=== PATIENT | male | born 1965 | race Caucasian/White ===

== ENCOUNTER 2017-02-04 19:06 | Emergency (ER) | payer SELFPAY ==
[2017-02-04 19:08] VITALS: BP 166/104; PULSE 126; RESP 20; TEMP 98.6; O2SAT 98
[2017-02-04] MEDS ORDERED: SODIUM CHLORIDE 0.9% FLUSH 10 ML FLUSH IVF PRN (19:45)
[2017-02-04] MEDS ORDERED: ACETAMINOPHEN/HYDROcodone 325 MG/5 MG TAB PO ONE (19:45)
[2017-02-04 19:51] VITALS: BP 182/104; PULSE 125; RESP 16; TEMP 98.7; O2SAT 97
--- NOTE | 2017-02-04 20:21 | RADRPT ---
EXAM DATE/TIME: 02/04/2017 19:58 [facility] COMPARISON: No previous studies available for comparison. INDICATIONS : Chest pain. MEDICAL HISTORY : Smoker. SURGICAL HISTORY : None. ENCOUNTER: Initial ACUITY: 1 day PAIN SCORE: 10/10 LOCATION: Bilateral chest FINDINGS: A single view of the chest demonstrates minimal basilar atelectasis. No focal consolidation. Heart si ze within normal limits. No effusion. No pneumothorax. CONCLUSION: 1. Minimal basilar atelectasis. No effusion or pneumothorax. Venkat Canas MD on February 04, 2017 at 20:18 Board Certified Radiologist. This report was verified electronically.
[2017-02-04] MEDS ORDERED: METH10TA PO (20:25)
[2017-02-04] MEDS ORDERED: SODIUM CHLOR 0.9% 1000 ML INJ 1,000 ML IV ONE (20:45)
[2017-02-04 20:46] LABS: AUTOMATED NEUTROPHIL # 8.9 TH/MM3 (1.8-7.7); BASOPHIL % 0.4 % (0.0-2.0); EOSINOPHIL % 0.2 % (0.0-4.0); HEMATOCRIT 51.6 % (39.0-51.0); HEMO FLAGS DIFF FINAL; LYMPHOCYTE # 1.1 TH/MM3 (1.0-4.8); MEAN CELL VOLUME 99.5 FL (80.0-100.0); MEAN CORPUSCULAR HEMOGLOBIN 34.4 PG (27.0-34.0); MEAN CORPUSCULAR HGB CONC 34.6 % (32.0-36.0); MONO % 8.1 % (0.0-8.0); NEUT % 81.3 % (16.0-70.0); PLATELET COUNT 148 TH/MM3 (150-450); RED BLOOD COUNT 5.19 MIL/MM3 (4.50-5.90); RED CELL DISTRIBUTION WIDTH 13.2 % (11.6-17.2)
[2017-02-04 20:48] LABS: APTT (PATIENT) 31.7 SEC (24.3-30.1); INTERNATIONAL NORMALIZED RATIO 1.5 RATIO; PROTHROMBIN TIME - PATIENT 16.4 SEC (9.8-11.6)
[2017-02-04] MEDS ORDERED: MORPHINE SULFATE 4 MG/ML INJ IV PUSH ONE (21:00)
[2017-02-04 21:17] VITALS: BP 165/90; PULSE 100; RESP 16; O2SAT 98
[2017-02-04 21:57] LABS: ANION GAP 10 MEQ/L (5-15); BICARBONATE 22.4 MEQ/L (21.0-32.0); BLOOD UREA NITROGEN 10 MG/DL (7-18); CHLORIDE 101 MEQ/L (98-107); GLOMERULAR FILTRATION RATE 129 ML/MIN (>89); POTASSIUM 4.5 MEQ/L (3.5-5.1); SODIUM (NA) 133 MEQ/L (136-145)
[2017-02-04] MEDS ORDERED: IOHEXOL 350 MG/ML 10 ML VIAL (for RAD DIAG) IV ONE (22:30)
--- NOTE | 2017-02-04 22:38 | RADRPT ---
EXAM DATE/TIME: 02/04/2017 22:18 [facility] COMPARISON: No previous studies available for comparison. INDICATIONS : Left sided chest wall pain. IV CONTRAST: 75 cc Omnipaque 350 (iohexol) IV RADIATION DOSE: 5.94 CTDIvol (mGy) MEDICAL HISTORY : Hepatitis C. Substance abuse. SURGICAL HISTORY : Tonsillectomy. ENCOUNTER: Initial ACUITY: 1 day PAIN SCALE: 10/10 LOCATION: Left chest TECHNIQUE: Volumetric scanning of the chest was performed. Using automated exposure control and adjustment of t he mA and/or kV according to patient size, radiation dose was kept as low as reasonably achievable to obtain optimal diagnostic quality images. FINDINGS: There is no focal lung consolidation. Minimal dependent atelectasis and scarring at the lung bases. N o pleural pericardial effusion. Mild coronary calcifications. No acute bony abnormalities. No pneumot horax. There is a 2.1 cm left adrenal nodule is characteristic of an adenoma. Mild fatty liver. CONCLUSION: 1. No acute findings within the thorax. Basal atelectasis and scarring in the lungs. No acute bony ab normalities. No chest wall mass identified. No pneumothorax. Venkat Canas MD on February 04, 2017 at 22:33 Board Certified Radiologist. This report was verified electronically.
[2017-02-04] MEDS ORDERED: CYCL1TAB29 PO (23:06)
--- NOTE | 2017-02-04 23:07 | PD ---
HPI Chief Complaint: Musculoskeletal Complaint Time Seen by Provider: 19:37 Travel History International Travel<30 days: No Contact w/Intl Traveler<30days: No Traveled to known affect area: No History of Present Illness HPI Patient is a 51-year-old male who comes in complaining of pain to his chest wall that started after he was lifting a large TV a few days ago. He says he felt a pop at the time and immediately felt pain. He says his been taking ibuprofen at home without any relief of his pain. He denies any direct trauma to the area. He says taking deep breaths and movement make the pain worse. He denies any fever or chills. He denies nausea or vomiting. He says "I can't take anymore ibuprofen." PFSH Past Medical History Autoimmune Disease: No Blood Disorders: No Anxiety: No Depression: No Cancer: No Cardiovascular Problems: No Cerebrovascular Accident: No Diabetes: No Diminished Hearing: No Endocrine: No Genitourinary: No Hepatitis: Yes (C) Immune Disorder: No Musculoskeletal: Yes Neurologic: No Psychiatric: No Reproductive: No Respiratory: No Immunizations Current: No Migraines: No Seizures: No Thyroid Disease: No Tetanus Vaccination: < 5 Years Past Surgical History Tonsillectomy: Yes Other Surgery: No Social History Alcohol Use: Yes (1-2 beers a day) Tobacco Use: Yes (3 PPD) Substance Use: Yes (IV diladid last used yesterday. [facility]. ) Allergies-Medications (Allergen,Severity, Reaction): Coded Allergies: Tylenol (Verified Allergy, Unknown, 02/04/17) *MDRO Multi-Drug Resistant Organism (Unverified Adverse Reaction, Unknown , 02/04/17) MRSA arm wound, 2004. MRSA PCR screen #1 negative 11/17/14. Reported Meds & Prescriptions Reported Meds & Active Scripts Active Reported Methadone (Methadone HCl) 10 Mg Tab 35 Mg PO DAILY Review of Systems Except as stated in HPI: all other systems reviewed are Neg General / Constitutional: No: Fever, Chills HENT: No: Headaches, Lightheadedness Respiratory: Positive: Cough, No: Shortness of Breath Gastrointestinal: No: Nausea, Vomiting Musculoskeletal: Positive: Pain Skin: No Rash, No Change in Pigmentation Neurologic: No: Weakness, Dizziness Physical Exam Narrative GENERAL: Awake and alert, no acute distress. SKIN: Focused skin assessment warm/dry. No rashes or signs of infection. He does have track chávez. HEAD: Atraumatic. Normocephalic. EYES: Pupils equal and round. No scleral icterus. No injection or drainage. ENT: Mucous membranes pink and moist. NECK: Trachea midline. No JVD. CARDIOVASCULAR: Tachycardia. No murmur appreciated. Tender to palpation of the chest wall, just below the left clavicle. Since the area he says is hurting him. RESPIRATORY: No accessory muscle use. Clear to auscultation. Breath sounds equal bilaterally. GASTROINTESTINAL: Abdomen soft, non-tender, nondistended. MUSCULOSKELETAL: No obvious deformities. No clubbing. No cyanosis. No edema. NEUROLOGICAL: Awake and alert. No obvious cranial nerve deficits. Motor grossly within normal limits. Normal speech. PSYCHIATRIC: Appropriate mood and affect; insight and judgment normal. Data Data Last Documented VS Vital Signs Date Time Temp Pulse Resp B/P Pulse Ox O2 Delivery O2 Flow Rate FiO2 02/04/17 21:17 100 16 165/90 98 Room Air 02/04/17 19:51 98.7 Orders Electrocardiogram (02/04/17 19:43) Basic Metabolic Panel (Bmp) (02/04/17 19:43) Complete Blood Count With Diff (02/04/17 19:43) Prothrombin Time / Inr (Pt) (02/04/17 19:43) Act Partial Throm Time (Ptt) (02/04/17 19:43) Troponin I (02/04/17 19:43) Lipase (02/04/17 19:43) Chest, Single Ap (02/04/17 19:43) Ecg Monitoring (02/04/17 19:43) Bilateral Bp Monitoring (02/04/17 19:43) Iv Access Insert/Monitor (02/04/17 19:43) Oximetry (02/04/17 19:43) Oxygen Administration (02/04/17 19:43) Sodium Chloride 0.9% Flush (Ns Flush) (02/04/17 19:45) Ct Thorax/ Chest W Iv Contrast (02/04/17 ) Acetamin-Hydrocod 325-5 Mg ([place] 5-325 (02/04/17 19:45) Sodium Chlor 0.9% 1000 Ml Inj (Ns 1000 M (02/04/17 20:45) Morphine Inj (Morphine Inj) (02/04/17 21:00) Iohexol 350 Inj (Omnipaque 350 Inj) (02/04/17 22:30) Labs Laboratory Tests Test 02/04/17 02/04/17 20:20 21:15 White Blood Count 11.0 TH/MM3 Red Blood Count 5.19 MIL/MM3 Hemoglobin 17.9 GM/DL Hematocrit 51.6 % Mean Corpuscular Volume 99.5 FL Mean Corpuscular Hemoglobin 34.4 PG Mean Corpuscular Hemoglobin 34.6 % Concent Red Cell Distribution Width 13.2 % Platelet Count 148 TH/MM3 Mean Platelet Volume 9.9 FL Neutrophils (%) (Auto) 81.3 % Lymphocytes (%) (Auto) 10.0 % Monocytes (%) (Auto) 8.1 % Eosinophils (%) (Auto) 0.2 % Basophils (%) (Auto) 0.4 % Neutrophils # (Auto) 8.9 TH/MM3 Lymphocytes # (Auto) 1.1 TH/MM3 Monocytes # (Auto) 0.9 TH/MM3 Eosinophils # (Auto) 0.0 TH/MM3 Basophils # (Auto) 0.0 TH/MM3 CBC Comment DIFF FINAL Differential Comment Prothrombin Time 16.4 SEC Prothromb Time International 1.5 RATIO Ratio Activated Partial 31.7 SEC Thromboplast Time Sodium Level 133 MEQ/L Potassium Level 4.5 MEQ/L Chloride Level 101 MEQ/L Carbon Dioxide Level 22.4 MEQ/L Anion Gap 10 MEQ/L Blood Urea Nitrogen 10 MG/DL Creatinine 0.65 MG/DL Estimat Glomerular Filtration 129 ML/MIN Rate Random Glucose 110 MG/DL Calcium Level 8.6 MG/DL Troponin I LESS THAN 0.02 NG/ML Lipase 87 U/L [facility] Medical Decision Making Medical Screen Exam Complete: Yes Emergency Medical Condition: Yes Interpretation(s) ECG shows sinus tachycardia 120, no ST elevation or depression. Differential Diagnosis Chest wall pain versus rib fracture versus pneumothorax versus muscle strain Narrative Course Patient is a 51-year-old male comes in complaining of chest wall pain after lifting and large television. Exam shows tenderness to palpation just below the left clavicle. IV established, labs sent. Patient given [place] for pain. Given IV fluids. Patient told the nurse that he takes methadone and has not had the methadone in the past 2 days. He does admit to buying Dilaudid on the street yesterday. He told the nurse that this is how he feels when he misses his methadone. Labs show hemoconcentration, likely dehydration. He continued to complain of pain. Given a dose of morphine. Patient's tachycardia improved after pain medicine and IV fluids. Chest x-ray and CT of the chest show no acute abnormalities. Patient advised he likely strained muscle. Advised he should report to his methadone clinic tomorrow. Given a prescription for muscle relaxers. Advised follow-up with a primary care doctor. Advised to return to the ED as needed for any worsening symptoms. Last 24 hours Impressions Chest X-Ray 02/04/17 1943 Signed Impressions: Service Date/Time: Saturday, February 04, 2017 19:58 - CONCLUSION: 1. Minimal basilar atelectasis. No effusion or pneumothorax. Venkat Canas MD Chest CT 02/04/17 0000 Signed Impressions: Service Date/Time: Saturday, February 04, 2017 22:18 - CONCLUSION: 1. No acute findings within the thorax. Basal atelectasis and scarring in the lungs. No acute bony abnormalities. No chest wall mass identified. No pneumothorax. Venkat Canas MD Diagnosis Primary Impression: Chest wall pain Patient Instructions: Chest Wall Pain (ED), General Instructions, Muscle Strain (ED) Additional Instructions: Take ibuprofen and muscle relaxers as needed for pain. Follow-up with her primary care doctor. Return to the ED as needed for any worsening symptoms. Scripts Cyclobenzaprine (Flexeril)10 Mg Tab10 Mg PO TID #15 TAB Ref 0 Prov:Chery Hernández MD 02/04/17 Disposition: 01 DISCHARGE HOME Condition: Stable Chery Hernández MD Feb 04, 2017 23:07
--- NOTE | 2017-02-05 09:36 | EKG ---
Date Performed: 02/04/2017 Time Performed: 20:40:24 PTAGE: 51 years EKG: SINUS TACHYCARDIA POSSIBLE RIGHT VENTRICULAR CONDUCTION DELAY ABNORMAL RHYTHM ECG PREVIOUS TRACING : 06/16/2015 10.50 DOCTOR: Simone Kwok Interpretating Date/Time 02/05/2017 09:31:59
== END 2017-02-04 23:34 | disposition home or self-care (01) ==
LOC: NEPC 19:06
DX: R07.89 Other chest pain (principal); F17.210 Nicotine dependence, cigarettes, uncomplicated; B19.20 Unspecified viral hepatitis C without hepatic coma; R05 Cough; R00.0 Tachycardia, unspecified
CPT/HCPCS: 71010; 71260; 80048; 83690; 84484; 85025; 85610; 85730; 93005; 96374; 99285; J2270; J7030; Q9967

== ENCOUNTER 2017-02-07 21:33 | Inpatient (IN) | payer SELFPAY ==
[~2017-02-07] VITALS: Ht 185.4 cm; Wt 102.8 kg
[~2017-02-07 21:33] MED LIST: CYCL1TAB29 PO; METH10TA PO
[2017-02-07 21:36] VITALS: BP 182/90; PULSE 146; RESP 22; TEMP 99.1; O2SAT 98
--- NOTE | 2017-02-07 22:13 | PD ---
HPI Chief Complaint: Injury Time Seen by Provider: 22:13 Travel History International Travel<30 days: No Contact w/Intl Traveler<30days: No Traveled to known affect area: No History of Present Illness HPI 51-year-old male with a history of chronic pain and IV drug use presents to the emergency department for evaluation of left chest wall pain. The patient states that 5 days ago he was moving a large television when he felt a pop in his left chest wall. States that he had immediate pain in this location and has had worsening pain since then. States it is also noticed swelling of his left pectoralis muscle and the pain is aggravated with movement of his arms, specifically the left arm. He denies any shortness of breath, difficulty breathing, lightheadedness, dizziness, nausea, vomiting, diarrhea. States that he was seen here 3 days ago and had labs and imaging that were unremarkable and was discharged on Flexeril. States that this has not been controlling his pain. The patient does admit to using IV Dilaudid occasionally, states he has used in the last month. No other complaints. PFSH Past Medical History Autoimmune Disease: No Blood Disorders: No Anxiety: No Depression: No Cancer: No Cardiovascular Problems: No Cerebrovascular Accident: No Diabetes: No Diminished Hearing: No Endocrine: No Genitourinary: No Hepatitis: Yes (C) Immune Disorder: No Musculoskeletal: Yes Neurologic: No Psychiatric: No Reproductive: No Respiratory: No Immunizations Current: No Migraines: No Seizures: No Thyroid Disease: No Past Surgical History Tonsillectomy: Yes Other Surgery: No Social History Alcohol Use: Yes (1-2 beers a day) Tobacco Use: Yes (3 PPD) Substance Use: Yes (IV diladid last used yesterday. [facility]. ) Allergies-Medications (Allergen,Severity, Reaction): Coded Allergies: Tylenol (Verified Allergy, Unknown, 02/04/17) *MDRO Multi-Drug Resistant Organism (Unverified Adverse Reaction, Unknown , 02/04/17) MRSA arm wound, 2004. MRSA PCR screen #1 negative 11/17/14. Reported Meds & Prescriptions Reported Meds & Active Scripts Active Flexeril (Cyclobenzaprine HCl) 10 Mg Tab 10 Mg PO TID Reported Methadone (Methadone HCl) 10 Mg Tab 35 Mg PO DAILY Review of Systems Except as stated in HPI: all other systems reviewed are Neg Physical Exam Narrative GENERAL: Well-nourished and well-developed male patient in moderate amount of pain but no acute distress. SKIN: Warm and dry. HEAD: Normocephalic and atraumatic. EYES: No injection, drainage, or hyphema noted. PERRLA. EOMI. ENT: No nasal drainage noted. Oropharynx is clear. NECK: Supple and the trachea is midline. CARDIOVASCULAR: Regular rate and rhythm. RESPIRATORY: Breath sounds are equal bilaterally with no accessory muscle use, wheezing, rhonchi, or crackles. CHEST: Left pectoris muscle is swollen, firm and tender to palpation from just left of the sternum to the left axilla. No erythema or warmth. GASTROINTESTINAL: Abdomen is soft, non-tender, and nondistended. MUSCULOSKELETAL: No obvious deformities, swelling, cyanosis, or ecchymosis is present throughout the upper and lower extremities. Patient has full range of motion without any signs of neurovascular compromise. . NEUROLOGICAL: Awake, alert, and oriented. Normal speech and gait. Cranial nerves are grossly intact. Data Data Last Documented VS Vital Signs Date Time Temp Pulse Resp B/P Pulse Ox O2 Delivery O2 Flow Rate FiO2 02/07/17 21:36 99.1 146 22 182/90 98 Room Air Orders Us Soft Tissue (02/07/17 ) Iv Access Insert/Monitor (02/07/17 22:11) Ecg Monitoring (02/07/17 22:11) Oximetry (02/07/17 22:11) Morphine Inj (Morphine Inj) (02/07/17 22:15) Ondansetron Inj (Zofran Inj) (02/07/17 22:15) Sodium Chloride 0.9% Flush (Ns Flush) (02/07/17 22:15) Ice/Cold Pack (02/07/17 22:13) Electrocardiogram (02/07/17 22:20) MDM Medical Decision Making Medical Screen Exam Complete: Yes Emergency Medical Condition: Yes Differential Diagnosis Muscle strain versus muscle tear versus hematoma Narrative Course 51-year-old male presents to the emergency department for evaluation of left chest wall pain after lifting something heavy 5 days ago and feeling a pop in his left chest wall. Patient is afebrile, vital signs reveal tachycardia initially with a heart rate of 146 bpm. Otherwise vital signs within normal limits. He does have swelling of the left pectoris muscle tenderness to palpation. He was seen 3 days ago in our emergency department and had lab work and a chest CT that were unremarkable. His pain is persisted. We'll do an ultrasound to rule out any hematoma formation. Patient is administered pain medication. Patient signed out to Dr. Miller who will assume care of the patient and disposition pending results of imaging. Sarai Hernandez Feb 07, 2017 22:13
[2017-02-07] MEDS ORDERED: ONDANSETRON HCL 4 MG/2 ML VIAL IVP ONE (22:15)
[2017-02-07] MEDS ORDERED: SODIUM CHLORIDE 0.9% FLUSH 10 ML FLUSH IV FLUSH PRN (22:15)
[2017-02-07] MEDS ORDERED: MORPHINE SULFATE 4 MG/ML INJ IV PUSH ONE (22:15)
--- NOTE | 2017-02-07 22:33 | PD ---
Physical Exam Narrative General: The patient is a well-developed well-nourished male, uncomfortable appearing on arrival reporting left chest wall pain. Head and Neck exam: Head is normocephalic atraumatic. Eyes: EOMI, pupils are equal round and reactive to light. Nose: Midline septum with pink mucous membranes Mouth: Dentition unremarkable. Moist mucus membranes. Posterior oropharynx is not erythematous. No tonsillar hypertrophy. Uvula midline. Airway patent. Neck: No palpable lymphadenopathy. No nuchal rigidity. No thyromegaly. Cardiovascular: Sinus tachycardia in the 140s without murmurs, gallops, or rubs. No pulse deficit to the extremities and simultaneous auscultation and palpation of his radial artery. Chest Wall: Left chest is bigger compared to the right with pectoral muscle TTP medially and edema palpated in the soft tissues overlying the left chest. No crepitus. No flail segment. No pointing. No vesicle formation. Lungs: Clear to auscultation bilaterally. No wheezes, rhonchi, or rales. Abdomen: Soft, without tenderness to palpation in all 4 quadrants of the abdomen. No guarding, rebound, or rigidity. Normal bowel sounds are audible. No TTP over McBurney's point. Extremities: No clubbing, cyanosis, or edema. 2+ pulses in all 4 extremities. Back: No spinous process tenderness to palpation. No costovertebral angle tenderness to palpation. Neurologic Exam: Cranial nerves 2-12 were intact on exam. Strength is 5/5 in all 4 extremities. No sensory deficits noted. Skin Exam: No rash noted. Intact skin that is warm and dry. Data Data Last Documented VS Vital Signs Date Time Temp Pulse Resp B/P Pulse Ox O2 Delivery O2 Flow Rate FiO2 02/08/17 00:28 137 22 134/82 98 Room Air 02/07/17 21:36 99.1 Orders Us Soft Tissue (02/07/17 ) Iv Access Insert/Monitor (02/07/17 22:11) Ecg Monitoring (02/07/17 22:11) Oximetry (02/07/17 22:11) Morphine Inj (Morphine Inj) (02/07/17 22:15) Ondansetron Inj (Zofran Inj) (02/07/17 22:15) Sodium Chloride 0.9% Flush (Ns Flush) (02/07/17 22:15) Ice/Cold Pack (02/07/17 22:13) Electrocardiogram (02/07/17 22:20) Ribs, Uni (W/Exp Cxr-Min 3vw) (02/07/17 ) Complete Blood Count With Diff (02/07/17 23:35) Basic Metabolic Panel (Bmp) (02/07/17 23:35) Urinalysis - C+S If Indicated (02/07/17 23:35) Thyroid Stimulating Hormone (02/07/17 23:35) Troponin I (02/07/17 23:35) Sodium Chlor 0.9% 1000 Ml Inj (Ns 1000 M (02/07/17 23:45) Ondansetron Inj (Zofran Inj) (02/07/17 23:45) Hydromorphone Pf Inj (Dilaudid Pf Inj) (02/07/17 23:45) Blood Culture (02/08/17 02:00) Lactic Acid Sepsis Protocol (02/08/17 02:00) Sodium Chlor 0.9% 1000 Ml Inj (Ns 1000 M (02/08/17 02:01) Sodium Chlor 0.9% 1000 Ml Inj (Ns 1000 M (02/08/17 02:01) Sodium Chlor 0.9% 1000 Ml Inj (Ns 1000 M (02/08/17 02:01) Piperacil-Tazo 3.375 Gm Premix (Zosyn 3. (02/08/17 02:15) Admit Order (Ed Use Only) (02/08/17 02:09) Labs Laboratory Tests Test 02/07/17 23:42 White Blood Count 22.0 TH/MM3 Red Blood Count 4.94 MIL/MM3 Hemoglobin 17.1 GM/DL Hematocrit 49.3 % Mean Corpuscular Volume 99.8 FL Mean Corpuscular Hemoglobin 34.7 PG Mean Corpuscular Hemoglobin 34.8 % Concent Red Cell Distribution Width 13.4 % Platelet Count 214 TH/MM3 Mean Platelet Volume 10.5 FL Neutrophils (%) (Auto) 79.8 % Lymphocytes (%) (Auto) 4.7 % Monocytes (%) (Auto) 14.7 % Eosinophils (%) (Auto) 0.1 % Basophils (%) (Auto) 0.7 % Neutrophils # (Auto) 17.6 TH/MM3 Lymphocytes # (Auto) 1.0 TH/MM3 Monocytes # (Auto) 3.2 TH/MM3 Eosinophils # (Auto) 0.0 TH/MM3 Basophils # (Auto) 0.2 TH/MM3 CBC Comment AUTO DIFF Differential Total Cells 100 Counted Neutrophils % (Manual) 68 % Band Neutrophils % 13 % Lymphocytes % 7 % Monocytes % 10 % Neutrophils # (Manual) 18.3 TH/MM3 Metamyelocytes 2 % Differential Comment FINAL DIFF MANUAL Platelet Estimate NORMAL Platelet Morphology Comment NORMAL Prothrombin Time 12.7 SEC Prothromb Time International 1.1 RATIO Ratio Activated Partial 32.5 SEC Thromboplast Time Sodium Level 132 MEQ/L Potassium Level 3.8 MEQ/L Chloride Level 96 MEQ/L Carbon Dioxide Level 24.5 MEQ/L Anion Gap 12 MEQ/L Blood Urea Nitrogen 22 MG/DL Creatinine 1.16 MG/DL Estimat Glomerular Filtration 66 ML/MIN Rate Random Glucose 76 MG/DL Calcium Level 8.9 MG/DL Total Bilirubin 2.5 MG/DL Direct Bilirubin 1.4 MG/DL Indirect Bilirubin 1.1 MG/DL Aspartate Amino Transf 38 U/L (AST/SGOT) Alanine Aminotransferase 66 U/L (ALT/SGPT) Alkaline Phosphatase 107 U/L Troponin I LESS THAN 0.02 NG/ML Total Protein 8.7 GM/DL Albumin 2.9 GM/DL Thyroid Stimulating Hormone 3.710 uIU/ML 3rd Gen Acetaminophen Level LESS THAN 2.0 MCG/ML [facility] Medical Record Reviewed: Yes Supervised Visit with LAVERN: Yes Interpretation(s) Last Impressions Chest CT 02/08/17 0000 Signed Impressions: Service Date/Time: Wednesday, February 08, 2017 09:15 - CONCLUSION: 1. Diffuse enlargement of the left pectoralis muscle with infiltration of the soft tissues surrounding the left pectoralis muscle suggestive of injury/tear of this muscle. Clinical correlation is recommended. 2. Tiny bilateral pleural effusions with bibasilar atelectasis. 3. Cardiomegaly and coronary artery calcifications. 4. Mild splenomegaly. 5. Left adrenal nodule measuring 2.4 x 2.2 cm. 5. Mild degenerative changes and scoliosis of the thoracolumbar spine. Jose Reddy MD Soft Tissue Ultrasound 02/07/17 0000 Signed Impressions: Service Date/Time: Tuesday, February 07, 2017 23:16 - CONCLUSION: There is subcutaneous edema. Amber Sandoval MD Ribs X-Ray 02/07/17 0000 Signed Impressions: Service Date/Time: Tuesday, February 07, 2017 23:39 - CONCLUSION: No definite displaced rib fractures. Amber Sandoval MD Differential Diagnosis Left chest hematoma, versus pectoral muscle tear, versus abscess, versus acute coronary syndrome Narrative Course During the course of the patients emergency department visit, the patients history, examination, and differential diagnosis were reviewed with the patient. The patient had IV access obtained and blood work sent for analysis. The patient was placed on a air sampling and monitoring with oximetry and blood pressure monitoring. An EKG was done on arrival. The patient's EKG showed sinus tachycardia. The patient was also noted to be hypertensive, initially it was suspected that the patient's pain was the cause. The patient's case was checked out to me by Sarai, please see her complete history and physical. The patient is a 51-year-old male who presents to [facility] emergency Department with a history of doing some heavy lifting 3 days ago when he bent down and picked up a large television. He reports that he felt a pop in the left side of his chest and immediate pain. He reports that he came to the emergency department for evaluation and treatment and from reviewing the record the patient had a full workup done including a CT scan of the chest. The patient was diagnosed with musculoskeletal strain and was discharged home with a muscle relaxer. The patient reports to me that he does have a history of IV drug use and has been self-medicating with hydromorphone and fentanyl. The patient reports that he has basically been laying down related to the pain. He reports having poor by mouth intake related to the pain. He also reports having a productive cough, however whenever he coughs he is lightheaded and near syncopal. The patient was initially provided morphine for pain, Zofran for nausea. After my evaluation, the patient was also given a liter of normal saline IV fluids for tachycardia. The patient continued to have pain and was given hydromorphone 1 mg IV. Laboratory studies were ordered. An ultrasound of the left pectoral muscle was ordered to evaluate for possible underlying hematoma versus abscess. A rib series was ordered. The patients laboratory studies were reviewed and remarkable for a white count of 22, hemoglobin 17.1, platelets 214, neutrophils 79.8, monocytes 14.7, basic metabolic profile is remarkable for a sodium of 132, chloride 96, BUN 22, GFR 66 , troponin I less than 0.02, TSH 3.71 Radiology studies were reviewed and remarkable for an ultrasound that shows subcutaneous edema, no fluid collections. Rib series reveals no definite displaced rib fractures, basilar atelectasis on the left is noted. Given the patient's elevated white count and cough with tachycardia, I am concerned about a pneumonia developing in the left lung field at the patient is splinting his breathing. Lactic acid was sent, blood cultures 2 were sent. The patient is also at risk for sepsis related to his IV drug use. The patient was started on vancomycin 1 g IV, Zosyn 3.375 g IV. The patient will be admitted to the hospital for pain control and continued evaluation and treatment. The patient' s heart rate did began to improve and was down to the 120s after the initial liter of normal saline and hydromorphone for pain. An ABG revealed no acidosis. Tylenol and Aspirin level were unremarkable. LFTs were improved compared to prior levels at this facility. The patients results were discussed with the patient, including the plan of care. I explained that further testing and/ or monitoring is indicated based on the patients history, examination, and/ or laboratory findings. Therefore, I recommended admission for additional evaluation. The patient expressed understanding and was agreeable with this plan. The patient was admitted to the hospital in stable condition and sent to a bed under the care of the [facility] service. Sepsis Criteria SIRS Criteria (2 or more): Heart rate over 90, WBC > 54956, < 4000 or > 10% bands Severe Sepsis (+one): Lactate >2 Physician Communication Physician Communication The patient's case was d/w Dr. Porter who agreed with the plan to proceed with admission. Diagnosis Primary Impression: Chest wall pain Additional Impressions: Leukocytosis Qualified Code: D72.829 - Leukocytosis, unspecified type Lung infiltrate Admitting Information Admitting Physician Requests: Admit Enedelia Miller MD Feb 07, 2017 22:33
[2017-02-07 22:50] VITALS: BP 124/94; PULSE 146; RESP 22; O2SAT 98
[2017-02-07] MEDS ORDERED: HYDROmorphone HCL PF 1 MG/ML VIAL IV PUSH ONE (23:45)
[2017-02-07] MEDS ORDERED: SODIUM CHLOR 0.9% 1000 ML INJ 1,000 ML IV ONE (23:45)
[2017-02-07] MEDS ORDERED: ONDANSETRON HCL 4 MG/2 ML VIAL IV ONE (23:45)
[2017-02-08] VITALS (12 sets, daily range): BP systolic 120–149; BP diastolic 77–97; PULSE 97–139; RESP 20–22; TEMP 96.4–99.9; O2SAT 93–99
--- NOTE | 2017-02-08 00:01 | RADRPT ---
EXAM DATE/TIME: 02/07/2017 23:39 [facility] COMPARISON: No previous studies available for comparison. INDICATIONS : Rib pain. MEDICAL HISTORY : None. SURGICAL HISTORY : None. ENCOUNTER: Initial ACUITY: 1 day PAIN SCORE: 0/10 LOCATION: Left ribs FINDINGS: No definite displaced rib fractures or pneumothorax is identified. There is slight atelectasis in the left lung base. CONCLUSION: No definite displaced rib fractures. Amber Sandoval MD on February 07, 2017 at 23:58 Board Certified Radiologist. This report was verified electronically.
--- NOTE | 2017-02-08 00:04 | RADRPT ---
EXAM DATE/TIME: 02/07/2017 23:16 [facility] COMPARISON: CT THORAX W CONTRAST, February 04, 2017, 22:18. INDICATIONS : Left chest swelling, redness and pain. MEDICAL HISTORY : Hepatitis C. Head trauma. Liver disease. Substance abuse. IV drug user. MRSA. SURGICAL HISTORY : Tonsillectomy. ENCOUNTER: Initial ACUITY: 1 day PAIN SCORE: 8/10 LOCATION: Left chest AREA EVALUATED: Left anterior chest/breast. FINDINGS: Examination of the left chest with dedicated and focused attention to the area of the clinical concer n demonstrates edema without focal pockets of fluid collections or mass. CONCLUSION: There is subcutaneous edema. Amber Sandoval MD on February 08, 2017 at 0:01 Board Certified Radiologist. This report was verified electronically.
[2017-02-08 01:06] LABS: AUTOMATED NEUTROPHIL # 17.6 TH/MM3 (1.8-7.7); BASOPHIL # 0.2 TH/MM3 (0-0.2); BASOPHIL % 0.7 % (0.0-2.0); EOSINOPHIL % 0.1 % (0.0-4.0); HEMATOCRIT 49.3 % (39.0-51.0); LYMPH % 4.7 % (9.0-44.0); MEAN CELL VOLUME 99.8 FL (80.0-100.0); MEAN CORPUSCULAR HEMOGLOBIN 34.7 PG (27.0-34.0); MEAN CORPUSCULAR HGB CONC 34.8 % (32.0-36.0); MONO % 14.7 % (0.0-8.0); NEUT % 79.8 % (16.0-70.0); PLATELET COUNT 214 TH/MM3 (150-450); RED BLOOD COUNT 4.94 MIL/MM3 (4.50-5.90); RED CELL DISTRIBUTION WIDTH 13.4 % (11.6-17.2)
[2017-02-08 01:09] LABS: HEMO FLAGS AUTO DIFF
[2017-02-08 01:43] LABS: ANION GAP 12 MEQ/L (5-15); BICARBONATE 24.5 MEQ/L (21.0-32.0); BLOOD UREA NITROGEN 22 MG/DL (7-18); CHLORIDE 96 MEQ/L (98-107); GLOMERULAR FILTRATION RATE 66 ML/MIN (>89); POTASSIUM 3.8 MEQ/L (3.5-5.1); SODIUM (NA) 132 MEQ/L (136-145)
[2017-02-08] MEDS ORDERED: SODIUM CHLOR 0.9% 1000 ML INJ 700 ML IV ONE (02:01)
[2017-02-08] MEDS ORDERED: SODIUM CHLOR 0.9% 1000 ML INJ 1,000 ML IV ONE ×2 (02:01)
[2017-02-08 02:05] LABS: BANDS 13 % (0-6); METAMYELOCYTES 2 % (0-1); NEUTROPHIL # MANUAL DIFF 18.3 TH/MM3 (1.8-7.7); POLYS (SEG NEUTROPHILS) 68 % (16-70); WBC DIFF SAMPLE 100
[2017-02-08 02:06] LABS: PLATELET ESTIMATE SMEAR NORMAL (NORMAL); PLATELET MORPHOLOGY NORMAL (NORMAL); SCAN/DIFF FINAL DIFF MANUAL
[2017-02-08] MEDS ORDERED: PIPERACIL-TAZO 3.375 GM PREMIX 50 ML IV ONE (02:15)
[2017-02-08] MEDS ORDERED: VANCOMYCIN INJ 1,000 MG in SODIUM CHLOR 0.9% 250 ML INJ 250 ML IV ONE (02:15)
[2017-02-08] MEDS ORDERED: SODIUM CHLORIDE 0.9% FLUSH 10 ML FLUSH IV FLUSH PRN (02:45)
[2017-02-08] MEDS ORDERED: NALOXONE HCL 0.4 MG/ML AMP IV PRN (02:45)
[2017-02-08] MEDS ORDERED: ONDANSETRON HCL 4 MG/2 ML VIAL IVP PRN (02:45)
[2017-02-08] MEDS ORDERED: Vancomycin Consult Pharmacy 1 EA OTHER SCH (02:45)
[2017-02-08 02:49] LABS: BLOOD GAS BASE EXCESS -3.9 mmol/L (-2-2); BLOOD GAS CARBOXYHEMOGLOBIN 4.2 % (0-4); BLOOD GAS HCO3 20 mmol/L (22-26); BLOOD GAS METHEMOGLOBIN 0.6 % (0-2); BLOOD GAS O2 HGB SATURATION 87 % (90-100); BLOOD GAS OXYGEN CONTENT 20.2 Vol % (12.0-20.0); BLOOD GAS PCO2 29 mmHg (38-42); BLOOD GAS PO2 52 mmHG (61-120); BLOOD GAS TOTAL HGB 16.6 G/DL (12.0-16.0); DRAW SITE RT RADIAL; FIO2 21 %; OXYGEN DEVICE ROOM AIR; TEMP CORR TO 98.6
[2017-02-08 02:50] LABS: NUMBER OF ARTERIAL PUNCTURES 1; STAT YES; ULNAR PULSE PRESENT
[2017-02-08 03:01] LABS: APTT (PATIENT) 32.5 SEC (24.3-30.1); INTERNATIONAL NORMALIZED RATIO 1.1 RATIO; PROTHROMBIN TIME - PATIENT 12.7 SEC (9.8-11.6)
[2017-02-08 03:09] LABS: ALT (GPT) 66 U/L (12-78); AST (GOT) 38 U/L (15-37)
[2017-02-08 03:10] LABS: ACETAMINOPHEN LESS THAN 2.0 MCG/ML (10.0-30.0); ALKALINE PHOSPHATASE 107 U/L (45-117); INDIRECT BILIRUBIN 1.1 MG/DL (0.0-0.8); TOTAL BILIRUBIN ADULT 2.5 MG/DL (0.2-1.0)
[2017-02-08] MEDS ORDERED: HYDROmorphone HCL PF 1 MG/ML VIAL IV PUSH ONE (03:15)
[2017-02-08] MEDS ORDERED: PANTOPRAZOLE SODIUM 40 MG VIAL IV PUSH ONE (03:15)
[2017-02-08 03:29] LABS: BLOOD, URINE NEG (NEG); COMMENT (UR) CULT NOT INDICATED; CULTURE IF INDICATED CULT NOT INDICATED; GLUCOSE,URINE NEG (NEG); KETONE, URINE NEG (NEG); MUCUS URINE FEW /lpf (OCC); NITRITE,URINE NEG (NEG); SQUAMOUS EPITHELIAL CELL URINE <1 /hpf (0-5); URINE COLOR DARK-YELLOW (YELLW/STRAW)
[2017-02-08 04:33] LABS: LACTIC ACID GHOST NOT REPORTABLE
[2017-02-08] MEDS ORDERED: VANCOMYCIN 1,500 MG/NS 500 ML IV ONE ×2 (05:00)
[2017-02-08] MEDS ORDERED: KETOROLAC TROMETHAMINE 30 MG/ML (IVP) VIAL IV PUSH PRN (05:15)
[2017-02-08] MEDS ORDERED: ALPRAZolam 0.25 MG TAB PO ONE (05:30)
[2017-02-08] MEDS ORDERED: HYDROmorphone HCL PF 1 MG/ML VIAL IV PUSH PRN (06:00)
--- NOTE | 2017-02-08 06:06 | HHI.HP ---
HPI Service [facility] Primary Care Physician No Primary Care Physician Admission Diagnosis Left chest wall injury, Left lung infiltrate, tachycardia Diagnoses: Travel History International Travel<30 Days: No Contact w/Intl Traveler <30 Da: No Traveled to Known Affected Are: No Sepsis Criteria SIRS Criteria (2 or more): Heart rate over 90, WBC > 57031, < 4000 or > 10% bands Sepsis Criteria (SIRS+source): Infect source susp/known Severe Sepsis (+one): Lactate >2 Criteria Outcome: Meets severe sepsis criteria History of Present Illness history from patient, at the bedside, and review of medical records. Patient reported that on February 02, 2017, he was trying to lift a 50 inch TV as they were moving into a new home. In so doing, he felt he pulled a muscle on his left pectoralis and felt a pop. He presented to our emergency room on February 04, 2017 and has had a chest x-ray and CT chest done which was essentially negative. He was discharged home on Flexeril. He reports that for the past 4 days, he has been in severe pain, and was not able to move much at all. He was not able to sleep or lie down flat at all. He reports it hurts even when he takes a deep breath. His muscle on the left pectoralis also had gotten bigger and bigger and swollen. He reports he took multiple doses of aspirin and multiple doses of Tylenol to numb the pain. He then started having bloody urination which was why he also came to hospital. He denies any fever though. Denies any cough. Denies any urinary burning or pain on urination. Denies diarrhea. He states that the left pectoralis muscle area though is quite warm and he and are worried about infection. Patient has had prior history of IV drug abuse with IV heroin, Dilaudid, fentanyl. He stated he quit all that about 2 years ago and was on methadone clinic. He then weaned himself off methadone and has been off it for past 2 years now. In the emergency room, patient was found to have leukocytosis with left shift and bandemia, lactic acid acidosis. He was also in quite significant pain and quite uncomfortable at the time of my exam. Review of Systems Except as stated in HPI: all other systems reviewed are Neg Past Family Social History Past Medical History hepatitis C Reported Medications None at home by prescription or [id number] Allergies: Coded Allergies: Tylenol (Verified Allergy, Unknown, 02/07/17) *MDRO Multi-Drug Resistant Organism (Unverified Adverse Reaction, Unknown , 02/07/17) MRSA arm wound, 2004. MRSA PCR screen #1 negative 11/17/14. Family History Denies any family history of any medical issues that he knows of. He stated he was adopted. Social History a pack a day - not for last 6 days for 6 days, no drinks, usually one or two beers a day used to use iv dialuid, fentanyl, then was on methadone program - but quit all that 2 yrs ago Of note: Per nursing chart, patient smokes 3 packs a day. And that he used to use IV Dilaudid the latest use being yesterday. Physical Exam Vital Signs Vital Signs Date Time Temp Pulse Resp B/P Pulse Ox O2 Delivery O2 Flow Rate FiO2 02/08/17 04:43 96.4 110 20 149/97 97 02/08/17 03:45 115 22 133/88 94 Room Air 02/08/17 02:54 93 Nasal Cannula 3.00 02/08/17 02:36 125 22 128/84 99 Room Air 02/08/17 00:28 137 22 134/82 98 Room Air 02/07/17 22:50 146 22 124/94 98 Room Air 02/07/17 21:36 99.1 146 22 182/90 98 Room Air Physical Exam GENERAL: This is a well-nourished, well-developed patient, in severe distress from pain SKIN: No rashes, ecchymoses or lesions. Cool and dry. Mild redness and warmth on the left pectoralis HEAD: Atraumatic. Normocephalic. No temporal or scalp tenderness. EYES:No scleral icterus. No injection or drainage. ENT: Nose without bleeding, purulent drainage or septal hematoma. Airway patent. NECK: Trachea midline. No JVD CARDIOVASCULAR: Regular rate and rhythm without murmurs, gallops, or rubs. RESPIRATORY: Clear to auscultation. Breath sounds equal bilaterally. No wheezes , rales, or rhonchi. GASTROINTESTINAL: Abdomen soft, non-tender, nondistended.No guarding. MUSCULOSKELETAL: Extremities without clubbing, cyanosis, or edema. No calf tenderness. NEUROLOGICAL: Awake and alert. Motor and sensory grossly within normal limits by history though difficult to perform exam today severe pain Normal speech. Laboratory Laboratory Tests Test 02/07/17 02/08/17 02/08/17 02/08/17 23:42 02:22 02:37 03:02 White Blood Count 22.0 Red Blood Count 4.94 Hemoglobin 17.1 Hematocrit 49.3 Mean Corpuscular Volume 99.8 Mean Corpuscular Hemoglobin 34.7 Mean Corpuscular Hemoglobin 34.8 Concent Red Cell Distribution Width 13.4 Platelet Count 214 Mean Platelet Volume 10.5 Neutrophils (%) (Auto) 79.8 Lymphocytes (%) (Auto) 4.7 Monocytes (%) (Auto) 14.7 Eosinophils (%) (Auto) 0.1 Basophils (%) (Auto) 0.7 Neutrophils # (Auto) 17.6 Lymphocytes # (Auto) 1.0 Monocytes # (Auto) 3.2 Eosinophils # (Auto) 0.0 Basophils # (Auto) 0.2 CBC Comment AUTO DIFF Differential Total Cells 100 Counted Neutrophils % (Manual) 68 Band Neutrophils % 13 Lymphocytes % 7 Monocytes % 10 Neutrophils # (Manual) 18.3 Metamyelocytes 2 Differential Comment FINAL DIFF MANUAL Platelet Estimate NORMAL Platelet Morphology Comment NORMAL Prothrombin Time 12.7 Prothromb Time International 1.1 Ratio Activated Partial 32.5 Thromboplast Time Sodium Level 132 Potassium Level 3.8 Chloride Level 96 Carbon Dioxide Level 24.5 Anion Gap 12 Blood Urea Nitrogen 22 Creatinine 1.16 Estimat Glomerular Filtration 66 Rate Random Glucose 76 Calcium Level 8.9 Total Bilirubin 2.5 Direct Bilirubin 1.4 Indirect Bilirubin 1.1 Aspartate Amino Transf 38 (AST/SGOT) Alanine Aminotransferase 66 (ALT/SGPT) Alkaline Phosphatase 107 Troponin I LESS THAN 0.02 Total Protein 8.7 Albumin 2.9 Thyroid Stimulating Hormone 3.710 3rd Gen Acetaminophen Level LESS THAN 2.0 Lactic Acid Level 2.5 Blood Gas Puncture Site RT RADIAL Blood Gas Patient Temperature 98.6 Blood Gas HCO3 20 Blood Gas Base Excess -3.9 Blood Gas Oxygen Saturation 87 Arterial Blood pH 7.44 Arterial Blood Partial 29 Pressure CO2 Arterial Blood Partial 52 Pressure O2 Arterial Blood Oxygen Content 20.2 Arterial Blood 4.2 Carboxyhemoglobin Arterial Blood Methemoglobin 0.6 Blood Gas Hemoglobin 16.6 Oxygen Delivery Device ROOM AIR Blood Gas Inspired Oxygen 21 Salicylates Level LESS THAN 1.7 Urine Color DARK-YELLOW Urine Turbidity CLEAR Urine pH 6.0 Urine Specific [place] 1.020 Urine Protein 30 Urine Glucose (UA) NEG Urine Ketones NEG Urine Occult Blood NEG Urine Nitrite NEG Urine Bilirubin SMALL Urine Urobilinogen 4.0 Urine Leukocyte Esterase NEG Urine RBC LESS THAN 1 Urine WBC 5 Urine Squamous Epithelial <1 Cells Urine Mucus FEW Microscopic Urinalysis Comment CULT NOT INDICATED Date/Time Procedure Status Source Growth 02/08/17 02:22 Aerobic Blood Culture Received Blood Peripheral Pending 02/08/17 02:22 Anaerobic Blood Culture Received Blood Peripheral Pending Result Diagram: 02/07/17 2342 02/07/17 2342 Imaging Last 48 hours Impressions Soft Tissue Ultrasound 02/07/17 0000 Signed Impressions: Service Date/Time: Tuesday, February 07, 2017 23:16 - CONCLUSION: There is subcutaneous edema. Amber Sandoval MD Ribs X-Ray 02/07/17 0000 Signed Impressions: Service Date/Time: Tuesday, February 07, 2017 23:39 - CONCLUSION: No definite displaced rib fractures. Amber Sandoval MD Assessment and Plan Assessment and Plan Impression: Left pectoralis muscle subcutaneous edema and severe pain after lifting 50 inch TV Hematuriasecondary to aspirin useper patient's report Uncontrolled painpatient definitely has high tolerance for pain meds as he used to be IV drug abuser. He denies current use. Possible sepsiswith leukocytosis with left shift, bandemia, tachycardia, lactic acid acidosis. History of hepatitis C Plan: Patient's imaging studies done on February 04, 2017, and yesterday February 07, 2017 this hospitalization reviewed. There is no evidence of hematoma on the soft tissue ultrasound. No evidence of abscess. Rib series studies were done which did not reveal any rib fractures or pneumothorax. We will need to monitor hemoglobin hematocrit closely. We'll monitor for evidence of hematuria or any GI bleed. Patient also seems to be quite anxious. Therefore gave Xanax 0.125 mg one dose. Methadone 20 mg by mouth one dose now, and 20 mg by mouth daily. We'll use Dilaudid 1 mg IV every 4 hours when necessary for pain at present. IV hydration. We'll check CPK. rule out rhabdo. We'll monitor electrolytes and repeat CBC. Possible that part of his lab abnormalities are also secondary to dehydration/acute stress/severe pain rather than true sepsis. At present though, we'll continue antibiotics broad-spectrum. Repeat CT thorax/chest with IV contrast today. DVT prophylaxison SCD. GI prophylaxison pantoprazole. Discussed Condition With Patient, ER physician, patient's , nursing staff Physician Certification 2 Midnight Certification Type: Admission for Inpatient Services Order for Inpatient Services The services are ordered in accordance with Medicare regulations or non- Medicare payer requirements, as applicable. In the case of services not specified as inpatient-only, they are appropriately provided as inpatient services in accordance with the 2-midnight benchmark. Estimated LOS (days): 2 days is the estimated time the patient will need to remain in the hospital, assuming treatment plan goals are met and no additional complications. Post-Hospital Plan: Home Duy Porter MD Feb 08, 2017 06:06
[2017-02-08] MEDS: CIPROFLOXACIN 400 MG PREMIX 200 ML IV SCH ×3 (06:13→17:39)
[2017-02-08] MEDS ORDERED: METHADONE HCL 10 MG TAB PO ONE (06:15)
[2017-02-08] MEDS: SODIUM CHLOR 0.9% 1000 ML INJ 1,000 ML IV SCH ×2 (07:45→18:33)
[2017-02-08] MEDS ORDERED: CALCIUM CARBONATE 500 MG CHEWABLE TAB CHEW ONE (08:00)
--- NOTE | 2017-02-08 08:01 | EKG ---
Date Performed: 02/07/2017 Time Performed: 22:29:20 PTAGE: 51 years EKG: SINUS TACHYCARDIA ABNORMAL RHYTHM ECG NO PREVIOUS TRACING DOCTOR: Laterll Emery Interpretating Date/Time 02/08/2017 07:59:59
[2017-02-08] MEDS: LACTOBACILLUS ACIDOPHILUS TAB PO SCH ×2 (08:33→13:18)
[2017-02-08] MEDS: METHADONE HCL 10 MG TAB PO SCH (08:33)
[2017-02-08] MEDS: SODIUM CHLORIDE 0.9% FLUSH 10 ML FLUSH IV FLUSH SCH ×2 (08:34→20:50)
--- NOTE | 2017-02-08 10:02 | RADRPT ---
EXAM DATE/TIME: 02/08/2017 09:15 [facility] COMPARISON: CT THORAX W CONTRAST, February 04, 2017, 22:18. INDICATIONS : Left chest wall injury post heavy lifting. IV CONTRAST: 64 cc Omnipaque 350 (iohexol) IV RADIATION DOSE: 8.84 CTDIvol (mGy) MEDICAL HISTORY : Hepatitis C. SURGICAL HISTORY : None. ENCOUNTER: Initial ACUITY: 1 week PAIN SCALE: 10/10 LOCATION: Left upper chest Pectoral area TECHNIQUE: Volumetric scanning of the chest was performed. Using automated exposure control and adjustment of t he mA and/or kV according to patient size, radiation dose was kept as low as reasonably achievable to obtain optimal diagnostic quality images. FINDINGS: There is diffuse enlargement of the left pectoralis muscle compared to the right as well as diffuse e carlos involving the left chest wall surrounding the left pectoralis muscle suggesting injury/tear of t his muscle. Clinical correlation is recommended. Bibasilar atelectasis is noted. Tiny bilateral pl eural effusions are noted. Coronary artery calcifications are noted. No mediastinal, hilar or axill meaghan lymphadenopathy is noted. No pulmonary nodule or mass is noted. Fatty infiltration of the liver is noted. The spleen is mildly enlarged. There is a left adrenal nodule measuring 2.2 x 2.4 cm con sistent with probable adrenal adenoma. No fracture or dislocation of the bony thorax is noted. Dege nerative changes and scoliosis of the thoracolumbar spine are noted. CONCLUSION: 1. Diffuse enlargement of the left pectoralis muscle with infiltration of the soft tissues surroundi ng the left pectoralis muscle suggestive of injury/tear of this muscle. Clinical correlation is mariaa mmended. 2. Tiny bilateral pleural effusions with bibasilar atelectasis. 3. Cardiomegaly and coronary artery calcifications. 4. Mild splenomegaly. 5. Left adrenal nodule measuring 2.4 x 2.2 cm. 5. Mild degenerative changes and scoliosis of the thoracolumbar spine. Jose Reddy MD on February 08, 2017 at 9:48 Board Certified Radiologist. This report was verified electronically.
[2017-02-08] MEDS ORDERED: IOHEXOL 350 MG/ML 10 ML VIAL (for RAD DIAG) IV ONE (10:03)
--- NOTE | 2017-02-08 10:06 | HHI.PR ---
Subjective Remarks f/u for left chest/shoulder pain and leukocytosis Patient continues to have uncontrolled pain. He stated that the a lot it works for him the best. He stated that methadone as oral medication last longer for him and wants to continue with that medication. Patient stated at the moment pain is not controlled was asking for more pain medication. Patient has no other complaints. He remains afebrile. Pending results from the CT scan. Objective Vitals Vital Signs Date Time Temp Pulse Resp B/P Pulse Ox O2 Delivery O2 Flow Rate FiO2 02/08/17 09:33 22 02/08/17 08:00 99.6 139 20 135/89 95 02/08/17 06:55 24 02/08/17 04:43 96.4 110 20 149/97 97 02/08/17 04:30 115 02/08/17 03:45 115 22 133/88 94 Room Air 02/08/17 02:54 93 Nasal Cannula 3.00 02/08/17 02:36 125 22 128/84 99 Room Air 02/08/17 00:28 137 22 134/82 98 Room Air 02/07/17 22:50 146 22 124/94 98 Room Air 02/07/17 21:36 99.1 146 22 182/90 98 Room Air I/O 02/07/17 02/07/17 02/07/17 02/08/17 02/08/17 02/08/17 07:00 15:00 23:00 07:00 15:00 23:00 Output Total 425 ml Balance -425 ml Output Urine Total 425 ml Result Diagram: 02/07/17 2342 02/07/17 2342 Imaging Last Impressions Soft Tissue Ultrasound 02/07/17 0000 Signed Impressions: Service Date/Time: Tuesday, February 07, 2017 23:16 - CONCLUSION: There is subcutaneous edema. Amber Sandoval MD Ribs X-Ray 02/07/17 0000 Signed Impressions: Service Date/Time: Tuesday, February 07, 2017 23:39 - CONCLUSION: No definite displaced rib fractures. Amber Sandoval MD Objective Remarks GENERAL: In notable pain CARDIOVASCULAR: Regular rate and rhythm without murmurs, gallops, or rubs. Left upper chest with swallowing and tenderness palpation most likely a fluid collection. Unable to move shoulder due to pain. RESPIRATORY: Breath sounds equal bilaterally. No accessory muscle use. GASTROINTESTINAL: Abdomen soft, non-tender, nondistended. MUSCULOSKELETAL: No cyanosis, or edema. BACK: Nontender without obvious deformity. No CVA tenderness. Medications and IVs Current Medications Morphine Sulfate (Morphine Inj) 4 mg ONCE ONCE IV PUSH Last administered on 22:55; Start 02/07/17 at 22:15; Stop 02/07/17 at 22:16; Status DC Ondansetron HCl (Zofran Inj) 4 mg ONCE ONCE IVP Last administered on 22:55; Start 02/07/17 at 22:15; Stop 02/07/17 at 22:16; Status DC Sodium Chloride 2 ml 2 ml UNSCH PRN IV FLUSH FLUSH AFTER USING IV ACCESS; Start 02/07/17 at 22:15; Stop 02/08/17 at 05:22; Status DC Sodium Chloride (NS 1000 ml Inj) 1,000 ml @ 1,000 mls/hr Q1H ONCE IV Last administered on 02/08/17 00:27; Start 02/07/17 at 23:45; Stop 02/08/17 at 00:44 ; Status DC Ondansetron HCl (Zofran Inj) 4 mg ONCE ONCE IV ; Start 02/07/17 at 23:45; Stop 02/07/17 at 23:46; Status DC Hydromorphone HCl 1 mg 1 mg ONCE ONCE IV PUSH Last administered on 02/08/17 00:27; Start 02/07/17 at 23:45; Stop 02/07/17 at 23:46; Status DC Sodium Chloride 1,000 ml @ 1,000 mls/hr Q1H ONCE IV ; Start 02/08/17 at 02:01; Stop 02/08/17 at 03:00; Status DC Sodium Chloride 1,000 ml @ 1,000 mls/hr Q1H ONCE IV Last administered on 02:22; Start 02/08/17 at 02:01; Stop 02/08/17 at 03:00; Status DC Sodium Chloride 700 ml @ 1,000 mls/hr Q42M ONCE IV Last administered on 02:22; Start 02/08/17 at 02:01; Stop 02/08/17 at 02:42; Status DC Vancomycin HCl 1000 mg/Sodium Chloride 250 ml @ 250 mls/hr ONCE ONCE IV ; Start 02/08/17 at 02:15; Stop 02/08/17 at 03:14; Status Cancel Piperacillin Sod/ Tazobactam Sod (Zosyn 3.375 Gm Premix) 50 ml @ 100 mls/hr ONCE ONCE IV Last administered on 02/08/17 02:33; Start 02/08/17 at 02:15; Stop 02/08/17 at 02:44; Status DC Sodium Chloride (NS Flush) 2 ml UNSCH PRN IV FLUSH FLUSH AFTER USING IV ACCESS ; Start 02/08/17 at 02:45 Sodium Chloride (NS Flush) 2 ml BID IV FLUSH Last administered on 02/08/17 08: 34; Start 02/08/17 at 09:00 Ondansetron HCl (Zofran Inj) 4 mg Q6H PRN IVP NAUSEA OR VOMITING; Start at 02:45 Naloxone HCl 0.4 mg 0.4 mg UNSCH PRN IV SEE LABEL COMMENTS; Start 02/08/17 at 02:45 Pharmacy Profile Note 0 ml @ 0 mls/hr UNSCH OTHER ; Start 02/08/17 at 02:45 Piperacillin Sod/ Tazobactam Sod 100 ml @ 200 mls/hr Q6H IV ; Start 02/08/17 at 08:00 Ciprofloxacin/ Dextrose (Cipro 400 Mg Premix) 200 ml @ 200 mls/hr Q12H IV Last administered on 02/08/17 06:13; Start 02/08/17 at 04:00 Lactobacillus Acidophilus (Lactinex) 1 tab TID PO Last administered on 08:33; Start 02/08/17 at 09:00 Hydromorphone HCl (Dilaudid Pf Inj) 1 mg ONCE ONCE IV PUSH Last administered on 02/08/17 03:43; Start 02/08/17 at 03:15; Stop 02/08/17 at 03:16; Status DC Pantoprazole Sodium 40 mg 40 mg ONCE ONCE IV PUSH Last administered on 03:43; Start 02/08/17 at 03:15; Stop 02/08/17 at 03:16; Status DC Vancomycin HCl/ Sodium Chloride (Vancomycin Inj/ NS 500 ml Inj) 515 ml @ 257.5 mls/ hr ONCE ONCE IV Last administered on 02/08/17 07:39; Start 02/08/17 at 05:00; Stop 02/08/17 at 06:59; Status DC Ketorolac Tromethamine (Toradol Inj) 15 mg Q6H PRN IV PUSH pain >5; Start 02/08 at 05:15; Stop 02/08/17 at 05:51; Status DC Alprazolam (Xanax) 0.125 mg NOW ONCE PO Last administered on 02/08/17 06:14; Start 02/08/17 at 05:30; Stop 02/08/17 at 05:31; Status DC Hydromorphone HCl (Dilaudid Pf Inj) 1 mg Q4H PRN IV PUSH pain >5 Last administered on 02/08/17 06:24; Start 02/08/17 at 06:00; Stop 02/08/17 at 10:03 ; Status DC Methadone HCl (Dolophine) 20 mg ONCE ONCE PO Last administered on 02/08/17 06 :23; Start 02/08/17 at 06:15; Stop 02/08/17 at 06:18; Status DC Methadone HCl (Dolophine) 20 mg DAILY PO Last administered on 02/08/17 08:33; Start 02/08/17 at 09:00 Pantoprazole Sodium (Protonix) 40 mg DAILY PO ; Start 02/09/17 at 09:00 Calcium Carbonate 500 mg 500 mg ONCE ONCE CHEW Last administered on 02/08/17 07:38; Start 02/08/17 at 08:00; Stop 02/08/17 at 08:01; Status DC Sodium Chloride 1,000 ml @ 100 mls/hr Q10H IV ; Start 02/08/17 at 07:45 Vancomycin HCl/ Sodium Chloride (Vancomycin Inj/ NS 500 ml Inj) 515 ml @ 250 mls/hr Q12H IV ; Start 02/08/17 at 20:00 Miscellaneous Information SPECIFIC LAB TO BE DRAWN:VANCOMYCIN TROUGH DATE TO... ONCE ONCE .XX ; Start 02/09/17 at 19:45; Stop 02/09/17 at 19:46 Iohexol (Omnipaque 350 Inj) 63 ml STK-MED ONCE IV ; Start 02/08/17 at 10:03; Stop 02/08/17 at 10:04; Status DC Hydromorphone HCl (Dilaudid Pf Inj) 2 mg Q3HR PRN IV PUSH pain >5; Start at 11:00; Status UNV A/P Assessment and Plan Left pectoralis muscle subcutaneous edema and severe pain after lifting 50 inch TV -Pending CT scan results. Chest x-ray negative for any fracture. Ultrasound was done which showed edema. -Patient was treated empirically with Cipro, Zosyn and vancomycin due to possible sepsis with leukocytosis with left shift/bandemia. -Continue her current regimen pending results. Will consider de-escalation of antibiotics based on results. Uncontrolled pain patient definitely has high tolerance for pain meds as he used to be IV drug abuser. He denies current use. -He continues to be symptomatic. Will increase Dilaudid. Patient told that once pain is better controlled will need to discontinue use of IV Dilaudid quickly so that he does not develop an addiction to it. Patient stated that he understood. SIRS -with leukocytosis with left shift, bandemia, tachycardia, lactic acid acidosis. -No infectious source at the moment. Patient being treated empirically with antibiotics. -See treatment as above. History of hepatitis C -Asymptomatic treatment as outpatient. DVT prophylaxison SCD. GI prophylaxison pantoprazole. Discharge Planning Pending workup to determine treatment plan. Patient continued to have intractable pain and requires IV Dilaudid. Anna Israel MD Feb 08, 2017 10:06
[2017-02-08] MEDS: PIPERACIL-TAZO 4.5 GM PREMIX 100 ML IV SCH ×3 (10:37→20:49)
[2017-02-08] MEDS: HYDROmorphone HCL PF 1 MG/ML VIAL IV PUSH PRN ×4 (10:39→20:50)
[2017-02-08 12:53] LABS: AUTOMATED NEUTROPHIL # 12.6 TH/MM3 (1.8-7.7); BASOPHIL % 0.2 % (0.0-2.0); EOSINOPHIL % 0.1 % (0.0-4.0); HEMATOCRIT 44.5 % (39.0-51.0); LYMPH % 5.2 % (9.0-44.0); LYMPHOCYTE # 0.8 TH/MM3 (1.0-4.8); MEAN CELL VOLUME 100.3 FL (80.0-100.0); MEAN CORPUSCULAR HEMOGLOBIN 34.2 PG (27.0-34.0); MEAN CORPUSCULAR HGB CONC 34.1 % (32.0-36.0); MONO % 11.4 % (0.0-8.0); NEUT % 83.1 % (16.0-70.0); PLATELET COUNT 163 TH/MM3 (150-450); RED BLOOD COUNT 4.44 MIL/MM3 (4.50-5.90); RED CELL DISTRIBUTION WIDTH 13.2 % (11.6-17.2); WHITE BLOOD COUNT 15.1 TH/MM3 (4.0-11.0)
[2017-02-08 12:55] LABS: HEMO FLAGS AUTO DIFF
[2017-02-08 13:30] LABS: AMPHETAMINE, URINE NEG (NEG); BARBITURATES, URINE NEG (NEG); COCAINE, URINE NEG (NEG)
[2017-02-08 13:43] LABS: BANDS 21 % (0-6); METAMYELOCYTES 7 % (0-1); NEUTROPHIL # MANUAL DIFF 13.9 TH/MM3 (1.8-7.7); POLYS (SEG NEUTROPHILS) 64 % (16-70); WBC DIFF SAMPLE 100
[2017-02-08 13:44] LABS: PLATELET ESTIMATE SMEAR NORMAL (NORMAL); PLATELET MORPHOLOGY NORMAL (NORMAL); SCAN/DIFF FINAL DIFF MANUAL
[2017-02-08] MEDS ORDERED: LORazepam 2 MG/ML VIAL IV PUSH PRN ×2 (14:45)
[2017-02-08] MEDS ORDERED: FLUMAZENIL 0.5 MG/5 ML VIAL IV PUSH PRN (14:45)
[2017-02-08] MEDS ORDERED: LORazepam 2 MG TAB PO PRN (14:45)
[2017-02-08] MEDS: VANCOMYCIN INJ 1,500 MG in SODIUM CHLORID 0.9% 500 ML INJ 500 ML IV SCH (20:49)
[2017-02-08] MEDS: LORazepam 1 MG TAB PO PRN (23:08)
[2017-02-09] VITALS (7 sets, daily range): BP systolic 112–143; BP diastolic 73–84; PULSE 118–128; RESP 20–22; TEMP 97.9–98.5; O2SAT 91–97
[2017-02-09] MEDS: HYDROmorphone HCL PF 1 MG/ML VIAL IV PUSH PRN ×6 (00:15→22:22)
[2017-02-09] MEDS: SODIUM CHLOR 0.9% 1000 ML INJ 1,000 ML IV SCH ×2 (03:45→22:38)
[2017-02-09] MEDS: PIPERACIL-TAZO 4.5 GM PREMIX 100 ML IV SCH ×3 (04:00→14:40)
[2017-02-09 07:17] LABS: AUTOMATED NEUTROPHIL # 9.4 TH/MM3 (1.8-7.7); BASOPHIL % 0.2 % (0.0-2.0); EOSINOPHIL # 0.1 TH/MM3 (0-0.4); EOSINOPHIL % 0.5 % (0.0-4.0); HEMATOCRIT 42.5 % (39.0-51.0); HEMO FLAGS AUTO DIFF; MEAN CELL VOLUME 99.7 FL (80.0-100.0); MEAN CORPUSCULAR HEMOGLOBIN 34.4 PG (27.0-34.0); MEAN CORPUSCULAR HGB CONC 34.5 % (32.0-36.0); MONO % 8.3 % (0.0-8.0); PLATELET COUNT 173 TH/MM3 (150-450); RED BLOOD COUNT 4.26 MIL/MM3 (4.50-5.90); RED CELL DISTRIBUTION WIDTH 13.3 % (11.6-17.2); WHITE BLOOD COUNT 11.5 TH/MM3 (4.0-11.0)
[2017-02-09] MEDS: PANTOPRAZOLE SOD 40 MG DELAYED RELEASE TAB PO SCH (07:42)
[2017-02-09] MEDS: METHADONE HCL 10 MG TAB PO SCH (07:43)
[2017-02-09] MEDS: LORazepam 1 MG TAB PO PRN (07:43)
[2017-02-09 07:44] LABS: BICARBONATE 22.7 MEQ/L (21.0-32.0); INDIRECT BILIRUBIN 0.8 MG/DL (0.0-0.8); POTASSIUM 3.9 MEQ/L (3.5-5.1); TOTAL BILIRUBIN ADULT 2.1 MG/DL (0.2-1.0)
[2017-02-09] MEDS: SODIUM CHLORIDE 0.9% FLUSH 10 ML FLUSH IV FLUSH SCH ×2 (07:48→22:38)
[2017-02-09 08:28] LABS: BANDS 13 % (0-6); METAMYELOCYTES 2 % (0-1); NEUTROPHIL # MANUAL DIFF 8.6 TH/MM3 (1.8-7.7); PLATELET ESTIMATE SMEAR NORMAL (NORMAL); PLATELET MORPHOLOGY NORMAL (NORMAL); POLYS (SEG NEUTROPHILS) 60 % (16-70); SCAN/DIFF FINAL DIFF MANUAL; WBC DIFF SAMPLE 100
[2017-02-09] MEDS: LACTOBACILLUS ACIDOPHILUS TAB PO SCH ×3 (08:47→18:00)
[2017-02-09] MEDS: VANCOMYCIN INJ 1,500 MG in SODIUM CHLORID 0.9% 500 ML INJ 500 ML IV SCH ×3 (08:48→22:38)
--- NOTE | 2017-02-09 09:54 | HHI.PR ---
Subjective Remarks Follow-up for left chest pain and injury to the pectoralis muscle Patient stating that swelling has worsened and feels like the redness has worsened. Patient remains afebrile. He stated the pain is better controlled. He has no other complaints. Objective Vitals Vital Signs Date Time Temp Pulse Resp B/P Pulse Ox O2 Delivery O2 Flow Rate FiO2 02/09/17 08:00 97.9 120 20 136/78 92 02/09/17 06:27 128 02/09/17 04:00 98.5 121 21 112/73 97 02/09/17 00:00 98.3 118 22 137/84 92 02/08/17 22:30 97 02/08/17 20:45 Room Air 02/08/17 20:00 97.6 116 20 132/80 94 02/08/17 17:46 97.8 129 22 125/82 93 02/08/17 15:01 98.3 127 20 120/77 93 02/08/17 13:48 22 02/08/17 12:00 99.9 128 20 125/77 95 I/O 02/08/17 02/08/17 02/08/17 02/09/17 02/09/17 02/09/17 07:00 15:00 23:00 07:00 15:00 23:00 Intake Total 1080 ml 0 ml Output Total 425 ml 1400 ml Balance -425 ml -320 ml 0 ml Intake Oral 1080 ml 0 ml Output Urine Total 425 ml 1400 ml # Voids 0 2 # Bowel Movements 0 0 Result Diagram: 02/09/17 0645 02/09/17 0645 Imaging Last Impressions Chest CT 02/08/17 0000 Signed Impressions: Service Date/Time: Wednesday, February 08, 2017 09:15 - CONCLUSION: 1. Diffuse enlargement of the left pectoralis muscle with infiltration of the soft tissues surrounding the left pectoralis muscle suggestive of injury/tear of this muscle. Clinical correlation is recommended. 2. Tiny bilateral pleural effusions with bibasilar atelectasis. 3. Cardiomegaly and coronary artery calcifications. 4. Mild splenomegaly. 5. Left adrenal nodule measuring 2.4 x 2.2 cm. 5. Mild degenerative changes and scoliosis of the thoracolumbar spine. Jose Reddy MD Soft Tissue Ultrasound 02/07/17 0000 Signed Impressions: Service Date/Time: Tuesday, February 07, 2017 23:16 - CONCLUSION: There is subcutaneous edema. Amber Sandoval MD Ribs X-Ray 02/07/17 0000 Signed Impressions: Service Date/Time: Tuesday, February 07, 2017 23:39 - CONCLUSION: No definite displaced rib fractures. Ambre Sandoval MD Objective Remarks GENERAL: In notable pain CARDIOVASCULAR: Regular rate and rhythm without murmurs, gallops, or rubs. Left upper chest with swelling and erythema along the left upper chest and left abdominal area. Positive tenderness to palpation. RESPIRATORY: Breath sounds equal bilaterally. No accessory muscle use. GASTROINTESTINAL: Abdomen soft, non-tender, nondistended. MUSCULOSKELETAL: No cyanosis, or edema. BACK: Nontender without obvious deformity. No CVA tenderness. Medications and IVs Current Medications Morphine Sulfate (Morphine Inj) 4 mg ONCE ONCE IV PUSH Last administered on 22:55; Start 02/07/17 at 22:15; Stop 02/07/17 at 22:16; Status DC Ondansetron HCl (Zofran Inj) 4 mg ONCE ONCE IVP Last administered on 22:55; Start 02/07/17 at 22:15; Stop 02/07/17 at 22:16; Status DC Sodium Chloride 2 ml 2 ml UNSCH PRN IV FLUSH FLUSH AFTER USING IV ACCESS; Start 02/07/17 at 22:15; Stop 02/08/17 at 05:22; Status DC Sodium Chloride (NS 1000 ml Inj) 1,000 ml @ 1,000 mls/hr Q1H ONCE IV Last administered on 02/08/17 00:27; Start 02/07/17 at 23:45; Stop 02/08/17 at 00:44 ; Status DC Ondansetron HCl (Zofran Inj) 4 mg ONCE ONCE IV ; Start 02/07/17 at 23:45; Stop 02/07/17 at 23:46; Status DC Hydromorphone HCl 1 mg 1 mg ONCE ONCE IV PUSH Last administered on 02/08/17 00:27; Start 02/07/17 at 23:45; Stop 02/07/17 at 23:46; Status DC Sodium Chloride 1,000 ml @ 1,000 mls/hr Q1H ONCE IV ; Start 02/08/17 at 02:01; Stop 02/08/17 at 03:00; Status DC Sodium Chloride 1,000 ml @ 1,000 mls/hr Q1H ONCE IV Last administered on 02:22; Start 02/08/17 at 02:01; Stop 02/08/17 at 03:00; Status DC Sodium Chloride 700 ml @ 1,000 mls/hr Q42M ONCE IV Last administered on 02:22; Start 02/08/17 at 02:01; Stop 02/08/17 at 02:42; Status DC Vancomycin HCl 1000 mg/Sodium Chloride 250 ml @ 250 mls/hr ONCE ONCE IV ; Start 02/08/17 at 02:15; Stop 02/08/17 at 03:14; Status Cancel Piperacillin Sod/ Tazobactam Sod (Zosyn 3.375 Gm Premix) 50 ml @ 100 mls/hr ONCE ONCE IV Last administered on 02/08/17 02:33; Start 02/08/17 at 02:15; Stop 02/08/17 at 02:44; Status DC Sodium Chloride (NS Flush) 2 ml UNSCH PRN IV FLUSH FLUSH AFTER USING IV ACCESS ; Start 02/08/17 at 02:45 Sodium Chloride (NS Flush) 2 ml BID IV FLUSH Last administered on 02/09/17 07: 48; Start 02/08/17 at 09:00 Ondansetron HCl (Zofran Inj) 4 mg Q6H PRN IVP NAUSEA OR VOMITING; Start at 02:45 Naloxone HCl 0.4 mg 0.4 mg UNSCH PRN IV SEE LABEL COMMENTS; Start 02/08/17 at 02:45 Pharmacy Profile Note 0 ml @ 0 mls/hr UNSCH OTHER ; Start 02/08/17 at 02:45 Piperacillin Sod/ Tazobactam Sod 100 ml @ 200 mls/hr Q6H IV Last administered on 02/09/17 07:42; Start 02/08/17 at 08:00 Ciprofloxacin/ Dextrose (Cipro 400 Mg Premix) 200 ml @ 200 mls/hr Q12H IV Last administered on 02/08/17 16:36; Start 02/08/17 at 04:00 Lactobacillus Acidophilus (Lactinex) 1 tab TID PO Last administered on 13:18; Start 02/08/17 at 09:00 Hydromorphone HCl (Dilaudid Pf Inj) 1 mg ONCE ONCE IV PUSH Last administered on 02/08/17 03:43; Start 02/08/17 at 03:15; Stop 02/08/17 at 03:16; Status DC Pantoprazole Sodium 40 mg 40 mg ONCE ONCE IV PUSH Last administered on 03:43; Start 02/08/17 at 03:15; Stop 02/08/17 at 03:16; Status DC Vancomycin HCl/ Sodium Chloride (Vancomycin Inj/ NS 500 ml Inj) 515 ml @ 257.5 mls/ hr ONCE ONCE IV Last administered on 02/08/17 07:39; Start 02/08/17 at 05:00; Stop 02/08/17 at 06:59; Status DC Ketorolac Tromethamine (Toradol Inj) 15 mg Q6H PRN IV PUSH pain >5; Start 02/08 at 05:15; Stop 02/08/17 at 05:51; Status DC Alprazolam (Xanax) 0.125 mg NOW ONCE PO Last administered on 02/08/17 06:14; Start 02/08/17 at 05:30; Stop 02/08/17 at 05:31; Status DC Hydromorphone HCl (Dilaudid Pf Inj) 1 mg Q4H PRN IV PUSH pain >5 Last administered on 02/08/17 06:24; Start 02/08/17 at 06:00; Stop 02/08/17 at 10:03 ; Status DC Methadone HCl (Dolophine) 20 mg ONCE ONCE PO Last administered on 02/08/17 06 :23; Start 02/08/17 at 06:15; Stop 02/08/17 at 06:18; Status DC Methadone HCl (Dolophine) 20 mg DAILY PO Last administered on 02/09/17 07:43; Start 02/08/17 at 09:00 Pantoprazole Sodium (Protonix) 40 mg DAILY PO Last administered on 02/09/17 07 :42; Start 02/09/17 at 09:00 Calcium Carbonate 500 mg 500 mg ONCE ONCE CHEW Last administered on 02/08/17 07:38; Start 02/08/17 at 08:00; Stop 02/08/17 at 08:01; Status DC Sodium Chloride 1,000 ml @ 100 mls/hr Q10H IV Last administered on 02/08/17 18:33; Start 02/08/17 at 07:45 Vancomycin HCl/ Sodium Chloride (Vancomycin Inj/ NS 500 ml Inj) 515 ml @ 250 mls/hr Q12H IV Last administered on 02/09/17 08:48; Start 02/08/17 at 20:00 Miscellaneous Information SPECIFIC LAB TO BE DRAWN:VANCOMYCIN TROUGH DATE TO... ONCE ONCE .XX ; Start 02/09/17 at 19:45; Stop 02/09/17 at 19:46 Iohexol (Omnipaque 350 Inj) 63 ml STK-MED ONCE IV Last administered on 10:03; Start 02/08/17 at 10:03; Stop 02/08/17 at 10:04; Status DC Hydromorphone HCl (Dilaudid Pf Inj) 2 mg Q3HR PRN IV PUSH pain >5 Last administered on 02/09/17 05:47; Start 02/08/17 at 11:00 Flumazenil (Romazicon Inj) 0.2 mg Q1M PRN IV PUSH SEE LABEL COMMENTS; Start at 14:45 Lorazepam (Ativan) 1 mg Q4H PRN PO CIWA 8 - 10 Last administered on 02/09/17 07:43; Start 02/08/17 at 14:45 Lorazepam (Ativan Inj) 1 mg Q4H PRN IV PUSH CIWA 8 - 10; Start 02/08/17 at 14: 45 Lorazepam (Ativan) 2 mg Q2H PRN PO CIWA 11-14; Start 02/08/17 at 14:45 Lorazepam (Ativan Inj) 2 mg Q2H PRN IV PUSH CIWA 11-14; Start 02/08/17 at 14:45 Lorazepam (Ativan Inj) 2 mg Q1H PRN IV PUSH CIWA 15-20; Start 02/08/17 at 14:45 Lorazepam (Ativan Inj) 2 mg Q15M PRN IV PUSH CIWA > 20; Start 02/08/17 at 14:45 A/P Assessment and Plan Left sided cellulitis of the chest/abdomen -Leukocytosis improving with empiric treatment with Cipro, Zosyn, and vancomycin but clinically erythema has worsened. This may be due to post inflammatory changes will consult infectious disease persistent. Left pectoralis muscle with infiltrate of the soft tissue suggesting injury/ tear of the muscle -Dealt with Mima Philippe over the phone and he stated no surgical indication. He stated that pain should not be this severe from that diagnosis. Recommend sling, icing, and follow-up as outpatient. Left adrenal nodule measuring 2.4 x 2.2 cm. -Asymptomatic. Patient to follow-up as outpatient with his PCP. Patient understood. Uncontrolled pain patient definitely has high tolerance for pain meds as he used to be IV drug abuser. He denies current use. -Improved with current regimen SEPSIS -with leukocytosis with left shift, bandemia, tachycardia, lactic acid acidosis source most likely cellulitis. -See treatment as above. History of hepatitis C -Asymptomatic treatment as outpatient. DVT prophylaxison SCD. GI prophylaxison pantoprazole. Discharge Planning Patient continues to require IV antibiotics so will need continual hospitalization. Anna Israel MD Feb 09, 2017 09:54
--- NOTE | 2017-02-09 17:39 | PD.CONS ---
cc: Agustín Burk MD HPI Service General Surgery Consult Requested By Dr. Thorpe Reason for Consult Chest wall abscess Primary Care Physician No Primary Care Physician History of Present Illness This is a 57 year old male with a past medical history of hepatitis C who was picking up a heavy TV on February 02 and heard a lot pop sound. Since then he has had intense pain in his chest with increased swelling. He has come to the ED for evaluation. On admission he had an increased WBC, which has trended down after starting antibiotics. There has been an increase in the amount of pain and redness and a General Surgery consultation has been requested. Review of Systems Constitutional: DENIES: Fever, Chills Endocrine: DENIES: Polydipsia, Polyuria, Polyphagia Eyes: DENIES: Diplopia Ears, nose, mouth, throat: DENIES: Hearing loss Respiratory: DENIES: Apneas, Cough Cardiovascular: COMPLAINS OF: Chest pain (LEFT sided ) Gastrointestinal: DENIES: Abdominal pain, Nausea, Vomiting Genitourinary: DENIES: Hematuria, Dysuria Musculoskeletal: DENIES: Joint pain Integumentary: COMPLAINS OF: Abnormal pigmentation (chest redness ) Hematologic/lymphatic: DENIES: Bruising Immunologic/allergic: DENIES: Eczema Neurologic: DENIES: Abnormal gait, Headache Psychiatric: DENIES: Confusion, Mood changes Past Family Social History Past Medical History Hepatitis C Past Surgical History multiple orthopedic repairs Reported Medications None Allergies: Coded Allergies: Tylenol (Verified Allergy, Unknown, 02/07/17) *MDRO Multi-Drug Resistant Organism (Unverified Adverse Reaction, Unknown , 02/15/17) MRSA arm wound, 2004. MRSA (blood)-02/08/17 MRSA (chest)-02/12/17 Active Ordered Medications Current Medications Medications (Trade) Dose Ordered Sig/Trudy Route Start Time Stop Time Status Last Admin (NS Flush) 2 ml UNSCH PRN IV FLUSH 02/08/17 02:45 (NS Flush) 2 ml BID IV FLUSH 02/08/17 09:00 02/09/17 07:48 (Zofran Inj) 4 mg Q6H PRN IVP 02/08/17 02:45 Naloxone HCl 0.4 mg 0.4 mg UNSCH PRN IV 02/08/17 02:45 (Vancomycin Consult Pharmacy) 0 ml @ 0 mls/hr UNSCH OTHER 02/08/17 02:45 (Lactinex) 1 tab TID PO 02/08/17 09:00 02/08/17 13:18 (Dolophine) 20 mg DAILY PO 02/08/17 09:00 02/09/17 07:43 Pantoprazole Sodium 40 mg 40 mg DAILY PO 02/09/17 09:00 02/09/17 07:42 Sodium Chloride 1,000 ml @ 100 mls/hr Q10H IV 02/08/17 07:45 02/08/17 18:33 (Vancomycin Inj/ NS 500 ml Inj) 515 ml @ 250 mls/hr Q12H IV 02/08/17 20:00 02/09/17 08:48 Miscellaneous Information SPECIFIC LAB TO BE DRAWN:VANCOMYCIN TROUGH DATE TO... ONCE ONCE .XX 02/09/17 19:45 02/09/17 19:46 (Dilaudid Pf Inj) 2 mg Q3HR PRN IV PUSH 02/08/17 11:00 02/09/17 14:55 (Romazicon Inj) 0.2 mg Q1M PRN IV PUSH 02/08/17 14:45 (Ativan) 1 mg Q4H PRN PO 02/08/17 14:45 02/09/17 07:43 (Ativan Inj) 1 mg Q4H PRN IV PUSH 02/08/17 14:45 (Ativan) 2 mg Q2H PRN PO 02/08/17 14:45 (Ativan Inj) 2 mg Q2H PRN IV PUSH 02/08/17 14:45 (Ativan Inj) 2 mg Q1H PRN IV PUSH 02/08/17 14:45 (Ativan Inj) 2 mg Q15M PRN IV PUSH 02/08/17 14:45 Family History Noncontributory Social History + Tobacco use--- about 1 ppd + ETOH---occasional socially Illicit drug use---denies but does admit that he goes to methadone clinic Physical Exam Vital Signs Vital Signs Date Time Temp Pulse Resp B/P Pulse Ox O2 Delivery O2 Flow Rate FiO2 02/09/17 12:00 98.4 120 20 133/82 92 02/09/17 08:00 96 Room Air 02/09/17 08:00 97.9 120 20 136/78 92 02/09/17 06:27 128 02/09/17 04:00 98.5 121 21 112/73 97 02/09/17 00:00 98.3 118 22 137/84 92 02/08/17 22:30 97 02/08/17 20:45 Room Air 02/08/17 20:00 97.6 116 20 132/80 94 02/08/17 17:46 97.8 129 22 125/82 93 Physical Exam GENERAL: 51 year old male ambulating in room SKIN: CHEST: LEFT sided chest tightness with no palpable fluid collection; redness that travels down LEFT chest wall to abdomen. Otherwise no other skin findings. HEAD: Atraumatic. Normocephalic. EYES: Pupils equal and round. No scleral icterus. No injection or drainage. ENT: No nasal bleeding or discharge. Mucous membranes pink and moist. NECK: Trachea midline. CARDIOVASCULAR: Regular rate and rhythm. RESPIRATORY: No accessory muscle use. Clear to auscultation. Breath sounds equal bilaterally. GASTROINTESTINAL: Abdomen soft, non-tender, nondistended. MUSCULOSKELETAL: Extremities without clubbing, cyanosis, or edema. No obvious deformities. NEUROLOGICAL: Awake and alert. No obvious cranial nerve deficits. Motor grossly within normal limits. Five out of 5 muscle strength in the arms and legs. Normal speech. PSYCHIATRIC: Appropriate mood and affect; insight and judgment normal. Laboratory Laboratory Tests Test 02/09/17 06:45 White Blood Count 11.5 Red Blood Count 4.26 Hemoglobin 14.6 Hematocrit 42.5 Mean Corpuscular Volume 99.7 Mean Corpuscular Hemoglobin 34.4 Mean Corpuscular Hemoglobin 34.5 Concent Red Cell Distribution Width 13.3 Platelet Count 173 Mean Platelet Volume 9.6 Neutrophils (%) (Auto) 82.0 Lymphocytes (%) (Auto) 9.0 Monocytes (%) (Auto) 8.3 Eosinophils (%) (Auto) 0.5 Basophils (%) (Auto) 0.2 Neutrophils # (Auto) 9.4 Lymphocytes # (Auto) 1.0 Monocytes # (Auto) 1.0 Eosinophils # (Auto) 0.1 Basophils # (Auto) 0.0 CBC Comment AUTO DIFF Differential Total Cells 100 Counted Neutrophils % (Manual) 60 Band Neutrophils % 13 Lymphocytes % 12 Monocytes % 13 Neutrophils # (Manual) 8.6 Metamyelocytes 2 Differential Comment FINAL DIFF MANUAL Platelet Estimate NORMAL Platelet Morphology Comment NORMAL Red Cell Morphology Comment NORMAL Sodium Level 128 Potassium Level 3.9 Chloride Level 97 Carbon Dioxide Level 22.7 Anion Gap 8 Blood Urea Nitrogen 15 Creatinine 0.73 Estimat Glomerular Filtration 112 Rate Random Glucose 93 Calcium Level 8.2 Total Bilirubin 2.1 Direct Bilirubin 1.3 Indirect Bilirubin 0.8 Aspartate Amino Transf 57 (AST/SGOT) Alanine Aminotransferase 57 (ALT/SGPT) Alkaline Phosphatase 150 Total Protein 7.3 Albumin 2.2 Date/Time Procedure Status Source Growth 02/08/17 02:22 Aerobic Blood Culture - Preliminary Resulted Blood Peripheral NO GROWTH IN 1 DAY 02/08/17 02:22 Anaerobic Blood Culture - Preliminary Resulted S. Aureus Mrsa Result Diagram: 02/09/17 0645 02/09/17 0645 Imaging Last [address] 02/08/17 0000 Signed Impressions: Service Date/Time: Wednesday, February 08, 2017 09:15 - CONCLUSION: 1. Diffuse enlargement of the left pectoralis muscle with infiltration of the soft tissues surrounding the left pectoralis muscle suggestive of injury/tear of this muscle. Clinical correlation is recommended. 2. Tiny bilateral pleural effusions with bibasilar atelectasis. 3. Cardiomegaly and coronary artery calcifications. 4. Mild splenomegaly. 5. Left adrenal nodule measuring 2.4 x 2.2 cm. 5. Mild degenerative changes and scoliosis of the thoracolumbar spine. Jose Reddy MD Assessment and Plan Assessment and Plan 51 year old male s/p LEFT chest injury after picking up TV; CT chest shows a pectoralis muscle injury/team; concern for secondary infection -Plan to repeat US in the morning to evaluate for fluid collection -Regular diet tonight; NPO after midnight -Continue antibiotics -Pain control -Ice to affected area -Thank you for this consult; we will continue to follow Discussed Condition With Dr. Bhargavi Loredo Attending Statement The exam, history, and the medical decision-making described in the above note were completed with the assistance of the mid-level provider. I reviewed and agree with the findings presented. I attest that I had a [id number] encounter with the patient on the same day, and personally performed and documented my assessment and findings in the medical record. hematoma, swelling 2/2 infection vs angiedema imaging and physical exam do not reveal any pus or fluctuance at this time, recommend following closely and repeating imaging will take to the OR if continues to worsen and/or he forms a drainable abscess Wilma Ochoa Feb 09, 2017 17:39 Agustín Burk MD Feb 17, 2017 10:16
--- NOTE | 2017-02-09 18:59 | MB ---
cc: BRENDAN BELLO MD DATE OF CONSULTATION 02/09/[address] Israel REASON FOR CONSULTATION A 51-year-old with left-sided chest pain and elevated white blood cell count. Treating for cellulitis. Improved with WBC but erythema continues to worsen. HISTORY OF PRESENT ILLNESS This is a 51-year-old white male who presented to the emergency department on 02/07 for evaluation of left chest wall pain. The patient states that he lifted a heavy flat screen television five days prior on 02/02/2017 and he felt a pop in his left chest. He developed swelling of the area subsequently. He was seen in the emergency department on February 04 with chest wall pain. He had been taking ibuprofen at home without relief. He was also having pain whenever he took a deep breath. The patient was discharged from the hospital after a CT scan of the chest showed no acute findings of the thorax. He was given Flexeril and discharged. The patient states that the pain was very intense and, therefore. he took it upon himself to take pain medications including aspirin, Ibuprofen and Aleve. He tells me that he took approximately 100 aspirin pills along with 50 ibuprofen pills and 10 Aleve over the four days before he came back to the emergency department for evaluation. He states that at one point he had blood in the urine. The swelling of the chest worsened and he came back to the emergency department for evaluation in the evening of February 07. He states that he was having difficulty laying flat as well and that the pain was worse whenever he took a deep breath. He was admitted to the hospital after he had evaluation in the emergency department at which time his heart rate was 146 and temperature was 99.1 and the white blood cell count was elevated at 22.0. Repeated x-rays were done including x-ray of the rib cage which showed no rib fractures. CT scan of the chest showed diffuse enlargement of the left pectoralis muscle with infiltration of the soft tissues of the surrounding left pectoralis suggestive of injury/tear of muscle. Tiny bilateral pleural effusions with bilateral atelectasis was noted as well. Blood cultures were taken and came back with MRSA today. The patient was started on IV antibiotics. He now has severe pain and the right chest is extremely large and tense and painful and he has diffuse erythema over the chest, particularly the left side, and also erythema at the abdomen. There is also edema of the abdomen as well. The erythema and swelling of the chest extend laterally to the area underneath the left axilla. The patient also has obvious shortness of breath. He appears irritable and he thinks it is because of the pain. He is now afebrile. Last maximum temperature was 99.9 degrees yesterday afternoon. The patient denies hemoptysis. He states that the mid portion of the chest feels numb. He does have sensation over the left breast and left lateral chest wall and left abdomen. PAST MEDICAL HISTORY 1. Hepatitis C 2. History of MRSA arm wound in 2004. 3. History of IV drug use in the past. Denies current IV drug use. ALLERGIES TYLENOL MEDICATIONS 1. Vancomycin. 2. Piperacillin/tazobactam. 3. Ciprofloxacin 4. Ativan 5. Dilaudid 6. Lactinex. 7. Methadone. SOCIAL HISTORY Positive tobacco use. The patient reportedly smokes three packs of cigarettes a day. The patient drinks beer daily. Denies illicit drugs currently. FAMILY HISTORY Noncontributory. REVIEW OF SYSTEMS GENERAL: No fever, no chills. HEENT: No visual blurring or diplopia. No difficulty swallowing. No soreness of the throat. NECK: No neck pain or swelling. CARDIOVASCULAR: No palpitation or chest pain. RESPIRATORY: No cough. Positive shortness of breath. GASTROINTESTINAL: No nausea, vomiting, abdominal pain or diarrhea. GENITOURINARY: No urgency, frequency or dysuria. HEMATOPOIETIC: No easy bruising or bleeding. MUSCULOSKELETAL: Significant for pain in the chest. INTEGUMENTARY: Significant for burning pain at the skin of the left foot. NEUROLOGIC: No problems with coordination or dizziness. PSYCHIATRIC: No problems with mood changes or depression. PHYSICAL EXAMINATION GENERAL: This is a well-developed male who is awake, alert and in moderate distress because of shortness of breath. VITAL SIGNS: Temperature 98.4, BP 133/82, respirations 20, heart rate 120. HEENT: The head is atraumatic. Extraocular movements grossly intact, pupils reactive to light. No icterus. Oropharynx moist mucosa without lesions. NECK: Supple. No adenopathy. LUNGS: Clear breath sounds which are diminished. HEART: Regular rate and rhythm without murmurs, rubs or gallops. CHEST: Marked swelling of the left chest which appears approximately twice the size of the right breast. The area is very tender and very tense on palpation and has significant erythema which blanches on palpation and is extremely warm. ABDOMEN: Diffuse edema AND erythema with confluent redness the same as on the left breast. Diminished bowel sounds. RECTAL: Not performed. EXTREMITIES: No clubbing or cyanosis or edema. SKIN: No rash. NEUROLOGIC: No gross focal findings. PSYCHIATRIC: The patient appears irritable but otherwise calm and cooperative. LABORATORY DATA WBC 11.5, platelet count 173, hemoglobin 14.6, differential includes 13% bands, AST 67, ALT 57, total bilirubin 2.1, sodium 128, BUN 15, creatinine 0.73. IMPRESSION 1. Cellulitis of the left chest wall and now spread to the abdomen. 2. Bacteremia due to MRSA. 3. Rule out abscess of the left chest wall. 4. Possible compartment syndrome involving the left chest wall. 5. Hyponatremia. RECOMMENDATIONS 1. Obtain CT surgical evaluation for the chest wall. 2. Continue vancomycin 3. Discontinue piperacillin/Tazobactam 4. Discontinue ciprofloxacin 5. Continue to monitor the blood cultures 6. Monitor clinical response. Thank you for this consultation. The patient's progress will be monitored and further recommendations will be given on followup. Brendan Bello MD FD/ /3:42 PM /6:38 PM IVON
[2017-02-09] MEDS ORDERED: PHARMACY ORDERED LAB ONE (19:45)
[2017-02-10] VITALS (7 sets, daily range): BP systolic 131–152; BP diastolic 79–90; PULSE 109–127; RESP 18–24; TEMP 97.8–100.7; O2SAT 92–96
[2017-02-10] MEDS: HYDROmorphone HCL PF 1 MG/ML VIAL IV PUSH PRN ×4 (01:22→17:38)
[2017-02-10] MEDS: METHADONE HCL 10 MG TAB PO SCH (08:05)
[2017-02-10] MEDS: PANTOPRAZOLE SOD 40 MG DELAYED RELEASE TAB PO SCH (08:06)
[2017-02-10] MEDS: LACTOBACILLUS ACIDOPHILUS TAB PO SCH ×3 (08:06→17:38)
[2017-02-10] MEDS: SODIUM CHLORIDE 0.9% FLUSH 10 ML FLUSH IV FLUSH SCH ×2 (08:06→22:05)
[2017-02-10 08:36] LABS: HEMATOCRIT 40.4 % (39.0-51.0); MEAN CORPUSCULAR HEMOGLOBIN 34.2 PG (27.0-34.0); MEAN CORPUSCULAR HGB CONC 34.6 % (32.0-36.0); PLATELET COUNT 191 TH/MM3 (150-450); RED BLOOD COUNT 4.08 MIL/MM3 (4.50-5.90); REVIEW FLAG FINAL; WHITE BLOOD COUNT 13.7 TH/MM3 (4.0-11.0)
[2017-02-10 09:08] LABS: BICARBONATE 23.6 MEQ/L (21.0-32.0); POTASSIUM 3.9 MEQ/L (3.5-5.1)
[2017-02-10] MEDS: SODIUM CHLOR 0.9% 1000 ML INJ 1,000 ML IV SCH ×2 (09:28→17:38)
[2017-02-10] MEDS: VANCOMYCIN INJ 1,500 MG in SODIUM CHLORID 0.9% 500 ML INJ 500 ML IV SCH ×2 (09:29→22:59)
--- NOTE | 2017-02-10 10:23 | RADRPT ---
EXAM DATE/TIME: 02/10/2017 08:38 [facility] COMPARISON: CT THORAX W CONTRAST, February 08, 2017, 9:15. ULTRASOUND SOFT TISSUE, February 07, 2017, 23:16. INDICATIONS : Diffuse swelling in left chest. MEDICAL HISTORY : Methicillin-resistant Staphylococcus aureus. Hepatitis C. Liver disease. Substance use. SURGICAL HISTORY : Tonsillectomy. ENCOUNTER: Initial ACUITY: 1 day PAIN SCORE: 8/10 LOCATION: Left anterior chest. AREA EVALUATED: Left anterior chest. FINDINGS / CONCLUSION: Edematous tissues are present over the left chest without defined abscess. There is no fluid for asp iration or drainage. This can be easily followed by ultrasound.. Miguel Angel Goode MD FACR on February 10, 2017 at 10:09 Board Certified Radiologist. This report was verified electronically.
--- NOTE | 2017-02-10 10:37 | HHI.PR ---
Subjective Remarks Follow-up for cellulitis Patient stated that he feels better but he seems to be "loopy" from the medication. He said that the medication we are giving him is causing that. When I told him it was most likely due to Dilaudid he stated he thinks its due to antibiotics. His nurse is at the bedside. Patient remains afebrile. He stated the pain is controlled. Objective Vitals Vital Signs Date Time Temp Pulse Resp B/P Pulse Ox O2 Delivery O2 Flow Rate FiO2 02/10/17 04:00 Nasal Cannula 3.00 02/10/17 04:00 98.9 109 24 131/88 94 02/10/17 00:00 Nasal Cannula 3.00 02/10/17 00:00 98.5 115 24 145/90 92 02/09/17 20:00 118 02/09/17 20:00 98.1 124 20 143/80 92 02/09/17 20:00 93 Nasal Cannula 3.00 02/09/17 16:00 98.3 120 22 120/79 91 02/09/17 12:00 98.4 120 20 133/82 92 I/O 02/09/17 02/09/17 02/09/17 02/10/17 02/10/17 02/10/17 07:00 15:00 23:00 07:00 15:00 23:00 Intake Total 0 ml 960 ml 360 ml 1445 ml Balance 0 ml 960 ml 360 ml 1445 ml Intake Oral 0 ml 960 ml 360 ml 360 ml IV Total 1085 ml # Voids 2 4 3 3 # Bowel Movements 0 1 0 0 Result Diagram: 02/10/17 0740 02/10/17 0740 Objective Remarks GENERAL: In notable pain CARDIOVASCULAR: Regular rate and rhythm without murmurs, gallops, or rubs. Left upper chest with swelling and erythema along the left upper chest and left abdominal area. Positive tenderness to palpation. RESPIRATORY: Breath sounds equal bilaterally. No accessory muscle use. GASTROINTESTINAL: Abdomen soft, non-tender, nondistended. MUSCULOSKELETAL: No cyanosis, or edema. BACK: Nontender without obvious deformity. No CVA tenderness. Medications and IVs Current Medications Morphine Sulfate (Morphine Inj) 4 mg ONCE ONCE IV PUSH Last administered on t 22:55; Start 02/07/17 at 22:15; Stop 02/07/17 at 22:16; Status DC Ondansetron HCl (Zofran Inj) 4 mg ONCE ONCE IVP Last administered on 22:55; Start 02/07/17 at 22:15; Stop 02/07/17 at 22:16; Status DC Sodium Chloride 2 ml 2 ml UNSCH PRN IV FLUSH FLUSH AFTER USING IV ACCESS; Start 02/07/17 at 22:15; Stop 02/08/17 at 05:22; Status DC Sodium Chloride (NS 1000 ml Inj) 1,000 ml @ 1,000 mls/hr Q1H ONCE IV Last administered on 02/08/17 00:27; Start 02/07/17 at 23:45; Stop 02/08/17 at 00:44 ; Status DC Ondansetron HCl (Zofran Inj) 4 mg ONCE ONCE IV ; Start 02/07/17 at 23:45; Stop 02/07/17 at 23:46; Status DC Hydromorphone HCl 1 mg 1 mg ONCE ONCE IV PUSH Last administered on 02/08/17 00:27; Start 02/07/17 at 23:45; Stop 02/07/17 at 23:46; Status DC Sodium Chloride 1,000 ml @ 1,000 mls/hr Q1H ONCE IV ; Start 02/08/17 at 02:01; Stop 02/08/17 at 03:00; Status DC Sodium Chloride 1,000 ml @ 1,000 mls/hr Q1H ONCE IV Last administered on 02:22; Start 02/08/17 at 02:01; Stop 02/08/17 at 03:00; Status DC Sodium Chloride 700 ml @ 1,000 mls/hr Q42M ONCE IV Last administered on 02:22; Start 02/08/17 at 02:01; Stop 02/08/17 at 02:42; Status DC Vancomycin HCl 1000 mg/Sodium Chloride 250 ml @ 250 mls/hr ONCE ONCE IV ; Start 02/08/17 at 02:15; Stop 02/08/17 at 03:14; Status Cancel Piperacillin Sod/ Tazobactam Sod (Zosyn 3.375 Gm Premix) 50 ml @ 100 mls/hr ONCE ONCE IV Last administered on 02/08/17 02:33; Start 02/08/17 at 02:15; Stop 02/08/17 at 02:44; Status DC Sodium Chloride (NS Flush) 2 ml UNSCH PRN IV FLUSH FLUSH AFTER USING IV ACCESS ; Start 02/08/17 at 02:45 Sodium Chloride (NS Flush) 2 ml BID IV FLUSH Last administered on 02/10/17 08: 06; Start 02/08/17 at 09:00 Ondansetron HCl (Zofran Inj) 4 mg Q6H PRN IVP NAUSEA OR VOMITING; Start at 02:45 Naloxone HCl 0.4 mg 0.4 mg UNSCH PRN IV SEE LABEL COMMENTS; Start 02/08/17 at 02:45 Pharmacy Profile Note 0 ml @ 0 mls/hr UNSCH OTHER ; Start 02/08/17 at 02:45 Piperacillin Sod/ Tazobactam Sod 100 ml @ 200 mls/hr Q6H IV Last administered on 02/09/17 14:40; Start 02/08/17 at 08:00; Stop 02/09/17 at 15:53; Status DC Ciprofloxacin/ Dextrose (Cipro 400 Mg Premix) 200 ml @ 200 mls/hr Q12H IV Last administered on 02/08/17 16:36; Start 02/08/17 at 04:00; Stop 02/09/17 at 15:54; Status DC Lactobacillus Acidophilus (Lactinex) 1 tab TID PO Last administered on 08:06; Start 02/08/17 at 09:00 Hydromorphone HCl (Dilaudid Pf Inj) 1 mg ONCE ONCE IV PUSH Last administered on 02/08/17 03:43; Start 02/08/17 at 03:15; Stop 02/08/17 at 03:16; Status DC Pantoprazole Sodium 40 mg 40 mg ONCE ONCE IV PUSH Last administered on 03:43; Start 02/08/17 at 03:15; Stop 02/08/17 at 03:16; Status DC Vancomycin HCl/ Sodium Chloride (Vancomycin Inj/ NS 500 ml Inj) 515 ml @ 257.5 mls/ hr ONCE ONCE IV Last administered on 02/08/17 07:39; Start 02/08/17 at 05:00; Stop 02/08/17 at 06:59; Status DC Ketorolac Tromethamine (Toradol Inj) 15 mg Q6H PRN IV PUSH pain >5; Start 02/08 at 05:15; Stop 02/08/17 at 05:51; Status DC Alprazolam (Xanax) 0.125 mg NOW ONCE PO Last administered on 02/08/17 06:14; Start 02/08/17 at 05:30; Stop 02/08/17 at 05:31; Status DC Hydromorphone HCl (Dilaudid Pf Inj) 1 mg Q4H PRN IV PUSH pain >5 Last administered on 02/08/17 06:24; Start 02/08/17 at 06:00; Stop 02/08/17 at 10:03 ; Status DC Methadone HCl (Dolophine) 20 mg ONCE ONCE PO Last administered on 02/08/17 06 :23; Start 02/08/17 at 06:15; Stop 02/08/17 at 06:18; Status DC Methadone HCl (Dolophine) 20 mg DAILY PO Last administered on 02/10/17 08:05; Start 02/08/17 at 09:00 Pantoprazole Sodium (Protonix) 40 mg DAILY PO Last administered on 02/10/17 08 :06; Start 02/09/17 at 09:00 Calcium Carbonate 500 mg 500 mg ONCE ONCE CHEW Last administered on 02/08/17 07:38; Start 02/08/17 at 08:00; Stop 02/08/17 at 08:01; Status DC Sodium Chloride 1,000 ml @ 100 mls/hr Q10H IV Last administered on 02/10/17 09:28; Start 02/08/17 at 07:45 Vancomycin HCl/ Sodium Chloride (Vancomycin Inj/ NS 500 ml Inj) 515 ml @ 250 mls/hr Q12H IV Last administered on 02/09/17 08:48; Start 02/08/17 at 20:00; Stop 02/09/17 at 22:40; Status DC Miscellaneous Information SPECIFIC LAB TO BE DRAWN:VANCOMYCIN TROUGH DATE TO... ONCE ONCE .XX ; Start 02/09/17 at 19:45; Stop 02/09/17 at 19:46; Status DC Iohexol (Omnipaque 350 Inj) 63 ml STK-MED ONCE IV Last administered on 10:03; Start 02/08/17 at 10:03; Stop 02/08/17 at 10:04; Status DC Hydromorphone HCl (Dilaudid Pf Inj) 2 mg Q3HR PRN IV PUSH pain >5 Last administered on 02/10/17 09:30; Start 02/08/17 at 11:00; Stop 02/10/17 at 10:30 ; Status DC Flumazenil (Romazicon Inj) 0.2 mg Q1M PRN IV PUSH SEE LABEL COMMENTS; Start at 14:45 Lorazepam (Ativan) 1 mg Q4H PRN PO CIWA 8 - 10 Last administered on 02/09/17 07:43; Start 02/08/17 at 14:45 Lorazepam (Ativan Inj) 1 mg Q4H PRN IV PUSH CIWA 8 - 10; Start 02/08/17 at 14: 45 Lorazepam (Ativan) 2 mg Q2H PRN PO CIWA 11-14; Start 02/08/17 at 14:45 Lorazepam (Ativan Inj) 2 mg Q2H PRN IV PUSH CIWA 11-14; Start 02/08/17 at 14:45 Lorazepam (Ativan Inj) 2 mg Q1H PRN IV PUSH CIWA 15-20; Start 02/08/17 at 14:45 Lorazepam (Ativan Inj) 2 mg Q15M PRN IV PUSH CIWA > 20; Start 02/08/17 at 14:45 Miscellaneous Information SPECIFIC LAB TO BE DRAWN:VANCO TROUGH DATE TO BE DR... ONCE ONCE .XX ; Start 02/10/17 at 21:45; Stop 02/10/17 at 21:46 Vancomycin HCl/ Sodium Chloride (Vancomycin Inj/ NS 500 ml Inj) 515 ml @ 250 mls/hr Q12H IV Last administered on 02/10/17 09:29; Start 02/09/17 at 22:00 Hydromorphone HCl (Dilaudid Pf Inj) 0.5 mg Q8HR PRN IV PUSH PAIN 8-10; Start at 14:00; Status UNV A/P Assessment and Plan Left sided cellulitis of the chest/abdomen -Leukocytosis improving with empiric treatment with Cipro, Zosyn, and vancomycin but clinically erythema has worsened. Infectious disease consulted and impression recommendations. Blood cultures positive for gram-positive cocci. Cipro and Zosyn discontinued yesterday. Patient currently on vancomycin. Mild elevation of WBC today. -General surgeon also consulted due to concerns for possible compartment syndrome. Ultrasound was done this morning which showed no fluid collection to be aspirated. -Will continue current regimen pending further recommendation from general surgery and infectious disease from today. We will also repeat blood cultures 2. Bacteremia gram-positive cocci -Patient on vancomycin. Repeat blood cultures 2. -See treatment as above. Left pectoralis muscle with infiltrate of the soft tissue suggesting injury/ tear of the muscle -Dealt with Mima Philippe over the phone and he stated no surgical indication. He stated that pain should not be this severe from that diagnosis. Recommend sling, icing, and follow-up as outpatient. Left adrenal nodule measuring 2.4 x 2.2 cm. -Asymptomatic. Patient to follow-up as outpatient with his PCP. Patient understood. Uncontrolled pain Better control. Patient seems to be loopy because the medication. Will need to decrease Dilaudid. Patient was told this and he stated that he understood. Can continue his methadone. SEPSIS -with leukocytosis with left shift, bandemia, tachycardia, lactic acid acidosis source most likely cellulitis. -See treatment as above. History of hepatitis C -Asymptomatic treatment as outpatient. DVT prophylaxison SCD. GI prophylaxison pantoprazole. Discharge Planning Patient continues to require IV antibiotics so will need continual hospitalization. Anna Israel MD Feb 10, 2017 10:36
--- NOTE | 2017-02-10 11:14 | HHI.IDPN ---
Note Infectious Disease Note Patient complains of pain in the left chest. Notes burning pain. Sitting upright on side of bed leaning forward on the bedside table. Afebrile. Denies chills. Presented to the emergency department on 02/07 for evaluation of left chest wall pain and swelling. PAST MEDICAL HISTORY 1. Hepatitis C 2. History of MRSA arm wound in 2004. 3. History of IV drug use in the past. Denies current IV drug use. ALLERGIES TYLENOL ANTIBIOTICS: Vancomycin. SOCIAL HISTORY Positive tobacco use. The patient reportedly smokes three packs of cigarettes a day. The patient drinks beer daily. Denies illicit drugs currently. OBJECTIVE: Vital Signs Date Time Temp Pulse Resp B/P Pulse Ox O2 Delivery O2 Flow Rate FiO2 02/10/17 04:00 Nasal Cannula 3.00 02/10/17 04:00 98.9 109 24 131/88 94 02/10/17 00:00 Nasal Cannula 3.00 02/10/17 00:00 98.5 115 24 145/90 92 02/09/17 20:00 118 02/09/17 20:00 98.1 124 20 143/80 92 02/09/17 20:00 93 Nasal Cannula 3.00 02/09/17 16:00 98.3 120 22 120/79 91 02/09/17 12:00 98.4 120 20 133/82 92 02/09/17 02/09/17 02/10/17 15:00 23:00 07:00 Intake Total 960 ml 360 ml 1445 ml Balance 960 ml 360 ml 1445 ml Intake Oral 960 ml 360 ml 360 ml IV Total 1085 ml # Voids 4 3 3 # Bowel Movements 1 0 0 Laboratory Tests Test 02/08/17 02/09/17 02/10/17 12:23 06:45 07:40 White Blood Count 15.1 TH/MM3 11.5 TH/MM3 13.7 TH/MM3 Red Blood Count 4.44 MIL/MM3 4.26 MIL/MM3 4.08 MIL/MM3 Hemoglobin 15.2 GM/DL 14.6 GM/DL 14.0 GM/DL Hematocrit 44.5 % 42.5 % 40.4 % Mean Corpuscular Volume 100.3 FL 99.7 FL 99.0 FL Mean Corpuscular Hemoglobin 34.2 PG 34.4 PG 34.2 PG Mean Corpuscular Hemoglobin 34.1 % 34.5 % 34.6 % Concent Red Cell Distribution Width 13.2 % 13.3 % 13.0 % Platelet Count 163 TH/MM3 173 TH/MM3 191 TH/MM3 Mean Platelet Volume 9.8 FL 9.6 FL 9.4 FL Neutrophils (%) (Auto) 83.1 % 82.0 % Lymphocytes (%) (Auto) 5.2 % 9.0 % Monocytes (%) (Auto) 11.4 % 8.3 % Eosinophils (%) (Auto) 0.1 % 0.5 % Basophils (%) (Auto) 0.2 % 0.2 % Neutrophils # (Auto) 12.6 TH/MM3 9.4 TH/MM3 Lymphocytes # (Auto) 0.8 TH/MM3 1.0 TH/MM3 Monocytes # (Auto) 1.7 TH/MM3 1.0 TH/MM3 Eosinophils # (Auto) 0.0 TH/MM3 0.1 TH/MM3 Basophils # (Auto) 0.0 TH/MM3 0.0 TH/MM3 CBC Comment AUTO DIFF AUTO DIFF Differential Total Cells 100 100 Counted Neutrophils % (Manual) 64 % 60 % Band Neutrophils % 21 % 13 % Lymphocytes % 5 % 12 % Monocytes % 3 % 13 % Neutrophils # (Manual) 13.9 TH/MM3 8.6 TH/MM3 Metamyelocytes 7 % 2 % Differential Comment FINAL DIFF FINAL DIFF MANUAL MANUAL Atypical Lymphocytes % Platelet Estimate NORMAL NORMAL Platelet Morphology Comment NORMAL NORMAL Red Cell Morphology Comment NORMAL NORMAL Laboratory Tests Test 02/08/17 02/09/17 02/10/17 12:23 06:45 07:40 Lactic Acid Level 2.5 mmol/L Sodium Level 128 MEQ/L 130 MEQ/L Potassium Level 3.9 MEQ/L 3.9 MEQ/L Chloride Level 97 MEQ/L 97 MEQ/L Carbon Dioxide Level 22.7 MEQ/L 23.6 MEQ/L Anion Gap 8 MEQ/L 9 MEQ/L Blood Urea Nitrogen 15 MG/DL 14 MG/DL Creatinine 0.73 MG/DL 0.56 MG/DL Estimat Glomerular Filtration 112 ML/MIN 153 ML/MIN Rate Random Glucose 93 MG/DL 73 MG/DL Calcium Level 8.2 MG/DL 8.2 MG/DL Total Bilirubin 2.1 MG/DL Direct Bilirubin 1.3 MG/DL Indirect Bilirubin 0.8 MG/DL Aspartate Amino Transf 57 U/L (AST/SGOT) Alanine Aminotransferase 57 U/L (ALT/SGPT) Alkaline Phosphatase 150 U/L Total Protein 7.3 GM/DL Albumin 2.2 GM/DL Microbiology Date/Time Procedure Status Source Growth 02/08/17 02:22 Aerobic Blood Culture - Preliminary Resulted Blood Peripheral NO GROWTH IN 1 DAY 02/08/17 02:22 Anaerobic Blood Culture - Final Resulted S. Aureus Mrsa 02/08/17 02:22 Aerobic Blood Culture - Preliminary Resulted Blood Peripheral NO GROWTH IN 1 DAY 02/08/17 02:22 Anaerobic Blood Culture - Preliminary Resulted S. Aureus Mrsa IMAGING: Soft Tissue Ultrasound 02/10/17 0747 Signed Impressions: Service Date/Time: Friday, February 10, 2017 08:38 - CONCLUSION: Edematous tissues are present over the left chest without defined abscess. There is no fluid for aspiration or drainage. This can be easily followed by ultrasound.. Miguel Angel Goode MD FACR Chest CT 02/08/17 0000 Signed Impressions: Service Date/Time: Wednesday, February 08, 2017 09:15 - CONCLUSION: 1. Diffuse enlargement of the left pectoralis muscle with infiltration of the soft tissues surrounding the left pectoralis muscle suggestive of injury/tear of this muscle. Clinical correlation is recommended. 2. Tiny bilateral pleural effusions with bibasilar atelectasis. 3. Cardiomegaly and coronary artery calcifications. 4. Mild splenomegaly. 5. Left adrenal nodule measuring 2.4 x 2.2 cm. 5. Mild degenerative changes and scoliosis of the thoracolumbar spine. Jose Reddy MD Ribs X-Ray 02/07/17 0000 Signed Impressions: Service Date/Time: Tuesday, February 07, 2017 23:39 - CONCLUSION: No definite displaced rib fractures. Amber Sandoval MD PHYSICAL EXAMINATION GENERAL: Awake, alert. Breathing better. HEENT: The head is atraumatic. Extraocular movements grossly intact, pupils reactive to light. No icterus. Oropharynx moist mucosa without lesions. NECK: Supple. No adenopathy. LUNGS: Clear breath sounds which are diminished. HEART: Regular rate and rhythm without murmurs, rubs or gallops. CHEST: Marked swelling of the left chest which appears approximately twice the size of the right breast. Now more swollen at the lateral aspect. The area is very tender and very tense on palpation and has significant erythema which blanches on palpation and is extremely warm. ABDOMEN: Diffuse edema and erythema with confluent redness the same as on the left breast. Diminished bowel sounds. Weeping of the skin at the left lateral abdomen. EXTREMITIES: No clubbing or cyanosis or edema. SKIN: No rash. NEUROLOGIC: No gross focal findings. PSYCHIATRIC: Calm and cooperative. IMPRESSION 1. Severe Cellulitis of the left chest wall and abdomen. 2. Bacteremia due to MRSA. 3. Rule out abscess of the left chest wall. 4. Hyponatremia. Patient drinking lots of water. RECOMMENDATIONS 1. Continue vancomycin 2. Add Clindamycin. 3. Repeat blood culture. 4. Monitor clinical response. David Thorpe MD Feb 10, 2017 11:14
[2017-02-10] MEDS: CLINDAMYCIN INJ 900 MG in SODIUM CHLORIDE 0.9% INJ 100 ML IV SCH ×2 (15:18→22:05)
[2017-02-10] MEDS: LORazepam 2 MG/ML VIAL IV PUSH PRN (15:18)
--- NOTE | 2017-02-10 16:32 | HHI.PR ---
Subjective Subjective Notes Resting in bed sleeping at bedside Objective Vitals/I&O Vital Signs Date Time Temp Pulse Resp B/P Pulse Ox O2 Delivery O2 Flow Rate FiO2 02/10/17 08:00 98.3 112 18 147/79 96 02/10/17 04:00 Nasal Cannula 3.00 Labs Laboratory Tests Test 02/10/17 07:40 White Blood Count 13.7 Red Blood Count 4.08 Hemoglobin 14.0 Hematocrit 40.4 Mean Corpuscular Volume 99.0 Mean Corpuscular Hemoglobin 34.2 Mean Corpuscular Hemoglobin 34.6 Concent Red Cell Distribution Width 13.0 Platelet Count 191 Mean Platelet Volume 9.4 Sodium Level 130 Potassium Level 3.9 Chloride Level 97 Carbon Dioxide Level 23.6 Anion Gap 9 Blood Urea Nitrogen 14 Creatinine 0.56 Estimat Glomerular Filtration 153 Rate Random Glucose 73 Calcium Level 8.2 Date/Time Procedure Status Source Growth 02/10/17 12:17 Aerobic Blood Culture Received Blood Peripheral Pending 02/10/17 12:17 Anaerobic Blood Culture Received Blood Peripheral Pending 02/08/17 02:22 Aerobic Blood Culture - Preliminary Resulted Blood Peripheral NO GROWTH IN 2 DAYS 02/08/17 02:22 Anaerobic Blood Culture - Final Resulted S. Aureus Mrsa Radiology Last [address] 02/08/17 0000 Signed Impressions: Service Date/Time: Wednesday, February 08, 2017 09:15 - CONCLUSION: 1. Diffuse enlargement of the left pectoralis muscle with infiltration of the soft tissues surrounding the left pectoralis muscle suggestive of injury/tear of this muscle. Clinical correlation is recommended. 2. Tiny bilateral pleural effusions with bibasilar atelectasis. 3. Cardiomegaly and coronary artery calcifications. 4. Mild splenomegaly. 5. Left adrenal nodule measuring 2.4 x 2.2 cm. 5. Mild degenerative changes and scoliosis of the thoracolumbar spine. Jose Reddy MD Cardiovascular: Regular Lungs: Clear Abdomen: Other (see below ) Extremities: Other (bilateral edema) Narrative Exam LEFT chest ---skin with erythremia travels down to LLQ; abdomen skin tight; no palpable fluid collection; blisters noted on LLW A/P Assessment and Plan 51 year old male with pectoralis muscle tear; LEFT chest wall cellulitis -Repeat US this morning--- no fluid collection drain -Continue to monitor WBC -ID following; continue antibiotics -Diet as tolerated -Pain control -Ice to LEFT chest wall Attending Note - Dr. Ballesteros Some swelling Left chest wall Continue to monitor The exam, history, and the medical decision-making described in the above note were completed with the assistance of the mid-level provider. I reviewed and agree with the findings presented. I attest that I had a [id number] encounter with the patient on the same day, and personally performed and documented my assessment and findings in the medical record. Wilma Ochoa Feb 10, 2017 16:32 Pramod Ballesteros MD Feb 16, 2017 19:23
[2017-02-10] MEDS ORDERED: PHARMACY ORDERED LAB ONE (21:45)
[2017-02-11] VITALS (7 sets, daily range): BP systolic 131–170; BP diastolic 73–89; PULSE 98–115; RESP 18–24; TEMP 97.8–100.5; O2SAT 90–94
[2017-02-11] MEDS: CLINDAMYCIN INJ 900 MG in SODIUM CHLORIDE 0.9% INJ 100 ML IV SCH ×3 (05:44→20:42)
[2017-02-11] MEDS: HYDROmorphone HCL PF 1 MG/ML VIAL IV PUSH PRN ×3 (05:45→23:46)
[2017-02-11] MEDS: SODIUM CHLOR 0.9% 1000 ML INJ 1,000 ML IV SCH ×3 (05:45→20:41)
[2017-02-11] MEDS: SODIUM CHLORIDE 0.9% FLUSH 10 ML FLUSH IV FLUSH SCH ×2 (09:00→20:41)
[2017-02-11] MEDS: VANCOMYCIN INJ 1,500 MG in SODIUM CHLORID 0.9% 500 ML INJ 500 ML IV SCH ×3 (09:00→23:46)
[2017-02-11] MEDS: PANTOPRAZOLE SOD 40 MG DELAYED RELEASE TAB PO SCH (09:23)
[2017-02-11] MEDS: LACTOBACILLUS ACIDOPHILUS TAB PO SCH ×3 (09:23→16:19)
[2017-02-11] MEDS: METHADONE HCL 10 MG TAB PO SCH (09:23)
--- NOTE | 2017-02-11 10:54 | HHI.PR ---
Subjective Remarks Follow-up for chest wall and abdominal cellulitis Patient stated that he feels better today. He feels like the new medication is working. Patient admits to me today that he does do IV drug use. He stated that he doesn 't once a day. He stated that he used to do about 10 times a day. Patient had a low-grade fever 100.7. He has no other complaints. Deny any nausea or vomiting. Objective Vitals Vital Signs Date Time Temp Pulse Resp B/P Pulse Ox O2 Delivery O2 Flow Rate FiO2 02/11/17 08:00 99.0 98 18 142/81 94 02/11/17 04:00 99.1 106 24 131/74 91 02/11/17 00:00 93 Nasal Cannula 3.00 02/11/17 00:00 97.8 115 20 136/81 92 02/10/17 20:00 100.7 115 24 146/84 92 02/10/17 19:45 116 02/10/17 19:45 93 Nasal Cannula 3.00 02/10/17 16:00 98.3 127 22 152/85 92 02/10/17 12:00 97.8 116 18 151/87 93 I/O 02/10/17 02/10/17 02/10/17 02/11/17 02/11/17 02/11/17 07:00 15:00 23:00 07:00 15:00 23:00 Intake Total 1445 ml 1528 ml 1332 ml Output Total 500 ml Balance 1445 ml 1028 ml 1332 ml Intake Oral 360 ml 360 ml 360 ml IV Total 1085 ml 1168 ml 972 ml Output Urine Total 500 ml # Voids 3 2 # Bowel Movements 0 Result Diagram: 02/10/17 0740 02/10/17 0740 Objective Remarks GENERAL: In notable pain CARDIOVASCULAR: Regular rate and rhythm without murmurs, gallops, or rubs. Left upper chest with swelling and erythema along the left upper chest and left abdominal area. Positive tenderness to palpation. RESPIRATORY: Breath sounds equal bilaterally. No accessory muscle use. GASTROINTESTINAL: Abdomen is distended but softer than yesterday. No peritoneal signs. Mild tenderness to palpation. MUSCULOSKELETAL: No cyanosis, or edema. BACK: Nontender without obvious deformity. No CVA tenderness. Medications and IVs Current Medications Morphine Sulfate (Morphine Inj) 4 mg ONCE ONCE IV PUSH Last administered on 22:55; Start 02/07/17 at 22:15; Stop 02/07/17 at 22:16; Status DC Ondansetron HCl (Zofran Inj) 4 mg ONCE ONCE IVP Last administered on 22:55; Start 02/07/17 at 22:15; Stop 02/07/17 at 22:16; Status DC Sodium Chloride 2 ml 2 ml UNSCH PRN IV FLUSH FLUSH AFTER USING IV ACCESS; Start 02/07/17 at 22:15; Stop 02/08/17 at 05:22; Status DC Sodium Chloride (NS 1000 ml Inj) 1,000 ml @ 1,000 mls/hr Q1H ONCE IV Last administered on 02/08/17 00:27; Start 02/07/17 at 23:45; Stop 02/08/17 at 00:44 ; Status DC Ondansetron HCl (Zofran Inj) 4 mg ONCE ONCE IV ; Start 02/07/17 at 23:45; Stop 02/07/17 at 23:46; Status DC Hydromorphone HCl 1 mg 1 mg ONCE ONCE IV PUSH Last administered on 02/08/17 00:27; Start 02/07/17 at 23:45; Stop 02/07/17 at 23:46; Status DC Sodium Chloride 1,000 ml @ 1,000 mls/hr Q1H ONCE IV ; Start 02/08/17 at 02:01; Stop 02/08/17 at 03:00; Status DC Sodium Chloride 1,000 ml @ 1,000 mls/hr Q1H ONCE IV Last administered on 02:22; Start 02/08/17 at 02:01; Stop 02/08/17 at 03:00; Status DC Sodium Chloride 700 ml @ 1,000 mls/hr Q42M ONCE IV Last administered on 02:22; Start 02/08/17 at 02:01; Stop 02/08/17 at 02:42; Status DC Vancomycin HCl 1000 mg/Sodium Chloride 250 ml @ 250 mls/hr ONCE ONCE IV ; Start 02/08/17 at 02:15; Stop 02/08/17 at 03:14; Status Cancel Piperacillin Sod/ Tazobactam Sod (Zosyn 3.375 Gm Premix) 50 ml @ 100 mls/hr ONCE ONCE IV Last administered on 02/08/17 02:33; Start 02/08/17 at 02:15; Stop 02/08/17 at 02:44; Status DC Sodium Chloride (NS Flush) 2 ml UNSCH PRN IV FLUSH FLUSH AFTER USING IV ACCESS ; Start 02/08/17 at 02:45 Sodium Chloride (NS Flush) 2 ml BID IV FLUSH Last administered on 02/11/17 09: 00; Start 02/08/17 at 09:00 Ondansetron HCl (Zofran Inj) 4 mg Q6H PRN IVP NAUSEA OR VOMITING; Start at 02:45 Naloxone HCl 0.4 mg 0.4 mg UNSCH PRN IV SEE LABEL COMMENTS; Start 02/08/17 at 02:45 Pharmacy Profile Note 0 ml @ 0 mls/hr UNSCH OTHER ; Start 02/08/17 at 02:45 Piperacillin Sod/ Tazobactam Sod 100 ml @ 200 mls/hr Q6H IV Last administered on 02/09/17 14:40; Start 02/08/17 at 08:00; Stop 02/09/17 at 15:53; Status DC Ciprofloxacin/ Dextrose (Cipro 400 Mg Premix) 200 ml @ 200 mls/hr Q12H IV Last administered on 02/08/17 16:36; Start 02/08/17 at 04:00; Stop 02/09/17 at 15:54; Status DC Lactobacillus Acidophilus (Lactinex) 1 tab TID PO Last administered on 09:23; Start 02/08/17 at 09:00 Hydromorphone HCl (Dilaudid Pf Inj) 1 mg ONCE ONCE IV PUSH Last administered on 02/08/17 03:43; Start 02/08/17 at 03:15; Stop 02/08/17 at 03:16; Status DC Pantoprazole Sodium 40 mg 40 mg ONCE ONCE IV PUSH Last administered on 03:43; Start 02/08/17 at 03:15; Stop 02/08/17 at 03:16; Status DC Vancomycin HCl/ Sodium Chloride (Vancomycin Inj/ NS 500 ml Inj) 515 ml @ 257.5 mls/ hr ONCE ONCE IV Last administered on 02/08/17 07:39; Start 02/08/17 at 05:00; Stop 02/08/17 at 06:59; Status DC Ketorolac Tromethamine (Toradol Inj) 15 mg Q6H PRN IV PUSH pain >5; Start 02/08 at 05:15; Stop 02/08/17 at 05:51; Status DC Alprazolam (Xanax) 0.125 mg NOW ONCE PO Last administered on 02/08/17 06:14; Start 02/08/17 at 05:30; Stop 02/08/17 at 05:31; Status DC Hydromorphone HCl (Dilaudid Pf Inj) 1 mg Q4H PRN IV PUSH pain >5 Last administered on 02/08/17 06:24; Start 02/08/17 at 06:00; Stop 02/08/17 at 10:03 ; Status DC Methadone HCl (Dolophine) 20 mg ONCE ONCE PO Last administered on 02/08/17 06 :23; Start 02/08/17 at 06:15; Stop 02/08/17 at 06:18; Status DC Methadone HCl (Dolophine) 20 mg DAILY PO Last administered on 02/11/17 09:23; Start 02/08/17 at 09:00 Pantoprazole Sodium (Protonix) 40 mg DAILY PO Last administered on 02/11/17 09 :23; Start 02/09/17 at 09:00 Calcium Carbonate 500 mg 500 mg ONCE ONCE CHEW Last administered on 02/08/17 07:38; Start 02/08/17 at 08:00; Stop 02/08/17 at 08:01; Status DC Sodium Chloride 1,000 ml @ 100 mls/hr Q10H IV Last administered on 02/11/17 05:45; Start 02/08/17 at 07:45 Vancomycin HCl/ Sodium Chloride (Vancomycin Inj/ NS 500 ml Inj) 515 ml @ 250 mls/hr Q12H IV Last administered on 02/09/17 08:48; Start 02/08/17 at 20:00; Stop 02/09/17 at 22:40; Status DC Miscellaneous Information SPECIFIC LAB TO BE DRAWN:VANCOMYCIN TROUGH DATE TO... ONCE ONCE .XX ; Start 02/09/17 at 19:45; Stop 02/09/17 at 19:46; Status DC Iohexol (Omnipaque 350 Inj) 63 ml STK-MED ONCE IV Last administered on 10:03; Start 02/08/17 at 10:03; Stop 02/08/17 at 10:04; Status DC Hydromorphone HCl (Dilaudid Pf Inj) 2 mg Q3HR PRN IV PUSH pain >5 Last administered on 02/10/17 09:30; Start 02/08/17 at 11:00; Stop 02/10/17 at 10:30 ; Status DC Flumazenil (Romazicon Inj) 0.2 mg Q1M PRN IV PUSH SEE LABEL COMMENTS; Start at 14:45 Lorazepam (Ativan) 1 mg Q4H PRN PO CIWA 8 - 10 Last administered on 02/09/17 07:43; Start 02/08/17 at 14:45 Lorazepam (Ativan Inj) 1 mg Q4H PRN IV PUSH CIWA 8 - 10 Last administered on 15:18; Start 02/08/17 at 14:45 Lorazepam (Ativan) 2 mg Q2H PRN PO CIWA 11-14; Start 02/08/17 at 14:45 Lorazepam (Ativan Inj) 2 mg Q2H PRN IV PUSH CIWA 11-14; Start 02/08/17 at 14:45 Lorazepam (Ativan Inj) 2 mg Q1H PRN IV PUSH CIWA 15-20; Start 02/08/17 at 14:45 Lorazepam (Ativan Inj) 2 mg Q15M PRN IV PUSH CIWA > 20; Start 02/08/17 at 14:45 Miscellaneous Information SPECIFIC LAB TO BE DRAWN:VANCO TROUGH DATE TO BE DR... ONCE ONCE .XX Last administered on 02/10/17 21:45; Start 02/10/17 at 21 :45; Stop 02/10/17 at 21:46; Status DC Vancomycin HCl/ Sodium Chloride (Vancomycin Inj/ NS 500 ml Inj) 515 ml @ 250 mls/hr Q12H IV Last administered on 02/10/17 22:59; Start 02/09/17 at 22:00; Stop 02/10/17 at 23:47; Status DC Hydromorphone HCl 0.5 mg 0.5 mg Q8HR PRN IV PUSH PAIN 8-10 Last administered on 02/11/17 05:45; Start 02/10/17 at 14:00 Clindamycin Phosphate 900 mg/ Sodium Chloride 106 ml @ 212 mls/hr Q8H IV Last administered on 02/11/17 05:44; Start 02/10/17 at 13:00 Vancomycin HCl/ Sodium Chloride (Vancomycin Inj/ NS 500 ml Inj) 515 ml @ 250 mls/hr Q8H IV Last administered on 02/11/17 09:00; Start 02/11/17 at 09:00 Miscellaneous Information SPECIFIC LAB TO BE ... ONCE ONCE .XX ; Start 02/12 at 08:45; Stop 02/12/17 at 08:46 A/P Assessment and Plan Left sided cellulitis of the chest/abdomen -Patient initially treated with with Cipro, Zosyn, and vancomycin but clinically erythema has worsened. Infectious disease consulted and impression recommendations. d/c Cipro and Zosyn on 02/10/17. Patient on vancomycin and clindamycin today. -There is mild improvement regimen today. -General surgeon also consulted. Ultrasound was done on 02/10/2017 which was negative for any fluid collection. -At the moment per general surgery no indication for any surgery. MRSA bacteremia -Patient on vancomycin. Repeat blood cultures pending. -See treatment as above. Left pectoralis muscle with infiltrate of the soft tissue suggesting injury/ tear of the muscle -Dealt with Mima Philippe over the phone and he stated no surgical indication. He stated that pain should not be this severe from that diagnosis. Recommend sling, icing, and follow-up as outpatient. Left adrenal nodule measuring 2.4 x 2.2 cm. -Asymptomatic. Patient to follow-up as outpatient with his PCP. Patient understood. Uncontrolled pain Controlled. Current IV drug use -Patient now admits of IV drug use. Education given. SEPSIS -with leukocytosis with left shift, bandemia, tachycardia, lactic acid acidosis source most likely cellulitis. -See treatment as above. History of hepatitis C -Asymptomatic treatment as outpatient. DVT prophylaxison SCD. GI prophylaxison pantoprazole. Discharge Planning Patient continues to require IV antibiotics so will need continual hospitalization. Anna Israel MD Feb 11, 2017 10:53
--- NOTE | 2017-02-11 11:51 | HHI.IDPN ---
Subjective Subjective Remarks ID Xcover for Dr Strauss Pt chart was reviewed 51 yo male with active IVDU presented with rapidly spreading swelling, redness and pain of L pectoralis area He is growing MRSA in the blood He states his swelling, pain and redness improved since abx were started Antibiotics vanco clinda Past Medical History IVDA Allergies: Coded Allergies: Tylenol (Verified Allergy, Unknown, 02/07/17) *MDRO Multi-Drug Resistant Organism (Unverified Adverse Reaction, Unknown , Cleared - 02/08/17, 02/10/17) MRSA arm wound, 2004. MRSA (blood)-02/08/17 Objective . Vital Signs Date Time Temp Pulse Resp B/P Pulse Ox O2 Delivery O2 Flow Rate FiO2 02/11/17 09:00 102 02/11/17 08:00 99.0 98 18 142/81 94 02/11/17 04:00 99.1 106 24 131/74 91 02/11/17 00:00 93 Nasal Cannula 3.00 02/11/17 00:00 97.8 115 20 136/81 92 02/10/17 20:00 100.7 115 24 146/84 92 02/10/17 19:45 116 02/10/17 19:45 93 Nasal Cannula 3.00 02/10/17 16:00 98.3 127 22 152/85 92 02/10/17 12:00 97.8 116 18 151/87 93 02/10/17 02/10/17 02/11/17 15:00 23:00 07:00 Intake Total 1528 ml 1332 ml Output Total 500 ml Balance 1028 ml 1332 ml Intake Oral 360 ml 360 ml IV Total 1168 ml 972 ml Output Urine Total 500 ml # Voids 2 . Laboratory Tests Test 02/10/17 07:40 White Blood Count 13.7 TH/MM3 Red Blood Count 4.08 MIL/MM3 Hemoglobin 14.0 GM/DL Hematocrit 40.4 % Mean Corpuscular Volume 99.0 FL Mean Corpuscular Hemoglobin 34.2 PG Mean Corpuscular Hemoglobin 34.6 % Concent Red Cell Distribution Width 13.0 % Platelet Count 191 TH/MM3 Mean Platelet Volume 9.4 FL Laboratory Tests Test 02/10/17 07:40 Sodium Level 130 MEQ/L Potassium Level 3.9 MEQ/L Chloride Level 97 MEQ/L Carbon Dioxide Level 23.6 MEQ/L Anion Gap 9 MEQ/L Blood Urea Nitrogen 14 MG/DL Creatinine 0.56 MG/DL Estimat Glomerular Filtration 153 ML/MIN Rate Random Glucose 73 MG/DL Calcium Level 8.2 MG/DL Microbiology Date/Time Procedure Status Source Growth 02/10/17 12:07 Aerobic Blood Culture - Preliminary Resulted Blood Peripheral NO GROWTH IN 1 DAY 02/10/17 12:07 Anaerobic Blood Culture - Preliminary Resulted Blood Peripheral NO GROWTH IN 1 DAY 02/10/17 12:17 Aerobic Blood Culture - Preliminary Resulted Blood Peripheral NO GROWTH IN 1 DAY 02/10/17 12:17 Anaerobic Blood Culture - Preliminary Resulted Blood Peripheral NO GROWTH IN 1 DAY Imaging Last Impressions Soft Tissue Ultrasound 02/10/17 0747 Signed Impressions: Service Date/Time: Friday, February 10, 2017 08:38 - CONCLUSION: Edematous tissues are present over the left chest without defined abscess. There is no fluid for aspiration or drainage. This can be easily followed by ultrasound.. Miguel Angel Goode MD FACR Chest CT 02/08/17 0000 Signed Impressions: Service Date/Time: Wednesday, February 08, 2017 09:15 - CONCLUSION: 1. Diffuse enlargement of the left pectoralis muscle with infiltration of the soft tissues surrounding the left pectoralis muscle suggestive of injury/tear of this muscle. Clinical correlation is recommended. 2. Tiny bilateral pleural effusions with bibasilar atelectasis. 3. Cardiomegaly and coronary artery calcifications. 4. Mild splenomegaly. 5. Left adrenal nodule measuring 2.4 x 2.2 cm. 5. Mild degenerative changes and scoliosis of the thoracolumbar spine. Jose Reddy MD Ribs X-Ray 02/07/17 0000 Signed Impressions: Service Date/Time: Tuesday, February 07, 2017 23:39 - CONCLUSION: No definite displaced rib fractures. K. Aries Sandoval MD Physical Exam PHYSICAL EXAMINATION GENERAL: Awake, alert. Breathing OK HEENT: The head is atraumatic. Extraocular movements grossly intact, pupils reactive to light. No icterus. Oropharynx moist mucosa without lesions. NECK: Supple. No adenopathy. LUNGS: Clear breath sounds which are diminished. HEART: Regular rate and rhythm without murmurs, rubs or gallops. CHEST: Marked indiurated swelling of the left chest which appears approximately twice the size of the right breast. Erythema spreading to lateral chest and abdomen Very indurated and tender to palpation ? small area of fluctuance on the L lat pec aspect ABDOMEN: Diffuse edema and erythema with confluent redness the same as on the left breast. Diminished bowel sounds. Weeping of the skin at the left lateral quadrant of abdomen. EXTREMITIES: No clubbing or cyanosis Massive 3+ soft pitting edema. SKIN: No rash. NEUROLOGIC: awake alert Non focal PSYCHIATRIC: Calm and cooperative. Assessment & Plan Remarks IMPRESSION 1. Severe Cellulitis, phlegmone and evolving abscess of the left chest wall and abdomen - MRSA 2. Bacteremia due to MRSA. - IVDU RECOMMENDATIONS 1. Continue vancomycin 2. cont Clindamycin. 3. dw Dr Murcia regarding I+D 4. 2 D echo 5. repeat blood clx Dominique Domignuez MD Feb 11, 2017 11:51
--- NOTE | 2017-02-11 12:32 | HHI.PR ---
Subjective Subjective Notes feels like his lower extremity edema is improved. He ate today. He wants to try to see if abx for another day resolve some of the chest swelling. He declines the opportunity for I and D today. Objective Vitals/I&O Vital Signs Date Time Temp Pulse Resp B/P Pulse Ox O2 Delivery O2 Flow Rate FiO2 02/11/17 09:00 102 02/11/17 08:00 99.0 18 142/81 94 02/11/17 00:00 Nasal Cannula 3.00 Labs Laboratory Tests Test 02/10/17 22:27 Vancomycin Level Trough 5.6 Date/Time Procedure Status Source Growth 02/10/17 12:17 Aerobic Blood Culture - Preliminary Resulted Blood Peripheral NO GROWTH IN 1 DAY 02/10/17 12:17 Anaerobic Blood Culture - Preliminary Resulted Blood Peripheral NO GROWTH IN 1 DAY Radiology Last [address] 02/08/17 0000 Signed Impressions: Service Date/Time: Wednesday, February 08, 2017 09:15 - CONCLUSION: 1. Diffuse enlargement of the left pectoralis muscle with infiltration of the soft tissues surrounding the left pectoralis muscle suggestive of injury/tear of this muscle. Clinical correlation is recommended. 2. Tiny bilateral pleural effusions with bibasilar atelectasis. 3. Cardiomegaly and coronary artery calcifications. 4. Mild splenomegaly. 5. Left adrenal nodule measuring 2.4 x 2.2 cm. 5. Mild degenerative changes and scoliosis of the thoracolumbar spine. Jose Reddy MD Narrative Exam significant edema and erythema and tenderness L chest, less erythema and edema L abdominal wall and posterior chest. No obvious fluctuant area, just indurated significantly. A/P Assessment and Plan s/p likely tear of L pectoralis muscle with lifting of TV. Cellulitis and likely underlying infection of hematoma. Plan continue abx. Re evaluate for I and D tomorrow. D/W pt and sig other at bedside. Brayan Murcia MD Feb 11, 2017 12:32
[2017-02-11 14:04] LABS: BICARBONATE 20.4 MEQ/L (21.0-32.0); POTASSIUM 3.5 MEQ/L (3.5-5.1)
[2017-02-11 14:24] LABS: CALCIUM-PROTEIN CORRECTED 7.7 MG/DL (8.5-10.1)
--- NOTE | 2017-02-11 16:21 | ECHRPT ---
Indication: VEGETATIONS CONCLUSIONS UNABLE TO EVALUTE FOR VEGETATION DUE TO LIMITED WINDOWS. VERY TECHNICALLY DIFFICULT STUDY DUE TO SWEELING IN THE CHEST. BP: 142 / 81 HR: 102 Rhythm: Other MEASUREMENTS (Male / Female) Normal Values Technical Quality:Very technically difficult study DOPPLER TR Peak Velocity 160.0 cm/s TR Peak Gradient 10.2 mmHg FINDINGS LEFT VENTRICLE The left ventricular systolic function is grossly normal on limited imaging. There was limited left ventricular wall motion assessment due to poor endocardial visualization. Funmi Denney MD, FACC (Electronically Signed) Final Date:11 February 2017 16:21
[2017-02-11 18:59] LABS: HEMATOCRIT 45.2 % (39.0-51.0); MEAN CELL VOLUME 98.8 FL (80.0-100.0); MEAN CORPUSCULAR HEMOGLOBIN 33.9 PG (27.0-34.0); MEAN CORPUSCULAR HGB CONC 34.4 % (32.0-36.0); PLATELET COUNT 142 TH/MM3 (150-450); RED BLOOD COUNT 4.58 MIL/MM3 (4.50-5.90); RED CELL DISTRIBUTION WIDTH 13.5 % (11.6-17.2); WHITE BLOOD COUNT 16.1 TH/MM3 (4.0-11.0)
[2017-02-11 19:00] LABS: REVIEW FLAG FINAL
[2017-02-11] MEDS: LORazepam 2 MG/ML VIAL IV PUSH PRN (22:07)
[2017-02-11 23:24] LABS: CRITICAL VALUE YES
[2017-02-12] VITALS (9 sets, daily range): BP systolic 103–149; BP diastolic 56–88; PULSE 78–123; RESP 17–20; TEMP 98–99.1; O2SAT 90–100
[2017-02-12] MEDS: CLINDAMYCIN INJ 900 MG in SODIUM CHLORIDE 0.9% INJ 100 ML IV SCH ×3 (06:15→22:19)
[2017-02-12] MEDS: LACTOBACILLUS ACIDOPHILUS TAB PO SCH ×3 (08:37→18:00)
[2017-02-12] MEDS: METHADONE HCL 10 MG TAB PO SCH (08:37)
[2017-02-12] MEDS: PANTOPRAZOLE SOD 40 MG DELAYED RELEASE TAB PO SCH (08:37)
[2017-02-12] MEDS: SODIUM CHLORIDE 0.9% FLUSH 10 ML FLUSH IV FLUSH SCH ×2 (08:37→21:00)
[2017-02-12] MEDS: HYDROmorphone HCL PF 1 MG/ML VIAL IV PUSH PRN (08:37)
[2017-02-12] MEDS ORDERED: PHARMACY ORDERED LAB ONE ×2 (08:45→16:45)
[2017-02-12] MEDS: VANCOMYCIN INJ 1,500 MG in SODIUM CHLORID 0.9% 500 ML INJ 500 ML IV SCH ×2 (08:52→17:00)
[2017-02-12] MEDS: SODIUM CHLOR 0.9% 1000 ML INJ 1,000 ML IV SCH ×2 (09:10→19:38)
[2017-02-12 09:50] LABS: HEMATOCRIT 40.4 % (39.0-51.0); MEAN CELL VOLUME 97.6 FL (80.0-100.0); MEAN CORPUSCULAR HEMOGLOBIN 34.9 PG (27.0-34.0); MEAN CORPUSCULAR HGB CONC 35.8 % (32.0-36.0); PLATELET COUNT 215 TH/MM3 (150-450); RED BLOOD COUNT 4.14 MIL/MM3 (4.50-5.90); RED CELL DISTRIBUTION WIDTH 13.6 % (11.6-17.2); REVIEW FLAG FINAL; WHITE BLOOD COUNT 16.6 TH/MM3 (4.0-11.0)
--- NOTE | 2017-02-12 10:12 | HHI.PR ---
Subjective Remarks Follow-up for chest wall and abdominal cellulitis. Patient found sitting in a chair by his window. He had no complaints. He stated that he could not talk much because when he talks it worsens his pain. He denied any shortness of breathing, or nausea or vomiting. Patient continues have low-grade fever. No other events. Patient scheduled for surgery at 2 PM. Objective Vitals Vital Signs Date Time Temp Pulse Resp B/P Pulse Ox O2 Delivery O2 Flow Rate FiO2 02/12/17 04:00 98.4 109 20 146/81 93 02/12/17 00:00 98.0 123 20 149/88 90 02/11/17 21:08 Nasal Cannula 3.00 02/11/17 20:00 115 02/11/17 20:00 100.5 115 22 170/89 92 02/11/17 16:00 98.0 100 18 153/86 92 02/11/17 12:00 99.0 106 18 143/73 90 02/11/17 12:00 Room Air I/O 02/11/17 02/11/17 02/11/17 02/12/17 02/12/17 02/12/17 07:00 15:00 23:00 07:00 15:00 23:00 Intake Total 1332 ml 240 ml 1040 ml 698 ml Balance 1332 ml 240 ml 1040 ml 698 ml Intake Oral 360 ml 240 ml 240 ml 0 ml IV Total 972 ml 800 ml 698 ml # Voids 2 1 4 3 # Bowel Movements 0 1 0 Result Diagram: 02/12/17 0934 02/11/17 1313 Objective Remarks GENERAL:In NAD sitting in chair by window CARDIOVASCULAR: Regular rate and rhythm without murmurs, gallops, or rubs. Left upper chest with swelling and erythema along the left upper chest with some induration and left abdominal area. Positive tenderness to palpation. RESPIRATORY: Breath sounds equal bilaterally. No accessory muscle use. GASTROINTESTINAL: Abdomen is distended but softer than yesterday. No peritoneal signs. Mild tenderness to palpation. MUSCULOSKELETAL: No cyanosis, or edema. BACK: Nontender without obvious deformity. No CVA tenderness. Medications and IVs Current Medications Morphine Sulfate (Morphine Inj) 4 mg ONCE ONCE IV PUSH Last administered on t 22:55; Start 02/07/17 at 22:15; Stop 02/07/17 at 22:16; Status DC Ondansetron HCl (Zofran Inj) 4 mg ONCE ONCE IVP Last administered on 22:55; Start 02/07/17 at 22:15; Stop 02/07/17 at 22:16; Status DC Sodium Chloride 2 ml 2 ml UNSCH PRN IV FLUSH FLUSH AFTER USING IV ACCESS; Start 02/07/17 at 22:15; Stop 02/08/17 at 05:22; Status DC Sodium Chloride (NS 1000 ml Inj) 1,000 ml @ 1,000 mls/hr Q1H ONCE IV Last administered on 02/08/17 00:27; Start 02/07/17 at 23:45; Stop 02/08/17 at 00:44 ; Status DC Ondansetron HCl (Zofran Inj) 4 mg ONCE ONCE IV ; Start 02/07/17 at 23:45; Stop 02/07/17 at 23:46; Status DC Hydromorphone HCl 1 mg 1 mg ONCE ONCE IV PUSH Last administered on 02/08/17 00:27; Start 02/07/17 at 23:45; Stop 02/07/17 at 23:46; Status DC Sodium Chloride 1,000 ml @ 1,000 mls/hr Q1H ONCE IV ; Start 02/08/17 at 02:01; Stop 02/08/17 at 03:00; Status DC Sodium Chloride 1,000 ml @ 1,000 mls/hr Q1H ONCE IV Last administered on 02:22; Start 02/08/17 at 02:01; Stop 02/08/17 at 03:00; Status DC Sodium Chloride 700 ml @ 1,000 mls/hr Q42M ONCE IV Last administered on 02:22; Start 02/08/17 at 02:01; Stop 02/08/17 at 02:42; Status DC Vancomycin HCl 1000 mg/Sodium Chloride 250 ml @ 250 mls/hr ONCE ONCE IV ; Start 02/08/17 at 02:15; Stop 02/08/17 at 03:14; Status Cancel Piperacillin Sod/ Tazobactam Sod (Zosyn 3.375 Gm Premix) 50 ml @ 100 mls/hr ONCE ONCE IV Last administered on 6/14/17at 02:33; Start 02/08/17 at 02:15; Stop 02/08/17 at 02:44; Status DC Sodium Chloride (NS Flush) 2 ml UNSCH PRN IV FLUSH FLUSH AFTER USING IV ACCESS ; Start 02/08/17 at 02:45 Sodium Chloride (NS Flush) 2 ml BID IV FLUSH Last administered on 02/12/17 08: 37; Start 02/08/17 at 09:00 Ondansetron HCl (Zofran Inj) 4 mg Q6H PRN IVP NAUSEA OR VOMITING; Start at 02:45 Naloxone HCl 0.4 mg 0.4 mg UNSCH PRN IV SEE LABEL COMMENTS; Start 02/08/17 at 02:45 Pharmacy Profile Note 0 ml @ 0 mls/hr UNSCH OTHER ; Start 02/08/17 at 02:45 Piperacillin Sod/ Tazobactam Sod 100 ml @ 200 mls/hr Q6H IV Last administered on 02/09/17 14:40; Start 02/08/17 at 08:00; Stop 02/09/17 at 15:53; Status DC Ciprofloxacin/ Dextrose (Cipro 400 Mg Premix) 200 ml @ 200 mls/hr Q12H IV Last administered on 02/08/17 16:36; Start 02/08/17 at 04:00; Stop 02/09/17 at 15:54; Status DC Lactobacillus Acidophilus (Lactinex) 1 tab TID PO Last administered on 08:37; Start 02/08/17 at 09:00 Hydromorphone HCl (Dilaudid Pf Inj) 1 mg ONCE ONCE IV PUSH Last administered on 02/08/17 03:43; Start 02/08/17 at 03:15; Stop 02/08/17 at 03:16; Status DC Pantoprazole Sodium 40 mg 40 mg ONCE ONCE IV PUSH Last administered on 03:43; Start 02/08/17 at 03:15; Stop 02/08/17 at 03:16; Status DC Vancomycin HCl/ Sodium Chloride (Vancomycin Inj/ NS 500 ml Inj) 515 ml @ 257.5 mls/ hr ONCE ONCE IV Last administered on 02/08/17 07:39; Start 02/08/17 at 05:00; Stop 02/08/17 at 06:59; Status DC Ketorolac Tromethamine (Toradol Inj) 15 mg Q6H PRN IV PUSH pain >5; Start 02/08 at 05:15; Stop 02/08/17 at 05:51; Status DC Alprazolam (Xanax) 0.125 mg NOW ONCE PO Last administered on 02/08/17 06:14; Start 02/08/17 at 05:30; Stop 02/08/17 at 05:31; Status DC Hydromorphone HCl (Dilaudid Pf Inj) 1 mg Q4H PRN IV PUSH pain >5 Last administered on 02/08/17 06:24; Start 02/08/17 at 06:00; Stop 02/08/17 at 10:03 ; Status DC Methadone HCl (Dolophine) 20 mg ONCE ONCE PO Last administered on 02/08/17 06 :23; Start 02/08/17 at 06:15; Stop 02/08/17 at 06:18; Status DC Methadone HCl (Dolophine) 20 mg DAILY PO Last administered on 02/12/17 08:37; Start 02/08/17 at 09:00 Pantoprazole Sodium (Protonix) 40 mg DAILY PO Last administered on 02/12/17 08 :37; Start 02/09/17 at 09:00 Calcium Carbonate 500 mg 500 mg ONCE ONCE CHEW Last administered on 02/08/17 07:38; Start 02/08/17 at 08:00; Stop 02/08/17 at 08:01; Status DC Sodium Chloride 1,000 ml @ 100 mls/hr Q10H IV Last administered on 02/11/17 20:41; Start 02/08/17 at 07:45 Vancomycin HCl/ Sodium Chloride (Vancomycin Inj/ NS 500 ml Inj) 515 ml @ 250 mls/hr Q12H IV Last administered on 02/09/17 08:48; Start 02/08/17 at 20:00; Stop 02/09/17 at 22:40; Status DC Miscellaneous Information SPECIFIC LAB TO BE DRAWN:VANCOMYCIN TROUGH DATE TO... ONCE ONCE .XX ; Start 02/09/17 at 19:45; Stop 02/09/17 at 19:46; Status DC Iohexol (Omnipaque 350 Inj) 63 ml STK-MED ONCE IV Last administered on 10:03; Start 02/08/17 at 10:03; Stop 02/08/17 at 10:04; Status DC Hydromorphone HCl (Dilaudid Pf Inj) 2 mg Q3HR PRN IV PUSH pain >5 Last administered on 02/10/17 09:30; Start 02/08/17 at 11:00; Stop 02/10/17 at 10:30 ; Status DC Flumazenil (Romazicon Inj) 0.2 mg Q1M PRN IV PUSH SEE LABEL COMMENTS; Start at 14:45 Lorazepam (Ativan) 1 mg Q4H PRN PO CIWA 8 - 10 Last administered on 02/09/17 07:43; Start 02/08/17 at 14:45 Lorazepam (Ativan Inj) 1 mg Q4H PRN IV PUSH CIWA 8 - 10 Last administered on 15:18; Start 02/08/17 at 14:45 Lorazepam (Ativan) 2 mg Q2H PRN PO CIWA 11-14; Start 02/08/17 at 14:45 Lorazepam (Ativan Inj) 2 mg Q2H PRN IV PUSH CIWA 11-14 Last administered on 22:07; Start 02/08/17 at 14:45 Lorazepam (Ativan Inj) 2 mg Q1H PRN IV PUSH CIWA 15-20; Start 02/08/17 at 14:45 Lorazepam (Ativan Inj) 2 mg Q15M PRN IV PUSH CIWA > 20; Start 02/08/17 at 14:45 Miscellaneous Information SPECIFIC LAB TO BE DRAWN:VANCO TROUGH DATE TO BE DR... ONCE ONCE .XX Last administered on 02/10/17 21:45; Start 02/10/17 at 21 :45; Stop 02/10/17 at 21:46; Status DC Vancomycin HCl/ Sodium Chloride (Vancomycin Inj/ NS 500 ml Inj) 515 ml @ 250 mls/hr Q12H IV Last administered on 02/10/17 22:59; Start 02/09/17 at 22:00; Stop 02/10/17 at 23:47; Status DC Hydromorphone HCl 0.5 mg 0.5 mg Q8HR PRN IV PUSH PAIN 8-10 Last administered on 02/12/17 08:37; Start 02/10/17 at 14:00 Clindamycin Phosphate 900 mg/ Sodium Chloride 106 ml @ 212 mls/hr Q8H IV Last administered on 02/12/17 06:15; Start 02/10/17 at 13:00 Vancomycin HCl/ Sodium Chloride (Vancomycin Inj/ NS 500 ml Inj) 515 ml @ 250 mls/hr Q8H IV Last administered on 02/12/17 08:52; Start 02/11/17 at 09:00 Miscellaneous Information SPECIFIC LAB TO BE SARAH... ONCE ONCE .XX ; Start 02/12 at 08:45; Stop 02/12/17 at 08:46; Status DC Nicotine (Habitrol 21 Mg Patch.24 Hr) 1 patch DAILY T-DERMAL ; Start 02/12/17 at 10:00 Miscellaneous Information 1 1 HS T-DERMAL ; Start 02/12/17 at 21:00 Calcium Gluconate/ Sodium Chloride (Calcium Gluconate Inj/NS Inj) 110 ml @ 110 mls/hr ONCE ONCE IV ; Start 02/12/17 at 11:00; Stop 02/12/17 at 11:59 A/P Assessment and Plan Left sided cellulitis of the chest/abdomen -Patient initially treated with with Cipro, Zosyn, and vancomycin but clinically erythema has worsened. Infectious disease consulted and impression recommendations. d/c Cipro and Zosyn on 02/10/17. Patient on vancomycin and clindamycin with minimal improvement and increase in leukocytosis. -General surgeon also consulted. Ultrasound was done on 02/10/2017 which was negative for any fluid collection. -Patient is scheduled for an I&D this afternoon by general surgeon. MRSA bacteremia -Patient on vancomycin and clindamycin. Repeat blood cultures negative so far. -See treatment as above. Left pectoralis muscle with infiltrate of the soft tissue suggesting injury/ tear of the muscle -Dealt with Mima Philippe over the phone and he stated no surgical indication. He stated that pain should not be this severe from that diagnosis. Recommend sling, icing, and follow-up as outpatient. Left adrenal nodule measuring 2.4 x 2.2 cm. -Asymptomatic. Patient to follow-up as outpatient with his PCP. Patient understood. Uncontrolled pain Controlled. Current IV drug use -Patient now admits of IV drug use. Education given. SEPSIS -with leukocytosis with left shift, bandemia, tachycardia, lactic acid acidosis source most likely cellulitis. -See treatment as above. History of hepatitis C -Asymptomatic treatment as outpatient. Tobacco dependence -Nicotine patch ordered. DVT prophylaxison SCD. GI prophylaxison pantoprazole. Discharge Planning Patient continues to require IV antibiotics so will need continual hospitalization. He is also scheduled for surgery today. Anna Israel MD Feb 12, 2017 10:12
[2017-02-12 10:21] LABS: BICARBONATE 25.5 MEQ/L (21.0-32.0)
[2017-02-12 10:23] LABS: POTASSIUM 3.7 MEQ/L (3.5-5.1)
[2017-02-12] MEDS: NICOTINE 21 MG/24 HR PATCH T-DERMAL SCH (10:31)
[2017-02-12] MEDS: LORazepam 1 MG TAB PO PRN (10:31)
[2017-02-12 10:41] LABS: CALCIUM-PROTEIN CORRECTED 7.8 MG/DL (8.5-10.1)
[2017-02-12] MEDS ORDERED: CALCIUM GLUCONATE INJ 1 GM in SODIUM CHLORIDE 0.9% INJ 100 ML IV ONE (11:00)
--- NOTE | 2017-02-12 11:24 | HHI.PR ---
Subjective Subjective Notes More painful today; wants to go ahead with surgery. Objective Vitals/I&O Vital Signs Date Time Temp Pulse Resp B/P Pulse Ox O2 Delivery O2 Flow Rate FiO2 02/12/17 08:00 99.1 116 18 139/84 93 02/11/17 21:08 Nasal Cannula 3.00 Labs Laboratory Tests Test 02/11/17 02/11/17 02/12/17 13:13 17:14 09:34 Sodium Level 132 132 Potassium Level 3.5 3.7 Chloride Level 103 97 Carbon Dioxide Level 20.4 25.5 Anion Gap 9 10 Blood Urea Nitrogen 10 8 Creatinine 0.50 0.42 Estimat Glomerular Filtration 174 213 Rate Random Glucose 110 101 Calcium Level 7.1 7.4 Protein Corrected Calcium 7.7 7.8 Total Protein 5.9 6.4 White Blood Count 16.1 16.6 Red Blood Count 4.58 4.14 Hemoglobin 15.5 14.4 Hematocrit 45.2 40.4 Mean Corpuscular Volume 98.8 97.6 Mean Corpuscular Hemoglobin 33.9 34.9 Mean Corpuscular Hemoglobin 34.4 35.8 Concent Red Cell Distribution Width 13.5 13.6 Platelet Count 142 215 Mean Platelet Volume 11.2 9.3 Date/Time Procedure Status Source Growth 02/10/17 12:17 Aerobic Blood Culture - Preliminary Resulted Blood Peripheral NO GROWTH IN 2 DAYS 02/10/17 12:17 Anaerobic Blood Culture - Preliminary Resulted Blood Peripheral NO GROWTH IN 2 DAYS Radiology Last [address] 02/08/17 0000 Signed Impressions: Service Date/Time: Wednesday, February 08, 2017 09:15 - CONCLUSION: 1. Diffuse enlargement of the left pectoralis muscle with infiltration of the soft tissues surrounding the left pectoralis muscle suggestive of injury/tear of this muscle. Clinical correlation is recommended. 2. Tiny bilateral pleural effusions with bibasilar atelectasis. 3. Cardiomegaly and coronary artery calcifications. 4. Mild splenomegaly. 5. Left adrenal nodule measuring 2.4 x 2.2 cm. 5. Mild degenerative changes and scoliosis of the thoracolumbar spine. Jose Reddy MD Lungs: Clear Narrative Exam Left chest wall indurated with erythema overlying inferior aspect of breast Bullae near belt line with further erythema on Left flank lower abdomen laterally A/P Assessment and Plan Hematoma/infected with cellulitis Patient willing to go forward with surgery at this time Risks, benefits, alternatives and convalescence discussed with patient; he vocalizes understanding and agrees to proceed. Pramod Ballesteros MD Feb 12, 2017 11:24
[2017-02-12] MEDS ORDERED: LACTATED RINGER'S 1000 ML INJ 1,000 ML IV ONE (12:00)
[2017-02-12] MEDS ORDERED: PHENYLEPH/NS 1000 MCG/10 ML SYR IV ONE (12:00)
[2017-02-12] MEDS ORDERED: PROPOFOL 200 MG/20 ML AMP IV ONE (12:00)
[2017-02-12] MEDS ORDERED: KETAMINE HCL 500 MG/5 ML VIAL ONE (15:34)
[2017-02-12] MEDS ORDERED: VANCOMYCIN HCL 1000 MG VIAL ONE (15:51)
[2017-02-12] MEDS ORDERED: VANCOMYCIN 500 MG VIAL ONE (15:51)
[2017-02-12 17:07] LABS: BLOOD GAS CARBOXYHEMOGLOBIN 2.2 % (0-4); BLOOD GAS HCO3 23 mmol/L (22-26); BLOOD GAS O2 HGB SATURATION 94 % (90-100); BLOOD GAS OXYGEN CONTENT 19.7 Vol % (12.0-20.0); BLOOD GAS PCO2 40 mmHg (38-42); BLOOD GAS PO2 88 mmHg (61-120); BLOOD GAS TOTAL HGB 14.9 G/DL (12.0-16.0); CRITICAL VALUE NO; TEMP CORR TO 98.6
[2017-02-12 17:08] LABS: OXYGEN DEVICE O.R. ABG; STAT YES
[2017-02-12] MEDS ORDERED: PROPOFOL 1000 MG/100 ML INJ 100 ML ONE (17:33)
--- NOTE | 2017-02-12 17:38 | HHI.PR ---
cc: Pramod Ballesteros MD Immediate Post Op Note Procedure Date: Feb 12, 2017 Pre Op Diagnosis: LEFT chest wall abscess Post Op Diagnosis: Same Surgeon: Pramod Ballesteros [employer] Construction Specialist(s): Leydi Calle, MS3 Procedure: Incision and Drainage; LEFT chest wall abscess with vac dressing Incision and Drainage LEFT lower abdomen, Findings: Abscess extending up to the base of neck No purulence noted in the abdominal incision Complications: None Specimen(s) removed: C&S X 2 Left chest and Left lower abdomen Estimated blood loss: 500 ml Anesthesia: General Drains: ELYSE IVF (600 ml) Patient to: PACU Patient Condition: Good Date/Time of Procedure: SEE SURGICAL CARE RECORD Pramod Ballesteors MD Feb 12, 2017 17:38
[2017-02-12] MEDS ORDERED: MIDAZOLAM HCL 2 MG/2 ML VIAL ONE (18:09)
[2017-02-12] MEDS ORDERED: fentaNYL CITRATE 250 MCG/5 ML AMP ONE (18:09)
[2017-02-12] MEDS ORDERED: ceFAZolin INJ 1,000 MG VIAL ONE (18:36)
[2017-02-12 18:39] LABS: BLOOD GAS BASE EXCESS 1.1 mmol/L (-2-2); BLOOD GAS CARBOXYHEMOGLOBIN 1.9 % (0-4); BLOOD GAS HCO3 26 mmol/L (22-26); BLOOD GAS METHEMOGLOBIN 1.1 % (0-2); BLOOD GAS O2 HGB SATURATION 94 % (90-100); BLOOD GAS OXYGEN CONTENT 16.3 Vol % (12.0-20.0); BLOOD GAS PCO2 48 mmHg (38-42); BLOOD GAS PO2 90 mmHg (61-120); BLOOD GAS TOTAL HGB 12.3 G/DL (12.0-16.0); CRITICAL VALUE NO; TEMP CORR TO 98.6
[2017-02-12 18:40] LABS: OXYGEN DEVICE VENT
[2017-02-12 18:41] LABS: DRAW SITE ALINE; FIO2 70 %
[2017-02-12 18:43] LABS: AUTOMATED NEUTROPHIL # 15.6 TH/MM3 (1.8-7.7); BASOPHIL % 0.1 % (0.0-2.0); EOSINOPHIL # 0.1 TH/MM3 (0-0.4); EOSINOPHIL % 0.3 % (0.0-4.0); HEMATOCRIT 36.4 % (39.0-51.0); LYMPH % 3.7 % (9.0-44.0); LYMPHOCYTE # 0.6 TH/MM3 (1.0-4.8); MEAN CELL VOLUME 100.1 FL (80.0-100.0); MEAN CORPUSCULAR HEMOGLOBIN 33.1 PG (27.0-34.0); MEAN CORPUSCULAR HGB CONC 33.1 % (32.0-36.0); NEUT % 91.9 % (16.0-70.0); PLATELET COUNT 197 TH/MM3 (150-450); RED BLOOD COUNT 3.64 MIL/MM3 (4.50-5.90); RED CELL DISTRIBUTION WIDTH 13.5 % (11.6-17.2)
--- NOTE | 2017-02-12 18:44 | RADRPT ---
EXAM DATE/TIME: 02/12/2017 18:16 [facility] COMPARISON: CT THORAX W CONTRAST, February 08, 2017, 9:15. CHEST SINGLE AP, February 04, 2017, 19:58. INDICATIONS : ET tube placement. MEDICAL HISTORY : None. SURGICAL HISTORY : None. ENCOUNTER: Subsequent ACUITY: 1 week PAIN SCORE: Non-responsive. LOCATION: Bilateral chest FINDINGS: Normal AP view of the chest demonstrates a normal-sized cardiac silhouette. Endotracheal tube tip is near the clavicular head level measuring approximately 7.1 cm from the beatriz. There are airspace opa cities in the lower lung zones bilaterally. No pneumothorax or pleural effusion is identified. CONCLUSION: 1. Endotracheal tube tip measures approximately 7.1 cm from the beatriz. 2. Bibasilar airspace opacity most likely representing atelectasis. Dalton Bonilla MD on February 12, 2017 at 18:40 Board Certified Radiologist. This report was verified electronically.
[2017-02-12] MEDS ORDERED: DO NOT ADM ANY ANTICOAGULANT DRUGS PRN (18:45)
[2017-02-12 18:47] LABS: HEMO FLAGS AUTO DIFF
[2017-02-12 18:56] LABS: POTASSIUM 3.7 MEQ/L (3.5-5.1)
[2017-02-12 18:58] LABS: VANCOMYCIN TROUGH 17.8 MCG/ML (5.0-10.0)
[2017-02-12 19:12] LABS: BANDS 12 % (0-6); METAMYELOCYTES 1 % (0-1); NEUTROPHIL # MANUAL DIFF 15.6 TH/MM3 (1.8-7.7); POLYS (SEG NEUTROPHILS) 79 % (16-70); WBC DIFF SAMPLE 100
[2017-02-12 19:13] LABS: PLATELET ESTIMATE SMEAR NORMAL (NORMAL); PLATELET MORPHOLOGY NORMAL (NORMAL); SCAN/DIFF FINAL DIFF MANUAL; TOXIC GRANULATION 2+ (NORMAL); TOXIC VACUOLATION PRESENT (NONE SEEN)
[2017-02-12] MEDS: PROPOFOL 1000 MG/100 ML IV SCH (20:11)
[2017-02-12] MEDS: fentaNYL DRIP 250 ML IV SCH (20:12)
[2017-02-12] MEDS: MIDAZOLAM 100 MG/ML INJ 100 ML IV SCH (20:12)
[2017-02-12] MEDS: REMOVE OLD PATCH T-DERMAL SCH (21:00)
--- NOTE | 2017-02-12 22:03 | PD.CONS ---
HPI Service Critical Care Medicine Consult Requested By Primary Care Physician No Primary Care Physician History of Present Illness 51-year-old white male presented to the emergency department on 02/07 for evaluation of left chest wall pain. Per chart documentation the patient lifted a heavy flat screen television five days prior on 02/02/2017 and he felt a pop in his left chest. He developed swelling of the area subsequently. He was seen in the emergency department on February 04 with chest wall pain. He had been taking ibuprofen at home without relief. His chest wall edema and pain became worse and he was diagnosed with chest wall abscess and underwent emergent incision and drainage of the LEFT chest wall abscess with vac dressing as well as incision and Drainage LEFT lower abdomen. Review of Systems ROS Unable to obtain patient is sedated and intubated Past Family Social History Allergies: Coded Allergies: Tylenol (Verified Allergy, Unknown, 02/07/17) *MDRO Multi-Drug Resistant Organism (Unverified Adverse Reaction, Unknown , Cleared - 02/08/17, 02/10/17) MRSA arm wound, 2004. MRSA (blood)-02/08/17 Past Medical History Hepatitis C Past Surgical History None Reported Medications Reported Meds & Active Scripts Active Active Ordered Medications Current Medications Medications (Trade) Dose Ordered Sig/Trudy Route PRN Reason Start Time Stop Time Status Last Admin Dose Admin Sodium Chloride (NS Flush) 2 ml UNSCH PRN IV FLUSH FLUSH AFTER USING IV ACCESS 02/08/17 02:45 Sodium Chloride (NS Flush) 2 ml BID IV FLUSH 02/08/17 09:00 02/12/17 21:00 Ondansetron HCl (Zofran Inj) 4 mg Q6H PRN IVP NAUSEA OR VOMITING 02/08/17 02:45 Naloxone HCl 0.4 mg 0.4 mg UNSCH PRN IV SEE LABEL COMMENTS 02/08/17 02:45 Pharmacy Profile Note (Vancomycin Consult Pharmacy) 0 ml @ 0 mls/hr UNSCH OTHER 02/08/17 02:45 Lactobacillus Acidophilus (Lactinex) 1 tab TID PO 02/08/17 09:00 02/12/17 13:37 Methadone HCl (Dolophine) 20 mg DAILY PO 02/08/17 09:00 02/12/17 08:37 Pantoprazole Sodium 40 mg 40 mg DAILY PO 02/09/17 09:00 02/12/17 08:37 Sodium Chloride (NS 1000 ml Inj) 1,000 ml @ 125 mls/hr Q8H IV 02/08/17 07:45 02/12/17 19:38 Flumazenil (Romazicon Inj) 0.2 mg Q1M PRN IV PUSH SEE LABEL COMMENTS 02/08/17 14:45 Lorazepam (Ativan) 1 mg Q4H PRN PO CIWA 8 - 10 02/08/17 14:45 02/12/17 10:31 Lorazepam (Ativan Inj) 1 mg Q4H PRN IV PUSH CIWA 8 - 10 02/08/17 14:45 02/10/17 15:18 Lorazepam (Ativan) 2 mg Q2H PRN PO CIWA 11-14 02/08/17 14:45 Lorazepam (Ativan Inj) 2 mg Q2H PRN IV PUSH CIWA 11-14 02/08/17 14:45 02/11/17 22:07 Lorazepam (Ativan Inj) 2 mg Q1H PRN IV PUSH CIWA 15-20 02/08/17 14:45 Lorazepam (Ativan Inj) 2 mg Q15M PRN IV PUSH CIWA > 20 02/08/17 14:45 Hydromorphone HCl 0.5 mg 0.5 mg Q8HR PRN IV PUSH PAIN 8-10 02/10/17 14:00 02/12/17 08:37 Clindamycin Phosphate 900 mg/ Sodium Chloride 106 ml @ 212 mls/hr Q8H IV 02/10/17 13:00 02/12/17 22:19 Vancomycin HCl/ Sodium Chloride (Vancomycin Inj/ NS 500 ml Inj) 515 ml @ 250 mls/hr Q8H IV 02/11/17 09:00 02/12/17 08:52 Nicotine (Habitrol 21 Mg Patch.24 Hr) 1 patch DAILY T-DERMAL 02/12/17 10:00 02/12/17 10:31 Miscellaneous Information 1 HS T-DERMAL 02/12/17 21:00 02/12/17 21:00 Miscellaneous Information ALL NURSING DEPARTME... UNSCH PRN .XX SEE LABEL COMMENTS 02/12/17 18:45 02/13/17 18:44 Propofol 100 ml @ 0 mls/hr TITRATE IV 02/12/17 19:15 02/12/17 20:11 Midazolam HCl 100 ml @ 0 mls/hr TITRATE IV 02/12/17 20:00 02/12/17 20:12 Fentanyl Citrate (fentaNYL DRIP) 250 ml @ 0 mls/hr TITRATE IV 02/12/17 20:00 02/12/17 20:12 Family History Noncontributory Social History Smokes 3 packs per day Drinks beer daily Has a remote history of illicit drug abuse however denies any recent use Physical Exam Vital Signs Vital Signs Date Time Temp Pulse Resp B/P Pulse Ox O2 Delivery O2 Flow Rate FiO2 02/12/17 20:59 97 60 02/12/17 19:07 100 100 02/12/17 19:00 98 Mechanical Ventilator 70 02/12/17 18:40 99.3 109 15 113/55 97 Mechanical Ventilator 70 02/12/17 18:30 111 116/56 97 Mechanical Ventilator 70 02/12/17 18:15 112 128/56 97 Mechanical Ventilator 70 02/12/17 18:07 98 70 02/12/17 18:00 110 120/52 97 Mechanical Ventilator 70 02/12/17 17:45 108 131/55 97 Mechanical Ventilator 70 02/12/17 17:40 02/12/17 17:40 100.3 112 134/58 99 Ambu Bag 02/12/17 12:00 98.2 112 18 144/85 92 02/12/17 12:00 Nasal Cannula 3.00 02/12/17 08:00 Nasal Cannula 3.00 02/12/17 08:00 99.1 116 18 139/84 93 02/12/17 04:00 98.4 109 20 146/81 93 02/12/17 00:00 98.0 123 20 149/88 90 Physical Exam GENERAL: Well-nourished, well-developed patient. Sedated and intubated in no acute distress SKIN: Warm and dry. HEAD: Normocephalic. EYES: No scleral icterus. No injection or drainage. NECK: Supple, trachea midline. No JVD or lymphadenopathy. CARDIOVASCULAR: Regular rate and rhythm without murmurs, gallops, or rubs. RESPIRATORY: Breath sounds equal bilaterally. No accessory muscle use. GASTROINTESTINAL: Abdomen soft, non-tender, nondistended. MUSCULOSKELETAL: No cyanosis, or edema. BACK: Nontender without obvious deformity. No CVA tenderness. EXTREMITIES: No clubbing cyanosis or edema Laboratory Laboratory Tests Test 02/12/17 02/12/17 02/12/17 02/12/17 09:34 16:55 18:20 18:25 White Blood Count 16.6 17.0 Red Blood Count 4.14 3.64 Hemoglobin 14.4 12.0 Hematocrit 40.4 36.4 Mean Corpuscular Volume 97.6 100.1 Mean Corpuscular Hemoglobin 34.9 33.1 Mean Corpuscular Hemoglobin 35.8 33.1 Concent Red Cell Distribution Width 13.6 13.5 Platelet Count 215 197 Mean Platelet Volume 9.3 8.9 Sodium Level 132 136 Potassium Level 3.7 3.7 Chloride Level 97 100 Carbon Dioxide Level 25.5 30.0 Anion Gap 10 6 Blood Urea Nitrogen 8 9 Creatinine 0.42 0.38 Estimat Glomerular Filtration 213 239 Rate Random Glucose 101 98 Calcium Level 7.4 7.5 Protein Corrected Calcium 7.8 Total Protein 6.4 Blood Gas Puncture Site JER Blood Gas Patient Temperature 98.6 98.6 Blood Gas HCO3 23 26 Blood Gas Base Excess -1.0 1.1 Blood Gas Oxygen Saturation 94 94 Arterial Blood pH 7.39 7.36 Arterial Blood Partial 40 48 Pressure CO2 Arterial Blood Partial 88 90 Pressure O2 Arterial Blood Oxygen Content 19.7 16.3 Arterial Blood 2.2 1.9 Carboxyhemoglobin Arterial Blood Methemoglobin 1.0 1.1 Blood Gas Hemoglobin 14.9 12.3 Oxygen Delivery Device O.R. ABG VENT Neutrophils (%) (Auto) 91.9 Lymphocytes (%) (Auto) 3.7 Monocytes (%) (Auto) 4.0 Eosinophils (%) (Auto) 0.3 Basophils (%) (Auto) 0.1 Neutrophils # (Auto) 15.6 Lymphocytes # (Auto) 0.6 Monocytes # (Auto) 0.7 Eosinophils # (Auto) 0.1 Basophils # (Auto) 0.0 CBC Comment AUTO DIFF Differential Total Cells 100 Counted Neutrophils % (Manual) 79 Band Neutrophils % 12 Lymphocytes % 6 Monocytes % 2 Neutrophils # (Manual) 15.6 Metamyelocytes 1 Differential Comment FINAL DIFF MANUAL Toxic Granulation 2+ Toxic Vacuolation PRESENT Platelet Estimate NORMAL Platelet Morphology Comment NORMAL Red Cell Morphology Comment NORMAL Vancomycin Level Trough 17.8 Blood Gas Ventilator Setting AC/15/550/10/70 Blood Gas Inspired Oxygen 70 Date/Time Procedure Status Source Growth 02/12/17 17:04 Gram Stain Received Abscess Other Pending 02/12/17 17:04 Wound Culture Received Abscess Other Pending 02/10/17 12:17 Aerobic Blood Culture - Preliminary Resulted Blood Peripheral NO GROWTH IN 2 DAYS 02/10/17 12:17 Anaerobic Blood Culture - Preliminary Resulted Blood Peripheral NO GROWTH IN 2 DAYS Result Diagram: 02/12/17 1820 02/12/17 1820 Assessment and Plan Assessment and Plan Acute respiratory failure - Intubated for airway protection - Mechanical ventilation - Plan back to OR on Monday - Difficult airway due to soft tissue edema - Keep intubated - No weaning until okay with surgeon Cellulitis of the left chest wall - now spread to the abdomen - Bacteremia due to MRSA - Status post incision and drainage of chest wall and abdomen per Dr. Ballesteros - Continue vancomycin - Clindamycin - Antibiotic management per infectious disease Tobacco use disorder - Monitor for withdrawal - Nicotine patch when necessary Alcohol use - Thiamine folate multivitamins - CIWA protocol DVT GI prophylaxis - Teds SCDs - Subcutaneous heparin - Omeprazole Critical Care: The total critical care time was 35 minutes. Time to perform other separately billable procedures was not included in the critical care time. Jose Lopez MD Feb 12, 2017 22:03
[2017-02-13] VITALS (19 sets, daily range): BP systolic 94–166; BP diastolic 49–98; PULSE 54–96; RESP 15–25; TEMP 97.6–97.8; O2SAT 93–99
[2017-02-13] MEDS ORDERED: SODIUM CHLOR 0.9% 1000 ML INJ 2,000 ML IV ONE (01:15)
[2017-02-13] MEDS: PROPOFOL 1000 MG/100 ML IV SCH ×2 (01:37→05:14)
[2017-02-13] MEDS: VANCOMYCIN INJ 1,500 MG in SODIUM CHLORID 0.9% 500 ML INJ 500 ML IV SCH ×3 (01:42→16:16)
[2017-02-13] MEDS: SODIUM CHLOR 0.9% 1000 ML INJ 1,000 ML IV SCH ×3 (03:15→20:36)
[2017-02-13] MEDS ORDERED: MULTIVITAMIN INJ 10 ML, THIAMINE INJ 100 MG, FOLIC ACID INJ 1 MG in DEXT 5%-NACL 0.9% 5... IV ONE (03:30)
[2017-02-13 04:40] LABS: HEMATOCRIT 33.1 % (39.0-51.0); MEAN CELL VOLUME 98.9 FL (80.0-100.0); MEAN CORPUSCULAR HEMOGLOBIN 34.5 PG (27.0-34.0); MEAN CORPUSCULAR HGB CONC 34.9 % (32.0-36.0); PLATELET COUNT 175 TH/MM3 (150-450); RED BLOOD COUNT 3.35 MIL/MM3 (4.50-5.90); RED CELL DISTRIBUTION WIDTH 13.4 % (11.6-17.2); REVIEW FLAG FINAL; WHITE BLOOD COUNT 12.8 TH/MM3 (4.0-11.0)
[2017-02-13 05:13] LABS: BICARBONATE 28.6 MEQ/L (21.0-32.0); POTASSIUM 3.8 MEQ/L (3.5-5.1)
[2017-02-13] MEDS: CLINDAMYCIN INJ 900 MG in SODIUM CHLORIDE 0.9% INJ 100 ML IV SCH ×3 (05:15→20:35)
[2017-02-13 05:28] LABS: CALCIUM-PROTEIN CORRECTED 7.8 MG/DL (8.5-10.1)
[2017-02-13] MEDS: HEPARIN SODIUM - SQ 10,000 UNITS/ML VIAL SQ SCH ×2 (05:49→14:00)
--- NOTE | 2017-02-13 07:49 | HHI.CCPN ---
Subjective Remarks/Hospital Course 51-year-old white male presented to the emergency department on 02/07 for evaluation of left chest wall pain. Per chart documentation the patient lifted a heavy flat screen television five days prior on 02/02/2017 and he felt a pop in his left chest. He developed swelling of the area subsequently. He was seen in the emergency department on February 04 with chest wall pain. He had been taking ibuprofen at home without relief. His chest wall edema and pain became worse and he was diagnosed with chest wall abscess and underwent emergent incision and drainage of the LEFT chest wall abscess with vac dressing as well as incision and Drainage LEFT lower abdomen. SUBJ 02/13 s/p Incision and Drainage; L chest wall abscess with vac dressing and Incision and Drainage LEFT lower abdomen by Dr. Ballesteros. Chest wall abscess extending up to the base of neck, however no purulence noted in the abdominal incision. Remains intubated heavily sedated. Plan for repeat OR in a.m 02/13. keep intubated due to difficult airway Objective Vital Signs Date Time Temp Pulse Resp B/P Pulse Ox O2 Delivery O2 Flow Rate FiO2 02/13/17 06:00 69 02/13/17 04:15 15 96/49 98 02/13/17 04:06 55 02/13/17 04:00 97.7 02/12/17 19:00 Mechanical Ventilator 02/12/17 12:00 3.00 Intake and Output 02/12/17 02/12/17 02/13/17 08:00 16:00 00:00 Intake Total 698 ml 764 ml 1638 ml Output Total 1500 ml Balance 698 ml 764 ml 138 ml Result Diagram: 02/13/17 0415 02/13/17 0415 Other Results Laboratory Tests Test 02/12/17 02/12/17 16:55 18:25 Blood Gas Puncture Site JER Blood Gas Patient Temperature 98.6 98.6 Blood Gas HCO3 23 mmol/L 26 mmol/L (22-26) (22-26) Blood Gas Base Excess -1.0 mmol/L 1.1 mmol/L (-2-2) (-2-2) Blood Gas Oxygen Saturation 94 % (90-100) 94 % (90-100) Arterial Blood pH 7.39 7.36 (7.380-7.420) (7.380-7.420) Arterial Blood Partial 40 mmHg (38-42) 48 mmHg (38-42) Pressure CO2 Arterial Blood Partial 88 mmHg 90 mmHg Pressure O2 (61-120) (61-120) Arterial Blood Oxygen Content 19.7 Vol % 16.3 Vol % (12.0-20.0) (12.0-20.0) Arterial Blood 2.2 % (0-4) 1.9 % (0-4) Carboxyhemoglobin Arterial Blood Methemoglobin 1.0 % (0-2) 1.1 % (0-2) Blood Gas Hemoglobin 14.9 G/DL 12.3 G/DL (12.0-16.0) (12.0-16.0) Oxygen Delivery Device O.R. ABG VENT Blood Gas Ventilator Setting AC/15/550/10/70 Blood Gas Inspired Oxygen 70 % Objective Remarks GENERAL: Well-nourished, well-developed patient. Sedated and intubated in no acute distress SKIN: Warm and dry. (see chest wall exam) HEAD: Normocephalic. EYES: No scleral icterus. No injection or drainage. NECK: Supple, trachea midline. No JVD or lymphadenopathy. CARDIOVASCULAR: Regular rate and rhythm without murmurs, gallops, or rubs. CHEST WALL: Approximately 10 cm horizontal incision below left nipple with wound VAC in place. Cellulitis extending over most of left chest wall and left upper abdomen RESPIRATORY: Breath sounds equal bilaterally. Few coarse rhonchi GASTROINTESTINAL: Abdomen soft, nondistended. LLQ incision dressing intact MUSCULOSKELETAL: No cyanosis, or edema. BACK: Nontender without obvious deformity. No CVA tenderness. EXTREMITIES: No clubbing cyanosis or edema NEURO: On lightening sedation patient wakes up easily follows commands Urinary Catheter: Yes Assessment to: Continue A/P Assessment and Plan NEURO: IVDU Alcohol abuse - Propofol and fentanyl for sedation and ventilator synchrony - Add Versed if needed - History of IV drug use with Dilaudid - Thiamine folate multivitamins - CIWA protocol as needed RESP: Acute respiratory failure - Intubated for airway protection - Mechanical ventilation - Plan back to OR on Monday - Difficult airway due to soft tissue edema - Keep intubated, No weaning until all surgical procedures are completed and positive air leak - Decadron x 4 doses CVS: Hypotension - Received 2 L IV fluids boluses and continue maintenance that 100 ML per hour - Levophed to keep map above 65 if needed : - Monitor urine output closely - Electrolyte replacement per protocol GI: Elevated bilirubin, liver enzymes - Check liver ultrasound - Keep nothing by mouth, PPI ID/HEME: Abscess and Cellulitis of the left chest wall -- Bacteremia due to MRSA - Status post incision and drainage of chest wall and abdomen per Dr. Ballesteros - Continue vancomycin, Clindamycin - Antibiotic management per infectious disease DVT GI prophylaxis - Teds SCDs - Subcutaneous heparin - Omeprazole Critical Care: The total critical care time was 35 minutes. Time to perform other separately billable procedures was not included in the critical care time. Yolis Hoffman MD Feb 13, 2017 07:49
[2017-02-13] MEDS: INSULIN ASPART SUPPLEMENTAL SCALE SQ SCH ×5 (08:00→23:43)
[2017-02-13] MEDS ORDERED: GLUCAGON 1 MG/ML VIAL OTHER PRN (08:15)
[2017-02-13] MEDS ORDERED: DEXTROSE 50% IN WATER 50 ML VIAL(D50) IV PRN (08:15)
--- NOTE | 2017-02-13 08:35 | RADRPT ---
EXAM DATE/TIME: 02/13/2017 07:54 [facility] COMPARISON: CT THORAX W CONTRAST, February 08, 2017, 9:15. CHEST SINGLE AP, February 12, 2017, 18:16. INDICATIONS : Respiratory disease. MEDICAL HISTORY : Methicillin-resistant Staphylococcus aureus. Hepatitis C. Liver disease. SURGICAL HISTORY : Tonsillectomy. ENCOUNTER: Subsequent ACUITY: 1 week PAIN SCORE: Non-responsive. LOCATION: Bilateral chest FINDINGS: There is an ETT in stable position. There is a midline terminating in the right axilla. There is a dr ain likely in the left chest wall. Redemonstration of linear parenchymal opacities in the right lower lung zone consistent with atelectasis. Interval development of probable small left pleural effusion with persistent airspace disease in the left lower lung zone. Cardiomediastinal contours are stable. Remainder of the exam is unchanged. CONCLUSION: 1. Stable ETT, right midline, and probable left chest wall drainage catheter. 2. Interval development of small left pleural effusion. 3. Persistent bilateral lower lobe linear airspace disease, likely atelectasis. Fran Londono MD on February 13, 2017 at 8:28 Board Certified Radiologist. This report was verified electronically.
[2017-02-13] MEDS: PANTOPRAZOLE SOD 40 MG DELAYED RELEASE TAB PO SCH (09:05)
[2017-02-13] MEDS: NICOTINE 21 MG/24 HR PATCH T-DERMAL SCH (09:05)
[2017-02-13] MEDS: LACTOBACILLUS ACIDOPHILUS TAB PO SCH ×3 (09:05→16:45)
[2017-02-13] MEDS: SODIUM CHLORIDE 0.9% FLUSH 10 ML FLUSH IV FLUSH SCH ×2 (09:05→20:36)
[2017-02-13] MEDS: METHADONE HCL 10 MG TAB PO SCH (09:06)
[2017-02-13] MEDS ORDERED: ROCURONIUM INJ 50 MG/5 ML VIAL IV ONE (10:00)
[2017-02-13] MEDS ORDERED: TERBUTALINE INJ 1 MG/ML AMP SQ PRN (10:00)
[2017-02-13] MEDS ORDERED: SODIUM CHLOR 0.9% 1000 ML INJ 1,000 ML IV ONE (10:00)
[2017-02-13] MEDS ORDERED: RESP: ALBUTEROL 2.5 MG/IPRATROPIUM 0.5 MG NEB (PRN) NEB (10:00)
[2017-02-13] MEDS ORDERED: NOREPINEPHRINE-DEXTROSE DRIP 250 ML IV SCH (10:00)
[2017-02-13] MEDS: RESP: ALBUTEROL 2.5 MG/IPRATROPIUM 0.5 MG NEB (SCH) NEB ×3 (10:00→20:47)
[2017-02-13] MEDS ORDERED: SODIUM CHLOR 0.9% 1000 ML INJ 1,000 ML IV SCH (10:00)
--- NOTE | 2017-02-13 11:10 | RADRPT ---
EXAM DATE/TIME: 02/13/2017 09:53 [facility] COMPARISON: US ABDOMEN - LIVER, November 14, 2014, 14:13. INDICATIONS : Increased lab values. MEDICAL HISTORY : Hepatitis C. Neck pain. Head trauma. Heartburn. Back problems. Liver disease. MRSA. Substance abu se. Alcohol use. SURGICAL HISTORY : Tonsillectomy. ENCOUNTER: Subsequent ACUITY: 1 day PAIN SCORE: Nonresponsive. LOCATION: Right upper quadrant MEASUREMENTS: LIVER: 23.0 cm length COMMON DUCT: 3 mm RIGHT KIDNEY: 14.6 x 5.8 x 7.3 cm SPLEEN: 16.4 cm length FINDINGS: LIVER: The liver is enlarged measuring 23 cm in length. It demonstrates normal echotexture without focal les ion or ductal dilatation. COMMON DUCT: No intraluminal mass or stone visualized. GALLBLADDER: Contains no stones, demonstrates no wall thickening or pericholecystic fluid. PANCREAS: The pancreas is obscured by overlying bowel gas. RIGHT KIDNEY: No hydronephrosis, stone or mass. SPLEEN: The spleen is enlarged measuring 16 cm in length. CONCLUSION: Hepatosplenomegaly. Dalton Russell MD on February 13, 2017 at 11:00 Board Certified Radiologist. This report was verified electronically.
[2017-02-13] MEDS: DEXAMETHASONE SOD PHOS 4 MG/ML VIAL IV PUSH SCH ×3 (11:55→22:49)
--- NOTE | 2017-02-13 11:56 | RADRPT ---
EXAM DATE/TIME: 02/13/2017 11:17 [facility] COMPARISON: CHEST SINGLE AP, February 13, 2017, 7:54. INDICATIONS : Confirm nasogastric tube placement. MEDICAL HISTORY : Hepatitis C. SURGICAL HISTORY : None. ENCOUNTER: Initial ACUITY: 1 week PAIN SCORE: Non-responsive. LOCATION: Bilateral abdomen FINDINGS: There is a nasogastric tube present. The tip of the tube is at the junction of the antrum/pylorus. The bowel gas pattern is within normal limits. The visualized bony structures are intact. CONCLUSION: 1. Nasogastric tube placement as above. Michael Goode MD on February 13, 2017 at 11:53 Board Certified Radiologist. This report was verified electronically.
--- NOTE | 2017-02-13 12:13 | HHI.IDPN ---
Note Infectious Disease Note Events noted. Patient is post incision and drainage of left chest wall and flank hematoma. Intubated and on the vent. SPB 81. Received 2 boluses and now on Levophed 4 mcg. WBC lower Afebrile. Presented to the emergency department on 02/07 for evaluation of left chest wall pain and swelling. PAST MEDICAL HISTORY 1. Hepatitis C 2. History of MRSA arm wound in 2004. 3. History of IV drug use in the past. Denies current IV drug use. ALLERGIES TYLENOL ANTIBIOTICS: Vancomycin. Clindamycin. SOCIAL HISTORY Positive tobacco use. The patient reportedly smokes three packs of cigarettes a day. The patient drinks beer daily. Denies illicit drugs currently. OBJECTIVE: Vital Signs Date Time Temp Pulse Resp B/P Pulse Ox O2 Delivery O2 Flow Rate FiO2 02/13/17 10:00 66 02/13/17 09:33 93 55 02/13/17 09:33 93 Ventilator 55 02/13/17 08:00 55 02/13/17 08:00 68 02/13/17 08:00 97.8 69 20 94/50 95 02/13/17 07:00 94 Mechanical Ventilator 55 02/13/17 06:00 69 02/13/17 04:15 71 15 96/49 98 02/13/17 04:06 97 55 02/13/17 04:00 97.7 96 25 166/98 96 02/13/17 04:00 72 02/13/17 04:00 55 02/13/17 02:00 74 02/13/17 00:05 99 55 02/13/17 00:00 55 02/13/17 00:00 97.8 78 18 96/49 98 02/13/17 00:00 73 02/12/17 22:00 78 02/12/17 20:59 97 60 02/12/17 20:00 98.8 91 17 103/56 96 02/12/17 20:00 93 02/12/17 20:00 70 02/12/17 19:07 100 100 02/12/17 19:00 98 Mechanical Ventilator 70 02/12/17 18:40 99.3 109 15 113/55 97 Mechanical Ventilator 70 02/12/17 18:30 111 116/56 97 Mechanical Ventilator 70 02/12/17 18:15 112 128/56 97 Mechanical Ventilator 70 02/12/17 18:07 98 70 02/12/17 18:00 110 120/52 97 Mechanical Ventilator 70 02/12/17 17:45 108 131/55 97 Mechanical Ventilator 70 02/12/17 17:40 02/12/17 17:40 100.3 112 134/58 99 Ambu Bag 02/12/17 02/12/17 02/13/17 15:00 23:00 07:00 Intake Total 764 ml 1638 ml 3489 ml Output Total 1500 ml 1480 ml Balance 764 ml 138 ml 2009 ml IV Total 764 ml 738 ml 3489 ml Other 900 ml Output Urine Total 900 ml 1400 ml Drainage Total 100 ml 80 ml Estimated Blood Loss 500 ml Laboratory Tests Test 02/11/17 02/12/17 02/12/17 02/13/17 17:14 09:34 18:20 04:15 White Blood Count 16.1 TH/MM3 16.6 TH/MM3 17.0 TH/MM3 12.8 TH/MM3 Red Blood Count 4.58 MIL/MM3 4.14 MIL/MM3 3.64 MIL/MM3 3.35 MIL/MM3 Hemoglobin 15.5 GM/DL 14.4 GM/DL 12.0 GM/DL 11.5 GM/DL Hematocrit 45.2 % 40.4 % 36.4 % 33.1 % Mean Corpuscular Volume 98.8 FL 97.6 FL 100.1 FL 98.9 FL Mean Corpuscular Hemoglobin 33.9 PG 34.9 PG 33.1 PG 34.5 PG Mean Corpuscular Hemoglobin 34.4 % 35.8 % 33.1 % 34.9 % Concent Red Cell Distribution Width 13.5 % 13.6 % 13.5 % 13.4 % Platelet Count 142 TH/MM3 215 TH/MM3 197 TH/MM3 175 TH/MM3 Mean Platelet Volume 11.2 FL 9.3 FL 8.9 FL 9.2 FL Neutrophils (%) (Auto) 91.9 % Lymphocytes (%) (Auto) 3.7 % Monocytes (%) (Auto) 4.0 % Eosinophils (%) (Auto) 0.3 % Basophils (%) (Auto) 0.1 % Neutrophils # (Auto) 15.6 TH/MM3 Lymphocytes # (Auto) 0.6 TH/MM3 Monocytes # (Auto) 0.7 TH/MM3 Eosinophils # (Auto) 0.1 TH/MM3 Basophils # (Auto) 0.0 TH/MM3 CBC Comment AUTO DIFF Differential Total Cells 100 Counted Neutrophils % (Manual) 79 % Band Neutrophils % 12 % Lymphocytes % 6 % Monocytes % 2 % Neutrophils # (Manual) 15.6 TH/MM3 Metamyelocytes 1 % Differential Comment FINAL DIFF MANUAL Toxic Granulation 2+ Toxic Vacuolation PRESENT Platelet Estimate NORMAL Platelet Morphology Comment NORMAL Red Cell Morphology Comment NORMAL Laboratory Tests Test 02/11/17 02/12/17 02/12/17 02/13/17 13:13 09:34 18:20 04:15 Sodium Level 132 MEQ/L 132 MEQ/L 136 MEQ/L 141 MEQ/L Potassium Level 3.5 MEQ/L 3.7 MEQ/L 3.7 MEQ/L 3.8 MEQ/L Chloride Level 103 MEQ/L 97 MEQ/L 100 MEQ/L 107 MEQ/L Carbon Dioxide Level 20.4 MEQ/L 25.5 MEQ/L 30.0 MEQ/L 28.6 MEQ/L Anion Gap 9 MEQ/L 10 MEQ/L 6 MEQ/L 5 MEQ/L Blood Urea Nitrogen 10 MG/DL 8 MG/DL 9 MG/DL 10 MG/DL Creatinine 0.50 MG/DL 0.42 MG/DL 0.38 MG/DL 0.43 MG/DL Estimat Glomerular Filtration 174 ML/MIN 213 ML/MIN 239 ML/MIN 207 ML/MIN Rate Random Glucose 110 MG/DL 101 MG/DL 98 MG/DL 167 MG/DL Calcium Level 7.1 MG/DL 7.4 MG/DL 7.5 MG/DL 6.9 MG/DL Protein Corrected Calcium 7.7 MG/DL 7.8 MG/DL 7.8 MG/DL Total Protein 5.9 GM/DL 6.4 GM/DL 5.3 GM/DL Microbiology Date/Time Procedure Status Source Growth 02/10/17 12:17 Aerobic Blood Culture - Preliminary Resulted Blood Peripheral NO GROWTH IN 3 DAYS 02/10/17 12:17 Anaerobic Blood Culture - Preliminary Resulted Blood Peripheral NO GROWTH IN 3 DAYS 02/12/17 16:40 Gram Stain - Final Resulted Abscess Chest 02/12/17 16:40 Wound Culture Resulted Abscess Chest Pending 02/12/17 17:04 Gram Stain - Final Resulted Abscess Other 02/12/17 17:04 Wound Culture Resulted Abscess Other Pending Microbiology Date/Time Procedure Status Source Growth 02/08/17 02:22 Aerobic Blood Culture - Preliminary Resulted Blood Peripheral NO GROWTH IN 1 DAY 02/08/17 02:22 Anaerobic Blood Culture - Final Resulted S. Aureus Mrsa 02/08/17 02:22 Aerobic Blood Culture - Preliminary Resulted Blood Peripheral NO GROWTH IN 1 DAY 02/08/17 02:22 Anaerobic Blood Culture - Preliminary Resulted S. Aureus Mrsa IMAGING: Liver Ultrasound 02/13/17 0000 Signed Impressions: Service Date/Time: Monday, February 13, 2017 09:53 - CONCLUSION: Hepatosplenomegaly. Dalton Russell MD Chest X-Ray 02/13/17 0000 Signed Impressions: Service Date/Time: Monday, February 13, 2017 07:54 - CONCLUSION: 1. Stable ETT, right midline, and probable left chest wall drainage catheter. 2. Interval development of small left pleural effusion. 3. Persistent bilateral lower lobe linear airspace disease, likely atelectasis. Fran Londono MD Chest X-Ray 02/12/17 0000 Signed Impressions: Service Date/Time: Sunday, February 12, 2017 18:16 - CONCLUSION: 1. Endotracheal tube tip measures approximately 7.1 cm from the beatriz. 2. Bibasilar airspace opacity most likely representing atelectasis. Dalton Bonilla MD Soft Tissue Ultrasound 02/10/17 0747 Signed Impressions: Service Date/Time: Friday, February 10, 2017 08:38 - CONCLUSION: Edematous tissues are present over the left chest without defined abscess. There is no fluid for aspiration or drainage. This can be easily followed by ultrasound.. Miguel Angel Goode MD FACR Chest CT 02/08/17 0000 Signed Impressions: Service Date/Time: Wednesday, February 08, 2017 09:15 - CONCLUSION: 1. Diffuse enlargement of the left pectoralis muscle with infiltration of the soft tissues surrounding the left pectoralis muscle suggestive of injury/tear of this muscle. Clinical correlation is recommended. 2. Tiny bilateral pleural effusions with bibasilar atelectasis. 3. Cardiomegaly and coronary artery calcifications. 4. Mild splenomegaly. 5. Left adrenal nodule measuring 2.4 x 2.2 cm. 5. Mild degenerative changes and scoliosis of the thoracolumbar spine. Jose Reddy MD Ribs X-Ray 02/07/17 0000 Signed Impressions: Service Date/Time: Tuesday, February 07, 2017 23:39 - CONCLUSION: No definite displaced rib fractures. Amber Sandoval MD PHYSICAL EXAMINATION GENERAL: Awake, alert. Breathing better. HEENT: The head is atraumatic. Extraocular movements grossly intact, pupils reactive to light. No icterus. Oropharynx moist mucosa without lesions. NECK: Supple. No adenopathy. LUNGS: Clear breath sounds which are diminished. HEART: Regular rate and rhythm without murmurs, rubs or gallops. CHEST: Left chest catheter has serous drainage. Left flank Vac in place. Still has swelling of the left chest, less erythema. ABDOMEN: Diffuse edema and less erythema Diminished bowel sounds. EXTREMITIES: No clubbing or cyanosis, 2+ edema. SKIN: No rash. NEUROLOGIC: Unable to assess on the vent. PSYCHIATRIC: Unable to assess, on the vent. IMPRESSION 1. Severe Cellulitis of the left chest wall and abdomen along with hematoma and abscess. 2. Bacteremia due to MRSA. Repeat blood culture has no growth. RECOMMENDATIONS 1. Continue vancomycin 2. Continue Clindamycin. 3. Monitor clinical response. 4. Monitor wound culture from chest wall and abdomen. David Thorpe MD Feb 13, 2017 12:13
--- NOTE | 2017-02-13 13:37 | MP ---
cc: NOEMI CORTEZ M.D. DATE OF SURGERY 02/12/2017 PROCEDURES 1. Stage I of a multistage procedure, incision and drainage left chest wall abscess and an incision and drainage left abdominal wall cellulitis with bullae. 2. VAC placement over left chest wall after drainage. PREOPERATIVE DIAGNOSIS Abscess left chest wall. POSTOPERATIVE DIAGNOSIS Abscess left chest wall with extension up to the neck. ANESTHESIA General endotracheal. SURGEON MD Favian ESTIMATED BLOOD LOSS 500 mL. FLUIDS 600 mL crystalloid. COMPLICATIONS None. DRAINS Channel drain x 1. SPECIMEN Gram's stain, C&S of both chest wall and abdominal wall wounds to microbiology. PROCEDURE IN DETAIL The patient is seen and the left chest and abdomen marked by the undersigned. The patient was placed on the operating table in the supine position and underwent general endotracheal anesthesia. There was significant neck swelling and the anesthesiologist needed to place a #6 endotracheal tube in order to be able to get an airway. This was felt to be due to infection up into the neck. The neck was also somewhat tight as well. At this point the left chest and abdomen were placed on a bump tilting the patient approximately 25-30 degrees to elevate his left chest. The arm was placed on a Baer stand that was padded and at this point the chest and abdomen were prepped and draped. Time-out was taken confirming the correct patient site and procedures to be performed. The skin was incised in the inframammary fold in the breast and a purulent pocket was noted when the pectoralis muscle was reached. This was broken up with loculations broken up with a hemostat. After culturing, suction was utilized to remove most of the purulent material. Pulse lavage irrigation containing Ancef was then used. The infection tracked up to above the first rib and clavicle, up to the base of the neck. When this had been broken loose, pulse lavage was used up in this area as well. This was all suctioned clean and the neck was noted to be much softer after this. A large channel drain was placed at approximately the second interspace through the skin and placed up toward the neck to drain this more effectively. A VAC sponge drain was then cut with a piece tracking superiorly and a second piece over the incision. This was suctioned down easily. Following this, a counter-incision was made in the left abdomen. This was done directly over the bullae and where the most erythematous portion of the abdomen was located. Simple edematous fluid came out but no purulence was noted all the way down to the fascia. This was cultured and this wound was then made hemostatic and then packed with Betadine-soaked gauze and dressed with ABD pads. The patient remained intubated and sedated and was taken back to the recovery room in stable condition. He remained hemodynamically stable throughout the procedure and required no pressors. Sponge, needle and instrument counts were reported be correct. The patient tolerated the procedure well. The patient is planned to be taken back in about approximately 48 hours for a VAC change and wound re-exploration. MD RAJI Hess/STEPHANIE /6:05 PM /1:31 PM
--- NOTE | 2017-02-13 14:41 | HHI.PR ---
Subjective Subjective Notes Intubated/Sedated RINKU Bowen at bedside Objective Vitals/I&O Vital Signs Date Time Temp Pulse Resp B/P Pulse Ox O2 Delivery O2 Flow Rate FiO2 02/13/17 12:54 98 70 02/13/17 12:00 97.7 55 16 106/56 02/13/17 09:33 Ventilator 02/12/17 12:00 3.00 Labs Laboratory Tests Test 02/12/17 02/12/17 02/12/17 02/13/17 16:55 18:20 18:25 04:15 Blood Gas Puncture Site JER Blood Gas Patient Temperature 98.6 98.6 Blood Gas HCO3 23 26 Blood Gas Base Excess -1.0 1.1 Blood Gas Oxygen Saturation 94 94 Arterial Blood pH 7.39 7.36 Arterial Blood Partial 40 48 Pressure CO2 Arterial Blood Partial 88 90 Pressure O2 Arterial Blood Oxygen Content 19.7 16.3 Arterial Blood 2.2 1.9 Carboxyhemoglobin Arterial Blood Methemoglobin 1.0 1.1 Blood Gas Hemoglobin 14.9 12.3 Oxygen Delivery Device O.R. ABG VENT White Blood Count 17.0 12.8 Red Blood Count 3.64 3.35 Hemoglobin 12.0 11.5 Hematocrit 36.4 33.1 Mean Corpuscular Volume 100.1 98.9 Mean Corpuscular Hemoglobin 33.1 34.5 Mean Corpuscular Hemoglobin 33.1 34.9 Concent Red Cell Distribution Width 13.5 13.4 Platelet Count 197 175 Mean Platelet Volume 8.9 9.2 Neutrophils (%) (Auto) 91.9 Lymphocytes (%) (Auto) 3.7 Monocytes (%) (Auto) 4.0 Eosinophils (%) (Auto) 0.3 Basophils (%) (Auto) 0.1 Neutrophils # (Auto) 15.6 Lymphocytes # (Auto) 0.6 Monocytes # (Auto) 0.7 Eosinophils # (Auto) 0.1 Basophils # (Auto) 0.0 CBC Comment AUTO DIFF Differential Total Cells 100 Counted Neutrophils % (Manual) 79 Band Neutrophils % 12 Lymphocytes % 6 Monocytes % 2 Neutrophils # (Manual) 15.6 Metamyelocytes 1 Differential Comment FINAL DIFF MANUAL Toxic Granulation 2+ Toxic Vacuolation PRESENT Platelet Estimate NORMAL Platelet Morphology Comment NORMAL Red Cell Morphology Comment NORMAL Sodium Level 136 141 Potassium Level 3.7 3.8 Chloride Level 100 107 Carbon Dioxide Level 30.0 28.6 Anion Gap 6 5 Blood Urea Nitrogen 9 10 Creatinine 0.38 0.43 Estimat Glomerular Filtration 239 207 Rate Random Glucose 98 167 Calcium Level 7.5 6.9 Vancomycin Level Trough 17.8 Blood Gas Ventilator Setting AC/15/550/10/70 Blood Gas Inspired Oxygen 70 Protein Corrected Calcium 7.8 Total Protein 5.3 Date/Time Procedure Status Source Growth 02/12/17 17:04 Gram Stain - Final Resulted Abscess Other 02/12/17 17:04 Wound Culture Resulted Abscess Other Pending 02/10/17 12:17 Aerobic Blood Culture - Preliminary Resulted Blood Peripheral NO GROWTH IN 3 DAYS 02/10/17 12:17 Anaerobic Blood Culture - Preliminary Resulted Blood Peripheral NO GROWTH IN 3 DAYS Radiology Last [address] 02/08/17 0000 Signed Impressions: Service Date/Time: Monday, February 08, 2017 09:15 - CONCLUSION: 1. Diffuse enlargement of the left pectoralis muscle with infiltration of the soft tissues surrounding the left pectoralis muscle suggestive of injury/tear of this muscle. Clinical correlation is recommended. 2. Tiny bilateral pleural effusions with bibasilar atelectasis. 3. Cardiomegaly and coronary artery calcifications. 4. Mild splenomegaly. 5. Left adrenal nodule measuring 2.4 x 2.2 cm. 5. Mild degenerative changes and scoliosis of the thoracolumbar spine. Jose Reddy MD Cardiovascular: Regular Lungs: Clear Abdomen: Non-distended, Other (see below ) Extremities: No edema Narrative Exam LEFT chest ---Wound Vac in place with good seal; skin is erythremic around Wound Vac sponge; ELYSE in place with bloody purulent drainage LLQ---open incision ---packing removed---- wound bed is clear and dry; packing replaced A/P Assessment and Plan 51 year old male with pectoralis muscle tear; LEFT chest wall cellulitis -s/p I&D LEFT chest with Wound Vac placement and ELYSE drain placement; opening of LLQ -Plan for OR tomorrow for I&D and Wound Vac change -Dressing change ordered for LLQ wound -Continue to monitor WBC -ID following; continue antibiotics -NPO -Started on Versed/Fentanyl -Obtain consents Attending Note - Dr. Ballesteros For OR tomorrow; cellulitis nearly resolved The exam, history, and the medical decision-making described in the above note were completed with the assistance of the mid-level provider. I reviewed and agree with the findings presented. I attest that I had a [id number] encounter with the patient on the same day, and personally performed and documented my assessment and findings in the medical record. Wilma Ochoa Feb 13, 2017 14:41 Pramod Ballesteros MD Feb 16, 2017 19:22
[2017-02-13] MEDS: fentaNYL DRIP 250 ML IV SCH ×2 (15:59→20:35)
[2017-02-13] MEDS: MIDAZOLAM 100 MG/ML INJ 100 ML IV SCH ×2 (16:16→20:35)
[2017-02-13 16:23] LABS: HEMOGLOBIN A1b 0.7 %; HEMOGLOBIN Ao 86.4 %; HEMOGLOBIN F 1.1 %; HEMOGLOBIN LA1C 2.3 %; HEMOGLOBIN P3 3.4 %
[2017-02-13] MEDS: REMOVE OLD PATCH T-DERMAL SCH (22:39)
[2017-02-14] VITALS (16 sets, daily range): BP systolic 112–117; BP diastolic 56–76; PULSE 54–86; RESP 16–18; TEMP 97.6–98.1; O2SAT 91–100
[2017-02-14] MEDS: VANCOMYCIN INJ 1,500 MG in SODIUM CHLORID 0.9% 500 ML INJ 500 ML IV SCH ×3 (00:41→16:42)
[2017-02-14] MEDS ORDERED: PHARMACY ORDERED LAB ONE (00:45)
[2017-02-14] MEDS: RESP: ALBUTEROL 2.5 MG/IPRATROPIUM 0.5 MG NEB (SCH) NEB ×4 (03:37→22:03)
[2017-02-14] MEDS: INSULIN ASPART SUPPLEMENTAL SCALE SQ SCH ×5 (04:00→20:00)
[2017-02-14 04:41] LABS: AUTOMATED NEUTROPHIL # 7.6 TH/MM3 (1.8-7.7); BASOPHIL % 0.2 % (0.0-2.0); HEMATOCRIT 30.8 % (39.0-51.0); HEMO FLAGS DIFF FINAL; LYMPH % 9.2 % (9.0-44.0); LYMPHOCYTE # 0.8 TH/MM3 (1.0-4.8); MEAN CORPUSCULAR HEMOGLOBIN 34.4 PG (27.0-34.0); MEAN CORPUSCULAR HGB CONC 34.4 % (32.0-36.0); MONO % 3.6 % (0.0-8.0); PLATELET COUNT 169 TH/MM3 (150-450); RED BLOOD COUNT 3.08 MIL/MM3 (4.50-5.90); RED CELL DISTRIBUTION WIDTH 13.9 % (11.6-17.2); WHITE BLOOD COUNT 8.8 TH/MM3 (4.0-11.0)
[2017-02-14] MEDS: DEXAMETHASONE SOD PHOS 4 MG/ML VIAL IV PUSH SCH (04:56)
[2017-02-14] MEDS: CLINDAMYCIN INJ 900 MG in SODIUM CHLORIDE 0.9% INJ 100 ML IV SCH ×3 (04:56→21:57)
[2017-02-14] MEDS: SODIUM CHLOR 0.9% 1000 ML INJ 1,000 ML IV SCH ×3 (04:57→21:57)
[2017-02-14 05:16] LABS: BICARBONATE 26.7 MEQ/L (21.0-32.0); CALCIUM-PROTEIN CORRECTED 8.2 MG/DL (8.5-10.1); POTASSIUM 3.9 MEQ/L (3.5-5.1); TOTAL BILIRUBIN ADULT 0.9 MG/DL (0.2-1.0)
--- NOTE | 2017-02-14 06:49 | RADRPT ---
EXAM DATE/TIME: 02/14/2017 05:08 [place] COMPARISON: CHEST SINGLE AP, February 13, 2017, 7:54. INDICATIONS : Respiratory disease. MEDICAL HISTORY : None. SURGICAL HISTORY : None. ENCOUNTER: Subsequent ACUITY: 1 week PAIN SCORE: Non-responsive. LOCATION: Bilateral chest FINDINGS: Mild bibasilar consolidation again noted not significantly changed. No large effusion seen. No pneumo thorax. Cold catheter again projects over the left mid hemithorax, exact location uncertain. Endotracheal tube tip is at the level of the thoracic inlet. There is a nasogastric tube coursing int o the stomach. CONCLUSION: No significant change. Dalton Mancilla MD on February 14, 2017 at 6:46 Board Certified Radiologist. This report was verified electronically.
[2017-02-14] MEDS: PANTOPRAZOLE SOD 40 MG DELAYED RELEASE TAB PO SCH (08:15)
[2017-02-14] MEDS: METHADONE HCL 10 MG TAB PO SCH (08:16)
[2017-02-14] MEDS: LACTOBACILLUS ACIDOPHILUS TAB PO SCH ×3 (08:16→17:03)
[2017-02-14] MEDS: SODIUM CHLORIDE 0.9% FLUSH 10 ML FLUSH IV FLUSH SCH ×2 (08:16→20:15)
[2017-02-14] MEDS: NICOTINE 21 MG/24 HR PATCH T-DERMAL SCH (08:16)
[2017-02-14] MEDS: MIDAZOLAM 100 MG/ML INJ 100 ML IV SCH ×2 (11:19→20:15)
[2017-02-14] MEDS: fentaNYL DRIP 250 ML IV SCH ×2 (11:20→20:15)
--- NOTE | 2017-02-14 11:46 | HHI.IDPN ---
Note Infectious Disease Note Patient is sedated and intubated on the vent. Off Levophed. WBC lower. Afebrile. Post incision and drainage of left chest wall and flank hematoma 02/12. Presented to the emergency department on 02/07 for evaluation of left chest wall pain and swelling. PAST MEDICAL HISTORY 1. Hepatitis C 2. History of MRSA arm wound in 2004. 3. History of IV drug use in the past. Denies current IV drug use. ALLERGIES TYLENOL ANTIBIOTICS: Vancomycin. Clindamycin. SOCIAL HISTORY Positive tobacco use. The patient reportedly smokes three packs of cigarettes a day. The patient drinks beer daily. Denies illicit drugs currently. OBJECTIVE: Vital Signs Date Time Temp Pulse Resp B/P Pulse Ox O2 Delivery O2 Flow Rate FiO2 02/14/17 10:00 58 02/14/17 08:52 96 60 02/14/17 08:52 96 Ventilator 60 02/14/17 08:00 63 02/14/17 08:00 60 02/14/17 08:00 97.6 62 16 113/59 96 02/14/17 06:00 55 02/14/17 04:00 97.6 54 16 116/58 96 02/14/17 04:00 60 02/14/17 04:00 54 02/14/17 03:37 97 60 02/14/17 02:00 54 02/14/17 01:05 96 60 02/14/17 00:00 97.6 56 16 114/56 96 02/14/17 00:00 60 02/14/17 00:00 56 02/13/17 22:00 56 02/13/17 20:47 95 60 02/13/17 20:00 97.6 54 16 109/68 96 02/13/17 20:00 60 02/13/17 20:00 54 02/13/17 18:00 56 02/13/17 16:57 98 60 02/13/17 16:00 70 02/13/17 16:00 97.6 58 16 115/65 95 02/13/17 16:00 58 02/13/17 14:00 57 02/13/17 12:54 98 70 02/13/17 12:00 70 02/13/17 12:00 97.7 55 16 106/56 99 02/13/17 12:00 56 02/13/17 02/13/1717 15:00 23:00 07:00 Intake Total 3525 ml 1460 ml 1505 ml Output Total 515 ml 360 ml 430 ml Balance 3010 ml 1100 ml 1075 ml IV Total 3525 ml 1460 ml 1505 ml Output Urine Total 450 ml 300 ml 400 ml Drainage Total 65 ml 60 ml 30 ml # Bowel Movements 0 0 0 Laboratory Tests Test 02/12/17 02/13/17 02/14/17 18:20 04:15 04:10 White Blood Count 17.0 TH/MM3 12.8 TH/MM3 8.8 TH/MM3 Red Blood Count 3.64 MIL/MM3 3.35 MIL/MM3 3.08 MIL/MM3 Hemoglobin 12.0 GM/DL 11.5 GM/DL 10.6 GM/DL Hematocrit 36.4 % 33.1 % 30.8 % Mean Corpuscular Volume 100.1 FL 98.9 FL 100.0 FL Mean Corpuscular Hemoglobin 33.1 PG 34.5 PG 34.4 PG Mean Corpuscular Hemoglobin 33.1 % 34.9 % 34.4 % Concent Red Cell Distribution Width 13.5 % 13.4 % 13.9 % Platelet Count 197 TH/MM3 175 TH/MM3 169 TH/MM3 Mean Platelet Volume 8.9 FL 9.2 FL 9.4 FL Neutrophils (%) (Auto) 91.9 % 87.0 % Lymphocytes (%) (Auto) 3.7 % 9.2 % Monocytes (%) (Auto) 4.0 % 3.6 % Eosinophils (%) (Auto) 0.3 % 0.0 % Basophils (%) (Auto) 0.1 % 0.2 % Neutrophils # (Auto) 15.6 TH/MM3 7.6 TH/MM3 Lymphocytes # (Auto) 0.6 TH/MM3 0.8 TH/MM3 Monocytes # (Auto) 0.7 TH/MM3 0.3 TH/MM3 Eosinophils # (Auto) 0.1 TH/MM3 0.0 TH/MM3 Basophils # (Auto) 0.0 TH/MM3 0.0 TH/MM3 CBC Comment AUTO DIFF DIFF FINAL Differential Total Cells 100 Counted Neutrophils % (Manual) 79 % Band Neutrophils % 12 % Lymphocytes % 6 % Monocytes % 2 % Neutrophils # (Manual) 15.6 TH/MM3 Metamyelocytes 1 % Differential Comment FINAL DIFF MANUAL Toxic Granulation 2+ Toxic Vacuolation PRESENT Platelet Estimate NORMAL Platelet Morphology Comment NORMAL Red Cell Morphology Comment NORMAL Laboratory Tests Test 02/12/17 02/13/17 02/14/17 18:20 04:15 04:10 Sodium Level 136 MEQ/L 141 MEQ/L 145 MEQ/L Potassium Level 3.7 MEQ/L 3.8 MEQ/L 3.9 MEQ/L Chloride Level 100 MEQ/L 107 MEQ/L 111 MEQ/L Carbon Dioxide Level 30.0 MEQ/L 28.6 MEQ/L 26.7 MEQ/L Anion Gap 6 MEQ/L 5 MEQ/L 7 MEQ/L Blood Urea Nitrogen 9 MG/DL 10 MG/DL 17 MG/DL Creatinine 0.38 MG/DL 0.43 MG/DL 0.34 MG/DL Estimat Glomerular Filtration 239 ML/MIN 207 ML/MIN 271 ML/MIN Rate Random Glucose 98 MG/DL 167 MG/DL 133 MG/DL Calcium Level 7.5 MG/DL 6.9 MG/DL 7.2 MG/DL Hemoglobin A1c 5.0 % Protein Corrected Calcium 7.8 MG/DL 8.2 MG/DL Total Protein 5.3 GM/DL 5.3 GM/DL Total Bilirubin 0.9 MG/DL Aspartate Amino Transf 43 U/L (AST/SGOT) Alanine Aminotransferase 45 U/L (ALT/SGPT) Alkaline Phosphatase 70 U/L Albumin 1.2 GM/DL Microbiology Date/Time Procedure Status Source Growth 02/12/17 16:40 Gram Stain - Final Complete Abscess Chest 02/12/17 16:40 Wound Culture - Final Complete S. Aureus Mrsa 02/12/17 17:04 Gram Stain - Final Complete Abscess Other 02/12/17 17:04 Wound Culture - Final Complete S. Aureus Mrsa Microbiology Date/Time Procedure Status Source Growth 02/10/17 12:17 Aerobic Blood Culture - Preliminary Resulted Blood Peripheral NO GROWTH IN 3 DAYS 02/10/17 12:17 Anaerobic Blood Culture - Preliminary Resulted Blood Peripheral NO GROWTH IN 3 DAYS 02/12/17 16:40 Gram Stain - Final Resulted Abscess Chest 02/12/17 16:40 Wound Culture Resulted Abscess Chest Pending 02/12/17 17:04 Gram Stain - Final Resulted Abscess Other 02/12/17 17:04 Wound Culture Resulted Abscess Other Pending Microbiology Date/Time Procedure Status Source Growth 02/08/17 02:22 Aerobic Blood Culture - Preliminary Resulted Blood Peripheral NO GROWTH IN 1 DAY 02/08/17 02:22 Anaerobic Blood Culture - Final Resulted S. Aureus Mrsa 02/08/17 02:22 Aerobic Blood Culture - Preliminary Resulted Blood Peripheral NO GROWTH IN 1 DAY 02/08/17 02:22 Anaerobic Blood Culture - Preliminary Resulted S. Aureus Mrsa IMAGING: Liver Ultrasound 02/13/17 0000 Signed Impressions: Service Date/Time: Monday, February 13, 2017 09:53 - CONCLUSION: Hepatosplenomegaly. Dalton Russell MD Chest X-Ray 02/13/17 0000 Signed Impressions: Service Date/Time: Monday, February 13, 2017 07:54 - CONCLUSION: 1. Stable ETT, right midline, and probable left chest wall drainage catheter. 2. Interval development of small left pleural effusion. 3. Persistent bilateral lower lobe linear airspace disease, likely atelectasis. Fran Londono MD Chest X-Ray 02/12/17 0000 Signed Impressions: Service Date/Time: Sunday, February 12, 2017 18:16 - CONCLUSION: 1. Endotracheal tube tip measures approximately 7.1 cm from the beatriz. 2. Bibasilar airspace opacity most likely representing atelectasis. Dalton Bonilla MD Soft Tissue Ultrasound 02/10/17 0747 Signed Impressions: Service Date/Time: Friday, February 10, 2017 08:38 - CONCLUSION: Edematous tissues are present over the left chest without defined abscess. There is no fluid for aspiration or drainage. This can be easily followed by ultrasound.. Miguel Angel Goode MD FACR Chest CT 02/08/17 0000 Signed Impressions: Service Date/Time: Wednesday, February 08, 2017 09:15 - CONCLUSION: 1. Diffuse enlargement of the left pectoralis muscle with infiltration of the soft tissues surrounding the left pectoralis muscle suggestive of injury/tear of this muscle. Clinical correlation is recommended. 2. Tiny bilateral pleural effusions with bibasilar atelectasis. 3. Cardiomegaly and coronary artery calcifications. 4. Mild splenomegaly. 5. Left adrenal nodule measuring 2.4 x 2.2 cm. 5. Mild degenerative changes and scoliosis of the thoracolumbar spine. Jose Reddy MD Ribs X-Ray 02/07/17 0000 Signed Impressions: Service Date/Time: Tuesday, February 07, 2017 23:39 - CONCLUSION: No definite displaced rib fractures. Amber Sandoval MD PHYSICAL EXAMINATION GENERAL: On the vent. HEENT: The head is atraumatic. Extraocular movements grossly intact, pupils reactive to light. No icterus. Oropharynx moist mucosa without lesions. NECK: Supple. No adenopathy. LUNGS: Clear breath sounds which are diminished. HEART: Regular rate and rhythm without murmurs, rubs or gallops. CHEST: Left chest catheter has serous drainage. Left flank Vac in place. Still has swelling of the left chest, less erythema. ABDOMEN: Diffuse edema and mild erythema Diminished bowel sounds. EXTREMITIES: No clubbing or cyanosis, 3+ edema symmetric. SKIN: No rash. NEUROLOGIC: Unable to assess on the vent. PSYCHIATRIC: Unable to assess, on the vent. IMPRESSION 1. Severe Cellulitis of the left chest wall and abdomen along with hematoma and abscess. Post I&D. 2. Bacteremia due to MRSA. RECOMMENDATIONS 1. Continue vancomycin 2. Continue Clindamycin. 3. Monitor clinical response. Discussed with RN. David Thorpe MD Feb 14, 2017 11:45
--- NOTE | 2017-02-14 11:54 | HHI.CCPN ---
Subjective Remarks/Hospital Course 51-year-old white male presented to the emergency department on 02/07 for evaluation of left chest wall pain. Per chart documentation the patient lifted a heavy flat screen television five days prior on 02/02/2017 and he felt a pop in his left chest. He developed swelling of the area subsequently. He was seen in the emergency department on February 04 with chest wall pain. He had been taking ibuprofen at home without relief. His chest wall edema and pain became worse and he was diagnosed with chest wall abscess and underwent emergent incision and drainage of the LEFT chest wall abscess with vac dressing as well as incision and Drainage LEFT lower abdomen. SUBJ 02/13 s/p Incision and Drainage; L chest wall abscess with vac dressing and Incision and Drainage LEFT lower abdomen by Dr. Ballesteros. Chest wall abscess extending up to the base of neck, however no purulence noted in the abdominal incision. Remains intubated heavily sedated. Plan for repeat OR in a.m 02/13. keep intubated due to difficult airway 02/14: Remains intubated sedated, FiO2 at 60%. Plan for today afternoon. Spontaneously moving all extremities. WBC normalized. Abscess culture growing MRSA Objective Vital Signs Date Time Temp Pulse Resp B/P Pulse Ox O2 Delivery O2 Flow Rate FiO2 02/14/17 10:00 58 02/14/17 08:52 96 60 02/14/17 08:52 Ventilator 02/14/17 08:00 97.6 16 113/59 02/12/17 12:00 3.00 Intake and Output 02/13/17 02/13/17 02/14/17 08:00 16:00 00:00 Intake Total 3489 ml 3525 ml 1460 ml Output Total 1480 ml 515 ml 360 ml Balance 2009 ml 3010 ml 1100 ml Result Diagram: 02/14/17 0410 02/14/17 0410 Other Results Microbiology Date/Time Procedure Status Source Growth 02/12/17 16:40 Gram Stain - Final Complete Abscess Chest 02/12/17 16:40 Wound Culture - Final Complete S. Aureus Mrsa 02/12/17 17:04 Gram Stain - Final Complete Abscess Other 02/12/17 17:04 Wound Culture - Final Complete S. Aureus Mrsa Objective Remarks GENERAL: Well-nourished, well-developed patient. Sedated and intubated in no acute distress SKIN: Warm and dry. (see chest wall exam) HEAD: Normocephalic. EYES: No scleral icterus. No injection or drainage. NECK: Supple, trachea midline. No JVD or lymphadenopathy. CARDIOVASCULAR: Regular rate and rhythm without murmurs, gallops, or rubs. CHEST WALL: Approximately 10 cm horizontal incision below left nipple with wound VAC in place. Cellulitis extending over most of left chest wall and left upper abdomen now improved RESPIRATORY: Breath sounds equal bilaterally. Few coarse rhonchi GASTROINTESTINAL: Abdomen soft, nondistended. LLQ incision dressing intact MUSCULOSKELETAL: No cyanosis, or edema. BACK: Nontender without obvious deformity. No CVA tenderness. EXTREMITIES: No clubbing cyanosis or edema NEURO: On lightening sedation patient wakes up easily follows commands Urinary Catheter: Yes Assessment to: Continue Vascular Central Line Catheter: Yes Assessment to: Continue A/P Assessment and Plan NEURO: IVDU Alcohol abuse - Propofol and fentanyl for sedation and ventilator synchrony - Versed if needed - History of IV drug use with Dilaudid - Thiamine folate multivitamins - CIWA protocol as needed RESP: Acute hypoxemic respiratory failure - Intubated for airway protection, ACV - Plan back to OR today - Difficult airway due to soft tissue edema - Keep intubated, No weaning until all surgical procedures are completed and positive air leak - Decadron x 4 doses CVS: Hypotension - Received 2 L IV fluids boluses and continue maintenance that 100 ML per hour - Levophed to keep map above 65 if needed : - Monitor urine output closely - Electrolyte replacement per protocol GI: Elevated bilirubin, liver enzymes - Hepatosplenomegaly on liver ultrasound - Keep nothing by mouth, PPI ID/HEME: Abscess and Cellulitis of the left chest wall MRSA bacteremia Severe sepsis - Bacteremia due to MRSA, abscess cx MRSA - Status post incision and drainage of chest wall and abdomen per Dr. Ballesteros - Continue vancomycin, Clindamycin - Antibiotic management per infectious disease DVT GI prophylaxis - Teds SCDs - Subcutaneous heparin - Omeprazole Critical Care: The total critical care time was 35 minutes. Time to perform other separately billable procedures was not included in the critical care time. Yolis Hoffman MD Feb 14, 2017 11:54
[2017-02-14] MEDS ORDERED: PROPOFOL 200 MG/20 ML AMP IV ONE (12:00)
[2017-02-14 14:02] LABS: STAT NO
[2017-02-14] MEDS ORDERED: ROCURONIUM INJ 50 MG/5 ML VIAL IV ONE (14:45)
[2017-02-14] MEDS ORDERED: ROCURONIUM INJ 50 MG/5 ML VIAL ONE (16:13)
[2017-02-14] MEDS ORDERED: ceFAZolin INJ 1,000 MG VIAL ONE (17:36)
[2017-02-14] MEDS ORDERED: LIDOCAINE HCL 1% 50 ML VIAL ONE (18:03)
[2017-02-14] MEDS ORDERED: GENTAMICIN SULFATE 80 MG/2 ML VIAL IRRIGATION ONE (19:51)
[2017-02-14] MEDS: REMOVE OLD PATCH T-DERMAL SCH (20:16)
[2017-02-14] MEDS ORDERED: fentaNYL CITRATE 250 MCG/5 ML AMP ONE (21:22)
[2017-02-14] MEDS ORDERED: MIDAZOLAM HCL 2 MG/2 ML VIAL ONE (21:22)
[2017-02-15] VITALS (18 sets, daily range): BP systolic 118–139; BP diastolic 63–76; PULSE 65–77; RESP 16–17; TEMP 97.9–98.7; O2SAT 94–98
[2017-02-15] MEDS: VANCOMYCIN INJ 1,500 MG in SODIUM CHLORID 0.9% 500 ML INJ 500 ML IV SCH ×3 (00:04→16:29)
[2017-02-15] MEDS: RESP: ALBUTEROL 2.5 MG/IPRATROPIUM 0.5 MG NEB (SCH) NEB ×4 (03:50→20:20)
[2017-02-15] MEDS: INSULIN ASPART SUPPLEMENTAL SCALE SQ SCH ×6 (04:00→20:00)
[2017-02-15] MEDS: SODIUM CHLOR 0.9% 1000 ML INJ 1,000 ML IV SCH ×3 (04:18→20:15)
[2017-02-15] MEDS: CLINDAMYCIN INJ 900 MG in SODIUM CHLORIDE 0.9% INJ 100 ML IV SCH ×3 (04:18→20:13)
[2017-02-15] MEDS: MIDAZOLAM 100 MG/ML INJ 100 ML IV SCH ×3 (06:04→20:13)
[2017-02-15] MEDS: fentaNYL DRIP 250 ML IV SCH ×3 (06:04→20:13)
[2017-02-15] MEDS: PANTOPRAZOLE SOD 40 MG DELAYED RELEASE TAB PO SCH (09:00)
[2017-02-15] MEDS: SODIUM CHLORIDE 0.9% FLUSH 10 ML FLUSH IV FLUSH SCH ×2 (09:17→20:13)
[2017-02-15] MEDS: LACTOBACILLUS ACIDOPHILUS TAB PO SCH ×3 (09:17→17:09)
[2017-02-15] MEDS: METHADONE HCL 10 MG TAB PO SCH (09:17)
[2017-02-15] MEDS: NICOTINE 21 MG/24 HR PATCH T-DERMAL SCH (09:18)
--- NOTE | 2017-02-15 09:40 | HHI.CCPN ---
Subjective Remarks/Hospital Course 51-year-old white male presented to the emergency department on 02/07 for evaluation of left chest wall pain. Per chart documentation the patient lifted a heavy flat screen television five days prior on 02/02/2017 and he felt a pop in his left chest. He developed swelling of the area subsequently. He was seen in the emergency department on February 04 with chest wall pain. He had been taking ibuprofen at home without relief. His chest wall edema and pain became worse and he was diagnosed with chest wall abscess and underwent emergent incision and drainage of the LEFT chest wall abscess with vac dressing as well as incision and Drainage LEFT lower abdomen. SUBJ 02/13 s/p Incision and Drainage; L chest wall abscess with vac dressing and Incision and Drainage LEFT lower abdomen by Dr. Ballesteros. Chest wall abscess extending up to the base of neck, however no purulence noted in the abdominal incision. Remains intubated heavily sedated. Plan for repeat OR in a.m 02/13. keep intubated due to difficult airway 02/14: Remains intubated sedated, FiO2 at 60%. Plan for today afternoon. Spontaneously moving all extremities. WBC normalized. Abscess culture growing MRSA 02/15: Status post or yesterday with Dr. Ballesteros, had repeat I&D and wound VAC change. Plan for or again tomorrow 02/16/17. Apparently anesthesia exchanged the ET tube removed 6.0 tube and placed 7.0 due to apparent difficulty in ventilation. Bedside RN tells me that anesthesiologist reported continued swelling edema of the glottic opening. I will place him on Decadron for additional 48 hours Objective Vital Signs Date Time Temp Pulse Resp B/P Pulse Ox O2 Delivery O2 Flow Rate FiO2 02/15/17 08:55 95 50 02/15/17 08:00 98.7 74 16 126/66 02/14/17 08:52 Ventilator 02/12/17 12:00 3.00 Intake and Output 02/14/17 02/14/17 02/15/17 08:00 16:00 00:00 Intake Total 1505 ml 1575 ml 401 ml Output Total 430 ml 505 ml 325 ml Balance 1075 ml 1070 ml 76 ml Result Diagram: 02/14/17 0410 02/14/17 0410 Other Results Microbiology Date/Time Procedure Status Source Growth 02/12/17 16:40 Gram Stain - Final Complete Abscess Chest 02/12/17 16:40 Wound Culture - Final Complete S. Aureus Mrsa 02/12/17 17:04 Gram Stain - Final Complete Abscess Other 02/12/17 17:04 Wound Culture - Final Complete S. Aureus Mrsa Objective Remarks GENERAL: Well-nourished, well-developed patient. Sedated and intubated in no acute distress SKIN: Warm and dry. (see chest wall exam) HEAD: Normocephalic. EYES: No scleral icterus. No injection or drainage. NECK: Supple, trachea midline. No JVD or lymphadenopathy. CARDIOVASCULAR: Regular rate and rhythm without murmurs, gallops, or rubs. CHEST WALL: Approximately 10 cm horizontal incision below left nipple with wound VAC in place. Cellulitis extending over most of left chest wall now improved RESPIRATORY: Breath sounds equal bilaterally. Few coarse rhonchi GASTROINTESTINAL: Abdomen soft, nondistended. LLQ incision dressing intact MUSCULOSKELETAL: No cyanosis, or edema. BACK: Nontender without obvious deformity. No CVA tenderness. EXTREMITIES: No clubbing cyanosis or edema NEURO: On lightening sedation patient wakes up follows commands. No focal neurological deficits Urinary Catheter: Yes Assessment to: Continue A/P Assessment and Plan NEURO: IVDU Alcohol abuse - Propofol and fentanyl for sedation and ventilator synchrony - Versed if needed - History of IV drug use with Dilaudid - Thiamine folate multivitamins - CIWA protocol post extubation RESP: Acute hypoxemic respiratory failure Difficult airway per anesthesia - Intubated for airway protection, ACV - ETT upgraded to 7.5 from 6 in the OR 02/14/17 - Per anesthesiologist patient still has edema the glottic opening - Keep intubated, No extubation until all surgical procedures are completed and positive air leak - Decadron additional x 8 doses - DuoNeb every 6 hours and when necessary, ventilator bundle CVS: Hypotension-resolved - Received 2 L IV fluids boluses on admission and continue maintenance that 125 ML per hour - Levophed to keep map above 65 if needed : - Monitor urine output closely - Electrolyte replacement per protocol GI: Elevated bilirubin, liver enzymes - Hepatosplenomegaly on liver ultrasound - Start tube feeds with Jevity, nothing by mouth after midnight for, PPI ID/HEME: Abscess and Cellulitis of the left chest wall MRSA bacteremia Severe sepsis - Bacteremia due to MRSA, abscess cx MRSA - Status post incision and drainage of chest wall and abdomen per Dr. Ballesteros , 02/14 - Continue vancomycin, Clindamycin - Antibiotic management per infectious disease DVT GI prophylaxis - Teds SCDs - Subcutaneous heparin - Omeprazole The total critical care time was 35 minutes. Time to perform other separately billable procedures was not included in the critical care time. Yolis Hoffman MD Feb 15, 2017 09:40
--- NOTE | 2017-02-15 11:15 | HHI.IDPN ---
Note Infectious Disease Note Patient is sedated. On the vent. Afebrile. Post incision and drainage of left chest wall and flank hematoma 02/12. Post I&D 02/14. Presented to the emergency department on 02/07 for evaluation of left chest wall pain and swelling. PAST MEDICAL HISTORY 1. Hepatitis C 2. History of MRSA arm wound in 2004. 3. History of IV drug use in the past. Denies current IV drug use. ALLERGIES TYLENOL ANTIBIOTICS: Vancomycin. Clindamycin. SOCIAL HISTORY Positive tobacco use. The patient reportedly smokes three packs of cigarettes a day. The patient drinks beer daily. Denies illicit drugs currently. OBJECTIVE: Vital Signs Date Time Temp Pulse Resp B/P Pulse Ox O2 Delivery O2 Flow Rate FiO2 02/15/17 10:00 71 02/15/17 08:55 95 50 02/15/17 08:00 98.7 74 16 126/66 97 02/15/17 08:00 74 02/15/17 08:00 60 02/15/17 06:00 66 02/15/17 04:00 98.0 65 16 118/63 95 02/15/17 04:00 60 02/15/17 04:00 65 02/15/17 03:50 95 60 02/15/17 02:00 68 02/15/17 00:57 96 60 02/15/17 00:00 60 02/15/17 00:00 68 02/15/17 00:00 97.9 68 16 139/71 94 02/14/17 22:15 60 02/14/17 22:00 98 60 02/14/17 22:00 68 02/14/17 20:00 98.1 79 18 117/76 100 02/14/17 20:00 100 100 02/14/17 20:00 79 02/14/17 20:00 100 02/14/17 18:00 77 02/14/17 16:00 97.9 86 16 112/56 91 02/14/17 16:00 85 02/14/17 16:00 60 02/14/17 14:00 64 02/14/17 12:00 62 02/14/17 12:00 60 02/14/17 12:00 97.7 63 16 116/59 95 02/14/17 11:50 95 50 02/14/17 02/14/17 02/15/17 15:00 23:00 07:00 Intake Total 1575 ml 401 ml 1529 ml Output Total 505 ml 325 ml 650 ml Balance 1070 ml 76 ml 879 ml IV Total 1575 ml 401 ml 1529 ml Output Urine Total 450 ml 300 ml 600 ml Drainage Total 55 ml 25 ml 50 ml # Bowel Movements 0 0 0 Laboratory Tests Test 02/14/17 04:10 White Blood Count 8.8 TH/MM3 Red Blood Count 3.08 MIL/MM3 Hemoglobin 10.6 GM/DL Hematocrit 30.8 % Mean Corpuscular Volume 100.0 FL Mean Corpuscular Hemoglobin 34.4 PG Mean Corpuscular Hemoglobin 34.4 % Concent Red Cell Distribution Width 13.9 % Platelet Count 169 TH/MM3 Mean Platelet Volume 9.4 FL Neutrophils (%) (Auto) 87.0 % Lymphocytes (%) (Auto) 9.2 % Monocytes (%) (Auto) 3.6 % Eosinophils (%) (Auto) 0.0 % Basophils (%) (Auto) 0.2 % Neutrophils # (Auto) 7.6 TH/MM3 Lymphocytes # (Auto) 0.8 TH/MM3 Monocytes # (Auto) 0.3 TH/MM3 Eosinophils # (Auto) 0.0 TH/MM3 Basophils # (Auto) 0.0 TH/MM3 CBC Comment DIFF FINAL Differential Comment Laboratory Tests Test 02/14/17 04:10 Sodium Level 145 MEQ/L Potassium Level 3.9 MEQ/L Chloride Level 111 MEQ/L Carbon Dioxide Level 26.7 MEQ/L Anion Gap 7 MEQ/L Blood Urea Nitrogen 17 MG/DL Creatinine 0.34 MG/DL Estimat Glomerular Filtration 271 ML/MIN Rate Random Glucose 133 MG/DL Calcium Level 7.2 MG/DL Protein Corrected Calcium 8.2 MG/DL Total Bilirubin 0.9 MG/DL Aspartate Amino Transf 43 U/L (AST/SGOT) Alanine Aminotransferase 45 U/L (ALT/SGPT) Alkaline Phosphatase 70 U/L Total Protein 5.3 GM/DL Albumin 1.2 GM/DL Microbiology Date/Time Procedure Status Source Growth 02/12/17 16:40 Gram Stain - Final Complete Abscess Chest 02/12/17 16:40 Wound Culture - Final Complete S. Aureus Mrsa 02/12/17 17:04 Gram Stain - Final Complete Abscess Other 02/12/17 17:04 Wound Culture - Final Complete S. Aureus Mrsa IMAGING: Liver Ultrasound 02/13/17 0000 Signed Impressions: Service Date/Time: Monday, February 13, 2017 09:53 - CONCLUSION: Hepatosplenomegaly. Dalton Russell MD Chest X-Ray 02/13/17 0000 Signed Impressions: Service Date/Time: Monday, February 13, 2017 07:54 - CONCLUSION: 1. Stable ETT, right midline, and probable left chest wall drainage catheter. 2. Interval development of small left pleural effusion. 3. Persistent bilateral lower lobe linear airspace disease, likely atelectasis. Fran Londono MD Chest X-Ray 02/12/17 0000 Signed Impressions: Service Date/Time: Sunday, February 12, 2017 18:16 - CONCLUSION: 1. Endotracheal tube tip measures approximately 7.1 cm from the beatriz. 2. Bibasilar airspace opacity most likely representing atelectasis. Dalton Bonilla MD Soft Tissue Ultrasound 02/10/17 0747 Signed Impressions: Service Date/Time: Friday, February 10, 2017 08:38 - CONCLUSION: Edematous tissues are present over the left chest without defined abscess. There is no fluid for aspiration or drainage. This can be easily followed by ultrasound.. Miguel Angel Goode MD FACR Chest CT 02/08/17 0000 Signed Impressions: Service Date/Time: Wednesday, February 08, 2017 09:15 - CONCLUSION: 1. Diffuse enlargement of the left pectoralis muscle with infiltration of the soft tissues surrounding the left pectoralis muscle suggestive of injury/tear of this muscle. Clinical correlation is recommended. 2. Tiny bilateral pleural effusions with bibasilar atelectasis. 3. Cardiomegaly and coronary artery calcifications. 4. Mild splenomegaly. 5. Left adrenal nodule measuring 2.4 x 2.2 cm. 5. Mild degenerative changes and scoliosis of the thoracolumbar spine. Jose Reddy MD Ribs X-Ray 02/07/17 0000 Signed Impressions: Service Date/Time: Tuesday, February 07, 2017 23:39 - CONCLUSION: No definite displaced rib fractures. Amber Sandoval MD PHYSICAL EXAMINATION GENERAL: On the vent. HEENT: No icterus. Oropharynx moist mucosa without lesions. NECK: No adenopathy. LUNGS: Decreased breath sounds. HEART: Regular rate and rhythm without murmurs, rubs or gallops. CHEST: Left chest catheter has serous drainage. Left flank Vac in place. Dcereased swelling of the left chest, less erythema. ABDOMEN: Diffuse edema and resolved erythema Diminished bowel sounds. EXTREMITIES: No clubbing or cyanosis, 3+ edema symmetric. SKIN: No rash. NEUROLOGIC: Unable to assess on the vent. PSYCHIATRIC: Unable to assess, on the vent. IMPRESSION 1. Severe Cellulitis of the left chest wall and abdomen along with hematoma and abscess. Post I&D and follow up debridement. 2. Bacteremia due to MRSA. RECOMMENDATIONS 1. Continue vancomycin 2. Continue Clindamycin. 3. Monitor temps. 4. Monitor clinical response. David Thorpe MD Feb 15, 2017 11:15
--- NOTE | 2017-02-15 12:23 | HHI.PR ---
Subjective Subjective Notes Intubated/Sedated No events overnight Objective Vitals/I&O Vital Signs Date Time Temp Pulse Resp B/P Pulse Ox O2 Delivery O2 Flow Rate FiO2 02/15/17 11:58 97 45 02/15/17 10:00 71 02/15/17 08:00 98.7 16 126/66 02/14/17 08:52 Ventilator 02/12/17 12:00 3.00 Labs Date/Time Procedure Status Source Growth 02/12/17 17:04 Gram Stain - Final Complete Abscess Other 02/12/17 17:04 Wound Culture - Final Complete S. Aureus Mrsa Radiology Last [address] 02/08/17 0000 Signed Impressions: Service Date/Time: Wednesday, February 08, 2017 09:15 - CONCLUSION: 1. Diffuse enlargement of the left pectoralis muscle with infiltration of the soft tissues surrounding the left pectoralis muscle suggestive of injury/tear of this muscle. Clinical correlation is recommended. 2. Tiny bilateral pleural effusions with bibasilar atelectasis. 3. Cardiomegaly and coronary artery calcifications. 4. Mild splenomegaly. 5. Left adrenal nodule measuring 2.4 x 2.2 cm. 5. Mild degenerative changes and scoliosis of the thoracolumbar spine. Jose Reddy MD Cardiovascular: Regular Lungs: Clear Abdomen: Other (see below ) Extremities: Other (generalized mild edema ) Narrative Exam LEFT chest ---Wound Vac in place with good seal; skin is erythremic around Wound Vac sponge (decreased in size); ELYSE in place with minimal bloody drainage LLQ---sutured closed incision ----mild drainage A/P Assessment and Plan 51 year old male with pectoralis muscle tear; LEFT chest wall cellulitis -POD1 I&D LEFT chest with Wound Vac placement and ELYSE drain placement; closure of LLQ incision -Plan for OR tomorrow for I&D and Wound Vac change -Continue to monitor WBC; fevers -ID following; continue antibiotics -Start TF today; NPO after MN -Versed/Fentanyl -Obtain consents -Discussed with RINKU Ulrich Attending Note - Dr. Ballesteros Cellulitis resolved; discussed VAC change at bedside early AM and then extubation so patient can be sedated The exam, history, and the medical decision-making described in the above note were completed with the assistance of the mid-level provider. I reviewed and agree with the findings presented. I attest that I had a [id number] encounter with the patient on the same day, and personally performed and documented my assessment and findings in the medical record. Wilma Ochoa Feb 15, 2017 12:23 Pramod Ballesteros MD Feb 16, 2017 19:21
[2017-02-15] MEDS: DEXAMETHASONE SOD PHOS 4 MG/ML VIAL IV PUSH SCH ×3 (12:36→22:34)
[2017-02-15] MEDS: BENEPROTEIN POWDER 1 PACK G-TUBE SCH ×2 (12:37→17:09)
[2017-02-15] MEDS: METOCLOPRAMIDE HCL 10 MG/2 ML VIAL IV PUSH SCH (18:27)
[2017-02-15] MEDS: REMOVE OLD PATCH T-DERMAL SCH (21:00)
[2017-02-16] VITALS (18 sets, daily range): BP systolic 134–168; BP diastolic 64–85; PULSE 58–88; RESP 12–17; TEMP 97.8–99; O2SAT 92–99
[2017-02-16] MEDS: VANCOMYCIN INJ 1,500 MG in SODIUM CHLORID 0.9% 500 ML INJ 500 ML IV SCH ×3 (00:27→16:30)
[2017-02-16] MEDS: METOCLOPRAMIDE HCL 10 MG/2 ML VIAL IV PUSH SCH ×3 (00:27→17:16)
[2017-02-16] MEDS: RESP: ALBUTEROL 2.5 MG/IPRATROPIUM 0.5 MG NEB (SCH) NEB ×4 (03:25→19:47)
--- NOTE | 2017-02-16 03:27 | RADRPT ---
EXAM DATE/TIME: 02/16/2017 02:35 [facility] COMPARISON: CHEST SINGLE AP, February 14, 2017, 5:08. INDICATIONS : Shortness of breath MEDICAL HISTORY : None. SURGICAL HISTORY : None. ENCOUNTER: Subsequent ACUITY: 1 week PAIN SCORE: Non-responsive. LOCATION: Bilateral chest FINDINGS: Mild bibasilar atelectasis and small effusions not significantly changed. No pneumothorax seen. Heart size stable, upper limits of normal. Endotracheal tube tip is at the level of the thoracic inlet, unchanged. Nasogastric tube courses into the stomach. CONCLUSION: No significant change. Bibasilar atelectasis and small effusions are again noted. Dalton Mancilla MD on February 16, 2017 at 3:25 Board Certified Radiologist. This report was verified electronically.
[2017-02-16] MEDS: INSULIN ASPART SUPPLEMENTAL SCALE SQ SCH ×6 (04:00→20:00)
[2017-02-16] MEDS: DEXAMETHASONE SOD PHOS 4 MG/ML VIAL IV PUSH SCH ×3 (04:19→17:16)
[2017-02-16] MEDS: CLINDAMYCIN INJ 900 MG in SODIUM CHLORIDE 0.9% INJ 100 ML IV SCH ×3 (04:20→20:25)
[2017-02-16] MEDS: SODIUM CHLOR 0.9% 1000 ML INJ 1,000 ML IV SCH (04:21)
[2017-02-16 04:33] LABS: AUTOMATED NEUTROPHIL # 7.3 TH/MM3 (1.8-7.7); BASOPHIL # 0.1 TH/MM3 (0-0.2); BASOPHIL % 0.7 % (0.0-2.0); HEMATOCRIT 30.6 % (39.0-51.0); LYMPH % 9.3 % (9.0-44.0); LYMPHOCYTE # 0.8 TH/MM3 (1.0-4.8); MEAN CELL VOLUME 99.5 FL (80.0-100.0); MEAN CORPUSCULAR HEMOGLOBIN 34.2 PG (27.0-34.0); MEAN CORPUSCULAR HGB CONC 34.4 % (32.0-36.0); MONO % 3.2 % (0.0-8.0); NEUT % 86.8 % (16.0-70.0); PLATELET COUNT 199 TH/MM3 (150-450); RED BLOOD COUNT 3.07 MIL/MM3 (4.50-5.90); RED CELL DISTRIBUTION WIDTH 13.5 % (11.6-17.2); WHITE BLOOD COUNT 8.4 TH/MM3 (4.0-11.0)
[2017-02-16 04:44] LABS: HEMO FLAGS AUTO DIFF
[2017-02-16 04:46] LABS: ALKALINE PHOSPHATASE 93 U/L (45-117); ALT (GPT) 137 U/L (12-78); ANION GAP 7 MEQ/L (5-15); AST (GOT) 109 U/L (15-37); BICARBONATE 25.6 MEQ/L (21.0-32.0); BLOOD UREA NITROGEN 25 MG/DL (7-18); CHLORIDE 112 MEQ/L (98-107); GLOMERULAR FILTRATION RATE 182 ML/MIN (>89); MAGNESIUM 2.4 MG/DL (1.5-2.5); POTASSIUM 4.2 MEQ/L (3.5-5.1); SODIUM (NA) 145 MEQ/L (136-145); TOTAL BILIRUBIN ADULT 0.7 MG/DL (0.2-1.0)
[2017-02-16 06:55] LABS: PLATELET ESTIMATE SMEAR NORMAL (NORMAL); PLATELET MORPHOLOGY ENLARGED (NORMAL); SCAN/DIFF AUTO DIFF CONFIRMED; TOXIC GRANULATION 2+ (NORMAL)
[2017-02-16] MEDS: LORazepam 2 MG/ML VIAL IV PUSH PRN ×2 (08:01→17:49)
[2017-02-16] MEDS: METHADONE HCL 10 MG TAB PO SCH (08:49)
[2017-02-16] MEDS: PANTOPRAZOLE SODIUM 40 MG VIAL IV PUSH SCH (08:50)
[2017-02-16] MEDS: NICOTINE 21 MG/24 HR PATCH T-DERMAL SCH (08:55)
[2017-02-16] MEDS: SODIUM CHLORIDE 0.9% FLUSH 10 ML FLUSH IV FLUSH SCH ×2 (08:56→20:27)
[2017-02-16] MEDS: BENEPROTEIN POWDER 1 PACK G-TUBE SCH ×3 (08:56→17:26)
[2017-02-16] MEDS: LACTOBACILLUS ACIDOPHILUS TAB PO SCH ×3 (08:58→17:17)
[2017-02-16] MEDS ORDERED: RESP: RACEPINEPHRINE 2.25% 0.5 ML NEB NEB PRN (11:15)
[2017-02-16] MEDS ORDERED: FUROSEMIDE 40 MG/4 ML VIAL IV PUSH ONE (11:15)
[2017-02-16] MEDS: hydrALAZINE HCL 20 MG/ML VIAL IV PUSH PRN ×2 (15:57→22:19)
[2017-02-16] MEDS: HYDROmorphone HCL PF 1 MG/ML VIAL IV PUSH PRN ×3 (16:00→20:27)
--- NOTE | 2017-02-16 16:30 | HHI.IDPN ---
Note Infectious Disease Note Patient is sedated. Opens eyes. Extubated today 02/16. Afebrile. No distress. Post incision and drainage of left chest wall and flank hematoma 02/12. Post I&D 02/14. Presented to the emergency department on 02/07 for evaluation of left chest wall pain and swelling. PAST MEDICAL HISTORY 1. Hepatitis C 2. History of MRSA arm wound in 2004. 3. History of IV drug use in the past. Denies current IV drug use. ALLERGIES TYLENOL ANTIBIOTICS: Vancomycin. Clindamycin. SOCIAL HISTORY Positive tobacco use. The patient smokes three packs of cigarettes a day. The patient drinks beer daily. Denies illicit drugs currently. OBJECTIVE: Vital Signs Date Time Temp Pulse Resp B/P Pulse Ox O2 Delivery O2 Flow Rate FiO2 02/16/17 16:00 85 02/16/17 16:00 98.1 85 15 154/84 92 02/16/17 14:00 76 02/16/17 13:05 94 Venturi Mask 6.00 50 02/16/17 12:00 40 02/16/17 12:00 99.0 79 12 167/85 96 02/16/17 12:00 79 02/16/17 11:35 99 40 02/16/17 10:20 Venturi Mask 50 40 02/16/17 10:20 99 40 02/16/17 10:00 67 02/16/17 08:11 97 40 02/16/17 08:00 98.6 59 16 168/84 98 02/16/17 08:00 59 02/16/17 08:00 40 02/16/17 06:00 58 02/16/17 04:00 40 02/16/17 04:00 98.2 58 17 153/77 97 02/16/17 04:00 58 02/16/17 03:00 97 40 02/16/17 02:00 74 02/16/17 00:00 74 02/16/17 00:00 40 02/16/17 00:00 98.4 74 16 134/64 95 02/15/17 22:00 72 02/15/17 20:40 98 40 02/15/17 20:30 40 02/15/17 20:00 98.6 74 17 118/76 95 02/15/17 20:00 45 02/15/17 20:00 74 02/15/17 18:00 71 02/15/17 16:38 95 45 02/15/17 02/15/17 02/16/17 15:00 23:00 07:00 Intake Total 1576 ml 1510 ml 1581 ml Output Total 600 ml 610 ml 800 ml Balance 976 ml 900 ml 781 ml IV Total 1449 ml 1292 ml 1461 ml Tube Feeding 27 ml 158 ml 90 ml Tube Irrigant 60 ml 30 ml Other 100 ml Output Urine Total 550 ml 550 ml 750 ml Drainage Total 50 ml 60 ml 50 ml # Bowel Movements 0 0 0 Laboratory Tests Test 02/16/17 04:15 White Blood Count 8.4 TH/MM3 Red Blood Count 3.07 MIL/MM3 Hemoglobin 10.5 GM/DL Hematocrit 30.6 % Mean Corpuscular Volume 99.5 FL Mean Corpuscular Hemoglobin 34.2 PG Mean Corpuscular Hemoglobin 34.4 % Concent Red Cell Distribution Width 13.5 % Platelet Count 199 TH/MM3 Mean Platelet Volume 9.2 FL Neutrophils (%) (Auto) 86.8 % Lymphocytes (%) (Auto) 9.3 % Monocytes (%) (Auto) 3.2 % Eosinophils (%) (Auto) 0.0 % Basophils (%) (Auto) 0.7 % Neutrophils # (Auto) 7.3 TH/MM3 Lymphocytes # (Auto) 0.8 TH/MM3 Monocytes # (Auto) 0.3 TH/MM3 Eosinophils # (Auto) 0.0 TH/MM3 Basophils # (Auto) 0.1 TH/MM3 CBC Comment AUTO DIFF Differential Comment AUTO DIFF CONFIRMED Toxic Granulation 2+ Platelet Estimate NORMAL Platelet Morphology Comment ENLARGED Laboratory Tests Test 02/16/17 04:15 Sodium Level 145 MEQ/L Potassium Level 4.2 MEQ/L Chloride Level 112 MEQ/L Carbon Dioxide Level 25.6 MEQ/L Anion Gap 7 MEQ/L Blood Urea Nitrogen 25 MG/DL Creatinine 0.48 MG/DL Estimat Glomerular Filtration 182 ML/MIN Rate Random Glucose 122 MG/DL Calcium Level 7.5 MG/DL Magnesium Level 2.4 MG/DL Total Bilirubin 0.7 MG/DL Aspartate Amino Transf 109 U/L (AST/SGOT) Alanine Aminotransferase 137 U/L (ALT/SGPT) Alkaline Phosphatase 93 U/L Total Protein 5.6 GM/DL Albumin 1.4 GM/DL IMAGING: Liver Ultrasound 02/13/17 0000 Signed Impressions: Service Date/Time: Monday, February 13, 2017 09:53 - CONCLUSION: Hepatosplenomegaly. Dalton Russell MD Chest X-Ray 02/13/17 0000 Signed Impressions: Service Date/Time: Monday, February 13, 2017 07:54 - CONCLUSION: 1. Stable ETT, right midline, and probable left chest wall drainage catheter. 2. Interval development of small left pleural effusion. 3. Persistent bilateral lower lobe linear airspace disease, likely atelectasis. Fran Londono MD Chest X-Ray 02/12/17 0000 Signed Impressions: Service Date/Time: Sunday, February 12, 2017 18:16 - CONCLUSION: 1. Endotracheal tube tip measures approximately 7.1 cm from the beatriz. 2. Bibasilar airspace opacity most likely representing atelectasis. Dalton Bonilla MD Soft Tissue Ultrasound 02/10/17 0747 Signed Impressions: Service Date/Time: Friday, February 10, 2017 08:38 - CONCLUSION: Edematous tissues are present over the left chest without defined abscess. There is no fluid for aspiration or drainage. This can be easily followed by ultrasound.. Miguel Angel Goode MD FACR Chest CT 02/08/17 0000 Signed Impressions: Service Date/Time: Wednesday, February 08, 2017 09:15 - CONCLUSION: 1. Diffuse enlargement of the left pectoralis muscle with infiltration of the soft tissues surrounding the left pectoralis muscle suggestive of injury/tear of this muscle. Clinical correlation is recommended. 2. Tiny bilateral pleural effusions with bibasilar atelectasis. 3. Cardiomegaly and coronary artery calcifications. 4. Mild splenomegaly. 5. Left adrenal nodule measuring 2.4 x 2.2 cm. 5. Mild degenerative changes and scoliosis of the thoracolumbar spine. Jose Reddy MD Ribs X-Ray 02/07/17 0000 Signed Impressions: Service Date/Time: Tuesday, February 07, 2017 23:39 - CONCLUSION: No definite displaced rib fractures. Amber Sandoval MD PHYSICAL EXAMINATION GENERAL: Extubated. No distress. HEENT: No icterus. Oropharynx moist mucosa without lesions. NECK: No adenopathy. LUNGS: Decreased breath sounds. HEART: Regular rate and rhythm without murmurs, rubs or gallops. CHEST: Left chest catheter has serous drainage. Left flank Vac in place. Dcereased swelling of the left chest, less erythema. ABDOMEN: Diffuse edema and resolved erythema Diminished bowel sounds. EXTREMITIES: No clubbing or cyanosis, 3+ edema symmetric. SKIN: No rash. NEUROLOGIC: Unable to assess. PSYCHIATRIC: Unable to assess. IMPRESSION 1. Severe Cellulitis of the left chest wall and abdomen along with hematoma and abscess. MRSA. Post I&D and follow up debridement. 2. Bacteremia due to MRSA. RECOMMENDATIONS 1. Continue vancomycin 2. Continue Clindamycin. 3. Monitor temps. 4. Monitor clinical response. David Thorpe MD Feb 16, 2017 16:30
--- NOTE | 2017-02-16 17:33 | HHI.PR ---
Subjective Subjective Notes Weaning ventilator Objective Vitals/I&O Vital Signs Date Time Temp Pulse Resp B/P Pulse Ox O2 Delivery O2 Flow Rate FiO2 02/16/17 16:00 85 02/16/17 16:00 98.1 15 154/84 92 02/16/17 13:05 Venturi Mask 6.00 50 Labs Laboratory Tests Test 02/16/17 04:15 White Blood Count 8.4 Red Blood Count 3.07 Hemoglobin 10.5 Hematocrit 30.6 Mean Corpuscular Volume 99.5 Mean Corpuscular Hemoglobin 34.2 Mean Corpuscular Hemoglobin 34.4 Concent Red Cell Distribution Width 13.5 Platelet Count 199 Mean Platelet Volume 9.2 Neutrophils (%) (Auto) 86.8 Lymphocytes (%) (Auto) 9.3 Monocytes (%) (Auto) 3.2 Eosinophils (%) (Auto) 0.0 Basophils (%) (Auto) 0.7 Neutrophils # (Auto) 7.3 Lymphocytes # (Auto) 0.8 Monocytes # (Auto) 0.3 Eosinophils # (Auto) 0.0 Basophils # (Auto) 0.1 CBC Comment AUTO DIFF Differential Comment AUTO DIFF CONFIRMED Toxic Granulation 2+ Platelet Estimate NORMAL Platelet Morphology Comment ENLARGED Sodium Level 145 Potassium Level 4.2 Chloride Level 112 Carbon Dioxide Level 25.6 Anion Gap 7 Blood Urea Nitrogen 25 Creatinine 0.48 Estimat Glomerular Filtration 182 Rate Random Glucose 122 Calcium Level 7.5 Magnesium Level 2.4 Total Bilirubin 0.7 Aspartate Amino Transf 109 (AST/SGOT) Alanine Aminotransferase 137 (ALT/SGPT) Alkaline Phosphatase 93 Total Protein 5.6 Albumin 1.4 Date/Time Procedure Status Source Growth 02/12/17 17:04 Gram Stain - Final Complete Abscess Other 02/12/17 17:04 Wound Culture - Final Complete S. Aureus Mrsa Radiology Last [address] 02/08/17 0000 Signed Impressions: Service Date/Time: Wednesday, February 08, 2017 09:15 - CONCLUSION: 1. Diffuse enlargement of the left pectoralis muscle with infiltration of the soft tissues surrounding the left pectoralis muscle suggestive of injury/tear of this muscle. Clinical correlation is recommended. 2. Tiny bilateral pleural effusions with bibasilar atelectasis. 3. Cardiomegaly and coronary artery calcifications. 4. Mild splenomegaly. 5. Left adrenal nodule measuring 2.4 x 2.2 cm. 5. Mild degenerative changes and scoliosis of the thoracolumbar spine. Jose Reddy MD Cardiovascular: Regular Lungs: Clear Abdomen: Non-distended, Non-tender Narrative Exam LEFT chest ---Wound Vac in place with good seal; skin is erythremic around Wound Vac sponge (decreased in size); ELYSE in place with minimal bloody drainage LLQ---sutured closed incision ----mild drainage A/P Assessment and Plan 51 year old male with pectoralis muscle tear; LEFT chest wall cellulitis -POD2 I&D LEFT chest with Wound Vac placement and ELYSE drain placement; closure of LLQ incision -Dr. Ballesteros plans to remove Wound Vac today; replace Wound Vac vs wet to dry dressing -Continue to monitor WBC; fevers -ID following; continue antibiotics -Discussed with RN Mojgan Attending Note - Dr. Ballesteros Equipment not at bedside; removed VAC and started wet to dry dressings with 4 inch thien Will leave drain in place Abdominal wound healing with minimal drainage; skin is healing and blisters have resolved OK for diet Likely no further surgery The exam, history, and the medical decision-making described in the above note were completed with the assistance of the mid-level provider. I reviewed and agree with the findings presented. I attest that I had a [id number] encounter with the patient on the same day, and personally performed and documented my assessment and findings in the medical record. Wilma Ochoa Feb 16, 2017 17:33 Pramod Ballesteros MD Feb 16, 2017 19:20
--- NOTE | 2017-02-16 19:52 | HHI.CCPN ---
Subjective Remarks/Hospital Course 51-year-old white male presented to the emergency department on 02/07 for evaluation of left chest wall pain. Per chart documentation the patient lifted a heavy flat screen television five days prior on 02/02/2017 and he felt a pop in his left chest. He developed swelling of the area subsequently. He was seen in the emergency department on February 04 with chest wall pain. He had been taking ibuprofen at home without relief. His chest wall edema and pain became worse and he was diagnosed with chest wall abscess and underwent emergent incision and drainage of the LEFT chest wall abscess with vac dressing as well as incision and Drainage LEFT lower abdomen. SUBJ 02/13 s/p Incision and Drainage; L chest wall abscess with vac dressing and Incision and Drainage LEFT lower abdomen by Dr. Ballesteros. Chest wall abscess extending up to the base of neck, however no purulence noted in the abdominal incision. Remains intubated heavily sedated. Plan for repeat OR in a.m 02/13. keep intubated due to difficult airway 02/14: Remains intubated sedated, FiO2 at 60%. Plan for today afternoon. Spontaneously moving all extremities. WBC normalized. Abscess culture growing MRSA 02/15: Status post or yesterday with Dr. Ballesteros, had repeat I&D and wound VAC change. Plan for or again tomorrow 02/16/17. Apparently anesthesia exchanged the ET tube removed 6.0 tube and placed 7.0 due to apparent difficulty in ventilation. Bedside RN tells me that anesthesiologist reported continued swelling edema of the glottic opening. I will place him on Decadron for additional 48 hours 02/16: s/p take-back to OR yesterday, much improved edema. this morning, patient awake and alert, tolerating CPAP, passed SBT. audible cuff leak. Objective Vital Signs Date Time Temp Pulse Resp B/P Pulse Ox O2 Delivery O2 Flow Rate FiO2 02/16/17 18:00 88 02/16/17 16:00 98.1 15 154/84 92 02/16/17 13:05 Venturi Mask 6.00 50 Intake and Output 02/15/17 02/15/17 02/16/17 08:00 16:00 00:00 Intake Total 1529 ml 1576 ml 1510 ml Output Total 650 ml 600 ml 610 ml Balance 879 ml 976 ml 900 ml Result Diagram: 02/16/17 0415 02/16/17 0415 Objective Remarks GENERAL: middle aged male, sitting up in bed at 90 degrees. intubated. SKIN: Warm and dry. (see chest wall exam) HEAD: Normocephalic. EYES: No scleral icterus. No injection or drainage. NECK: trachea midline. No JVD CARDIOVASCULAR: Regular rate and rhythm. sinus by telemetry. CHEST WALL: Approximately 10 cm horizontal incision below left nipple with wound VAC in place. Cellulitis extending over most of left chest wall now improved RESPIRATORY: Breath sounds equal bilaterally. clear to auscultation. + cuff leak. GASTROINTESTINAL: Abdomen soft, nondistended. LLQ incision dressing intact MUSCULOSKELETAL: No cyanosis, or edema. EXTREMITIES: No clubbing cyanosis or edema NEURO: RASS 0. CAM -. fc x 4. A/P Assessment and Plan Assessment: 51yM s/p I&D left chest wall abscess with extension up into the neck leading to airway compromise. now s/p decadron and repeat washouts. improved hypopharyngeal edema. will give 1 dose lasix and then pursue extubation as patient's laryngeal edema has clearly improved. continue decadron for today. NEURO: IVDU Alcohol abuse - Propofol and fentanyl for sedation and ventilator synchrony - History of IV drug use with Dilaudid - Thiamine folate multivitamins - CIWA protocol post extubation RESP: Acute hypoxemic respiratory failure- improved. Difficult airway per anesthesia - Intubated for airway protection - ETT upgraded to 7.5 from 6 in the OR 02/14/17 - Decadron additional x 4 doses - d/c mivf. lasix 40mg iv x 1 - will pursue extubation today. - DuoNeb every 6 hours and when necessary CVS: Hypotension-resolved - d/c mivf. - continue to monitor on tele. : - Monitor urine output closely - Electrolyte replacement per protocol - could d/c avila after extubation. GI: Elevated bilirubin, liver enzymes - Hepatosplenomegaly on liver ultrasound - bedside swallow eval once extubated and advance diet. ID/HEME: Abscess and Cellulitis of the left chest wall MRSA bacteremia Severe sepsis - Bacteremia due to MRSA, abscess cx MRSA - Status post incision and drainage of chest wall and abdomen per Dr. Ballesteros , 02/14 - Continue vancomycin, Clindamycin - Antibiotic management per infectious disease DVT GI prophylaxis - Teds SCDs - Subcutaneous heparin - Omeprazole Kentrell Bear MD Feb 16, 2017 19:52
[2017-02-16] MEDS ORDERED: HYDROmorphone HCL PF 1 MG/ML VIAL IV PRN (20:00)
[2017-02-16] MEDS ORDERED: DEXMEDETOMIDINE INJ 200 MCG in SODIUM CHLORIDE 0.9% INJ 50 ML IV SCH (20:00)
[2017-02-16] MEDS: REMOVE OLD PATCH T-DERMAL SCH (21:00)
[2017-02-17] VITALS (12 sets, daily range): BP systolic 114–164; BP diastolic 61–97; PULSE 72–97; RESP 19–35; TEMP 96.1–98.8; O2SAT 92–95
[2017-02-17] MEDS: HYDROmorphone HCL PF 1 MG/ML VIAL IV PUSH PRN ×2 (00:02→03:41)
[2017-02-17] MEDS: VANCOMYCIN INJ 1,500 MG in SODIUM CHLORID 0.9% 500 ML INJ 500 ML IV SCH ×3 (00:02→17:08)
[2017-02-17] MEDS: DEXAMETHASONE SOD PHOS 4 MG/ML VIAL IV PUSH SCH ×2 (00:02→05:23)
[2017-02-17] MEDS: RESP: ALBUTEROL 2.5 MG/IPRATROPIUM 0.5 MG NEB (SCH) NEB ×4 (02:16→21:04)
[2017-02-17] MEDS: INSULIN ASPART SUPPLEMENTAL SCALE SQ SCH ×6 (04:00→20:00)
[2017-02-17] MEDS: CLINDAMYCIN INJ 900 MG in SODIUM CHLORIDE 0.9% INJ 100 ML IV SCH ×3 (05:23→20:20)
[2017-02-17] MEDS ORDERED: MAGNESIUM CITRATE SOLN 300 ML BTL PO ONE (07:15)
[2017-02-17] MEDS ORDERED: FUROSEMIDE 40 MG/4 ML VIAL IV PUSH ONE (07:15)
--- NOTE | 2017-02-17 07:18 | HHI.CCPN ---
Subjective Remarks/Hospital Course 51-year-old white male presented to the emergency department on 02/07 for evaluation of left chest wall pain. Per chart documentation the patient lifted a heavy flat screen television five days prior on 02/02/2017 and he felt a pop in his left chest. He developed swelling of the area subsequently. He was seen in the emergency department on February 04 with chest wall pain. He had been taking ibuprofen at home without relief. His chest wall edema and pain became worse and he was diagnosed with chest wall abscess and underwent emergent incision and drainage of the LEFT chest wall abscess with vac dressing as well as incision and Drainage LEFT lower abdomen. SUBJ 02/13 s/p Incision and Drainage; L chest wall abscess with vac dressing and Incision and Drainage LEFT lower abdomen by Dr. Ballesteros. Chest wall abscess extending up to the base of neck, however no purulence noted in the abdominal incision. Remains intubated heavily sedated. Plan for repeat OR in a.m 02/13. keep intubated due to difficult airway 02/14: Remains intubated sedated, FiO2 at 60%. Plan for today afternoon. Spontaneously moving all extremities. WBC normalized. Abscess culture growing MRSA 02/15: Status post or yesterday with Dr. Ballesteros, had repeat I&D and wound VAC change. Plan for or again tomorrow 02/16/17. Apparently anesthesia exchanged the ET tube removed 6.0 tube and placed 7.0 due to apparent difficulty in ventilation. Bedside RN tells me that anesthesiologist reported continued swelling edema of the glottic opening. I will place him on Decadron for additional 48 hours 02/16: s/p take-back to OR yesterday, much improved edema. this morning, patient awake and alert, tolerating CPAP, passed SBT. audible cuff leak. 02/17: successfully extubated yesterday. advanced to regular diet after passed nursing bedside swallow eval. delirious overnight, patient stated this morning he feels like he is "detoxing." he endorses shakiness, restlessness. still CAM + this morning. dressing change at bedside and patient tolerated this well. Objective Vital Signs Date Time Temp Pulse Resp B/P Pulse Ox O2 Delivery O2 Flow Rate FiO2 02/17/17 06:00 73 02/17/17 00:00 98.4 24 140/71 93 02/16/17 19:47 Nasal Cannula 5.00 02/16/17 13:05 50 Intake and Output 02/16/17 02/16/17 02/17/17 08:00 16:00 00:00 Intake Total 1581 ml 1382 ml 804 ml Output Total 800 ml 3100 ml 2385 ml Balance 781 ml -1718 ml -1581 ml Result Diagram: 02/16/17 0415 02/16/175 Objective Remarks GENERAL: middle aged male, lying in bed, mildly confused. SKIN: Warm and dry. (see chest wall exam) HEAD: Normocephalic. EYES: No scleral icterus. No injection or drainage. NECK: trachea midline. No JVD CARDIOVASCULAR: Regular rate and rhythm. sinus by telemetry. CHEST WALL: Approximately 10 cm horizontal incision below left nipple. RESPIRATORY: Breath sounds equal bilaterally. unlabored respirations. patient on facemask o2 for patient comfort (on a few liters oxygen, but patient preferred mask) GASTROINTESTINAL: Abdomen soft, nondistended. LLQ incision dressing intact MUSCULOSKELETAL: No cyanosis, or edema. EXTREMITIES: No clubbing cyanosis or edema NEURO: RASS 0 to +1. CAM +. fc x 4. A/P Assessment and Plan Assessment: 51yM s/p I&D left chest wall abscess with extension up into the neck leading to airway compromise. Now improving. etoh withdraw and agitated delirium persists. continue CIWA. NEURO: IVDU Alcohol abuse Opiate dependence - History of IV drug use with Dilaudid - Thiamine folate multivitamins - CIWA protocol post extubation - may require precedex infusion to control delirium - start clonidine 0.3mg po TID for withdraw symptoms - continue methadone to prevent withdraws (was on this at prior facility). RESP: Acute hypoxemic respiratory failure- improved. Difficult airway per anesthesia - wean o2 by NC/facemask (for patient comfort) for goal spo2 > 92%. - aggressive pulmonary toilet - OOB and ambulating daily. CVS: Hypotension-resolved - saline locked mivf - continue to monitor on tele. : - Monitor urine output closely - Electrolyte replacement per protocol - voiding without avila. - lasix 40mg iv x 1. GI: Elevated bilirubin, liver enzymes Constipation - Hepatosplenomegaly on liver ultrasound - regular diet as tolerated. - add aggressive bowel regimen given chronic opiate use: senna/colace, miralax, dulcolax suppository, lactulose, mag citrate. ID/HEME: Abscess and Cellulitis of the left chest wall MRSA bacteremia Severe sepsis - Bacteremia due to MRSA, abscess cx MRSA - Status post incision and drainage of chest wall and abdomen per Dr. Ballesteros , 02/14 - Continue vancomycin, Clindamycin - Antibiotic management per infectious disease. would recommend early d/c of clindamycin as patient has source control. DVT GI prophylaxis - Teds SCDs - Subcutaneous heparin - Omeprazole Dispo: likely stable for transfer to floor today. will consult hospitalist service. Kentrell Bear MD Feb 17, 2017 07:18
[2017-02-17] MEDS: BENEPROTEIN POWDER 1 PACK G-TUBE SCH ×3 (07:38→16:31)
[2017-02-17] MEDS ORDERED: DEXMEDETOMIDINE INJ 200 MCG in SODIUM CHLORIDE 0.9% INJ 48 ML IV ONE (07:45)
[2017-02-17] MEDS: PANTOPRAZOLE SODIUM 40 MG VIAL IV PUSH SCH (08:45)
[2017-02-17] MEDS: METHADONE HCL 10 MG TAB PO SCH (08:45)
[2017-02-17] MEDS: SODIUM CHLORIDE 0.9% FLUSH 10 ML FLUSH IV FLUSH SCH ×2 (08:45→20:28)
[2017-02-17] MEDS: LACTOBACILLUS ACIDOPHILUS TAB PO SCH ×3 (08:45→16:48)
[2017-02-17] MEDS: LACTULOSE SYRUP 20 GM/30 ML CUP PO SCH ×2 (08:45→20:23)
[2017-02-17] MEDS: DOCUSATE SODIUM 50 MG/SENNA 8.6 MG TAB PO SCH ×2 (08:46→20:20)
[2017-02-17] MEDS: POLYETHYLENE GLYCOL 17 GM PKG PO SCH ×2 (08:46→20:21)
[2017-02-17] MEDS: BISACODYL 10 MG SUPP RECTAL SCH (08:46)
[2017-02-17] MEDS: cloNIDine HCL 0.3 MG TAB PO SCH ×3 (08:47→20:20)
[2017-02-17] MEDS: NICOTINE 21 MG/24 HR PATCH T-DERMAL SCH (08:47)
--- NOTE | 2017-02-17 14:08 | HHI.IDPN ---
Note Infectious Disease Note Patient is up in chair. Transferred out of [facility] today. 02/17. Extubated 02/16. Afebrile. No distress. Feels bloated. Notes chest pain. Has catheter in left chest wall. Vac catheter removed. Post incision and drainage of left chest wall and flank hematoma 02/12. Post I&D 02/14. Presented to the emergency department on 02/07 for evaluation of left chest wall pain and swelling. PAST MEDICAL HISTORY 1. Hepatitis C 2. History of MRSA arm wound in 2004. 3. History of IV drug use in the past. Denies current IV drug use. ALLERGIES TYLENOL ANTIBIOTICS: Vancomycin. Clindamycin. SOCIAL HISTORY Positive tobacco use. The patient smokes three packs of cigarettes a day. The patient drinks beer daily. Denies illicit drugs currently. OBJECTIVE: Vital Signs Date Time Temp Pulse Resp B/P Pulse Ox O2 Delivery O2 Flow Rate FiO2 02/17/17 12:00 98.7 74 21 117/68 95 02/17/17 12:00 72 02/17/17 10:00 86 02/17/17 08:00 75 02/17/17 08:00 98.1 75 22 164/97 93 02/17/17 07:32 95 Venturi Mask 50 02/17/17 07:00 95 Nasal Cannula 4.00 02/17/17 06:00 73 02/17/17 04:00 97.9 88 35 129/69 93 02/17/17 04:00 88 02/17/17 02:00 97 02/17/17 00:00 98.4 90 24 140/71 93 02/17/17 00:00 90 02/16/17 22:00 78 02/16/17 20:00 74 02/16/17 20:00 97.8 74 16 157/78 97 02/16/17 19:47 93 Nasal Cannula 5.00 02/16/17 19:00 93 Nasal Cannula 4.00 02/16/17 18:00 88 02/16/17 16:00 85 02/16/17 16:00 98.1 85 15 154/84 92 02/16/17 02/16/17 02/17/17 15:00 23:00 07:00 Intake Total 1382 ml 804 ml 401 ml Output Total 3100 ml 2385 ml 735 ml Balance -1718 ml -1581 ml -334 ml IV Total 1322 ml 804 ml 401 ml Tube Feeding 0 ml Tube Irrigant 60 ml Output Urine Total 3000 ml 2375 ml 725 ml Drainage Total 100 ml 10 ml 10 ml # Bowel Movements 0 0 0 Laboratory Tests Test 02/16/17 04:15 White Blood Count 8.4 TH/MM3 Red Blood Count 3.07 MIL/MM3 Hemoglobin 10.5 GM/DL Hematocrit 30.6 % Mean Corpuscular Volume 99.5 FL Mean Corpuscular Hemoglobin 34.2 PG Mean Corpuscular Hemoglobin 34.4 % Concent Red Cell Distribution Width 13.5 % Platelet Count 199 TH/MM3 Mean Platelet Volume 9.2 FL Neutrophils (%) (Auto) 86.8 % Lymphocytes (%) (Auto) 9.3 % Monocytes (%) (Auto) 3.2 % Eosinophils (%) (Auto) 0.0 % Basophils (%) (Auto) 0.7 % Neutrophils # (Auto) 7.3 TH/MM3 Lymphocytes # (Auto) 0.8 TH/MM3 Monocytes # (Auto) 0.3 TH/MM3 Eosinophils # (Auto) 0.0 TH/MM3 Basophils # (Auto) 0.1 TH/MM3 CBC Comment AUTO DIFF Differential Comment AUTO DIFF CONFIRMED Toxic Granulation 2+ Platelet Estimate NORMAL Platelet Morphology Comment ENLARGED Laboratory Tests Test 02/16/17 04:15 Sodium Level 145 MEQ/L Potassium Level 4.2 MEQ/L Chloride Level 112 MEQ/L Carbon Dioxide Level 25.6 MEQ/L Anion Gap 7 MEQ/L Blood Urea Nitrogen 25 MG/DL Creatinine 0.48 MG/DL Estimat Glomerular Filtration 182 ML/MIN Rate Random Glucose 122 MG/DL Calcium Level 7.5 MG/DL Magnesium Level 2.4 MG/DL Total Bilirubin 0.7 MG/DL Aspartate Amino Transf 109 U/L (AST/SGOT) Alanine Aminotransferase 137 U/L (ALT/SGPT) Alkaline Phosphatase 93 U/L Total Protein 5.6 GM/DL Albumin 1.4 GM/DL IMAGING: Chest X-Ray 02/16/17 0600 Signed Impressions: Service Date/Time: January 02:35 - CONCLUSION: No significant change. Bibasilar atelectasis and small effusions are again noted. Dalton Mancilla MD Liver Ultrasound 02/13/17 0000 Signed Impressions: Service Date/Time: Monday, February 13, 2017 09:53 - CONCLUSION: Hepatosplenomegaly. Dalton Russell MD Chest X-Ray 02/13/17 0000 Signed Impressions: Service Date/Time: Monday, February 13, 2017 07:54 - CONCLUSION: 1. Stable ETT, right midline, and probable left chest wall drainage catheter. 2. Interval development of small left pleural effusion. 3. Persistent bilateral lower lobe linear airspace disease, likely atelectasis. Fran Londono MD Chest X-Ray 02/12/17 0000 Signed Impressions: Service Date/Time: Sunday, February 12, 2017 18:16 - CONCLUSION: 1. Endotracheal tube tip measures approximately 7.1 cm from the beatriz. 2. Bibasilar airspace opacity most likely representing atelectasis. Dalton Bonilla MD Soft Tissue Ultrasound 02/10/17 0747 Signed Impressions: Service Date/Time: Friday, February 10, 2017 08:38 - CONCLUSION: Edematous tissues are present over the left chest without defined abscess. There is no fluid for aspiration or drainage. This can be easily followed by ultrasound.. Miguel Angel Goode MD FACR Chest CT 02/08/17 0000 Signed Impressions: Service Date/Time: Wednesday, February 08, 2017 09:15 - CONCLUSION: 1. Diffuse enlargement of the left pectoralis muscle with infiltration of the soft tissues surrounding the left pectoralis muscle suggestive of injury/tear of this muscle. Clinical correlation is recommended. 2. Tiny bilateral pleural effusions with bibasilar atelectasis. 3. Cardiomegaly and coronary artery calcifications. 4. Mild splenomegaly. 5. Left adrenal nodule measuring 2.4 x 2.2 cm. 5. Mild degenerative changes and scoliosis of the thoracolumbar spine. Jose Reddy MD Ribs X-Ray 02/07/17 0000 Signed Impressions: Service Date/Time: Tuesday, February 07, 2017 23:39 - CONCLUSION: No definite displaced rib fractures. Amber Sandoval MD PHYSICAL EXAMINATION GENERAL: Extubated. No distress. HEENT: No icterus. Oropharynx moist mucosa without lesions. NECK: No adenopathy. LUNGS: Decreased breath sounds bilateral. HEART: Regular rate and rhythm without murmurs, rubs or gallops. CHEST: Left chest catheter has serous drainage. Less erythema. ABDOMEN: Diffuse edema and resolved erythema Diminished bowel sounds. EXTREMITIES: No clubbing or cyanosis, 3+ edema symmetric. SKIN: No rash. NEUROLOGIC: Non focal. PSYCHIATRIC: Calm and pleasant. IMPRESSION 1. Severe Cellulitis of the left chest wall and abdomen along with hematoma and abscess. MRSA. Post I&D and follow up debridement. 2. Bacteremia due to MRSA. RECOMMENDATIONS 1. Continue vancomycin 2. Continue Clindamycin. 3. Monitor temps. 4. Monitor clinical status. David Thorpe MD Feb 17, 2017 14:08
--- NOTE | 2017-02-17 16:36 | HHI.PR ---
Subjective Subjective Notes Up to chair Eating lunch; doing well Objective Vitals/I&O Vital Signs Date Time Temp Pulse Resp B/P Pulse Ox O2 Delivery O2 Flow Rate FiO2 02/17/17 12:00 98.7 74 21 117/68 95 02/17/17 07:32 Venturi Mask 50 02/17/17 07:00 4.00 Labs Date/Time Procedure Status Source Growth 02/12/17 17:04 Gram Stain - Final Complete Abscess Other 02/12/17 17:04 Wound Culture - Final Complete S. [facility] Last [address] 02/08/17 0000 Signed Impressions: Service Date/Time: Wednesday, February 08, 2017 09:15 - CONCLUSION: 1. Diffuse enlargement of the left pectoralis muscle with infiltration of the soft tissues surrounding the left pectoralis muscle suggestive of injury/tear of this muscle. Clinical correlation is recommended. 2. Tiny bilateral pleural effusions with bibasilar atelectasis. 3. Cardiomegaly and coronary artery calcifications. 4. Mild splenomegaly. 5. Left adrenal nodule measuring 2.4 x 2.2 cm. 5. Mild degenerative changes and scoliosis of the thoracolumbar spine. Jose Reddy MD Cardiovascular: Regular Lungs: Clear Abdomen: Non-distended, Non-tender Extremities: Other (BUE edema ) Narrative Exam LEFT chest ---Wet to dry dressing in place; wound vac removed ; ELYSE in place with minimal bloody drainage LLQ---sutured closed incision ----mild drainage A/P Assessment and Plan 51 year old male with pectoralis muscle tear; LEFT chest wall cellulitis -LEFT chest Wound Vac removed; wet to dry dressing daily to LEFT chest -Wet to dry dressing to LLQ -s/p I&D LEFT chest with Wound Vac placement and ELYSE drain placement; closure of LLQ incision -Plan to remove ELYSE drain Monday -Continue to monitor WBC; fevers -ID following; continue antibiotics -Discussed with RN Wilma Costa Feb 17, 2017 16:36
[2017-02-17] MEDS: REMOVE OLD PATCH T-DERMAL SCH (22:12)
[2017-02-18] MEDS: VANCOMYCIN INJ 1,500 MG in SODIUM CHLORID 0.9% 500 ML INJ 500 ML IV SCH ×3 (00:33→16:48)
[2017-02-18] MEDS: RESP: ALBUTEROL 2.5 MG/IPRATROPIUM 0.5 MG NEB (SCH) NEB ×4 (03:44→21:28)
[2017-02-18] MEDS: HYDROmorphone HCL PF 1 MG/ML VIAL IV PUSH PRN ×4 (04:08→20:29)
[2017-02-18] MEDS: cloNIDine HCL 0.3 MG TAB PO SCH ×3 (05:07→22:22)
[2017-02-18] MEDS: CLINDAMYCIN INJ 900 MG in SODIUM CHLORIDE 0.9% INJ 100 ML IV SCH ×3 (05:07→20:30)
[2017-02-18 08:00] VITALS: BP 141/76; PULSE 78; RESP 26; TEMP 98; O2SAT 92
[2017-02-18] MEDS: METHADONE HCL 10 MG TAB PO SCH (08:23)
[2017-02-18] MEDS: NICOTINE 21 MG/24 HR PATCH T-DERMAL SCH (08:23)
[2017-02-18] MEDS: PANTOPRAZOLE SODIUM 40 MG VIAL IV PUSH SCH (08:23)
[2017-02-18] MEDS: LACTOBACILLUS ACIDOPHILUS TAB PO SCH ×3 (08:23→16:48)
[2017-02-18] MEDS: DOCUSATE SODIUM 50 MG/SENNA 8.6 MG TAB PO SCH ×2 (08:24→20:30)
[2017-02-18] MEDS: SODIUM CHLORIDE 0.9% FLUSH 10 ML FLUSH IV FLUSH SCH ×2 (08:24→20:30)
[2017-02-18] MEDS: LACTULOSE SYRUP 20 GM/30 ML CUP PO SCH ×2 (08:24→20:30)
[2017-02-18] MEDS: POLYETHYLENE GLYCOL 17 GM PKG PO SCH ×2 (08:24→20:30)
[2017-02-18] MEDS: BISACODYL 10 MG SUPP RECTAL SCH (08:24)
--- NOTE | 2017-02-18 08:56 | HHI.PR ---
Subjective Remarks f/u; chest wall abscess in no acute distress but complaining of pain to the chest wall. drain in place. no fever. says that he's very weak. Objective Vitals Vital Signs Date Time Temp Pulse Resp B/P Pulse Ox O2 Delivery O2 Flow Rate FiO2 02/18/17 08:00 98.0 78 26 141/76 92 02/18/17 04:38 18 02/18/17 01:33 18 02/17/17 23:42 98.8 76 19 127/63 92 02/17/17 22:30 Nasal Cannula 4.00 02/17/17 20:51 93 Nasal Cannula 5.00 02/17/17 20:00 96.1 85 20 117/65 93 02/17/17 16:00 98.3 89 24 114/61 93 02/17/17 12:00 98.7 74 21 117/68 95 02/17/17 12:00 72 02/17/17 10:00 86 I/O 02/17/17 02/17/17 02/17/17 02/18/17 02/18/17 02/18/17 07:00 15:00 23:00 07:00 15:00 23:00 Intake Total 401 ml 1430 ml 340 ml 240 ml 1100 ml Output Total 735 ml 2310 ml 5 ml 5 ml Balance -334 ml -880 ml 335 ml 240 ml 1095 ml Intake Oral 1430 ml 240 ml 240 ml IV Total 401 ml 100 ml 1100 ml Output Urine Total 725 ml 2300 ml Drainage Total 10 ml 10 ml 5 ml 5 ml # Voids 1 1 2 # Bowel Movements 0 2 1 0 Result Diagram: 02/16/17 0415 02/16/17 0415 Imaging Last Impressions Chest X-Ray 02/16/17 0600 Signed Impressions: Service Date/Time: January 02:35 - CONCLUSION: No significant change. Bibasilar atelectasis and small effusions are again noted. Dalton Mancilla MD Liver Ultrasound 02/13/17 0000 Signed Impressions: Service Date/Time: Monday, February 13, 2017 09:53 - CONCLUSION: Hepatosplenomegaly. Dalton Russell MD Abdomen X-Ray 02/13/17 0000 Signed Impressions: Service Date/Time: Monday, February 13, 2017 11:17 - CONCLUSION: 1. Nasogastric tube placement as above. Michael Goode MD Soft Tissue Ultrasound 02/10/17 0747 Signed Impressions: Service Date/Time: Friday, February 10, 2017 08:38 - CONCLUSION: Edematous tissues are present over the left chest without defined abscess. There is no fluid for aspiration or drainage. This can be easily followed by ultrasound.. Miguel Angel Goode MD FACR Chest CT 02/08/17 0000 Signed Impressions: Service Date/Time: Wednesday, February 08, 2017 09:15 - CONCLUSION: 1. Diffuse enlargement of the left pectoralis muscle with infiltration of the soft tissues surrounding the left pectoralis muscle suggestive of injury/tear of this muscle. Clinical correlation is recommended. 2. Tiny bilateral pleural effusions with bibasilar atelectasis. 3. Cardiomegaly and coronary artery calcifications. 4. Mild splenomegaly. 5. Left adrenal nodule measuring 2.4 x 2.2 cm. 5. Mild degenerative changes and scoliosis of the thoracolumbar spine. Jose Reddy MD Ribs X-Ray 02/07/17 0000 Signed Impressions: Service Date/Time: Tuesday, February 07, 2017 23:39 - CONCLUSION: No definite displaced rib fractures. K. Aries Sandoval MD Objective Remarks GENERAL: This is a well-nourished, well-developed patient, in no apparent distress. CARDIOVASCULAR: Regular rate and regular rhythm without murmurs, gallops, or rubs. RESPIRATORY: Clear to auscultation. Breath sounds equal bilaterally. No wheezes , rales, or rhonchi. GASTROINTESTINAL: Abdomen soft, non-tender, nondistended. Normal, active bowel sounds MUSCULOSKELETAL: Extremities without clubbing, cyanosis, or edema. NEURO: Alert & Oriented x4 to person, place, time, situation. Moves all ext x4 skin; RLQ covered with clean dressing and drain in place on left chest wall Procedures I/D of the chest wall abscess I/D of the abdominal wall cellulitis Medications and IVs Current Medications Morphine Sulfate (Morphine Inj) 4 mg ONCE ONCE IV PUSH Last administered on t 22:55; Start 02/07/17 at 22:15; Stop 02/07/17 at 22:16; Status DC Ondansetron HCl (Zofran Inj) 4 mg ONCE ONCE IVP Last administered on 22:55; Start 02/07/17 at 22:15; Stop 02/07/17 at 22:16; Status DC Sodium Chloride 2 ml 2 ml UNSCH PRN IV FLUSH FLUSH AFTER USING IV ACCESS; Start 02/07/17 at 22:15; Stop 02/08/17 at 05:22; Status DC Sodium Chloride (NS 1000 ml Inj) 1,000 ml @ 1,000 mls/hr Q1H ONCE IV Last administered on 02/08/17 00:27; Start 02/07/17 at 23:45; Stop 02/08/17 at 00:44 ; Status DC Ondansetron HCl (Zofran Inj) 4 mg ONCE ONCE IV ; Start 02/07/17 at 23:45; Stop 02/07/17 at 23:46; Status DC Hydromorphone HCl 1 mg 1 mg ONCE ONCE IV PUSH Last administered on 02/08/17 00:27; Start 02/07/17 at 23:45; Stop 02/07/17 at 23:46; Status DC Sodium Chloride 1,000 ml @ 1,000 mls/hr Q1H ONCE IV ; Start 02/08/17 at 02:01; Stop 02/08/17 at 03:00; Status DC Sodium Chloride 1,000 ml @ 1,000 mls/hr Q1H ONCE IV Last administered on 02:22; Start 02/08/17 at 02:01; Stop 02/08/17 at 03:00; Status DC Sodium Chloride 700 ml @ 1,000 mls/hr Q42M ONCE IV Last administered on 02:22; Start 02/08/17 at 02:01; Stop 02/08/17 at 02:42; Status DC Vancomycin HCl 1000 mg/Sodium Chloride 250 ml @ 250 mls/hr ONCE ONCE IV ; Start 02/08/17 at 02:15; Stop 02/08/17 at 03:14; Status Cancel Piperacillin Sod/ Tazobactam Sod (Zosyn 3.375 Gm Premix) 50 ml @ 100 mls/hr ONCE ONCE IV Last administered on 02/08/17 02:33; Start 02/08/17 at 02:15; Stop 02/08/17 at 02:44; Status DC Sodium Chloride (NS Flush) 2 ml UNSCH PRN IV FLUSH FLUSH AFTER USING IV ACCESS ; Start 02/08/17 at 02:45 Sodium Chloride (NS Flush) 2 ml BID IV FLUSH Last administered on 02/18/17 08: 24; Start 02/08/17 at 09:00 Ondansetron HCl (Zofran Inj) 4 mg Q6H PRN IVP NAUSEA OR VOMITING Last administered on 02/17/17 03:41; Start 02/08/17 at 02:45 Naloxone HCl 0.4 mg 0.4 mg UNSCH PRN IV SEE LABEL COMMENTS; Start 02/08/17 at 02:45 Pharmacy Profile Note 0 ml @ 0 mls/hr UNSCH OTHER ; Start 02/08/17 at 02:45 Piperacillin Sod/ Tazobactam Sod 100 ml @ 200 mls/hr Q6H IV Last administered on 02/09/17 14:40; Start 02/08/17 at 08:00; Stop 02/09/17 at 15:53; Status DC Ciprofloxacin/ Dextrose (Cipro 400 Mg Premix) 200 ml @ 200 mls/hr Q12H IV Last administered on 02/08/17 16:36; Start 02/08/17 at 04:00; Stop 02/09/17 at 15:54; Status DC Lactobacillus Acidophilus (Lactinex) 1 tab TID PO Last administered on 08:23; Start 02/08/17 at 09:00 Hydromorphone HCl (Dilaudid Pf Inj) 1 mg ONCE ONCE IV PUSH Last administered on 02/08/17 03:43; Start 02/08/17 at 03:15; Stop 02/08/17 at 03:16; Status DC Pantoprazole Sodium 40 mg 40 mg ONCE ONCE IV PUSH Last administered on 03:43; Start 02/08/17 at 03:15; Stop 02/08/17 at 03:16; Status DC Vancomycin HCl/ Sodium Chloride (Vancomycin Inj/ NS 500 ml Inj) 515 ml @ 257.5 mls/ hr ONCE ONCE IV Last administered on 02/08/17 07:39; Start 02/08/17 at 05:00; Stop 02/08/17 at 06:59; Status DC Ketorolac Tromethamine (Toradol Inj) 15 mg Q6H PRN IV PUSH pain >5; Start 02/08 at 05:15; Stop 02/08/17 at 05:51; Status DC Alprazolam (Xanax) 0.125 mg NOW ONCE PO Last administered on 02/08/17 06:14; Start 02/08/17 at 05:30; Stop 02/08/17 at 05:31; Status DC Hydromorphone HCl (Dilaudid Pf Inj) 1 mg Q4H PRN IV PUSH pain >5 Last administered on 02/08/17 06:24; Start 02/08/17 at 06:00; Stop 02/08/17 at 10:03 ; Status DC Methadone HCl (Dolophine) 20 mg ONCE ONCE PO Last administered on 02/08/17 06 :23; Start 02/08/17 at 06:15; Stop 02/08/17 at 06:18; Status DC Methadone HCl (Dolophine) 20 mg DAILY PO Last administered on 02/18/17 08:23; Start 02/08/17 at 09:00 Pantoprazole Sodium (Protonix) 40 mg DAILY PO Last administered on 02/14/17 08 :15; Start 02/09/17 at 09:00; Stop 02/15/17 at 17:39; Status DC Calcium Carbonate 500 mg 500 mg ONCE ONCE CHEW Last administered on 02/08/17 07:38; Start 02/08/17 at 08:00; Stop 02/08/17 at 08:01; Status DC Sodium Chloride 1,000 ml @ 125 mls/hr Q8H IV Last administered on 02/16/17 04 :21; Start 02/08/17 at 07:45; Stop 02/16/17 at 11:14; Status DC Vancomycin HCl/ Sodium Chloride (Vancomycin Inj/ NS 500 ml Inj) 515 ml @ 250 mls/hr Q12H IV Last administered on 02/09/17 08:48; Start 02/08/17 at 20:00; Stop 02/09/17 at 22:40; Status DC Miscellaneous Information SPECIFIC LAB TO BE DRAWN:VANCOMYCIN TROUGH DATE TO... ONCE ONCE .XX ; Start 02/09/17 at 19:45; Stop 02/09/17 at 19:46; Status DC Iohexol (Omnipaque 350 Inj) 63 ml STK-MED ONCE IV Last administered on 10:03; Start 02/08/17 at 10:03; Stop 02/08/17 at 10:04; Status DC Hydromorphone HCl (Dilaudid Pf Inj) 2 mg Q3HR PRN IV PUSH pain >5 Last administered on 02/10/17 09:30; Start 02/08/17 at 11:00; Stop 02/10/17 at 10:30 ; Status DC Flumazenil (Romazicon Inj) 0.2 mg Q1M PRN IV PUSH SEE LABEL COMMENTS; Start at 14:45 Lorazepam (Ativan) 1 mg Q4H PRN PO CIWA 8 - 10 Last administered on 02/12/17 10:31; Start 02/08/17 at 14:45 Lorazepam (Ativan Inj) 1 mg Q4H PRN IV PUSH CIWA 8 - 10 Last administered on 17:49; Start 02/08/17 at 14:45 Lorazepam (Ativan) 2 mg Q2H PRN PO CIWA 11-14; Start 02/08/17 at 14:45 Lorazepam (Ativan Inj) 2 mg Q2H PRN IV PUSH CIWA 11-14 Last administered on 08:01; Start 02/08/17 at 14:45 Lorazepam (Ativan Inj) 2 mg Q1H PRN IV PUSH CIWA 15-20 Last administered on 01:20; Start 02/08/17 at 14:45 Lorazepam (Ativan Inj) 2 mg Q15M PRN IV PUSH CIWA > 20; Start 02/08/17 at 14:45 Miscellaneous Information SPECIFIC LAB TO BE DRAWN:VANCO TROUGH DATE TO BE DR... ONCE ONCE .XX Last administered on 02/10/17 21:45; Start 02/10/17 at 21 :45; Stop 02/10/17 at 21:46; Status DC Vancomycin HCl/ Sodium Chloride (Vancomycin Inj/ NS 500 ml Inj) 515 ml @ 250 mls/hr Q12H IV Last administered on 02/10/17 22:59; Start 02/09/17 at 22:00; Stop 02/10/17 at 23:47; Status DC Hydromorphone HCl 0.5 mg 0.5 mg Q8HR PRN IV PUSH PAIN 8-10 Last administered on 02/16/17 17:43; Start 02/10/17 at 14:00; Stop 02/16/17 at 19:55; Status DC Clindamycin Phosphate 900 mg/ Sodium Chloride 106 ml @ 212 mls/hr Q8H IV Last administered on 02/18/17 05:07; Start 02/10/17 at 13:00 Vancomycin HCl/ Sodium Chloride (Vancomycin Inj/ NS 500 ml Inj) 515 ml @ 250 mls/hr Q8H IV Last administered on 02/18/17 08:22; Start 02/11/17 at 09:00 Miscellaneous Information SPECIFIC LAB TO BE SARAH... ONCE ONCE .XX ; Start 02/12 at 08:45; Stop 02/12/17 at 08:46; Status DC Nicotine (Habitrol 21 Mg Patch.24 Hr) 1 patch DAILY T-DERMAL Last administered on 02/18/17 08:23; Start 02/12/17 at 10:00 Miscellaneous Information 1 1 HS T-DERMAL Last administered on 02/17/17 22:12 ; Start 02/12/17 at 21:00 Calcium Gluconate/ Sodium Chloride (Calcium Gluconate Inj/NS Inj) 110 ml @ 110 mls/hr ONCE ONCE IV Last administered on 02/12/17 12:07; Start 02/12/17 at 11 :00; Stop 02/12/17 at 11:59; Status DC Miscellaneous Information SPECIFIC LAB TO BE SARAH... ONCE ONCE .XX ; Start 02/12 at 16:45; Stop 02/12/17 at 16:46; Status DC Ketamine HCl (Ketalar Inj) 500 mg STK-MED ONCE .ROUTE ; Start 02/12/17 at 15:34 ; Stop 02/12/17 at 15:35; Status DC Vancomycin HCl (Vancomycin Inj) 1,000 mg STK-MED ONCE .ROUTE Last administered on 02/12/17 16:40; Start 02/12/17 at 15:51; Stop 02/12/17 at 15:52; Status DC Vancomycin HCl 500 mg 500 mg STK-MED ONCE .ROUTE Last administered on 16:40; Start 02/12/17 at 15:51; Stop 02/12/17 at 15:52; Status DC Propofol (Diprivan 1000 Mg/100ml Inj) 100 ml @ As Directed STK-MED ONCE .ROUTE Last administered on 02/12/17 17:50; Start 02/12/17 at 17:33; Stop 02/12/17 at 17:34; Status DC Midazolam HCl (Versed Inj) 2 mg STK-MED ONCE .ROUTE ; Start 02/12/17 at 18:09; Stop 02/12/17 at 18:10; Status DC Fentanyl Citrate (fentaNYL INJ) 250 mcg STK-MED ONCE .ROUTE ; Start 02/12/17 at 18:09; Stop 02/12/17 at 18:10; Status DC Cefazolin Sodium (Ancef Inj) 2,000 mg STK-MED ONCE .ROUTE Last administered on 02/12/17 16:40; Start 02/12/17 at 18:36; Stop 02/12/17 at 18:37; Status DC Miscellaneous Information ALL NURSING DEPARTME... UNSCH PRN .XX SEE LABEL COMMENTS; Start 02/12/17 at 18:45; Stop 02/13/17 at 18:44; Status DC Propofol 100 ml @ 0 mls/hr TITRATE IV Last administered on 02/13/17 05:14; Start 02/12/17 at 19:15; Stop 02/16/17 at 19:55; Status DC Midazolam HCl 100 ml @ 0 mls/hr TITRATE IV Last administered on 02/15/17 20:13 ; Start 02/12/17 at 20:00; Stop 02/16/17 at 11:15; Status DC Fentanyl Citrate 250 ml @ 0 mls/hr TITRATE IV Last administered on 02/15/17 20 :13; Start 02/12/17 at 20:00; Stop 02/16/17 at 19:55; Status DC Sodium Chloride (NS 1000 ml Inj) 2,000 ml @ 0 mls/hr BOLUS ONCE IV Last administered on 02/13/17 01:15; Start 02/13/17 at 01:15; Stop 02/13/17 at 01:16 ; Status DC Heparin Sodium (Porcine) 5000 units 5,000 units Q8HR SQ Last administered on 05:49; Start 02/13/17 at 06:00; Status Hold Multivitamins/ Thiamine HCl/ Folic Acid/ Dextrose/Sodium Chloride (Mvi-12 Inj/ Thiamine Inj/ Folvite Inj/ D5W-NS 500 ml Inj) 511.2 ml @ 125 mls/hr ONCE ONCE IV Last administered on 02/13/17 03:15; Start 02/13/17 at 03:30; Stop at 07:35; Status DC Insulin Aspart (NovoLOG SUPPLEMENTAL SCALE) 1 Q4H SQ ; Start 02/13/17 at 08:00; Stop 02/17/17 at 21:40; Status DC Dextrose (D50w (Vial) Inj) 25 ml UNSCH PRN IV HYPOGLYCEMIA - SEE COMMENTS; Start 02/13/17 at 08:15; Stop 02/17/17 at 21:40; Status DC Glucagon 1 mg 1 mg UNSCH PRN OTHER SEE LABEL COMMENTS; Start 02/13/17 at 08:15 ; Stop 02/17/17 at 21:40; Status DC Sodium Chloride 1,000 ml @ 999 mls/hr Q1H1M IV Last administered on 02/13/17 10:00; Start 02/13/17 at 10:00; Stop 02/13/17 at 11:00; Status DC Sodium Chloride (NS 1000 ml Inj) 1,000 ml @ 999 mls/hr BOLUS ONCE IV Last administered on 02/13/17 10:00; Start 02/13/17 at 10:00; Stop 02/13/17 at 11:00 ; Status DC Rocuronium [place] 50 mg 50 mg BOLUS ONCE IV Last administered on 02/13/17 10 :03; Start 02/13/17 at 10:00; Stop 02/13/17 at 10:01; Status DC Norepinephrine Bitartrate (Levophed-Dextrose Drip) 250 ml @ 0 mls/hr TITRATE IV Last administered on 02/13/17 10:17; Start 02/13/17 at 10:00; Stop 02/16/17 at 11:15; Status DC Terbutaline Sulfate (Brethine Inj) 1 mg UNSCH PRN SQ For Extravasation; Start 02/13/17 at 10:00; Stop 02/16/17 at 11:15; Status DC Albuterol/ Ipratropium (Duoneb Neb) 1 ampule Q6HR NEB NEB Last administered on 02/18/17 03:44; Start 02/13/17 at 10:00 Albuterol/ Ipratropium (Duoneb Neb) 1 ampule Q2HR NEB PRN NEB SHORTNESS OF BREATH; Start 02/13/17 at 10:00 Dexamethasone Sodium Phosphate (Decadron Inj) 4 mg Q6HR IV PUSH Last administered on 02/14/17 04:56; Start 02/13/17 at 12:00; Stop 02/14/17 at 11:59 ; Status DC Miscellaneous Information SPECIFIC LAB TO BE ... ONCE ONCE .XX Last administered on 02/14/17 00:00; Start 02/14/17 at 00:45; Stop 02/14/17 at 00:46 ; Status DC Rocuronium [place] (Zemuron Inj) 50 mg STK-MED ONCE .ROUTE ; Start 02/14/17 at 16:13; Stop 02/14/17 at 16:14; Status DC Cefazolin Sodium (Ancef Inj) 3,000 mg STK-MED ONCE .ROUTE ; Start 02/14/17 at 17 :36; Stop 02/14/17 at 17:37; Status DC Rocuronium [place] (Zemuron Inj) 50 mg NOW ONCE IV Last administered on 14:45; Start 02/14/17 at 14:45; Stop 02/14/17 at 17:51; Status DC Lidocaine HCl (Xylocaine 1% Inj (50 ml)) 50 ml STK-MED ONCE .ROUTE ; Start 02/14 at 18:03; Stop 02/14/17 at 18:04; Status DC Gentamicin Sulfate (Gentamicin Inj) 240 mg STK-MED ONCE IRRIGATION Last administered on 02/14/17 19:51; Start 02/14/17 at 19:51; Stop 02/14/17 at 19:52 ; Status DC Midazolam HCl (Versed Inj) 4 mg STK-MED ONCE .ROUTE ; Start 02/14/17 at 21:22; Stop 02/14/17 at 21:23; Status DC Fentanyl Citrate (fentaNYL INJ) 500 mcg STK-MED ONCE .ROUTE ; Start 02/14/17 at 21:22; Stop 02/14/17 at 21:23; Status DC Protein (Beneprotein Powder) 2 pack TID G-TUBE Last administered on 02/16/17 08:56; Start 02/15/17 at 13:00 Dexamethasone Sodium Phosphate (Decadron Inj) 4 mg Q6HR IV PUSH Last administered on 02/17/17 05:23; Start 02/15/17 at 12:00; Stop 02/17/17 at 11:59 ; Status DC Metoclopramide HCl (Reglan Inj) 5 mg Q8H IV PUSH Last administered on 17:16; Start 02/15/17 at 18:00; Stop 02/16/17 at 19:55; Status DC Pantoprazole Sodium (Protonix Inj) 40 mg DAILY IV PUSH Last administered on 08:23; Start 02/16/17 at 09:00 Furosemide (Lasix Inj) 40 mg STAT ONCE IV PUSH Last administered on 02/16/17 11:26; Start 02/16/17 at 11:15; Stop 02/16/17 at 11:22; Status DC Racepinephrine (Racepinephrine 2.25% Neb) 0.5 ml Q4HR NEB PRN NEB stridor; Start 02/16/17 at 11:15 Hydralazine HCl (Apresoline Inj) 10 mg Q30M PRN IV PUSH FOR A GOAL SBP <180 Last administered on 02/16/17 22:19; Start 02/16/17 at 15:00; Stop 02/17/17 at 12:06; Status DC Hydromorphone HCl (Dilaudid Pf Inj) 1 mg Q4H PRN IV ; Start 02/16/17 at 20:00; Stop 02/16/17 at 20:00; Status DC Oxycodone HCl (Roxicodone) 5 mg Q4H PRN PO pain 1-7 Last administered on 06:18; Start 02/16/17 at 20:00 Hydromorphone HCl 0.5 mg 0.5 mg Q4H PRN IV PUSH pain 8-10 or not taking po Last administered on 02/18/17 04:08; Start 02/16/17 at 20:00 Dexmedetomidine HCl/Sodium Chloride (Precedex Inj/NS Inj) 52 ml @ 0 mls/hr TITRATE IV ; Start 02/16/17 at 20:00; Stop 02/17/17 at 11:44; Status DC Furosemide (Lasix Inj) 40 mg ONCE ONCE IV PUSH Last administered on 02/17/17 08:45; Start 02/17/17 at 07:15; Stop 02/17/17 at 07:16; Status DC Bisacodyl (Dulcolax Supp) 10 mg DAILY RECTAL ; Start 02/17/17 at 09:00 Polyethylene Glycol (Miralax) 17 gm BID PO Last administered on 02/17/17 08:46 ; Start 02/17/17 at 09:00 Lactulose (Lactulose Liq) 30 ml BID PO Last administered on 02/17/17 08:45; Start 02/17/17 at 09:00 Senna/Docusate Sodium (Breanna-Colace) 1 tab BID PO Last administered on 20:20; Start 02/17/17 at 09:00 Magnesium Citrate (Citroma Liq) 300 ml ONCE ONCE PO Last administered on 08:45; Start 02/17/17 at 07:15; Stop 02/17/17 at 07:16; Status DC Clonidine 0.3 mg 0.3 mg Q8HR PO Last administered on 02/18/17 05:07; Start at 07:13 Dexmedetomidine HCl/Sodium Chloride (Precedex Inj/NS Inj) 50 ml @ 312 mls/hr BOLUS ONCE IV Last administered on 02/17/17 07:37; Start 02/17/17 at 07:45; Stop 02/17/17 at 07:54; Status DC Miscellaneous Information SPECIFIC LAB TO BE SARAH... ONCE ONCE .XX ; Start 02/21 at 08:45; Stop 02/21/17 at 08:46 A/P Assessment and Plan A/P Abscess and Cellulitis of the left chest wall abdominal wall cellulitis MRSA bacteremia Severe sepsis - Bacteremia due to MRSA, abscess cx MRSA - Status post incision and drainage of chest wall and abdomen per Dr. Ballesteros , 02/14 - Continue vancomycin, Clindamycin - Antibiotic management per infectious disease. Acute hypoxemic respiratory failure- resolved. -keep on oxygen as needed to keep O2 sat > 90% - OOB and ambulating daily. Hypotension-resolved - continue to monitor on tele. elevated LFT's due to hepatitis C - Hepatosplenomegaly on liver ultrasound - regular diet as tolerated. - f/u as outpatient. IVDU Alcohol abuse Opiate dependence - History of IV drug use with Dilaudid - Thiamine folate multivitamins - CICO protocol - continue methadone to prevent withdraws (was on this at prior facility). DVT GI prophylaxis - Teds SCDs - Subcutaneous heparin - Omeprazole Tanisha Osorio MD Feb 18, 2017 08:56
[2017-02-18] MEDS: BENEPROTEIN POWDER 1 PACK G-TUBE SCH ×3 (09:00→16:51)
[2017-02-18 12:00] VITALS: BP 136/60; PULSE 83; RESP 20; TEMP 99; O2SAT 95
[2017-02-18 16:00] VITALS: BP 126/57; PULSE 89; RESP 22; TEMP 95.4; O2SAT 95
[2017-02-18 20:00] VITALS: BP 135/74; PULSE 77; RESP 18; TEMP 98; O2SAT 95
[2017-02-18] MEDS: REMOVE OLD PATCH T-DERMAL SCH (20:31)
[2017-02-18 21:38] VITALS: O2SAT 93
[2017-02-19] VITALS (8 sets, daily range): BP systolic 119–139; BP diastolic 63–83; PULSE 64–80; RESP 15–20; TEMP 96.9–98.1; O2SAT 90–96
[2017-02-19] MEDS: VANCOMYCIN INJ 1,500 MG in SODIUM CHLORID 0.9% 500 ML INJ 500 ML IV SCH ×3 (00:38→16:42)
[2017-02-19] MEDS: HYDROmorphone HCL PF 1 MG/ML VIAL IV PUSH PRN ×5 (00:45→22:22)
[2017-02-19] MEDS: RESP: ALBUTEROL 2.5 MG/IPRATROPIUM 0.5 MG NEB (SCH) NEB ×4 (04:06→21:02)
[2017-02-19] MEDS: cloNIDine HCL 0.3 MG TAB PO SCH ×3 (05:09→22:22)
[2017-02-19] MEDS: CLINDAMYCIN INJ 900 MG in SODIUM CHLORIDE 0.9% INJ 100 ML IV SCH ×3 (05:09→20:35)
[2017-02-19] MEDS: METHADONE HCL 10 MG TAB PO SCH (08:32)
[2017-02-19] MEDS: PANTOPRAZOLE SODIUM 40 MG VIAL IV PUSH SCH (08:32)
[2017-02-19] MEDS: DOCUSATE SODIUM 50 MG/SENNA 8.6 MG TAB PO SCH ×2 (08:33→20:32)
[2017-02-19] MEDS: REMOVE OLD PATCH T-DERMAL SCH (08:33)
[2017-02-19] MEDS: NICOTINE 21 MG/24 HR PATCH T-DERMAL SCH (08:33)
[2017-02-19] MEDS: LACTOBACILLUS ACIDOPHILUS TAB PO SCH ×3 (08:33→16:42)
[2017-02-19] MEDS: BISACODYL 10 MG SUPP RECTAL SCH (08:33)
[2017-02-19] MEDS: POLYETHYLENE GLYCOL 17 GM PKG PO SCH ×2 (08:33→20:35)
[2017-02-19] MEDS: LACTULOSE SYRUP 20 GM/30 ML CUP PO SCH ×2 (08:33→20:35)
[2017-02-19] MEDS: SODIUM CHLORIDE 0.9% FLUSH 10 ML FLUSH IV FLUSH SCH ×2 (08:34→20:35)
[2017-02-19] MEDS: BENEPROTEIN POWDER 1 PACK G-TUBE SCH ×3 (09:00→16:42)
--- NOTE | 2017-02-19 11:46 | HHI.PR ---
Subjective Remarks resting comfortably with no distress. afebrile. complaining of moderate to severe pain to the left chest at the site of surgery. d/w the RN at the bedside. Objective Vitals Vital Signs Date Time Temp Pulse Resp B/P Pulse Ox O2 Delivery O2 Flow Rate FiO2 02/19/17 08:14 90 21 02/19/17 08:00 96.9 64 19 139/83 95 02/19/17 08:00 94 Nasal Cannula 5.00 02/19/17 04:00 97.5 69 16 136/68 93 02/19/17 00:00 97.0 80 20 128/79 92 02/18/17 21:38 93 Nasal Cannula 4.00 02/18/17 20:00 98.0 77 18 135/74 95 02/18/17 16:00 95.4 89 22 126/57 95 02/18/17 12:00 99.0 83 20 136/60 95 I/O 02/18/17 02/18/17 02/18/17 02/19/17 02/19/17 02/19/17 07:00 15:00 23:00 07:00 15:00 23:00 Intake Total 240 ml 2205 ml 725 ml 1055 ml Output Total 5 ml 710 ml 20 ml Balance 240 ml 2200 ml 15 ml 1035 ml Intake Oral 240 ml 480 ml 240 ml 360 ml IV Total 1725 ml 485 ml 695 ml Output Urine Total 700 ml Drainage Total 5 ml 10 ml 20 ml # Voids 2 3 3 # Bowel Movements 0 1 1 0 Result Diagram: 02/16/17 0415 02/16/17 0415 Imaging Last Impressions Chest X-Ray 02/16/17 0600 Signed Impressions: Service Date/Time: January 02:35 - CONCLUSION: No significant change. Bibasilar atelectasis and small effusions are again noted. Dalton Mancilla MD Liver Ultrasound 02/13/17 0000 Signed Impressions: Service Date/Time: Monday, February 13, 2017 09:53 - CONCLUSION: Hepatosplenomegaly. Dalton Russell MD Abdomen X-Ray 02/13/17 0000 Signed Impressions: Service Date/Time: Monday, February 13, 2017 11:17 - CONCLUSION: 1. Nasogastric tube placement as above. Michael Goode MD Soft Tissue Ultrasound 02/10/17 0747 Signed Impressions: Service Date/Time: Friday, February 10, 2017 08:38 - CONCLUSION: Edematous tissues are present over the left chest without defined abscess. There is no fluid for aspiration or drainage. This can be easily followed by ultrasound.. Miguel Angel Goode MD FACR Chest CT 02/08/17 0000 Signed Impressions: Service Date/Time: Wednesday, February 08, 2017 09:15 - CONCLUSION: 1. Diffuse enlargement of the left pectoralis muscle with infiltration of the soft tissues surrounding the left pectoralis muscle suggestive of injury/tear of this muscle. Clinical correlation is recommended. 2. Tiny bilateral pleural effusions with bibasilar atelectasis. 3. Cardiomegaly and coronary artery calcifications. 4. Mild splenomegaly. 5. Left adrenal nodule measuring 2.4 x 2.2 cm. 5. Mild degenerative changes and scoliosis of the thoracolumbar spine. Jose Reddy MD Ribs X-Ray 02/07/17 0000 Signed Impressions: Service Date/Time: Tuesday, February 07, 2017 23:39 - CONCLUSION: No definite displaced rib fractures. Amber Sandoval MD Objective Remarks GENERAL: This is a well-nourished, well-developed patient, in no apparent distress. CARDIOVASCULAR: Regular rate and regular rhythm without murmurs, gallops, or rubs. RESPIRATORY: Clear to auscultation. Breath sounds equal bilaterally. No wheezes , rales, or rhonchi. GASTROINTESTINAL: Abdomen soft, non-tender, nondistended. Normal, active bowel sounds MUSCULOSKELETAL: Extremities without clubbing, cyanosis, or edema. NEURO: Alert & Oriented x4 to person, place, time, situation. Moves all ext x4 skin; RLQ covered with clean dressing and drain in place on left chest wall Procedures I/D of the chest wall abscess I/D of the abdominal wall cellulitis Medications and IVs Current Medications Morphine Sulfate (Morphine Inj) 4 mg ONCE ONCE IV PUSH Last administered on 22:55; Start 02/07/17 at 22:15; Stop 02/07/17 at 22:16; Status DC Ondansetron HCl (Zofran Inj) 4 mg ONCE ONCE IVP Last administered on 22:55; Start 02/07/17 at 22:15; Stop 02/07/17 at 22:16; Status DC Sodium Chloride 2 ml 2 ml UNSCH PRN IV FLUSH FLUSH AFTER USING IV ACCESS; Start 02/07/17 at 22:15; Stop 02/08/17 at 05:22; Status DC Sodium Chloride (NS 1000 ml Inj) 1,000 ml @ 1,000 mls/hr Q1H ONCE IV Last administered on 02/08/17 00:27; Start 02/07/17 at 23:45; Stop 02/08/17 at 00:44 ; Status DC Ondansetron HCl (Zofran Inj) 4 mg ONCE ONCE IV ; Start 02/07/17 at 23:45; Stop 02/07/17 at 23:46; Status DC Hydromorphone HCl 1 mg 1 mg ONCE ONCE IV PUSH Last administered on 02/08/17 00:27; Start 02/07/17 at 23:45; Stop 02/07/17 at 23:46; Status DC Sodium Chloride 1,000 ml @ 1,000 mls/hr Q1H ONCE IV ; Start 02/08/17 at 02:01; Stop 02/08/17 at 03:00; Status DC Sodium Chloride 1,000 ml @ 1,000 mls/hr Q1H ONCE IV Last administered on 02:22; Start 02/08/17 at 02:01; Stop 02/08/17 at 03:00; Status DC Sodium Chloride 700 ml @ 1,000 mls/hr Q42M ONCE IV Last administered on 02:22; Start 02/08/17 at 02:01; Stop 02/08/17 at 02:42; Status DC Vancomycin HCl 1000 mg/Sodium Chloride 250 ml @ 250 mls/hr ONCE ONCE IV ; Start 02/08/17 at 02:15; Stop 02/08/17 at 03:14; Status Cancel Piperacillin Sod/ Tazobactam Sod (Zosyn 3.375 Gm Premix) 50 ml @ 100 mls/hr ONCE ONCE IV Last administered on 02/08/17 02:33; Start 02/08/17 at 02:15; Stop 02/08/17 at 02:44; Status DC Sodium Chloride (NS Flush) 2 ml UNSCH PRN IV FLUSH FLUSH AFTER USING IV ACCESS ; Start 02/08/17 at 02:45 Sodium Chloride (NS Flush) 2 ml BID IV FLUSH Last administered on 02/19/17 08: 34; Start 02/08/17 at 09:00 Ondansetron HCl (Zofran Inj) 4 mg Q6H PRN IVP NAUSEA OR VOMITING Last administered on 02/17/17 03:41; Start 02/08/17 at 02:45 Naloxone HCl 0.4 mg 0.4 mg UNSCH PRN IV SEE LABEL COMMENTS; Start 02/08/17 at 02:45 Pharmacy Profile Note 0 ml @ 0 mls/hr UNSCH OTHER ; Start 02/08/17 at 02:45 Piperacillin Sod/ Tazobactam Sod 100 ml @ 200 mls/hr Q6H IV Last administered on 02/09/17 14:40; Start 02/08/17 at 08:00; Stop 02/09/17 at 15:53; Status DC Ciprofloxacin/ Dextrose (Cipro 400 Mg Premix) 200 ml @ 200 mls/hr Q12H IV Last administered on 02/08/17 16:36; Start 02/08/17 at 04:00; Stop 02/09/17 at 15:54; Status DC Lactobacillus Acidophilus (Lactinex) 1 tab TID PO Last administered on 08:33; Start 02/08/17 at 09:00 Hydromorphone HCl (Dilaudid Pf Inj) 1 mg ONCE ONCE IV PUSH Last administered on 02/08/17 03:43; Start 02/08/17 at 03:15; Stop 02/08/17 at 03:16; Status DC Pantoprazole Sodium 40 mg 40 mg ONCE ONCE IV PUSH Last administered on 03:43; Start 02/08/17 at 03:15; Stop 02/08/17 at 03:16; Status DC Vancomycin HCl/ Sodium Chloride (Vancomycin Inj/ NS 500 ml Inj) 515 ml @ 257.5 mls/ hr ONCE ONCE IV Last administered on 02/08/17 07:39; Start 02/08/17 at 05:00; Stop 02/08/17 at 06:59; Status DC Ketorolac Tromethamine (Toradol Inj) 15 mg Q6H PRN IV PUSH pain >5; Start 02/08 at 05:15; Stop 02/08/17 at 05:51; Status DC Alprazolam (Xanax) 0.125 mg NOW ONCE PO Last administered on 02/08/17 06:14; Start 02/08/17 at 05:30; Stop 02/08/17 at 05:31; Status DC Hydromorphone HCl (Dilaudid Pf Inj) 1 mg Q4H PRN IV PUSH pain >5 Last administered on 02/08/17 06:24; Start 02/08/17 at 06:00; Stop 02/08/17 at 10:03 ; Status DC Methadone HCl (Dolophine) 20 mg ONCE ONCE PO Last administered on 02/08/17 06 :23; Start 02/08/17 at 06:15; Stop 02/08/17 at 06:18; Status DC Methadone HCl (Dolophine) 20 mg DAILY PO Last administered on 02/19/17 08:32; Start 02/08/17 at 09:00 Pantoprazole Sodium (Protonix) 40 mg DAILY PO Last administered on 02/14/17 08 :15; Start 02/09/17 at 09:00; Stop 02/15/17 at 17:39; Status DC Calcium Carbonate 500 mg 500 mg ONCE ONCE CHEW Last administered on 02/08/17 07:38; Start 02/08/17 at 08:00; Stop 02/08/17 at 08:01; Status DC Sodium Chloride 1,000 ml @ 125 mls/hr Q8H IV Last administered on 02/16/17 04 :21; Start 02/08/17 at 07:45; Stop 02/16/17 at 11:14; Status DC Vancomycin HCl/ Sodium Chloride (Vancomycin Inj/ NS 500 ml Inj) 515 ml @ 250 mls/hr Q12H IV Last administered on 02/09/17 08:48; Start 02/08/17 at 20:00; Stop 02/09/17 at 22:40; Status DC Miscellaneous Information SPECIFIC LAB TO BE DRAWN:VANCOMYCIN TROUGH DATE TO... ONCE ONCE .XX ; Start 02/09/17 at 19:45; Stop 02/09/17 at 19:46; Status DC Iohexol (Omnipaque 350 Inj) 63 ml STK-MED ONCE IV Last administered on 10:03; Start 02/08/17 at 10:03; Stop 02/08/17 at 10:04; Status DC Hydromorphone HCl (Dilaudid Pf Inj) 2 mg Q3HR PRN IV PUSH pain >5 Last administered on 02/10/17 09:30; Start 02/08/17 at 11:00; Stop 02/10/17 at 10:30 ; Status DC Flumazenil (Romazicon Inj) 0.2 mg Q1M PRN IV PUSH SEE LABEL COMMENTS; Start at 14:45 Lorazepam (Ativan) 1 mg Q4H PRN PO CIWA 8 - 10 Last administered on 02/12/17 10:31; Start 02/08/17 at 14:45 Lorazepam (Ativan Inj) 1 mg Q4H PRN IV PUSH CIWA 8 - 10 Last administered on 17:49; Start 02/08/17 at 14:45 Lorazepam (Ativan) 2 mg Q2H PRN PO CIWA 11-14; Start 02/08/17 at 14:45 Lorazepam (Ativan Inj) 2 mg Q2H PRN IV PUSH CIWA 11-14 Last administered on 08:01; Start 02/08/17 at 14:45 Lorazepam (Ativan Inj) 2 mg Q1H PRN IV PUSH CIWA 15-20 Last administered on 01:20; Start 02/08/17 at 14:45 Lorazepam (Ativan Inj) 2 mg Q15M PRN IV PUSH CIWA > 20; Start 02/08/17 at 14:45 Miscellaneous Information SPECIFIC LAB TO BE DRAWN:VANCO TROUGH DATE TO BE DR... ONCE ONCE .XX Last administered on 02/10/17 21:45; Start 02/10/17 at 21 :45; Stop 02/10/17 at 21:46; Status DC Vancomycin HCl/ Sodium Chloride (Vancomycin Inj/ NS 500 ml Inj) 515 ml @ 250 mls/hr Q12H IV Last administered on 02/10/17 22:59; Start 02/09/17 at 22:00; Stop 02/10/17 at 23:47; Status DC Hydromorphone HCl 0.5 mg 0.5 mg Q8HR PRN IV PUSH PAIN 8-10 Last administered on 02/16/17 17:43; Start 02/10/17 at 14:00; Stop 02/16/17 at 19:55; Status DC Clindamycin Phosphate 900 mg/ Sodium Chloride 106 ml @ 212 mls/hr Q8H IV Last administered on 02/19/17 05:09; Start 02/10/17 at 13:00 Vancomycin HCl/ Sodium Chloride (Vancomycin Inj/ NS 500 ml Inj) 515 ml @ 250 mls/hr Q8H IV Last administered on 02/19/17 08:31; Start 02/11/17 at 09:00 Miscellaneous Information SPECIFIC LAB TO BE SARAH... ONCE ONCE .XX ; Start 02/12 at 08:45; Stop 02/12/17 at 08:46; Status DC Nicotine (Habitrol 21 Mg Patch.24 Hr) 1 patch DAILY T-DERMAL Last administered on 02/19/17 08:33; Start 02/12/17 at 10:00 Miscellaneous Information 1 1 HS T-DERMAL Last administered on 02/19/17 08:33 ; Start 02/12/17 at 21:00 Calcium Gluconate/ Sodium Chloride (Calcium Gluconate Inj/NS Inj) 110 ml @ 110 mls/hr ONCE ONCE IV Last administered on 02/12/17 12:07; Start 02/12/17 at 11 :00; Stop 02/12/17 at 11:59; Status DC Miscellaneous Information SPECIFIC LAB TO BE SARAH... ONCE ONCE .XX ; Start 02/12 at 16:45; Stop 02/12/17 at 16:46; Status DC Ketamine HCl (Ketalar Inj) 500 mg STK-MED ONCE .ROUTE ; Start 02/12/17 at 15:34 ; Stop 02/12/17 at 15:35; Status DC Vancomycin HCl (Vancomycin Inj) 1,000 mg STK-MED ONCE .ROUTE Last administered on 02/12/17 16:40; Start 02/12/17 at 15:51; Stop 02/12/17 at 15:52; Status DC Vancomycin HCl 500 mg 500 mg STK-MED ONCE .ROUTE Last administered on 16:40; Start 02/12/17 at 15:51; Stop 02/12/17 at 15:52; Status DC Propofol (Diprivan 1000 Mg/100ml Inj) 100 ml @ As Directed STK-MED ONCE .ROUTE Last administered on 02/12/17 17:50; Start 02/12/17 at 17:33; Stop 02/12/17 at 17:34; Status DC Midazolam HCl (Versed Inj) 2 mg STK-MED ONCE .ROUTE ; Start 02/12/17 at 18:09; Stop 02/12/17 at 18:10; Status DC Fentanyl Citrate (fentaNYL INJ) 250 mcg STK-MED ONCE .ROUTE ; Start 02/12/17 at 18:09; Stop 02/12/17 at 18:10; Status DC Cefazolin Sodium (Ancef Inj) 2,000 mg STK-MED ONCE .ROUTE Last administered on 02/12/17 16:40; Start 02/12/17 at 18:36; Stop 02/12/17 at 18:37; Status DC Miscellaneous Information ALL NURSING DEPARTME... UNSCH PRN .XX SEE LABEL COMMENTS; Start 02/12/17 at 18:45; Stop 02/13/17 at 18:44; Status DC Propofol 100 ml @ 0 mls/hr TITRATE IV Last administered on 02/13/17 05:14; Start 02/12/17 at 19:15; Stop 02/16/17 at 19:55; Status DC Midazolam HCl 100 ml @ 0 mls/hr TITRATE IV Last administered on 02/15/17 20:13 ; Start 02/12/17 at 20:00; Stop 02/16/17 at 11:15; Status DC Fentanyl Citrate 250 ml @ 0 mls/hr TITRATE IV Last administered on 02/15/17 20 :13; Start 02/12/17 at 20:00; Stop 02/16/17 at 19:55; Status DC Sodium Chloride (NS 1000 ml Inj) 2,000 ml @ 0 mls/hr BOLUS ONCE IV Last administered on 02/13/17 01:15; Start 02/13/17 at 01:15; Stop 02/13/17 at 01:16 ; Status DC Heparin Sodium (Porcine) 5000 units 5,000 units Q8HR SQ Last administered on 05:49; Start 02/13/17 at 06:00; Status Hold Multivitamins/ Thiamine HCl/ Folic Acid/ Dextrose/Sodium Chloride (Mvi-12 Inj/ Thiamine Inj/ Folvite Inj/ D5W-NS 500 ml Inj) 511.2 ml @ 125 mls/hr ONCE ONCE IV Last administered on 02/13/17 03:15; Start 02/13/17 at 03:30; Stop at 07:35; Status DC Insulin Aspart (NovoLOG SUPPLEMENTAL SCALE) 1 Q4H SQ ; Start 02/13/17 at 08:00; Stop 02/17/17 at 21:40; Status DC Dextrose (D50w (Vial) Inj) 25 ml UNSCH PRN IV HYPOGLYCEMIA - SEE COMMENTS; Start 02/13/17 at 08:15; Stop 02/17/17 at 21:40; Status DC Glucagon 1 mg 1 mg UNSCH PRN OTHER SEE LABEL COMMENTS; Start 02/13/17 at 08:15 ; Stop 02/17/17 at 21:40; Status DC Sodium Chloride 1,000 ml @ 999 mls/hr Q1H1M IV Last administered on 02/13/17 10:00; Start 02/13/17 at 10:00; Stop 02/13/17 at 11:00; Status DC Sodium Chloride (NS 1000 ml Inj) 1,000 ml @ 999 mls/hr BOLUS ONCE IV Last administered on 02/13/17 10:00; Start 02/13/17 at 10:00; Stop 02/13/17 at 11:00 ; Status DC Rocuronium [place] 50 mg 50 mg BOLUS ONCE IV Last administered on 02/13/17 10 :03; Start 02/13/17 at 10:00; Stop 02/13/17 at 10:01; Status DC Norepinephrine Bitartrate (Levophed-Dextrose Drip) 250 ml @ 0 mls/hr TITRATE IV Last administered on 02/13/17 10:17; Start 02/13/17 at 10:00; Stop 02/16/17 at 11:15; Status DC Terbutaline Sulfate (Brethine Inj) 1 mg UNSCH PRN SQ For Extravasation; Start 02/13/17 at 10:00; Stop 02/16/17 at 11:15; Status DC Albuterol/ Ipratropium (Duoneb Neb) 1 ampule Q6HR NEB NEB Last administered on 02/19/17 08:14; Start 02/13/17 at 10:00 Albuterol/ Ipratropium (Duoneb Neb) 1 ampule Q2HR NEB PRN NEB SHORTNESS OF BREATH; Start 02/13/17 at 10:00 Dexamethasone Sodium Phosphate (Decadron Inj) 4 mg Q6HR IV PUSH Last administered on 02/14/17 04:56; Start 02/13/17 at 12:00; Stop 02/14/17 at 11:59 ; Status DC Miscellaneous Information SPECIFIC LAB TO BE SARAH... ONCE ONCE .XX Last administered on 02/14/17 00:00; Start 02/14/17 at 00:45; Stop 02/14/17 at 00:46 ; Status DC Rocuronium [place] (Zemuron Inj) 50 mg STK-MED ONCE .ROUTE ; Start 02/14/17 at 16:13; Stop 02/14/17 at 16:14; Status DC Cefazolin Sodium (Ancef Inj) 3,000 mg STK-MED ONCE .ROUTE ; Start 02/14/17 at 17 :36; Stop 02/14/17 at 17:37; Status DC Rocuronium [place] (Zemuron Inj) 50 mg NOW ONCE IV Last administered on 14:45; Start 02/14/17 at 14:45; Stop 02/14/17 at 17:51; Status DC Lidocaine HCl (Xylocaine 1% Inj (50 ml)) 50 ml STK-MED ONCE .ROUTE ; Start 02/14 at 18:03; Stop 02/14/17 at 18:04; Status DC Gentamicin Sulfate (Gentamicin Inj) 240 mg STK-MED ONCE IRRIGATION Last administered on 02/14/17 19:51; Start 02/14/17 at 19:51; Stop 02/14/17 at 19:52 ; Status DC Midazolam HCl (Versed Inj) 4 mg STK-MED ONCE .ROUTE ; Start 02/14/17 at 21:22; Stop 02/14/17 at 21:23; Status DC Fentanyl Citrate (fentaNYL INJ) 500 mcg STK-MED ONCE .ROUTE ; Start 02/14/17 at 21:22; Stop 02/14/17 at 21:23; Status DC Protein (Beneprotein Powder) 2 pack TID G-TUBE Last administered on 02/16/17 08:56; Start 02/15/17 at 13:00 Dexamethasone Sodium Phosphate (Decadron Inj) 4 mg Q6HR IV PUSH Last administered on 02/17/17 05:23; Start 02/15/17 at 12:00; Stop 02/17/17 at 11:59 ; Status DC Metoclopramide HCl (Reglan Inj) 5 mg Q8H IV PUSH Last administered on 17:16; Start 02/15/17 at 18:00; Stop 02/16/17 at 19:55; Status DC Pantoprazole Sodium (Protonix Inj) 40 mg DAILY IV PUSH Last administered on 08:32; Start 02/16/17 at 09:00 Furosemide (Lasix Inj) 40 mg STAT ONCE IV PUSH Last administered on 02/16/17 11:26; Start 02/16/17 at 11:15; Stop 02/16/17 at 11:22; Status DC Racepinephrine (Racepinephrine 2.25% Neb) 0.5 ml Q4HR NEB PRN NEB stridor; Start 02/16/17 at 11:15 Hydralazine HCl (Apresoline Inj) 10 mg Q30M PRN IV PUSH FOR A GOAL SBP <180 Last administered on 02/16/17 22:19; Start 02/16/17 at 15:00; Stop 02/17/17 at 12:06; Status DC Hydromorphone HCl (Dilaudid Pf Inj) 1 mg Q4H PRN IV ; Start 02/16/17 at 20:00; Stop 02/16/17 at 20:00; Status DC Oxycodone HCl (Roxicodone) 5 mg Q4H PRN PO pain 1-7 Last administered on 02:10; Start 02/16/17 at 20:00 Hydromorphone HCl 0.5 mg 0.5 mg Q4H PRN IV PUSH pain 8-10 or not taking po Last administered on 02/19/17 09:53; Start 02/16/17 at 20:00 Dexmedetomidine HCl/Sodium Chloride (Precedex Inj/NS Inj) 52 ml @ 0 mls/hr TITRATE IV ; Start 02/16/17 at 20:00; Stop 02/17/17 at 11:44; Status DC Furosemide (Lasix Inj) 40 mg ONCE ONCE IV PUSH Last administered on 02/17/17 08:45; Start 02/17/17 at 07:15; Stop 02/17/17 at 07:16; Status DC Bisacodyl (Dulcolax Supp) 10 mg DAILY RECTAL ; Start 02/17/17 at 09:00 Polyethylene Glycol (Miralax) 17 gm BID PO Last administered on 02/17/17 08:46 ; Start 02/17/17 at 09:00 Lactulose (Lactulose Liq) 30 ml BID PO Last administered on 02/17/17 08:45; Start 02/17/17 at 09:00 Senna/Docusate Sodium (Breanna-Colace) 1 tab BID PO Last administered on 08:33; Start 02/17/17 at 09:00 Magnesium Citrate (Citroma Liq) 300 ml ONCE ONCE PO Last administered on 08:45; Start 02/17/17 at 07:15; Stop 02/17/17 at 07:16; Status DC Clonidine 0.3 mg 0.3 mg Q8HR PO Last administered on 02/19/17 05:09; Start at 07:13 Dexmedetomidine HCl/Sodium Chloride (Precedex Inj/NS Inj) 50 ml @ 312 mls/hr BOLUS ONCE IV Last administered on 02/17/17 07:37; Start 02/17/17 at 07:45; Stop 02/17/17 at 07:54; Status DC Miscellaneous Information SPECIFIC LAB TO BE ... ONCE ONCE .XX ; Start 02/20 at 08:45; Stop 02/20/17 at 08:46 A/P Assessment and Plan A/P Abscess and Cellulitis of the left chest wall abdominal wall cellulitis MRSA bacteremia Severe sepsis - Bacteremia due to MRSA, abscess cx MRSA - Status post incision and drainage of chest wall and abdomen per Dr. Ballesteros , 02/14 - Continue vancomycin, Clindamycin - Antibiotic management per infectious disease. -general surgery following. -continue with pain control; will increase po oxycodone- keep the IV dilaudid for breakthrough pain- -methadone dose will be verified with the methadone clinic ( d/w the RN). Acute hypoxemic respiratory failure- resolved. -keep on oxygen as needed to keep O2 sat > 90% - OOB and ambulating daily. Hypotension-resolved - continue to monitor on tele. elevated LFT's due to hepatitis C - Hepatosplenomegaly on liver ultrasound - regular diet as tolerated. - f/u as outpatient. IVDU Alcohol abuse Opiate dependence - History of IV drug use with Dilaudid - Thiamine folate multivitamins - [facility] protocol - continue methadone to prevent withdraws (was on this at prior facility). DVT GI prophylaxis - Teds SCDs - Subcutaneous heparin - Omeprazole Tanisha Osorio MD Feb 19, 2017 11:46
[2017-02-19] MEDS: BENZOCAINE 6 MG/MENTHOL 10 MG LOZENGE BUCCAL PRN (17:44)
[2017-02-20] VITALS (7 sets, daily range): BP systolic 120–163; BP diastolic 67–96; PULSE 68–87; RESP 17–20; TEMP 96.8–98.6; O2SAT 92–96
[2017-02-20] MEDS: VANCOMYCIN INJ 1,500 MG in SODIUM CHLORID 0.9% 500 ML INJ 500 ML IV SCH ×2 (00:54→09:45)
[2017-02-20] MEDS: HYDROmorphone HCL PF 1 MG/ML VIAL IV PUSH PRN ×5 (02:29→21:29)
[2017-02-20] MEDS: RESP: ALBUTEROL 2.5 MG/IPRATROPIUM 0.5 MG NEB (SCH) NEB ×2 (03:39→08:21)
[2017-02-20] MEDS: cloNIDine HCL 0.3 MG TAB PO SCH ×3 (05:14→21:29)
[2017-02-20] MEDS: CLINDAMYCIN INJ 900 MG in SODIUM CHLORIDE 0.9% INJ 100 ML IV SCH ×3 (05:14→21:30)
[2017-02-20] MEDS ORDERED: PHARMACY ORDERED LAB ONE (08:45)
[2017-02-20] MEDS: METHADONE HCL 10 MG TAB PO SCH (08:58)
[2017-02-20] MEDS: LACTOBACILLUS ACIDOPHILUS TAB PO SCH ×3 (08:58→19:06)
[2017-02-20] MEDS: PANTOPRAZOLE SODIUM 40 MG VIAL IV PUSH SCH (08:58)
[2017-02-20] MEDS: DOCUSATE SODIUM 50 MG/SENNA 8.6 MG TAB PO SCH ×2 (08:59→21:00)
[2017-02-20] MEDS: LACTULOSE SYRUP 20 GM/30 ML CUP PO SCH ×2 (08:59→21:00)
[2017-02-20] MEDS: BISACODYL 10 MG SUPP RECTAL SCH (08:59)
[2017-02-20] MEDS: POLYETHYLENE GLYCOL 17 GM PKG PO SCH ×2 (08:59→21:00)
[2017-02-20] MEDS: BENEPROTEIN POWDER 1 PACK G-TUBE SCH ×3 (08:59→18:00)
[2017-02-20] MEDS: NICOTINE 21 MG/24 HR PATCH T-DERMAL SCH (09:00)
[2017-02-20] MEDS: SODIUM CHLORIDE 0.9% FLUSH 10 ML FLUSH IV FLUSH SCH ×2 (09:03→21:30)
[2017-02-20] MEDS ORDERED: ALTEPLASE RECOMBINANT 2 MG VIAL IV FLUSH PRN (09:15)
--- NOTE | 2017-02-20 10:40 | HHI.PR ---
Subjective Remarks resting comfortably with no distress. no fever. pain is better controlled today. Objective Vitals Vital Signs Date Time Temp Pulse Resp B/P Pulse Ox O2 Delivery O2 Flow Rate FiO2 02/20/17 08:27 93 Nasal Cannula 3.00 02/20/17 08:00 96.8 68 17 154/78 95 02/20/17 03:50 93 02/20/17 00:00 98.6 87 18 120/67 92 02/19/17 20:00 98.1 74 16 129/68 95 02/19/17 16:00 98.0 70 17 136/70 92 02/19/17 15:16 96 Nasal Cannula 2.00 02/19/17 12:00 98.1 67 15 119/63 96 I/O 02/19/17 02/19/17 02/19/17 02/20/17 02/20/17 02/20/17 07:00 15:00 23:00 07:00 15:00 23:00 Intake Total 1055 ml 1150 ml 1073 ml 984 ml Output Total 20 ml 10 ml 20 ml Balance 1035 ml 1140 ml 1073 ml 964 ml Intake Oral 360 ml 650 ml 480 ml 360 ml IV Total 695 ml 500 ml 593 ml 624 ml Drainage Total 20 ml 10 ml 20 ml # Voids 3 3 2 2 # Bowel Movements 0 0 0 0 Result Diagram: 02/16/17 0415 02/20/17 0534 Imaging Last Impressions Chest X-Ray 02/16/17 0600 Signed Impressions: Service Date/Time: January 02:35 - CONCLUSION: No significant change. Bibasilar atelectasis and small effusions are again noted. Dalton Mancilla MD Liver Ultrasound 02/13/17 0000 Signed Impressions: Service Date/Time: Monday, February 13, 2017 09:53 - CONCLUSION: Hepatosplenomegaly. Dalton Russell MD Abdomen X-Ray 02/13/17 0000 Signed Impressions: Service Date/Time: Monday, February 13, 2017 11:17 - CONCLUSION: 1. Nasogastric tube placement as above. Michael Goode MD Soft Tissue Ultrasound 02/10/17 0747 Signed Impressions: Service Date/Time: Friday, February 10, 2017 08:38 - CONCLUSION: Edematous tissues are present over the left chest without defined abscess. There is no fluid for aspiration or drainage. This can be easily followed by ultrasound.. Miguel Angel Goode MD FACR Chest CT 02/08/17 0000 Signed Impressions: Service Date/Time: Wednesday, February 08, 2017 09:15 - CONCLUSION: 1. Diffuse enlargement of the left pectoralis muscle with infiltration of the soft tissues surrounding the left pectoralis muscle suggestive of injury/tear of this muscle. Clinical correlation is recommended. 2. Tiny bilateral pleural effusions with bibasilar atelectasis. 3. Cardiomegaly and coronary artery calcifications. 4. Mild splenomegaly. 5. Left adrenal nodule measuring 2.4 x 2.2 cm. 5. Mild degenerative changes and scoliosis of the thoracolumbar spine. Jose Reddy MD Ribs X-Ray 02/07/17 0000 Signed Impressions: Service Date/Time: Tuesday, February 07, 2017 23:39 - CONCLUSION: No definite displaced rib fractures. KJennifer Sandoval MD Objective Remarks GENERAL: This is a well-nourished, well-developed patient, in no apparent distress. CARDIOVASCULAR: Regular rate and regular rhythm without murmurs, gallops, or rubs. RESPIRATORY: Clear to auscultation. Breath sounds equal bilaterally. No wheezes , rales, or rhonchi. GASTROINTESTINAL: Abdomen soft, non-tender, nondistended. Normal, active bowel sounds MUSCULOSKELETAL: Extremities without clubbing, cyanosis, or edema. NEURO: Alert & Oriented x4 to person, place, time, situation. Moves all ext x4 skin; RLQ covered with clean dressing and drain in place on left chest wall Procedures I/D of the chest wall abscess I/D of the abdominal wall cellulitis Medications and IVs Current Medications Morphine Sulfate (Morphine Inj) 4 mg ONCE ONCE IV PUSH Last administered on 22:55; Start 02/07/17 at 22:15; Stop 02/07/17 at 22:16; Status DC Ondansetron HCl (Zofran Inj) 4 mg ONCE ONCE IVP Last administered on 22:55; Start 02/07/17 at 22:15; Stop 02/07/17 at 22:16; Status DC Sodium Chloride 2 ml 2 ml UNSCH PRN IV FLUSH FLUSH AFTER USING IV ACCESS; Start 02/07/17 at 22:15; Stop 02/08/17 at 05:22; Status DC Sodium Chloride (NS 1000 ml Inj) 1,000 ml @ 1,000 mls/hr Q1H ONCE IV Last administered on 02/08/17 00:27; Start 02/07/17 at 23:45; Stop 02/08/17 at 00:44 ; Status DC Ondansetron HCl (Zofran Inj) 4 mg ONCE ONCE IV ; Start 02/07/17 at 23:45; Stop 02/07/17 at 23:46; Status DC Hydromorphone HCl 1 mg 1 mg ONCE ONCE IV PUSH Last administered on 02/08/17 00:27; Start 02/07/17 at 23:45; Stop 02/07/17 at 23:46; Status DC Sodium Chloride 1,000 ml @ 1,000 mls/hr Q1H ONCE IV ; Start 02/08/17 at 02:01; Stop 02/08/17 at 03:00; Status DC Sodium Chloride 1,000 ml @ 1,000 mls/hr Q1H ONCE IV Last administered on 02:22; Start 02/08/17 at 02:01; Stop 02/08/17 at 03:00; Status DC Sodium Chloride 700 ml @ 1,000 mls/hr Q42M ONCE IV Last administered on 02:22; Start 02/08/17 at 02:01; Stop 02/08/17 at 02:42; Status DC Vancomycin HCl 1000 mg/Sodium Chloride 250 ml @ 250 mls/hr ONCE ONCE IV ; Start 02/08/17 at 02:15; Stop 02/08/17 at 03:14; Status Cancel Piperacillin Sod/ Tazobactam Sod (Zosyn 3.375 Gm Premix) 50 ml @ 100 mls/hr ONCE ONCE IV Last administered on 02/08/17 02:33; Start 02/08/17 at 02:15; Stop 02/08/17 at 02:44; Status DC Sodium Chloride (NS Flush) 2 ml UNSCH PRN IV FLUSH FLUSH AFTER USING IV ACCESS ; Start 02/08/17 at 02:45 Sodium Chloride (NS Flush) 2 ml BID IV FLUSH Last administered on 02/20/17 09: 03; Start 02/08/17 at 09:00 Ondansetron HCl (Zofran Inj) 4 mg Q6H PRN IVP NAUSEA OR VOMITING Last administered on 02/17/17 03:41; Start 02/08/17 at 02:45 Naloxone HCl 0.4 mg 0.4 mg UNSCH PRN IV SEE LABEL COMMENTS; Start 02/08/17 at 02:45 Pharmacy Profile Note 0 ml @ 0 mls/hr UNSCH OTHER ; Start 02/08/17 at 02:45 Piperacillin Sod/ Tazobactam Sod 100 ml @ 200 mls/hr Q6H IV Last administered on 02/09/17 14:40; Start 02/08/17 at 08:00; Stop 02/09/17 at 15:53; Status DC Ciprofloxacin/ Dextrose (Cipro 400 Mg Premix) 200 ml @ 200 mls/hr Q12H IV Last administered on 02/08/17 16:36; Start 02/08/17 at 04:00; Stop 02/09/17 at 15:54; Status DC Lactobacillus Acidophilus (Lactinex) 1 tab TID PO Last administered on 08:58; Start 02/08/17 at 09:00 Hydromorphone HCl (Dilaudid Pf Inj) 1 mg ONCE ONCE IV PUSH Last administered on 02/08/17 03:43; Start 02/08/17 at 03:15; Stop 02/08/17 at 03:16; Status DC Pantoprazole Sodium 40 mg 40 mg ONCE ONCE IV PUSH Last administered on 03:43; Start 02/08/17 at 03:15; Stop 02/08/17 at 03:16; Status DC Vancomycin HCl/ Sodium Chloride (Vancomycin Inj/ NS 500 ml Inj) 515 ml @ 257.5 mls/ hr ONCE ONCE IV Last administered on 02/08/17 07:39; Start 02/08/17 at 05:00; Stop 02/08/17 at 06:59; Status DC Ketorolac Tromethamine (Toradol Inj) 15 mg Q6H PRN IV PUSH pain >5; Start 02/08 at 05:15; Stop 02/08/17 at 05:51; Status DC Alprazolam (Xanax) 0.125 mg NOW ONCE PO Last administered on 02/08/17 06:14; Start 02/08/17 at 05:30; Stop 02/08/17 at 05:31; Status DC Hydromorphone HCl (Dilaudid Pf Inj) 1 mg Q4H PRN IV PUSH pain >5 Last administered on 02/08/17 06:24; Start 02/08/17 at 06:00; Stop 02/08/17 at 10:03 ; Status DC Methadone HCl (Dolophine) 20 mg ONCE ONCE PO Last administered on 02/08/17 06 :23; Start 02/08/17 at 06:15; Stop 02/08/17 at 06:18; Status DC Methadone HCl (Dolophine) 20 mg DAILY PO Last administered on 02/20/17 08:58; Start 02/08/17 at 09:00 Pantoprazole Sodium (Protonix) 40 mg DAILY PO Last administered on 02/14/17 08 :15; Start 02/09/17 at 09:00; Stop 02/15/17 at 17:39; Status DC Calcium Carbonate 500 mg 500 mg ONCE ONCE CHEW Last administered on 02/08/17 07:38; Start 02/08/17 at 08:00; Stop 02/08/17 at 08:01; Status DC Sodium Chloride 1,000 ml @ 125 mls/hr Q8H IV Last administered on 02/16/17 04 :21; Start 02/08/17 at 07:45; Stop 02/16/17 at 11:14; Status DC Vancomycin HCl/ Sodium Chloride (Vancomycin Inj/ NS 500 ml Inj) 515 ml @ 250 mls/hr Q12H IV Last administered on 02/09/17 08:48; Start 02/08/17 at 20:00; Stop 02/09/17 at 22:40; Status DC Miscellaneous Information SPECIFIC LAB TO BE DRAWN:VANCOMYCIN TROUGH DATE TO... ONCE ONCE .XX ; Start 02/09/17 at 19:45; Stop 02/09/17 at 19:46; Status DC Iohexol (Omnipaque 350 Inj) 63 ml STK-MED ONCE IV Last administered on 10:03; Start 02/08/17 at 10:03; Stop 02/08/17 at 10:04; Status DC Hydromorphone HCl (Dilaudid Pf Inj) 2 mg Q3HR PRN IV PUSH pain >5 Last administered on 02/10/17 09:30; Start 02/08/17 at 11:00; Stop 02/10/17 at 10:30 ; Status DC Flumazenil (Romazicon Inj) 0.2 mg Q1M PRN IV PUSH SEE LABEL COMMENTS; Start at 14:45 Lorazepam (Ativan) 1 mg Q4H PRN PO CIWA 8 - 10 Last administered on 02/12/17 10:31; Start 02/08/17 at 14:45 Lorazepam (Ativan Inj) 1 mg Q4H PRN IV PUSH CIWA 8 - 10 Last administered on 17:49; Start 02/08/17 at 14:45 Lorazepam (Ativan) 2 mg Q2H PRN PO CIWA 11-14; Start 02/08/17 at 14:45 Lorazepam (Ativan Inj) 2 mg Q2H PRN IV PUSH CIWA 11-14 Last administered on 08:01; Start 02/08/17 at 14:45 Lorazepam (Ativan Inj) 2 mg Q1H PRN IV PUSH CIWA 15-20 Last administered on 01:20; Start 02/08/17 at 14:45 Lorazepam (Ativan Inj) 2 mg Q15M PRN IV PUSH CIWA > 20; Start 02/08/17 at 14:45 Miscellaneous Information SPECIFIC LAB TO BE DRAWN:VANCO TROUGH DATE TO BE DR... ONCE ONCE .XX Last administered on 02/10/17 21:45; Start 02/10/17 at 21 :45; Stop 02/10/17 at 21:46; Status DC Vancomycin HCl/ Sodium Chloride (Vancomycin Inj/ NS 500 ml Inj) 515 ml @ 250 mls/hr Q12H IV Last administered on 02/10/17 22:59; Start 02/09/17 at 22:00; Stop 02/10/17 at 23:47; Status DC Hydromorphone HCl 0.5 mg 0.5 mg Q8HR PRN IV PUSH PAIN 8-10 Last administered on 02/16/17 17:43; Start 02/10/17 at 14:00; Stop 02/16/17 at 19:55; Status DC Clindamycin Phosphate 900 mg/ Sodium Chloride 106 ml @ 212 mls/hr Q8H IV Last administered on 02/20/17 05:14; Start 02/10/17 at 13:00 Vancomycin HCl/ Sodium Chloride (Vancomycin Inj/ NS 500 ml Inj) 515 ml @ 250 mls/hr Q8H IV Last administered on 02/20/17 09:45; Start 02/11/17 at 09:00; Stop 02/20/17 at 10:22; Status DC Miscellaneous Information SPECIFIC LAB TO BE SARAH... ONCE ONCE .XX ; Start 02/12 at 08:45; Stop 02/12/17 at 08:46; Status DC Nicotine (Habitrol 21 Mg Patch.24 Hr) 1 patch DAILY T-DERMAL Last administered on 02/20/17 09:00; Start 02/12/17 at 10:00 Miscellaneous Information 1 1 HS T-DERMAL Last administered on 02/19/17 08:33 ; Start 02/12/17 at 21:00 Calcium Gluconate/ Sodium Chloride (Calcium Gluconate Inj/NS Inj) 110 ml @ 110 mls/hr ONCE ONCE IV Last administered on 02/12/17 12:07; Start 02/12/17 at 11 :00; Stop 02/12/17 at 11:59; Status DC Miscellaneous Information SPECIFIC LAB TO BE SARAH... ONCE ONCE .XX ; Start 02/12 at 16:45; Stop 02/12/17 at 16:46; Status DC Ketamine HCl (Ketalar Inj) 500 mg STK-MED ONCE .ROUTE ; Start 02/12/17 at 15:34 ; Stop 02/12/17 at 15:35; Status DC Vancomycin HCl (Vancomycin Inj) 1,000 mg STK-MED ONCE .ROUTE Last administered on 02/12/17 16:40; Start 02/12/17 at 15:51; Stop 02/12/17 at 15:52; Status DC Vancomycin HCl 500 mg 500 mg STK-MED ONCE .ROUTE Last administered on 16:40; Start 02/12/17 at 15:51; Stop 02/12/17 at 15:52; Status DC Propofol (Diprivan 1000 Mg/100ml Inj) 100 ml @ As Directed STK-MED ONCE .ROUTE Last administered on 02/12/17 17:50; Start 02/12/17 at 17:33; Stop 02/12/17 at 17:34; Status DC Midazolam HCl (Versed Inj) 2 mg STK-MED ONCE .ROUTE ; Start 02/12/17 at 18:09; Stop 02/12/17 at 18:10; Status DC Fentanyl Citrate (fentaNYL INJ) 250 mcg STK-MED ONCE .ROUTE ; Start 02/12/17 at 18:09; Stop 02/12/17 at 18:10; Status DC Cefazolin Sodium (Ancef Inj) 2,000 mg STK-MED ONCE .ROUTE Last administered on 02/12/17 16:40; Start 02/12/17 at 18:36; Stop 02/12/17 at 18:37; Status DC Miscellaneous Information ALL NURSING DEPARTME... UNSCH PRN .XX SEE LABEL COMMENTS; Start 02/12/17 at 18:45; Stop 02/13/17 at 18:44; Status DC Propofol 100 ml @ 0 mls/hr TITRATE IV Last administered on 02/13/17 05:14; Start 02/12/17 at 19:15; Stop 02/16/17 at 19:55; Status DC Midazolam HCl 100 ml @ 0 mls/hr TITRATE IV Last administered on 02/15/17 20:13 ; Start 02/12/17 at 20:00; Stop 02/16/17 at 11:15; Status DC Fentanyl Citrate 250 ml @ 0 mls/hr TITRATE IV Last administered on 02/15/17 20 :13; Start 02/12/17 at 20:00; Stop 02/16/17 at 19:55; Status DC Sodium Chloride (NS 1000 ml Inj) 2,000 ml @ 0 mls/hr BOLUS ONCE IV Last administered on 02/13/17 01:15; Start 02/13/17 at 01:15; Stop 02/13/17 at 01:16 ; Status DC Heparin Sodium (Porcine) 5000 units 5,000 units Q8HR SQ Last administered on 05:49; Start 02/13/17 at 06:00; Status Hold Multivitamins/ Thiamine HCl/ Folic Acid/ Dextrose/Sodium Chloride (Mvi-12 Inj/ Thiamine Inj/ Folvite Inj/ D5W-NS 500 ml Inj) 511.2 ml @ 125 mls/hr ONCE ONCE IV Last administered on 02/13/17 03:15; Start 02/13/17 at 03:30; Stop at 07:35; Status DC Insulin Aspart (NovoLOG SUPPLEMENTAL SCALE) 1 Q4H SQ ; Start 02/13/17 at 08:00; Stop 02/17/17 at 21:40; Status DC Dextrose (D50w (Vial) Inj) 25 ml UNSCH PRN IV HYPOGLYCEMIA - SEE COMMENTS; Start 02/13/17 at 08:15; Stop 02/17/17 at 21:40; Status DC Glucagon 1 mg 1 mg UNSCH PRN OTHER SEE LABEL COMMENTS; Start 02/13/17 at 08:15 ; Stop 02/17/17 at 21:40; Status DC Sodium Chloride 1,000 ml @ 999 mls/hr Q1H1M IV Last administered on 02/13/17 10:00; Start 02/13/17 at 10:00; Stop 02/13/17 at 11:00; Status DC Sodium Chloride (NS 1000 ml Inj) 1,000 ml @ 999 mls/hr BOLUS ONCE IV Last administered on 02/13/17 10:00; Start 02/13/17 at 10:00; Stop 02/13/17 at 11:00 ; Status DC Rocuronium [place] 50 mg 50 mg BOLUS ONCE IV Last administered on 02/13/17 10 :03; Start 02/13/17 at 10:00; Stop 02/13/17 at 10:01; Status DC Norepinephrine Bitartrate (Levophed-Dextrose Drip) 250 ml @ 0 mls/hr TITRATE IV Last administered on 02/13/17 10:17; Start 02/13/17 at 10:00; Stop 02/16/17 at 11:15; Status DC Terbutaline Sulfate (Brethine Inj) 1 mg UNSCH PRN SQ For Extravasation; Start 02/13/17 at 10:00; Stop 02/16/17 at 11:15; Status DC Albuterol/ Ipratropium (Duoneb Neb) 1 ampule Q6HR NEB NEB Last administered on 02/20/17 08:21; Start 02/13/17 at 10:00 Albuterol/ Ipratropium (Duoneb Neb) 1 ampule Q2HR NEB PRN NEB SHORTNESS OF BREATH; Start 02/13/17 at 10:00 Dexamethasone Sodium Phosphate (Decadron Inj) 4 mg Q6HR IV PUSH Last administered on 02/14/17 04:56; Start 02/13/17 at 12:00; Stop 02/14/17 at 11:59 ; Status DC Miscellaneous Information SPECIFIC LAB TO BE ... ONCE ONCE .XX Last administered on 02/14/17 00:00; Start 02/14/17 at 00:45; Stop 02/14/17 at 00:46 ; Status DC Rocuronium [place] (Zemuron Inj) 50 mg STK-MED ONCE .ROUTE ; Start 02/14/17 at 16:13; Stop 02/14/17 at 16:14; Status DC Cefazolin Sodium (Ancef Inj) 3,000 mg STK-MED ONCE .ROUTE ; Start 02/14/17 at 17 :36; Stop 02/14/17 at 17:37; Status DC Rocuronium [place] (Zemuron Inj) 50 mg NOW ONCE IV Last administered on 14:45; Start 02/14/17 at 14:45; Stop 02/14/17 at 17:51; Status DC Lidocaine HCl (Xylocaine 1% Inj (50 ml)) 50 ml STK-MED ONCE .ROUTE ; Start 02/14 at 18:03; Stop 02/14/17 at 18:04; Status DC Gentamicin Sulfate (Gentamicin Inj) 240 mg STK-MED ONCE IRRIGATION Last administered on 02/14/17 19:51; Start 02/14/17 at 19:51; Stop 02/14/17 at 19:52 ; Status DC Midazolam HCl (Versed Inj) 4 mg STK-MED ONCE .ROUTE ; Start 02/14/17 at 21:22; Stop 02/14/17 at 21:23; Status DC Fentanyl Citrate (fentaNYL INJ) 500 mcg STK-MED ONCE .ROUTE ; Start 02/14/17 at 21:22; Stop 02/14/17 at 21:23; Status DC Protein (Beneprotein Powder) 2 pack TID G-TUBE Last administered on 02/16/17 08:56; Start 02/15/17 at 13:00 Dexamethasone Sodium Phosphate (Decadron Inj) 4 mg Q6HR IV PUSH Last administered on 02/17/17 05:23; Start 02/15/17 at 12:00; Stop 02/17/17 at 11:59 ; Status DC Metoclopramide HCl (Reglan Inj) 5 mg Q8H IV PUSH Last administered on 17:16; Start 02/15/17 at 18:00; Stop 02/16/17 at 19:55; Status DC Pantoprazole Sodium (Protonix Inj) 40 mg DAILY IV PUSH Last administered on 08:58; Start 02/16/17 at 09:00 Furosemide (Lasix Inj) 40 mg STAT ONCE IV PUSH Last administered on 02/16/17 11:26; Start 02/16/17 at 11:15; Stop 02/16/17 at 11:22; Status DC Racepinephrine (Racepinephrine 2.25% Neb) 0.5 ml Q4HR NEB PRN NEB stridor; Start 02/16/17 at 11:15 Hydralazine HCl (Apresoline Inj) 10 mg Q30M PRN IV PUSH FOR A GOAL SBP <180 Last administered on 02/16/17 22:19; Start 02/16/17 at 15:00; Stop 02/17/17 at 12:06; Status DC Hydromorphone HCl (Dilaudid Pf Inj) 1 mg Q4H PRN IV ; Start 02/16/17 at 20:00; Stop 02/16/17 at 20:00; Status DC Oxycodone HCl (Roxicodone) 5 mg Q4H PRN PO PAIN < 5 Last administered on 11:40; Start 02/16/17 at 20:00 Hydromorphone HCl 0.5 mg 0.5 mg Q4H PRN IV PUSH BREAKTHROUGH PAIN Last administered on 02/20/17 06:37; Start 02/16/17 at 20:00 Dexmedetomidine HCl/Sodium Chloride (Precedex Inj/NS Inj) 52 ml @ 0 mls/hr TITRATE IV ; Start 02/16/17 at 20:00; Stop 02/17/17 at 11:44; Status DC Furosemide (Lasix Inj) 40 mg ONCE ONCE IV PUSH Last administered on 02/17/17 08:45; Start 02/17/17 at 07:15; Stop 02/17/17 at 07:16; Status DC Bisacodyl (Dulcolax Supp) 10 mg DAILY RECTAL ; Start 02/17/17 at 09:00 Polyethylene Glycol (Miralax) 17 gm BID PO Last administered on 02/17/17 08:46 ; Start 02/17/17 at 09:00 Lactulose (Lactulose Liq) 30 ml BID PO Last administered on 02/17/17 08:45; Start 02/17/17 at 09:00 Senna/Docusate Sodium (Breanna-Colace) 1 tab BID PO Last administered on 20:32; Start 02/17/17 at 09:00 Magnesium Citrate (Citroma Liq) 300 ml ONCE ONCE PO Last administered on 08:45; Start 02/17/17 at 07:15; Stop 02/17/17 at 07:16; Status DC Clonidine 0.3 mg 0.3 mg Q8HR PO Last administered on 02/20/17 05:14; Start at 07:13 Dexmedetomidine HCl/Sodium Chloride (Precedex Inj/NS Inj) 50 ml @ 312 mls/hr BOLUS ONCE IV Last administered on 02/17/17 07:37; Start 02/17/17 at 07:45; Stop 02/17/17 at 07:54; Status DC Miscellaneous Information SPECIFIC LAB TO BE ... ONCE ONCE .XX Last administered on 02/20/17 09:23; Start 02/20/17 at 08:45; Stop 02/20/17 at 08:46 ; Status DC Oxycodone HCl (Roxicodone) 10 mg Q4H PRN PO PAIN >5 Last administered on 09:44; Start 02/19/17 at 11:45 Benzocaine/Menthol (Chloraseptic Mendez) 1 lozenge UNSCH PRN BUCCAL SORE THROAT Last administered on 02/19/17 17:44; Start 02/19/17 at 11:45 Alteplase, Recombinant 6 mg 6 mg UNSCH PRN IV FLUSH OCCLUDED PICC LINES; Start 02/20/17 at 09:15 Vancomycin HCl/ Sodium Chloride (Vancomycin Inj/ NS 500 ml Inj) 515 ml @ 250 mls/hr Q12H IV ; Start 02/20/17 at 22:00 Miscellaneous Information SPECIFIC LAB TO BE DRAWN:VANCOMY... ONCE ONCE .XX ; Start 02/22/17 at 09:45; Stop 02/22/17 at 09:46 A/P Assessment and Plan A/P Abscess and Cellulitis of the left chest wall abdominal wall cellulitis MRSA bacteremia Severe sepsis - Bacteremia due to MRSA, abscess cx MRSA - Status post incision and drainage of chest wall and abdomen per Dr. Ballesteros , 02/14 - Continue vancomycin, Clindamycin - Antibiotic management per infectious disease. -general surgery following. -continue with pain control. -methadone to be verified with the methadone clinic ( previously d/w the RN). Acute hypoxemic respiratory failure- resolved. -keep on oxygen as needed to keep O2 sat > 90% - OOB and ambulating daily. Hypotension-resolved - continue to monitor on tele. elevated LFT's due to hepatitis C - Hepatosplenomegaly on liver ultrasound - regular diet as tolerated. - f/u as outpatient. IVDU Alcohol abuse Opiate dependence - History of IV drug use with Dilaudid - Thiamine folate multivitamins - CIWA protocol - continue methadone to prevent withdraws (was on this at prior facility). DVT GI prophylaxis - Teds SCDs - Subcutaneous heparin - Omeprazole d/w general surgery . Discharge Planning when cleared by ID and general surgery. Tanisha Osorio MD Feb 20, 2017 10:40
--- NOTE | 2017-02-20 11:56 | HHI.IDPN ---
Note Infectious Disease Note Patient feels okay. Notes dyspnea with exertion. Transferred out of [facility] 02/17. Extubated 02/16. Afebrile. No distress. Feels bloated. Has catheter in left chest wall. Post incision and drainage of left chest wall and flank hematoma 02/12. Post I&D 02/14. Presented to the emergency department on 02/07 for evaluation of left chest wall pain and swelling. PAST MEDICAL HISTORY 1. Hepatitis C 2. History of MRSA arm wound in 2004. 3. History of IV drug use in the past. Denies current IV drug use. ALLERGIES TYLENOL ANTIBIOTICS: Vancomycin. Clindamycin. SOCIAL HISTORY Positive tobacco use. The patient smokes three packs of cigarettes a day. The patient drinks beer daily. Denies illicit drugs currently. OBJECTIVE: Vital Signs Date Time Temp Pulse Resp B/P Pulse Ox O2 Delivery O2 Flow Rate FiO2 02/20/17 08:27 93 Nasal Cannula 3.00 02/20/17 08:00 96.8 68 17 154/78 95 02/20/17 03:50 93 02/20/17 00:00 98.6 87 18 120/67 92 02/19/17 20:00 98.1 74 16 129/68 95 02/19/17 16:00 98.0 70 17 136/70 92 02/19/17 15:16 96 Nasal Cannula 2.00 02/19/17 12:00 98.1 67 15 119/63 96 02/19/17 02/19/17 02/20/17 15:00 23:00 07:00 Intake Total 1150 ml 1073 ml 984 ml Output Total 10 ml 20 ml Balance 1140 ml 1073 ml 964 ml Intake Oral 650 ml 480 ml 360 ml IV Total 500 ml 593 ml 624 ml Drainage Total 10 ml 20 ml # Voids 3 2 2 # Bowel Movements 0 0 0 Laboratory Tests Test 02/20/17 05:34 Creatinine 0.62 MG/DL Estimat Glomerular Filtration 136 ML/MIN Rate IMAGING: Chest X-Ray 02/16/17 0600 Signed Impressions: Service Date/Time: January 02:35 - CONCLUSION: No significant change. Bibasilar atelectasis and small effusions are again noted. Dalton Mancilla MD Liver Ultrasound 02/13/17 0000 Signed Impressions: Service Date/Time: Monday, February 13, 2017 09:53 - CONCLUSION: Hepatosplenomegaly. Dalton Russell MD Chest X-Ray 02/13/17 0000 Signed Impressions: Service Date/Time: Monday, February 13, 2017 07:54 - CONCLUSION: 1. Stable ETT, right midline, and probable left chest wall drainage catheter. 2. Interval development of small left pleural effusion. 3. Persistent bilateral lower lobe linear airspace disease, likely atelectasis. Fran Londono MD Chest X-Ray 02/12/17 0000 Signed Impressions: Service Date/Time: Sunday, February 12, 2017 18:16 - CONCLUSION: 1. Endotracheal tube tip measures approximately 7.1 cm from the beatriz. 2. Bibasilar airspace opacity most likely representing atelectasis. Dalton Bonilla MD Soft Tissue Ultrasound 02/10/17 0747 Signed Impressions: Service Date/Time: Friday, February 10, 2017 08:38 - CONCLUSION: Edematous tissues are present over the left chest without defined abscess. There is no fluid for aspiration or drainage. This can be easily followed by ultrasound.. Miguel Angel Goode MD FACR Chest CT 02/08/17 0000 Signed Impressions: Service Date/Time: Wednesday, February 08, 2017 09:15 - CONCLUSION: 1. Diffuse enlargement of the left pectoralis muscle with infiltration of the soft tissues surrounding the left pectoralis muscle suggestive of injury/tear of this muscle. Clinical correlation is recommended. 2. Tiny bilateral pleural effusions with bibasilar atelectasis. 3. Cardiomegaly and coronary artery calcifications. 4. Mild splenomegaly. 5. Left adrenal nodule measuring 2.4 x 2.2 cm. 5. Mild degenerative changes and scoliosis of the thoracolumbar spine. Jose Reddy MD Ribs X-Ray 02/07/17 0000 Signed Impressions: Service Date/Time: Tuesday, February 07, 2017 23:39 - CONCLUSION: No definite displaced rib fractures. Amber Sandoval MD PHYSICAL EXAMINATION GENERAL: No distress. HEENT: No icterus. Oropharynx moist mucosa without lesions. NECK: No adenopathy. LUNGS: Decreased breath sounds. HEART: Regular rate and rhythm without murmurs, rubs or gallops. CHEST: Left chest catheter has serous drainage. Less erythema. ABDOMEN: Diffuse edema at lateral abdomen. distended, soft. : Scrotal edema. EXTREMITIES: No clubbing or cyanosis, 1+ edema symmetric. SKIN: No rash. NEUROLOGIC: Non focal. PSYCHIATRIC: Calm and pleasant. IMPRESSION 1. Severe Cellulitis of the left chest wall and abdomen along with hematoma and abscess. MRSA. Post I&D and follow up debridement. 2. Bacteremia due to MRSA. RECOMMENDATIONS 1. Stop vancomycin 2. Continue Clindamycin IV x 2 more days. 3. Monitor temps. 4. Monitor clinical status. Would plan on continuing treatment with PO clindamycin on discharge. Anticipate 2-3 more weeks of antibiotics. David Thorpe MD Feb 20, 2017 11:56
[2017-02-20 14:46] LABS: RAPID PLASMA REAGIN SCREEN NON-REACTIVE (NON-REACTVE)
[2017-02-20] MEDS: REMOVE OLD PATCH T-DERMAL SCH (21:00)
[2017-02-20] MEDS ORDERED: VANCOMYCIN INJ 1,500 MG in SODIUM CHLORID 0.9% 500 ML INJ 500 ML IV SCH (22:00)
[2017-02-21] VITALS: BP 143/79; PULSE 79; RESP 18; TEMP 97.8; O2SAT 97
[2017-02-21] MEDS: HYDROmorphone HCL PF 1 MG/ML VIAL IV PUSH PRN ×5 (01:20→20:48)
[2017-02-21] MEDS: CLINDAMYCIN INJ 900 MG in SODIUM CHLORIDE 0.9% INJ 100 ML IV SCH (04:11)
[2017-02-21] MEDS: cloNIDine HCL 0.3 MG TAB PO SCH ×3 (05:30→20:47)
[2017-02-21 08:00] VITALS: BP 136/76; PULSE 57; RESP 17; TEMP 98.1; O2SAT 97
[2017-02-21] MEDS: PANTOPRAZOLE SODIUM 40 MG VIAL IV PUSH SCH (08:50)
[2017-02-21] MEDS: NICOTINE 21 MG/24 HR PATCH T-DERMAL SCH (08:50)
[2017-02-21] MEDS: METHADONE HCL 10 MG TAB PO SCH (08:51)
[2017-02-21] MEDS: DOCUSATE SODIUM 50 MG/SENNA 8.6 MG TAB PO SCH ×2 (08:52→20:49)
[2017-02-21] MEDS: BISACODYL 10 MG SUPP RECTAL SCH (08:52)
[2017-02-21] MEDS: POLYETHYLENE GLYCOL 17 GM PKG PO SCH ×2 (08:52→20:49)
[2017-02-21] MEDS: LACTOBACILLUS ACIDOPHILUS TAB PO SCH ×3 (08:52→17:47)
[2017-02-21] MEDS: LACTULOSE SYRUP 20 GM/30 ML CUP PO SCH ×2 (08:52→20:49)
[2017-02-21] MEDS: BENEPROTEIN POWDER 1 PACK G-TUBE SCH ×3 (08:53→17:49)
[2017-02-21] MEDS: SODIUM CHLORIDE 0.9% FLUSH 10 ML FLUSH IV FLUSH SCH ×2 (08:53→20:45)
--- NOTE | 2017-02-21 09:54 | HHI.PR ---
Subjective Remarks in no distress. no fever. has some sore throat. d/w the RN. Objective Vitals Vital Signs Date Time Temp Pulse Resp B/P Pulse Ox O2 Delivery O2 Flow Rate FiO2 02/21/17 08:00 98.1 57 17 136/76 97 02/21/17 00:00 97.8 79 18 143/79 97 02/21/17 00:00 97 Nasal Cannula 2.00 02/20/17 20:21 Nasal Cannula 2.00 02/20/17 20:00 97.9 75 20 130/82 96 02/20/17 16:00 97.1 71 18 161/96 92 02/20/17 12:00 98.6 84 18 163/82 92 I/O 02/20/17 02/20/17 02/20/17 02/21/17 02/21/17 02/21/17 07:00 15:00 23:00 07:00 15:00 23:00 Intake Total 984 ml 340 ml 360 ml 240 ml Output Total 20 ml 40 ml 20 ml 15 ml Balance 964 ml 300 ml 340 ml 225 ml Intake Oral 360 ml 340 ml 360 ml 240 ml IV Total 624 ml Drainage Total 20 ml 40 ml 20 ml 15 ml # Voids 2 3 2 3 # Bowel Movements 0 1 0 0 Result Diagram: 02/20/17 0534 Imaging Last Impressions Chest X-Ray 02/16/17 0600 Signed Impressions: Service Date/Time: January 02:35 - CONCLUSION: No significant change. Bibasilar atelectasis and small effusions are again noted. Dalton Mancilla MD Liver Ultrasound 02/13/17 0000 Signed Impressions: Service Date/Time: Monday, February 13, 2017 09:53 - CONCLUSION: Hepatosplenomegaly. Dalton Russell MD Abdomen X-Ray 02/13/17 0000 Signed Impressions: Service Date/Time: Monday, February 13, 2017 11:17 - CONCLUSION: 1. Nasogastric tube placement as above. Michael Goode MD Soft Tissue Ultrasound 02/10/17 0747 Signed Impressions: Service Date/Time: Friday, February 10, 2017 08:38 - CONCLUSION: Edematous tissues are present over the left chest without defined abscess. There is no fluid for aspiration or drainage. This can be easily followed by ultrasound.. Miguel Angel Goode MD FACR Chest CT 02/08/17 0000 Signed Impressions: Service Date/Time: Wednesday, February 08, 2017 09:15 - CONCLUSION: 1. Diffuse enlargement of the left pectoralis muscle with infiltration of the soft tissues surrounding the left pectoralis muscle suggestive of injury/tear of this muscle. Clinical correlation is recommended. 2. Tiny bilateral pleural effusions with bibasilar atelectasis. 3. Cardiomegaly and coronary artery calcifications. 4. Mild splenomegaly. 5. Left adrenal nodule measuring 2.4 x 2.2 cm. 5. Mild degenerative changes and scoliosis of the thoracolumbar spine. Jose Reddy MD Ribs X-Ray 02/07/17 0000 Signed Impressions: Service Date/Time: Tuesday, February 07, 2017 23:39 - CONCLUSION: No definite displaced rib fractures. Amber Sandoval MD Objective Remarks GENERAL: This is a well-nourished, well-developed patient, in no apparent distress. CARDIOVASCULAR: Regular rate and regular rhythm without murmurs, gallops, or rubs. RESPIRATORY: Clear to auscultation. Breath sounds equal bilaterally. No wheezes , rales, or rhonchi. GASTROINTESTINAL: Abdomen soft, non-tender, nondistended. Normal, active bowel sounds MUSCULOSKELETAL: Extremities without clubbing, cyanosis, or edema. NEURO: Alert & Oriented x4 to person, place, time, situation. Moves all ext x4 skin; RLQ covered with clean dressing and drain in place on left chest wall Procedures I/D of the chest wall abscess I/D of the abdominal wall cellulitis Medications and IVs Current Medications Morphine Sulfate (Morphine Inj) 4 mg ONCE ONCE IV PUSH Last administered on 22:55; Start 02/07/17 at 22:15; Stop 02/07/17 at 22:16; Status DC Ondansetron HCl (Zofran Inj) 4 mg ONCE ONCE IVP Last administered on 22:55; Start 02/07/17 at 22:15; Stop 02/07/17 at 22:16; Status DC Sodium Chloride 2 ml 2 ml UNSCH PRN IV FLUSH FLUSH AFTER USING IV ACCESS; Start 02/07/17 at 22:15; Stop 02/08/17 at 05:22; Status DC Sodium Chloride (NS 1000 ml Inj) 1,000 ml @ 1,000 mls/hr Q1H ONCE IV Last administered on 02/08/17 00:27; Start 02/07/17 at 23:45; Stop 02/08/17 at 00:44 ; Status DC Ondansetron HCl (Zofran Inj) 4 mg ONCE ONCE IV ; Start 02/07/17 at 23:45; Stop 02/07/17 at 23:46; Status DC Hydromorphone HCl 1 mg 1 mg ONCE ONCE IV PUSH Last administered on 02/08/17 00:27; Start 02/07/17 at 23:45; Stop 02/07/17 at 23:46; Status DC Sodium Chloride 1,000 ml @ 1,000 mls/hr Q1H ONCE IV ; Start 02/08/17 at 02:01; Stop 02/08/17 at 03:00; Status DC Sodium Chloride 1,000 ml @ 1,000 mls/hr Q1H ONCE IV Last administered on 02:22; Start 02/08/17 at 02:01; Stop 02/08/17 at 03:00; Status DC Sodium Chloride 700 ml @ 1,000 mls/hr Q42M ONCE IV Last administered on 02:22; Start 02/08/17 at 02:01; Stop 02/08/17 at 02:42; Status DC Vancomycin HCl 1000 mg/Sodium Chloride 250 ml @ 250 mls/hr ONCE ONCE IV ; Start 02/08/17 at 02:15; Stop 02/08/17 at 03:14; Status Cancel Piperacillin Sod/ Tazobactam Sod (Zosyn 3.375 Gm Premix) 50 ml @ 100 mls/hr ONCE ONCE IV Last administered on 02/08/17 02:33; Start 02/08/17 at 02:15; Stop 02/08/17 at 02:44; Status DC Sodium Chloride (NS Flush) 2 ml UNSCH PRN IV FLUSH FLUSH AFTER USING IV ACCESS ; Start 02/08/17 at 02:45 Sodium Chloride (NS Flush) 2 ml BID IV FLUSH Last administered on 02/21/17 08: 53; Start 02/08/17 at 09:00 Ondansetron HCl (Zofran Inj) 4 mg Q6H PRN IVP NAUSEA OR VOMITING Last administered on 02/17/17 03:41; Start 02/08/17 at 02:45 Naloxone HCl 0.4 mg 0.4 mg UNSCH PRN IV SEE LABEL COMMENTS; Start 02/08/17 at 02:45 Pharmacy Profile Note 0 ml @ 0 mls/hr UNSCH OTHER ; Start 02/08/17 at 02:45; Stop 02/20/17 at 11:57; Status DC Piperacillin Sod/ Tazobactam Sod 100 ml @ 200 mls/hr Q6H IV Last administered on 02/09/17 14:40; Start 02/08/17 at 08:00; Stop 02/09/17 at 15:53; Status DC Ciprofloxacin/ Dextrose (Cipro 400 Mg Premix) 200 ml @ 200 mls/hr Q12H IV Last administered on 02/08/17 16:36; Start 02/08/17 at 04:00; Stop 02/09/17 at 15:54; Status DC Lactobacillus Acidophilus (Lactinex) 1 tab TID PO Last administered on 08:52; Start 02/08/17 at 09:00 Hydromorphone HCl (Dilaudid Pf Inj) 1 mg ONCE ONCE IV PUSH Last administered on 02/08/17 03:43; Start 02/08/17 at 03:15; Stop 02/08/17 at 03:16; Status DC Pantoprazole Sodium 40 mg 40 mg ONCE ONCE IV PUSH Last administered on 03:43; Start 02/08/17 at 03:15; Stop 02/08/17 at 03:16; Status DC Vancomycin HCl/ Sodium Chloride (Vancomycin Inj/ NS 500 ml Inj) 515 ml @ 257.5 mls/ hr ONCE ONCE IV Last administered on 02/08/17 07:39; Start 02/08/17 at 05:00; Stop 02/08/17 at 06:59; Status DC Ketorolac Tromethamine (Toradol Inj) 15 mg Q6H PRN IV PUSH pain >5; Start 02/08 at 05:15; Stop 02/08/17 at 05:51; Status DC Alprazolam (Xanax) 0.125 mg NOW ONCE PO Last administered on 02/08/17 06:14; Start 02/08/17 at 05:30; Stop 02/08/17 at 05:31; Status DC Hydromorphone HCl (Dilaudid Pf Inj) 1 mg Q4H PRN IV PUSH pain >5 Last administered on 02/08/17 06:24; Start 02/08/17 at 06:00; Stop 02/08/17 at 10:03 ; Status DC Methadone HCl (Dolophine) 20 mg ONCE ONCE PO Last administered on 02/08/17 06 :23; Start 02/08/17 at 06:15; Stop 02/08/17 at 06:18; Status DC Methadone HCl (Dolophine) 20 mg DAILY PO Last administered on 02/21/17 08:51; Start 02/08/17 at 09:00 Pantoprazole Sodium (Protonix) 40 mg DAILY PO Last administered on 02/14/17 08 :15; Start 02/09/17 at 09:00; Stop 02/15/17 at 17:39; Status DC Calcium Carbonate 500 mg 500 mg ONCE ONCE CHEW Last administered on 02/08/17 07:38; Start 02/08/17 at 08:00; Stop 02/08/17 at 08:01; Status DC Sodium Chloride 1,000 ml @ 125 mls/hr Q8H IV Last administered on 02/16/17 04 :21; Start 02/08/17 at 07:45; Stop 02/16/17 at 11:14; Status DC Vancomycin HCl/ Sodium Chloride (Vancomycin Inj/ NS 500 ml Inj) 515 ml @ 250 mls/hr Q12H IV Last administered on 02/09/17 08:48; Start 02/08/17 at 20:00; Stop 02/09/17 at 22:40; Status DC Miscellaneous Information SPECIFIC LAB TO BE DRAWN:VANCOMYCIN TROUGH DATE TO... ONCE ONCE .XX ; Start 02/09/17 at 19:45; Stop 02/09/17 at 19:46; Status DC Iohexol (Omnipaque 350 Inj) 63 ml STK-MED ONCE IV Last administered on 10:03; Start 02/08/17 at 10:03; Stop 02/08/17 at 10:04; Status DC Hydromorphone HCl (Dilaudid Pf Inj) 2 mg Q3HR PRN IV PUSH pain >5 Last administered on 02/10/17 09:30; Start 02/08/17 at 11:00; Stop 02/10/17 at 10:30 ; Status DC Flumazenil (Romazicon Inj) 0.2 mg Q1M PRN IV PUSH SEE LABEL COMMENTS; Start at 14:45 Lorazepam (Ativan) 1 mg Q4H PRN PO CIWA 8 - 10 Last administered on 02/12/17 10:31; Start 02/08/17 at 14:45 Lorazepam (Ativan Inj) 1 mg Q4H PRN IV PUSH CIWA 8 - 10 Last administered on 17:49; Start 02/08/17 at 14:45 Lorazepam (Ativan) 2 mg Q2H PRN PO CIWA 11-14; Start 02/08/17 at 14:45 Lorazepam (Ativan Inj) 2 mg Q2H PRN IV PUSH CIWA 11-14 Last administered on 08:01; Start 02/08/17 at 14:45 Lorazepam (Ativan Inj) 2 mg Q1H PRN IV PUSH CIWA 15-20 Last administered on 01:20; Start 02/08/17 at 14:45 Lorazepam (Ativan Inj) 2 mg Q15M PRN IV PUSH CIWA > 20; Start 02/08/17 at 14:45 Miscellaneous Information SPECIFIC LAB TO BE DRAWN:VANCO TROUGH DATE TO BE DR... ONCE ONCE .XX Last administered on 02/10/17 21:45; Start 02/10/17 at 21 :45; Stop 02/10/17 at 21:46; Status DC Vancomycin HCl/ Sodium Chloride (Vancomycin Inj/ NS 500 ml Inj) 515 ml @ 250 mls/hr Q12H IV Last administered on 02/10/17 22:59; Start 02/09/17 at 22:00; Stop 02/10/17 at 23:47; Status DC Hydromorphone HCl 0.5 mg 0.5 mg Q8HR PRN IV PUSH PAIN 8-10 Last administered on 02/16/17 17:43; Start 02/10/17 at 14:00; Stop 02/16/17 at 19:55; Status DC Clindamycin Phosphate 900 mg/ Sodium Chloride 106 ml @ 212 mls/hr Q8H IV Last administered on 02/21/17 04:11; Start 02/10/17 at 13:00 Vancomycin HCl/ Sodium Chloride (Vancomycin Inj/ NS 500 ml Inj) 515 ml @ 250 mls/hr Q8H IV Last administered on 02/20/17 09:45; Start 02/11/17 at 09:00; Stop 02/20/17 at 10:22; Status DC Miscellaneous Information SPECIFIC LAB TO BE SARAH... ONCE ONCE .XX ; Start 02/12 at 08:45; Stop 02/12/17 at 08:46; Status DC Nicotine (Habitrol 21 Mg Patch.24 Hr) 1 patch DAILY T-DERMAL Last administered on 02/21/17 08:50; Start 02/12/17 at 10:00 Miscellaneous Information 1 1 HS T-DERMAL Last administered on 02/20/17 21:00 ; Start 02/12/17 at 21:00 Calcium Gluconate/ Sodium Chloride (Calcium Gluconate Inj/NS Inj) 110 ml @ 110 mls/hr ONCE ONCE IV Last administered on 02/12/17 12:07; Start 02/12/17 at 11 :00; Stop 02/12/17 at 11:59; Status DC Miscellaneous Information SPECIFIC LAB TO BE SARAH... ONCE ONCE .XX ; Start 02/12 at 16:45; Stop 02/12/17 at 16:46; Status DC Ketamine HCl (Ketalar Inj) 500 mg STK-MED ONCE .ROUTE ; Start 02/12/17 at 15:34 ; Stop 02/12/17 at 15:35; Status DC Vancomycin HCl (Vancomycin Inj) 1,000 mg STK-MED ONCE .ROUTE Last administered on 02/12/17 16:40; Start 02/12/17 at 15:51; Stop 02/12/17 at 15:52; Status DC Vancomycin HCl 500 mg 500 mg STK-MED ONCE .ROUTE Last administered on 16:40; Start 02/12/17 at 15:51; Stop 02/12/17 at 15:52; Status DC Propofol (Diprivan 1000 Mg/100ml Inj) 100 ml @ As Directed STK-MED ONCE .ROUTE Last administered on 02/12/17 17:50; Start 02/12/17 at 17:33; Stop 02/12/17 at 17:34; Status DC Midazolam HCl (Versed Inj) 2 mg STK-MED ONCE .ROUTE ; Start 02/12/17 at 18:09; Stop 02/12/17 at 18:10; Status DC Fentanyl Citrate (fentaNYL INJ) 250 mcg STK-MED ONCE .ROUTE ; Start 02/12/17 at 18:09; Stop 02/12/17 at 18:10; Status DC Cefazolin Sodium (Ancef Inj) 2,000 mg STK-MED ONCE .ROUTE Last administered on 02/12/17 16:40; Start 02/12/17 at 18:36; Stop 02/12/17 at 18:37; Status DC Miscellaneous Information ALL NURSING DEPARTME... UNSCH PRN .XX SEE LABEL COMMENTS; Start 02/12/17 at 18:45; Stop 02/13/17 at 18:44; Status DC Propofol 100 ml @ 0 mls/hr TITRATE IV Last administered on 02/13/17 05:14; Start 02/12/17 at 19:15; Stop 02/16/17 at 19:55; Status DC Midazolam HCl 100 ml @ 0 mls/hr TITRATE IV Last administered on 02/15/17 20:13 ; Start 02/12/17 at 20:00; Stop 02/16/17 at 11:15; Status DC Fentanyl Citrate 250 ml @ 0 mls/hr TITRATE IV Last administered on 02/15/17 20 :13; Start 02/12/17 at 20:00; Stop 02/16/17 at 19:55; Status DC Sodium Chloride (NS 1000 ml Inj) 2,000 ml @ 0 mls/hr BOLUS ONCE IV Last administered on 02/13/17 01:15; Start 02/13/17 at 01:15; Stop 02/13/17 at 01:16 ; Status DC Heparin Sodium (Porcine) 5000 units 5,000 units Q8HR SQ Last administered on 05:49; Start 02/13/17 at 06:00; Status Hold Multivitamins/ Thiamine HCl/ Folic Acid/ Dextrose/Sodium Chloride (Mvi-12 Inj/ Thiamine Inj/ Folvite Inj/ D5W-NS 500 ml Inj) 511.2 ml @ 125 mls/hr ONCE ONCE IV Last administered on 02/13/17 03:15; Start 02/13/17 at 03:30; Stop at 07:35; Status DC Insulin Aspart (NovoLOG SUPPLEMENTAL SCALE) 1 Q4H SQ ; Start 02/13/17 at 08:00; Stop 02/17/17 at 21:40; Status DC Dextrose (D50w (Vial) Inj) 25 ml UNSCH PRN IV HYPOGLYCEMIA - SEE COMMENTS; Start 02/13/17 at 08:15; Stop 02/17/17 at 21:40; Status DC Glucagon 1 mg 1 mg UNSCH PRN OTHER SEE LABEL COMMENTS; Start 02/13/17 at 08:15 ; Stop 02/17/17 at 21:40; Status DC Sodium Chloride 1,000 ml @ 999 mls/hr Q1H1M IV Last administered on 02/13/17 10:00; Start 02/13/17 at 10:00; Stop 02/13/17 at 11:00; Status DC Sodium Chloride (NS 1000 ml Inj) 1,000 ml @ 999 mls/hr BOLUS ONCE IV Last administered on 02/13/17 10:00; Start 02/13/17 at 10:00; Stop 02/13/17 at 11:00 ; Status DC Rocuronium Reagan 50 mg 50 mg BOLUS ONCE IV Last administered on 02/13/17 10 :03; Start 02/13/17 at 10:00; Stop 02/13/17 at 10:01; Status DC Norepinephrine Bitartrate (Levophed-Dextrose Drip) 250 ml @ 0 mls/hr TITRATE IV Last administered on 02/13/17 10:17; Start 02/13/17 at 10:00; Stop 02/16/17 at 11:15; Status DC Terbutaline Sulfate (Brethine Inj) 1 mg UNSCH PRN SQ For Extravasation; Start 02/13/17 at 10:00; Stop 02/16/17 at 11:15; Status DC Albuterol/ Ipratropium (Duoneb Neb) 1 ampule Q6HR NEB NEB Last administered on 02/20/17 08:21; Start 02/13/17 at 10:00; Stop 02/20/17 at 11:15; Status DC Albuterol/ Ipratropium (Duoneb Neb) 1 ampule Q2HR NEB PRN NEB SHORTNESS OF BREATH; Start 02/13/17 at 10:00 Dexamethasone Sodium Phosphate (Decadron Inj) 4 mg Q6HR IV PUSH Last administered on 02/14/17 04:56; Start 02/13/17 at 12:00; Stop 02/14/17 at 11:59 ; Status DC Miscellaneous Information SPECIFIC LAB TO BE SARAH... ONCE ONCE .XX Last administered on 02/14/17 00:00; Start 02/14/17 at 00:45; Stop 02/14/17 at 00:46 ; Status DC Rocuronium Reagan (Zemuron Inj) 50 mg STK-MED ONCE .ROUTE ; Start 02/14/17 at 16:13; Stop 02/14/17 at 16:14; Status DC Cefazolin Sodium (Ancef Inj) 3,000 mg STK-MED ONCE .ROUTE ; Start 02/14/17 at 17 :36; Stop 02/14/17 at 17:37; Status DC Rocuronium Reagan (Zemuron Inj) 50 mg NOW ONCE IV Last administered on 14:45; Start 02/14/17 at 14:45; Stop 02/14/17 at 17:51; Status DC Lidocaine HCl (Xylocaine 1% Inj (50 ml)) 50 ml STK-MED ONCE .ROUTE ; Start 02/14 at 18:03; Stop 02/14/17 at 18:04; Status DC Gentamicin Sulfate (Gentamicin Inj) 240 mg STK-MED ONCE IRRIGATION Last administered on 02/14/17 19:51; Start 02/14/17 at 19:51; Stop 02/14/17 at 19:52 ; Status DC Midazolam HCl (Versed Inj) 4 mg STK-MED ONCE .ROUTE ; Start 02/14/17 at 21:22; Stop 02/14/17 at 21:23; Status DC Fentanyl Citrate (fentaNYL INJ) 500 mcg STK-MED ONCE .ROUTE ; Start 02/14/17 at 21:22; Stop 02/14/17 at 21:23; Status DC Protein (Beneprotein Powder) 2 pack TID G-TUBE Last administered on 02/16/17 08:56; Start 02/15/17 at 13:00 Dexamethasone Sodium Phosphate (Decadron Inj) 4 mg Q6HR IV PUSH Last administered on 02/17/17 05:23; Start 02/15/17 at 12:00; Stop 02/17/17 at 11:59 ; Status DC Metoclopramide HCl (Reglan Inj) 5 mg Q8H IV PUSH Last administered on 17:16; Start 02/15/17 at 18:00; Stop 02/16/17 at 19:55; Status DC Pantoprazole Sodium (Protonix Inj) 40 mg DAILY IV PUSH Last administered on 08:50; Start 02/16/17 at 09:00 Furosemide (Lasix Inj) 40 mg STAT ONCE IV PUSH Last administered on 02/16/17 11:26; Start 02/16/17 at 11:15; Stop 02/16/17 at 11:22; Status DC Racepinephrine (Racepinephrine 2.25% Neb) 0.5 ml Q4HR NEB PRN NEB stridor; Start 02/16/17 at 11:15 Hydralazine HCl (Apresoline Inj) 10 mg Q30M PRN IV PUSH FOR A GOAL SBP <180 Last administered on 02/16/17 22:19; Start 02/16/17 at 15:00; Stop 02/17/17 at 12:06; Status DC Hydromorphone HCl (Dilaudid Pf Inj) 1 mg Q4H PRN IV ; Start 02/16/17 at 20:00; Stop 02/16/17 at 20:00; Status DC Oxycodone HCl (Roxicodone) 5 mg Q4H PRN PO PAIN < 5 Last administered on 11:40; Start 02/16/17 at 20:00 Hydromorphone HCl 0.5 mg 0.5 mg Q4H PRN IV PUSH BREAKTHROUGH PAIN Last administered on 02/21/17 05:30; Start 02/16/17 at 20:00 Dexmedetomidine HCl/Sodium Chloride (Precedex Inj/NS Inj) 52 ml @ 0 mls/hr TITRATE IV ; Start 02/16/17 at 20:00; Stop 02/17/17 at 11:44; Status DC Furosemide (Lasix Inj) 40 mg ONCE ONCE IV PUSH Last administered on 02/17/17 08:45; Start 02/17/17 at 07:15; Stop 02/17/17 at 07:16; Status DC Bisacodyl (Dulcolax Supp) 10 mg DAILY RECTAL ; Start 02/17/17 at 09:00 Polyethylene Glycol (Miralax) 17 gm BID PO Last administered on 02/17/17 08:46 ; Start 02/17/17 at 09:00 Lactulose (Lactulose Liq) 30 ml BID PO Last administered on 02/17/17 08:45; Start 02/17/17 at 09:00 Senna/Docusate Sodium (Breanna-Colace) 1 tab BID PO Last administered on 20:32; Start 02/17/17 at 09:00 Magnesium Citrate (Citroma Liq) 300 ml ONCE ONCE PO Last administered on 08:45; Start 02/17/17 at 07:15; Stop 02/17/17 at 07:16; Status DC Clonidine 0.3 mg 0.3 mg Q8HR PO Last administered on 02/21/17 05:30; Start at 07:13 Dexmedetomidine HCl/Sodium Chloride (Precedex Inj/NS Inj) 50 ml @ 312 mls/hr BOLUS ONCE IV Last administered on 02/17/17 07:37; Start 02/17/17 at 07:45; Stop 02/17/17 at 07:54; Status DC Miscellaneous Information SPECIFIC LAB TO BE SARAH... ONCE ONCE .XX Last administered on 02/20/17 09:23; Start 02/20/17 at 08:45; Stop 02/20/17 at 08:46 ; Status DC Oxycodone HCl (Roxicodone) 10 mg Q4H PRN PO PAIN >5 Last administered on 08:51; Start 02/19/17 at 11:45 Benzocaine/Menthol (Chloraseptic Mendez) 1 lozenge UNSCH PRN BUCCAL SORE THROAT Last administered on 02/19/17 17:44; Start 02/19/17 at 11:45 Alteplase, Recombinant 6 mg 6 mg UNSCH PRN IV FLUSH OCCLUDED PICC LINES; Start 02/20/17 at 09:15 Vancomycin HCl/ Sodium Chloride (Vancomycin Inj/ NS 500 ml Inj) 515 ml @ 250 mls/hr Q12H IV ; Start 02/20/17 at 22:00; Stop 02/20/17 at 22:00; Status DC Miscellaneous Information SPECIFIC LAB TO BE DRAWN:VANCOMY... ONCE ONCE .XX ; Start 02/22/17 at 09:45; Stop 02/22/17 at 09:46 A/P Assessment and Plan A/P Abscess and Cellulitis of the left chest wall abdominal wall cellulitis MRSA bacteremia Severe sepsis - Bacteremia due to MRSA, abscess cx MRSA - Status post incision and drainage of chest wall and abdomen per Dr. Ballesteros , 02/14 - Continue vancomycin, Clindamycin - Antibiotic management per infectious disease. -general surgery following. -continue with pain control. - continue methadone; will have outpatient f/u with methadone clinic Acute hypoxemic respiratory failure- resolved. -keep on oxygen as needed to keep O2 sat > 90% - OOB and ambulating daily. -walk test today. Hypotension-resolved - continue to monitor on tele. elevated LFT's due to hepatitis C - Hepatosplenomegaly on liver ultrasound - regular diet as tolerated. - f/u as outpatient. IVDU Alcohol abuse Opiate dependence - History of IV drug use with Dilaudid - Thiamine folate multivitamins - CIWA protocol - continue methadone to prevent withdraws (was on this at prior facility). sore throat; rapid strep screen- DVT GI prophylaxis - Teds SCDs - Subcutaneous heparin - Omeprazole Discharge Planning when cleared by ID and general surgery. Tanisha Osorio MD Feb 21, 2017 09:54
[2017-02-21 12:00] VITALS: BP 171/89; PULSE 85; RESP 18; TEMP 97.2; O2SAT 95
[2017-02-21 12:10] VITALS: O2SAT 96
--- NOTE | 2017-02-21 12:24 | HHI.IDPN ---
Note Infectious Disease Note Patient feels okay. Afebrile. No distress. Says he has some pain in the lower back. Ambulating with walker. Has catheter in left chest wall. Post incision and drainage of left chest wall and flank hematoma 02/12. Post I&D 02/14. Presented to the emergency department on 02/07 for evaluation of left chest wall pain and swelling. PAST MEDICAL HISTORY 1. Hepatitis C 2. History of MRSA arm wound in 2004. 3. History of IV drug use in the past. Denies current IV drug use. ALLERGIES TYLENOL ANTIBIOTICS: Clindamycin. SOCIAL HISTORY Positive tobacco use. The patient smokes three packs of cigarettes a day. The patient drinks beer daily. Denies illicit drugs currently. OBJECTIVE: Vital Signs Date Time Temp Pulse Resp B/P Pulse Ox O2 Delivery O2 Flow Rate FiO2 02/21/17 12:10 96 21 02/21/17 12:10 2.00 02/21/17 08:00 98.1 57 17 136/76 97 02/21/17 00:00 97.8 79 18 143/79 97 02/21/17 00:00 97 Nasal Cannula 2.00 02/20/17 20:21 Nasal Cannula 2.00 02/20/17 20:00 97.9 75 20 130/82 96 02/20/17 16:00 97.1 71 18 161/96 92 02/20/17 02/20/17 02/21/17 14:59 22:59 06:59 Intake Total 340 ml 600 ml Output Total 40 ml 20 ml 15 ml Balance 300 ml -20 ml 585 ml Intake Oral 340 ml 600 ml Drainage Total 40 ml 20 ml 15 ml # Voids 3 5 # Bowel Movements 1 0 Laboratory Tests Test 02/20/17 05:34 Creatinine 0.62 MG/DL Estimat Glomerular Filtration 136 ML/MIN Rate IMAGING: Chest X-Ray 02/16/17 0600 Signed Impressions: Service Date/Time: January 02:35 - CONCLUSION: No significant change. Bibasilar atelectasis and small effusions are again noted. Dalton Mancilla MD Liver Ultrasound 02/13/17 0000 Signed Impressions: Service Date/Time: Monday, February 13, 2017 09:53 - CONCLUSION: Hepatosplenomegaly. Dalton Russell MD Chest X-Ray 02/13/17 0000 Signed Impressions: Service Date/Time: Monday, February 13, 2017 07:54 - CONCLUSION: 1. Stable ETT, right midline, and probable left chest wall drainage catheter. 2. Interval development of small left pleural effusion. 3. Persistent bilateral lower lobe linear airspace disease, likely atelectasis. Fran Londono MD Chest X-Ray 02/12/17 0000 Signed Impressions: Service Date/Time: Sunday, February 12, 2017 18:16 - CONCLUSION: 1. Endotracheal tube tip measures approximately 7.1 cm from the beatriz. 2. Bibasilar airspace opacity most likely representing atelectasis. Dalton Bonilla MD Soft Tissue Ultrasound 02/10/17 0747 Signed Impressions: Service Date/Time: Friday, February 10, 2017 08:38 - CONCLUSION: Edematous tissues are present over the left chest without defined abscess. There is no fluid for aspiration or drainage. This can be easily followed by ultrasound.. Miguel Angel Goode MD FACR Chest CT 02/08/17 0000 Signed Impressions: Service Date/Time: Wednesday, February 08, 2017 09:15 - CONCLUSION: 1. Diffuse enlargement of the left pectoralis muscle with infiltration of the soft tissues surrounding the left pectoralis muscle suggestive of injury/tear of this muscle. Clinical correlation is recommended. 2. Tiny bilateral pleural effusions with bibasilar atelectasis. 3. Cardiomegaly and coronary artery calcifications. 4. Mild splenomegaly. 5. Left adrenal nodule measuring 2.4 x 2.2 cm. 5. Mild degenerative changes and scoliosis of the thoracolumbar spine. Jose Reddy MD Ribs X-Ray 02/07/17 0000 Signed Impressions: Service Date/Time: Tuesday, February 07, 2017 23:39 - CONCLUSION: No definite displaced rib fractures. Amber Sandoval MD PHYSICAL EXAMINATION GENERAL: No distress. HEENT: No icterus. Oropharynx moist mucosa without lesions. NECK: No adenopathy. LUNGS: Decreased clear breath sounds. HEART: Regular rate and rhythm without murmurs, rubs or gallops. CHEST: Left chest catheter has serous drainage. Less erythema. ABDOMEN: Diffuse edema at lateral abdomen. distended, soft. : Scrotal edema. EXTREMITIES: No clubbing or cyanosis, 1+ edema symmetric. SKIN: No rash. NEUROLOGIC: Non focal. PSYCHIATRIC: Calm and pleasant. IMPRESSION 1. Severe Cellulitis of the left chest wall and abdomen along with hematoma and abscess. MRSA. Post I&D and follow up debridement. 2. Bacteremia due to MRSA. Clinically stable. RECOMMENDATIONS 1. Stop vancomycin 2. Change Clindamycin to PO. PO clindamycin on discharge. See prescription. Okay to discharge from my standpoint. Surgery to decide on disposition on chest catheter. David Thorpe MD Feb 21, 2017 12:24
[2017-02-21] MEDS ORDERED: CLIN1CAP6 PO (12:27)
[2017-02-21] MEDS ORDERED: METH10TA PO (13:02)
--- NOTE | 2017-02-21 14:08 | HHI.PR ---
Subjective Subjective Notes Resting in bed Pain controlled Very pleased with the care he has been receiving on 7N Objective Vitals/I&O Vital Signs Date Time Temp Pulse Resp B/P Pulse Ox O2 Delivery O2 Flow Rate FiO2 02/21/17 12:10 96 21 02/21/17 12:10 2.00 02/21/17 12:00 97.2 85 18 171/89 02/21/17 00:00 Nasal Cannula Radiology Last [address] 02/08/17 0000 Signed Impressions: Service Date/Time: Wednesday, February 08, 2017 09:15 - CONCLUSION: 1. Diffuse enlargement of the left pectoralis muscle with infiltration of the soft tissues surrounding the left pectoralis muscle suggestive of injury/tear of this muscle. Clinical correlation is recommended. 2. Tiny bilateral pleural effusions with bibasilar atelectasis. 3. Cardiomegaly and coronary artery calcifications. 4. Mild splenomegaly. 5. Left adrenal nodule measuring 2.4 x 2.2 cm. 5. Mild degenerative changes and scoliosis of the thoracolumbar spine. Jose Reddy MD Cardiovascular: Regular Lungs: Clear Abdomen: Non-distended, Non-tender Extremities: No edema Narrative Exam LEFT chest ---Wet to dry dressing in place removed and replaced; wound bed clear with minimal exudate LLQ---partially sutured closed incision ----mild drainage ---packing replaced A/P Assessment and Plan 51 year old male with pectoralis muscle tear; LEFT chest wall cellulitis -Wet to dry dressing to LLQ and LEFT chest -s/p I&D LEFT chest with Wound Vac placement and ELYSE drain placement; closure of LLQ incision -Keep ELYSE in for now -Continue to monitor WBC; fevers -ID following; continue antibiotics -Discussed with RN Alexus - Aida at bedside---- spent time teaching her how to care and change dressings Wilma Ochoa Feb 21, 2017 14:08
[2017-02-21 16:00] VITALS: BP 120/67; PULSE 71; RESP 16; TEMP 98.6; O2SAT 96
[2017-02-21] MEDS: CLINDAMYCIN 150 MG CAP PO SCH (17:47)
[2017-02-21 20:15] VITALS: BP 154/77; PULSE 74; RESP 17; TEMP 97.4; O2SAT 97
[2017-02-21] MEDS: REMOVE OLD PATCH T-DERMAL SCH (20:50)
[2017-02-22] VITALS (7 sets, daily range): BP systolic 113–155; BP diastolic 65–84; PULSE 62–85; RESP 17–19; TEMP 97–98.9; O2SAT 94–96
[2017-02-22] MEDS: CLINDAMYCIN 150 MG CAP PO SCH ×4 (00:36→18:14)
[2017-02-22] MEDS: HYDROmorphone HCL PF 1 MG/ML VIAL IV PUSH PRN ×5 (00:37→20:16)
[2017-02-22] MEDS: cloNIDine HCL 0.3 MG TAB PO SCH ×3 (04:45→21:38)
--- NOTE | 2017-02-22 07:31 | MP ---
cc: NOEMI BALLESTEROS M.D. DATE OF SURGERY 02/14/2017 PROCEDURE 1. Irrigation and debridement left chest wall with partial wound closure of lower abdominal wall. 2. I&D of lower abdominal wall with partial wound closure. 3. Irrigation and debridement. PREOPERATIVE DIAGNOSIS Abscess left chest wall and left abdominal wall. POSTOPERATIVE DIAGNOSIS Abscess left chest wall and left abdominal wall with MRSA. ANESTHESIA General endotracheal SURGEON Noemi Ballesteros MD ESTIMATED BLOOD LOSS 50 mL FLUIDS 400 mL crystalloid COMPLICATIONS None DRAINS None SPECIMEN None PROCEDURE IN DETAIL The patient was taken to the operating room and placed on the operating table in the supine position. As he was already intubated, the chest and abdomen were prepped and draped. Time-out was taken confirming the correct patient, site, and procedures to be performed. Attention was turned to the lower abdominal wound first. This was irrigated and as it was clean at this point, it was partially closed with 2-0 Prolene sutures medially. The wound was left open laterally to allow for easy drainage. This was packed with saline gauze and toweled off. Attention was then turned to the chest wound. This was irrigated with pulse lavage irrigation. No necrotic tissue was noted and no purulent material was noted. The drain was left in place and placed back up in toward the neck. When this was completed a Vac dressing was reapplied to this and good suction was obtained. The patient remained intubated and taken back to the intensive care unit in stable condition. Sponge, needle and instrument counts were reported be correct. MD RAJI Hess/SHANELL /9:43 AM /7:31 AM
[2017-02-22] MEDS: PANTOPRAZOLE SODIUM 40 MG VIAL IV PUSH SCH (08:05)
[2017-02-22] MEDS: LACTULOSE SYRUP 20 GM/30 ML CUP PO SCH ×3 (08:05→20:08)
[2017-02-22] MEDS: METHADONE HCL 10 MG TAB PO SCH (08:06)
[2017-02-22] MEDS: DOCUSATE SODIUM 50 MG/SENNA 8.6 MG TAB PO SCH ×2 (08:07→20:08)
[2017-02-22] MEDS: BISACODYL 10 MG SUPP RECTAL SCH (08:07)
[2017-02-22] MEDS: LACTOBACILLUS ACIDOPHILUS TAB PO SCH ×3 (08:07→18:14)
[2017-02-22] MEDS: NICOTINE 21 MG/24 HR PATCH T-DERMAL SCH (08:08)
[2017-02-22] MEDS: POLYETHYLENE GLYCOL 17 GM PKG PO SCH ×2 (08:09→20:09)
[2017-02-22] MEDS: SODIUM CHLORIDE 0.9% FLUSH 10 ML FLUSH IV FLUSH SCH ×2 (08:09→20:09)
[2017-02-22] MEDS: BENEPROTEIN POWDER 1 PACK G-TUBE SCH ×3 (09:00→18:00)
[2017-02-22] MEDS ORDERED: PHARMACY ORDERED LAB ONE (09:45)
--- NOTE | 2017-02-22 10:54 | HHI.PR ---
Subjective Remarks resting comfortably with no distress. pain is fairly controlled. no fever. Objective Vitals Vital Signs Date Time Temp Pulse Resp B/P Pulse Ox O2 Delivery O2 Flow Rate FiO2 02/22/17 08:00 97.0 65 18 113/65 94 02/22/17 04:35 98.1 62 18 155/83 94 02/22/17 00:10 97.6 82 18 120/70 96 02/21/17 20:15 97.4 74 17 154/77 97 02/21/17 17:19 18 02/21/17 16:00 98.6 71 16 120/67 96 02/21/17 14:50 18 02/21/17 12:10 96 21 02/21/17 12:10 2.00 02/21/17 12:00 97.2 85 18 171/89 95 I/O 02/21/17 02/21/17 02/21/17 02/22/17 02/22/17 02/22/17 06:59 14:59 22:59 06:59 14:59 22:59 Intake Total 600 ml 340 ml 380 ml 480 ml Output Total 15 ml 425 ml 5 ml Balance 585 ml 340 ml -45 ml 475 ml Intake Oral 600 ml 340 ml 380 ml 480 ml Output Urine Total 400 ml Drainage Total 15 ml 25 ml 5 ml # Voids 5 4 2 # Bowel Movements 0 1 Result Diagram: 02/20/17 0534 Imaging Last Impressions Chest X-Ray 02/16/17 0600 Signed Impressions: Service Date/Time: January 02:35 - CONCLUSION: No significant change. Bibasilar atelectasis and small effusions are again noted. Dalton Mancilla MD Liver Ultrasound 02/13/17 0000 Signed Impressions: Service Date/Time: Monday, February 13, 2017 09:53 - CONCLUSION: Hepatosplenomegaly. Dalton Russell MD Abdomen X-Ray 02/13/17 0000 Signed Impressions: Service Date/Time: Monday, February 13, 2017 11:17 - CONCLUSION: 1. Nasogastric tube placement as above. Michael Goode MD Soft Tissue Ultrasound 02/10/17 0747 Signed Impressions: Service Date/Time: Friday, February 10, 2017 08:38 - CONCLUSION: Edematous tissues are present over the left chest without defined abscess. There is no fluid for aspiration or drainage. This can be easily followed by ultrasound.. Miguel Angel Goode MD FACR Chest CT 02/08/17 0000 Signed Impressions: Service Date/Time: Wednesday, February 08, 2017 09:15 - CONCLUSION: 1. Diffuse enlargement of the left pectoralis muscle with infiltration of the soft tissues surrounding the left pectoralis muscle suggestive of injury/tear of this muscle. Clinical correlation is recommended. 2. Tiny bilateral pleural effusions with bibasilar atelectasis. 3. Cardiomegaly and coronary artery calcifications. 4. Mild splenomegaly. 5. Left adrenal nodule measuring 2.4 x 2.2 cm. 5. Mild degenerative changes and scoliosis of the thoracolumbar spine. Jose Reddy MD Ribs X-Ray 02/07/17 0000 Signed Impressions: Service Date/Time: Tuesday, February 07, 2017 23:39 - CONCLUSION: No definite displaced rib fractures. K. Aries Sandoval MD Objective Remarks GENERAL: This is a well-nourished, well-developed patient, in no apparent distress. CARDIOVASCULAR: Regular rate and regular rhythm without murmurs, gallops, or rubs. RESPIRATORY: Clear to auscultation. Breath sounds equal bilaterally. No wheezes , rales, or rhonchi. GASTROINTESTINAL: Abdomen soft, non-tender, nondistended. Normal, active bowel sounds MUSCULOSKELETAL: Extremities without clubbing, cyanosis, or edema. NEURO: Alert & Oriented x4 to person, place, time, situation. Moves all ext x4 skin; RLQ covered with clean dressing and drain in place on left chest wall Procedures I/D of the chest wall abscess I/D of the abdominal wall cellulitis Medications and IVs Current Medications Morphine Sulfate (Morphine Inj) 4 mg ONCE ONCE IV PUSH Last administered on 22:55; Start 02/07/17 at 22:15; Stop 02/07/17 at 22:16; Status DC Ondansetron HCl (Zofran Inj) 4 mg ONCE ONCE IVP Last administered on 22:55; Start 02/07/17 at 22:15; Stop 02/07/17 at 22:16; Status DC Sodium Chloride 2 ml 2 ml UNSCH PRN IV FLUSH FLUSH AFTER USING IV ACCESS; Start 02/07/17 at 22:15; Stop 02/08/17 at 05:22; Status DC Sodium Chloride (NS 1000 ml Inj) 1,000 ml @ 1,000 mls/hr Q1H ONCE IV Last administered on 02/08/17 00:27; Start 02/07/17 at 23:45; Stop 02/08/17 at 00:44 ; Status DC Ondansetron HCl (Zofran Inj) 4 mg ONCE ONCE IV ; Start 02/07/17 at 23:45; Stop 02/07/17 at 23:46; Status DC Hydromorphone HCl 1 mg 1 mg ONCE ONCE IV PUSH Last administered on 02/08/17 00:27; Start 02/07/17 at 23:45; Stop 02/07/17 at 23:46; Status DC Sodium Chloride 1,000 ml @ 1,000 mls/hr Q1H ONCE IV ; Start 02/08/17 at 02:01; Stop 02/08/17 at 03:00; Status DC Sodium Chloride 1,000 ml @ 1,000 mls/hr Q1H ONCE IV Last administered on 02:22; Start 02/08/17 at 02:01; Stop 02/08/17 at 03:00; Status DC Sodium Chloride 700 ml @ 1,000 mls/hr Q42M ONCE IV Last administered on 02:22; Start 02/08/17 at 02:01; Stop 02/08/17 at 02:42; Status DC Vancomycin HCl 1000 mg/Sodium Chloride 250 ml @ 250 mls/hr ONCE ONCE IV ; Start 02/08/17 at 02:15; Stop 02/08/17 at 03:14; Status Cancel Piperacillin Sod/ Tazobactam Sod (Zosyn 3.375 Gm Premix) 50 ml @ 100 mls/hr ONCE ONCE IV Last administered on 02/08/17 02:33; Start 02/08/17 at 02:15; Stop 02/08/17 at 02:44; Status DC Sodium Chloride (NS Flush) 2 ml UNSCH PRN IV FLUSH FLUSH AFTER USING IV ACCESS ; Start 02/08/17 at 02:45 Sodium Chloride (NS Flush) 2 ml BID IV FLUSH Last administered on 02/22/17 08: 09; Start 02/08/17 at 09:00 Ondansetron HCl (Zofran Inj) 4 mg Q6H PRN IVP NAUSEA OR VOMITING Last administered on 02/17/17 03:41; Start 02/08/17 at 02:45 Naloxone HCl 0.4 mg 0.4 mg UNSCH PRN IV SEE LABEL COMMENTS; Start 02/08/17 at 02:45 Pharmacy Profile Note 0 ml @ 0 mls/hr UNSCH OTHER ; Start 02/08/17 at 02:45; Stop 02/20/17 at 11:57; Status DC Piperacillin Sod/ Tazobactam Sod 100 ml @ 200 mls/hr Q6H IV Last administered on 02/09/17 14:40; Start 02/08/17 at 08:00; Stop 02/09/17 at 15:53; Status DC Ciprofloxacin/ Dextrose (Cipro 400 Mg Premix) 200 ml @ 200 mls/hr Q12H IV Last administered on 02/08/17 16:36; Start 02/08/17 at 04:00; Stop 02/09/17 at 15:54; Status DC Lactobacillus Acidophilus (Lactinex) 1 tab TID PO Last administered on 08:07; Start 02/08/17 at 09:00 Hydromorphone HCl (Dilaudid Pf Inj) 1 mg ONCE ONCE IV PUSH Last administered on 02/08/17 03:43; Start 02/08/17 at 03:15; Stop 02/08/17 at 03:16; Status DC Pantoprazole Sodium 40 mg 40 mg ONCE ONCE IV PUSH Last administered on 03:43; Start 02/08/17 at 03:15; Stop 02/08/17 at 03:16; Status DC Vancomycin HCl/ Sodium Chloride (Vancomycin Inj/ NS 500 ml Inj) 515 ml @ 257.5 mls/ hr ONCE ONCE IV Last administered on 02/08/17 07:39; Start 02/08/17 at 05:00; Stop 02/08/17 at 06:59; Status DC Ketorolac Tromethamine (Toradol Inj) 15 mg Q6H PRN IV PUSH pain >5; Start 02/08 at 05:15; Stop 02/08/17 at 05:51; Status DC Alprazolam (Xanax) 0.125 mg NOW ONCE PO Last administered on 02/08/17 06:14; Start 02/08/17 at 05:30; Stop 02/08/17 at 05:31; Status DC Hydromorphone HCl (Dilaudid Pf Inj) 1 mg Q4H PRN IV PUSH pain >5 Last administered on 02/08/17 06:24; Start 02/08/17 at 06:00; Stop 02/08/17 at 10:03 ; Status DC Methadone HCl (Dolophine) 20 mg ONCE ONCE PO Last administered on 02/08/17 06 :23; Start 02/08/17 at 06:15; Stop 02/08/17 at 06:18; Status DC Methadone HCl (Dolophine) 20 mg DAILY PO Last administered on 02/22/17 08:06; Start 02/08/17 at 09:00 Pantoprazole Sodium (Protonix) 40 mg DAILY PO Last administered on 02/14/17 08 :15; Start 02/09/17 at 09:00; Stop 02/15/17 at 17:39; Status DC Calcium Carbonate 500 mg 500 mg ONCE ONCE CHEW Last administered on 02/08/17 07:38; Start 02/08/17 at 08:00; Stop 02/08/17 at 08:01; Status DC Sodium Chloride 1,000 ml @ 125 mls/hr Q8H IV Last administered on 02/16/17 04 :21; Start 02/08/17 at 07:45; Stop 02/16/17 at 11:14; Status DC Vancomycin HCl/ Sodium Chloride (Vancomycin Inj/ NS 500 ml Inj) 515 ml @ 250 mls/hr Q12H IV Last administered on 02/09/17 08:48; Start 02/08/17 at 20:00; Stop 02/09/17 at 22:40; Status DC Miscellaneous Information SPECIFIC LAB TO BE DRAWN:VANCOMYCIN TROUGH DATE TO... ONCE ONCE .XX ; Start 02/09/17 at 19:45; Stop 02/09/17 at 19:46; Status DC Iohexol (Omnipaque 350 Inj) 63 ml STK-MED ONCE IV Last administered on 10:03; Start 02/08/17 at 10:03; Stop 02/08/17 at 10:04; Status DC Hydromorphone HCl (Dilaudid Pf Inj) 2 mg Q3HR PRN IV PUSH pain >5 Last administered on 02/10/17 09:30; Start 02/08/17 at 11:00; Stop 02/10/17 at 10:30 ; Status DC Flumazenil (Romazicon Inj) 0.2 mg Q1M PRN IV PUSH SEE LABEL COMMENTS; Start at 14:45 Lorazepam (Ativan) 1 mg Q4H PRN PO CIWA 8 - 10 Last administered on 02/12/17 10:31; Start 02/08/17 at 14:45 Lorazepam (Ativan Inj) 1 mg Q4H PRN IV PUSH CIWA 8 - 10 Last administered on 17:49; Start 02/08/17 at 14:45 Lorazepam (Ativan) 2 mg Q2H PRN PO CIWA 11-14; Start 02/08/17 at 14:45 Lorazepam (Ativan Inj) 2 mg Q2H PRN IV PUSH CIWA 11-14 Last administered on 08:01; Start 02/08/17 at 14:45 Lorazepam (Ativan Inj) 2 mg Q1H PRN IV PUSH CIWA 15-20 Last administered on 01:20; Start 02/08/17 at 14:45 Lorazepam (Ativan Inj) 2 mg Q15M PRN IV PUSH CIWA > 20; Start 02/08/17 at 14:45 Miscellaneous Information SPECIFIC LAB TO BE DRAWN:VANCO TROUGH DATE TO BE DR... ONCE ONCE .XX Last administered on 02/10/17 21:45; Start 02/10/17 at 21 :45; Stop 02/10/17 at 21:46; Status DC Vancomycin HCl/ Sodium Chloride (Vancomycin Inj/ NS 500 ml Inj) 515 ml @ 250 mls/hr Q12H IV Last administered on 02/10/17 22:59; Start 02/09/17 at 22:00; Stop 02/10/17 at 23:47; Status DC Hydromorphone HCl 0.5 mg 0.5 mg Q8HR PRN IV PUSH PAIN 8-10 Last administered on 02/16/17 17:43; Start 02/10/17 at 14:00; Stop 02/16/17 at 19:55; Status DC Clindamycin Phosphate 900 mg/ Sodium Chloride 106 ml @ 212 mls/hr Q8H IV Last administered on 02/21/17 04:11; Start 02/10/17 at 13:00; Stop 02/21/17 at 12:25 ; Status DC Vancomycin HCl/ Sodium Chloride (Vancomycin Inj/ NS 500 ml Inj) 515 ml @ 250 mls/hr Q8H IV Last administered on 02/20/17 09:45; Start 02/11/17 at 09:00; Stop 02/20/17 at 10:22; Status DC Miscellaneous Information SPECIFIC LAB TO BE SARAH... ONCE ONCE .XX ; Start 02/12 at 08:45; Stop 02/12/17 at 08:46; Status DC Nicotine (Habitrol 21 Mg Patch.24 Hr) 1 patch DAILY T-DERMAL Last administered on 02/21/17 08:50; Start 02/12/17 at 10:00 Miscellaneous Information 1 1 HS T-DERMAL Last administered on 02/21/17 20:50 ; Start 02/12/17 at 21:00 Calcium Gluconate/ Sodium Chloride (Calcium Gluconate Inj/NS Inj) 110 ml @ 110 mls/hr ONCE ONCE IV Last administered on 02/12/17 12:07; Start 02/12/17 at 11 :00; Stop 02/12/17 at 11:59; Status DC Miscellaneous Information SPECIFIC LAB TO BE SARAH... ONCE ONCE .XX ; Start 02/12 at 16:45; Stop 02/12/17 at 16:46; Status DC Ketamine HCl (Ketalar Inj) 500 mg STK-MED ONCE .ROUTE ; Start 02/12/17 at 15:34 ; Stop 02/12/17 at 15:35; Status DC Vancomycin HCl (Vancomycin Inj) 1,000 mg STK-MED ONCE .ROUTE Last administered on 02/12/17 16:40; Start 02/12/17 at 15:51; Stop 02/12/17 at 15:52; Status DC Vancomycin HCl 500 mg 500 mg STK-MED ONCE .ROUTE Last administered on 16:40; Start 02/12/17 at 15:51; Stop 02/12/17 at 15:52; Status DC Propofol (Diprivan 1000 Mg/100ml Inj) 100 ml @ As Directed STK-MED ONCE .ROUTE Last administered on 02/12/17 17:50; Start 02/12/17 at 17:33; Stop 02/12/17 at 17:34; Status DC Midazolam HCl (Versed Inj) 2 mg STK-MED ONCE .ROUTE ; Start 02/12/17 at 18:09; Stop 02/12/17 at 18:10; Status DC Fentanyl Citrate (fentaNYL INJ) 250 mcg STK-MED ONCE .ROUTE ; Start 02/12/17 at 18:09; Stop 02/12/17 at 18:10; Status DC Cefazolin Sodium (Ancef Inj) 2,000 mg STK-MED ONCE .ROUTE Last administered on 02/12/17 16:40; Start 02/12/17 at 18:36; Stop 02/12/17 at 18:37; Status DC Miscellaneous Information ALL NURSING DEPARTME... UNSCH PRN .XX SEE LABEL COMMENTS; Start 02/12/17 at 18:45; Stop 02/13/17 at 18:44; Status DC Propofol 100 ml @ 0 mls/hr TITRATE IV Last administered on 02/13/17 05:14; Start 02/12/17 at 19:15; Stop 02/16/17 at 19:55; Status DC Midazolam HCl 100 ml @ 0 mls/hr TITRATE IV Last administered on 02/15/17 20:13 ; Start 02/12/17 at 20:00; Stop 02/16/17 at 11:15; Status DC Fentanyl Citrate 250 ml @ 0 mls/hr TITRATE IV Last administered on 02/15/17 20 :13; Start 02/12/17 at 20:00; Stop 02/16/17 at 19:55; Status DC Sodium Chloride (NS 1000 ml Inj) 2,000 ml @ 0 mls/hr BOLUS ONCE IV Last administered on 02/13/17 01:15; Start 02/13/17 at 01:15; Stop 02/13/17 at 01:16 ; Status DC Heparin Sodium (Porcine) 5000 units 5,000 units Q8HR SQ Last administered on 05:49; Start 02/13/17 at 06:00; Status Hold Multivitamins/ Thiamine HCl/ Folic Acid/ Dextrose/Sodium Chloride (Mvi-12 Inj/ Thiamine Inj/ Folvite Inj/ D5W-NS 500 ml Inj) 511.2 ml @ 125 mls/hr ONCE ONCE IV Last administered on 02/13/17 03:15; Start 02/13/17 at 03:30; Stop at 07:35; Status DC Insulin Aspart (NovoLOG SUPPLEMENTAL SCALE) 1 Q4H SQ ; Start 02/13/17 at 08:00; Stop 02/17/17 at 21:40; Status DC Dextrose (D50w (Vial) Inj) 25 ml UNSCH PRN IV HYPOGLYCEMIA - SEE COMMENTS; Start 02/13/17 at 08:15; Stop 02/17/17 at 21:40; Status DC Glucagon 1 mg 1 mg UNSCH PRN OTHER SEE LABEL COMMENTS; Start 02/13/17 at 08:15 ; Stop 02/17/17 at 21:40; Status DC Sodium Chloride 1,000 ml @ 999 mls/hr Q1H1M IV Last administered on 02/13/17 10:00; Start 02/13/17 at 10:00; Stop 02/13/17 at 11:00; Status DC Sodium Chloride (NS 1000 ml Inj) 1,000 ml @ 999 mls/hr BOLUS ONCE IV Last administered on 02/13/17 10:00; Start 02/13/17 at 10:00; Stop 02/13/17 at 11:00 ; Status DC Rocuronium [place] 50 mg 50 mg BOLUS ONCE IV Last administered on 02/13/17 10 :03; Start 02/13/17 at 10:00; Stop 02/13/17 at 10:01; Status DC Norepinephrine Bitartrate (Levophed-Dextrose Drip) 250 ml @ 0 mls/hr TITRATE IV Last administered on 02/13/17 10:17; Start 02/13/17 at 10:00; Stop 02/16/17 at 11:15; Status DC Terbutaline Sulfate (Brethine Inj) 1 mg UNSCH PRN SQ For Extravasation; Start 02/13/17 at 10:00; Stop 02/16/17 at 11:15; Status DC Albuterol/ Ipratropium (Duoneb Neb) 1 ampule Q6HR NEB NEB Last administered on 02/20/17 08:21; Start 02/13/17 at 10:00; Stop 02/20/17 at 11:15; Status DC Albuterol/ Ipratropium (Duoneb Neb) 1 ampule Q2HR NEB PRN NEB SHORTNESS OF BREATH; Start 02/13/17 at 10:00 Dexamethasone Sodium Phosphate (Decadron Inj) 4 mg Q6HR IV PUSH Last administered on 02/14/17 04:56; Start 02/13/17 at 12:00; Stop 02/14/17 at 11:59 ; Status DC Miscellaneous Information SPECIFIC LAB TO BE SARAH... ONCE ONCE .XX Last administered on 02/14/17 00:00; Start 02/14/17 at 00:45; Stop 02/14/17 at 00:46 ; Status DC Rocuronium [place] (Zemuron Inj) 50 mg STK-MED ONCE .ROUTE ; Start 02/14/17 at 16:13; Stop 02/14/17 at 16:14; Status DC Cefazolin Sodium (Ancef Inj) 3,000 mg STK-MED ONCE .ROUTE ; Start 02/14/17 at 17 :36; Stop 02/14/17 at 17:37; Status DC Rocuronium [place] (Zemuron Inj) 50 mg NOW ONCE IV Last administered on 14:45; Start 02/14/17 at 14:45; Stop 02/14/17 at 17:51; Status DC Lidocaine HCl (Xylocaine 1% Inj (50 ml)) 50 ml STK-MED ONCE .ROUTE ; Start 02/14 at 18:03; Stop 02/14/17 at 18:04; Status DC Gentamicin Sulfate (Gentamicin Inj) 240 mg STK-MED ONCE IRRIGATION Last administered on 02/14/17 19:51; Start 02/14/17 at 19:51; Stop 02/14/17 at 19:52 ; Status DC Midazolam HCl (Versed Inj) 4 mg STK-MED ONCE .ROUTE ; Start 02/14/17 at 21:22; Stop 02/14/17 at 21:23; Status DC Fentanyl Citrate (fentaNYL INJ) 500 mcg STK-MED ONCE .ROUTE ; Start 02/14/17 at 21:22; Stop 02/14/17 at 21:23; Status DC Protein (Beneprotein Powder) 2 pack TID G-TUBE Last administered on 02/16/17 08:56; Start 02/15/17 at 13:00 Dexamethasone Sodium Phosphate (Decadron Inj) 4 mg Q6HR IV PUSH Last administered on 02/17/17 05:23; Start 02/15/17 at 12:00; Stop 02/17/17 at 11:59 ; Status DC Metoclopramide HCl (Reglan Inj) 5 mg Q8H IV PUSH Last administered on 17:16; Start 02/15/17 at 18:00; Stop 02/16/17 at 19:55; Status DC Pantoprazole Sodium (Protonix Inj) 40 mg DAILY IV PUSH Last administered on 08:05; Start 02/16/17 at 09:00 Furosemide (Lasix Inj) 40 mg STAT ONCE IV PUSH Last administered on 02/16/17 11:26; Start 02/16/17 at 11:15; Stop 02/16/17 at 11:22; Status DC Racepinephrine (Racepinephrine 2.25% Neb) 0.5 ml Q4HR NEB PRN NEB stridor; Start 02/16/17 at 11:15 Hydralazine HCl (Apresoline Inj) 10 mg Q30M PRN IV PUSH FOR A GOAL SBP <180 Last administered on 02/16/17 22:19; Start 02/16/17 at 15:00; Stop 02/17/17 at 12:06; Status DC Hydromorphone HCl (Dilaudid Pf Inj) 1 mg Q4H PRN IV ; Start 02/16/17 at 20:00; Stop 02/16/17 at 20:00; Status DC Oxycodone HCl (Roxicodone) 5 mg Q4H PRN PO PAIN < 5 Last administered on 08:07; Start 02/16/17 at 20:00 Hydromorphone HCl 0.5 mg 0.5 mg Q4H PRN IV PUSH BREAKTHROUGH PAIN Last administered on 02/22/17 04:46; Start 02/16/17 at 20:00 Dexmedetomidine HCl/Sodium Chloride (Precedex Inj/NS Inj) 52 ml @ 0 mls/hr TITRATE IV ; Start 02/16/17 at 20:00; Stop 02/17/17 at 11:44; Status DC Furosemide (Lasix Inj) 40 mg ONCE ONCE IV PUSH Last administered on 02/17/17 08:45; Start 02/17/17 at 07:15; Stop 02/17/17 at 07:16; Status DC Bisacodyl (Dulcolax Supp) 10 mg DAILY RECTAL ; Start 02/17/17 at 09:00 Polyethylene Glycol (Miralax) 17 gm BID PO Last administered on 02/17/17 08:46 ; Start 02/17/17 at 09:00 Lactulose (Lactulose Liq) 30 ml BID PO Last administered on 02/17/17 08:45; Start 02/17/17 at 09:00 Senna/Docusate Sodium (Breanna-Colace) 1 tab BID PO Last administered on 08:07; Start 02/17/17 at 09:00 Magnesium Citrate (Citroma Liq) 300 ml ONCE ONCE PO Last administered on 08:45; Start 02/17/17 at 07:15; Stop 02/17/17 at 07:16; Status DC Clonidine 0.3 mg 0.3 mg Q8HR PO Last administered on 02/22/17 04:45; Start at 07:13 Dexmedetomidine HCl/Sodium Chloride (Precedex Inj/NS Inj) 50 ml @ 312 mls/hr BOLUS ONCE IV Last administered on 02/17/17 07:37; Start 02/17/17 at 07:45; Stop 02/17/17 at 07:54; Status DC Miscellaneous Information SPECIFIC LAB TO BE ... ONCE ONCE .XX Last administered on 02/20/17 09:23; Start 02/20/17 at 08:45; Stop 02/20/17 at 08:46 ; Status DC Oxycodone HCl (Roxicodone) 10 mg Q4H PRN PO PAIN >5 Last administered on 03:35; Start 02/19/17 at 11:45 Benzocaine/Menthol (Chloraseptic Mendez) 1 lozenge UNSCH PRN BUCCAL SORE THROAT Last administered on 02/19/17 17:44; Start 02/19/17 at 11:45 Alteplase, Recombinant 6 mg 6 mg UNSCH PRN IV FLUSH OCCLUDED PICC LINES; Start 02/20/17 at 09:15 Vancomycin HCl/ Sodium Chloride (Vancomycin Inj/ NS 500 ml Inj) 515 ml @ 250 mls/hr Q12H IV ; Start 02/20/17 at 22:00; Stop 02/20/17 at 22:00; Status DC Miscellaneous Information SPECIFIC LAB TO BE DRAWN:VANCOMY... ONCE ONCE .XX ; Start 02/22/17 at 09:45; Stop 02/22/17 at 09:46; Status DC Clindamycin HCl (Cleocin) 300 mg Q6HR PO Last administered on 02/22/17t 04:45; Start 02/21/17 at 18:00 A/P Assessment and Plan A/P Abscess and Cellulitis of the left chest wall abdominal wall cellulitis MRSA bacteremia Severe sepsis - Bacteremia due to MRSA, abscess cx MRSA - Status post incision and drainage of chest wall and abdomen per Dr. Ballesteros , 02/14 -antibiotics were switched to po clindamycin which he'll need to take for two weeks. -cleared by ID for discharge. -awaiting general surgery follow-up and recommendations. -continue pain control- ( spoke with the methadone clinic today; [phone]) Acute hypoxemic respiratory failure- resolved. -keep on oxygen as needed to keep O2 sat > 90% - OOB and ambulating daily. -passed the walk test ; no need for home oxygen. Hypotension-resolved - continue to monitor on tele. elevated LFT's due to hepatitis C - Hepatosplenomegaly on liver ultrasound - regular diet as tolerated. - f/u as outpatient. IVDU Alcohol abuse Opiate dependence - History of IV drug use with Dilaudid - Thiamine folate multivitamins - CIWA protocol - continue methadone to prevent withdraws (was on this at prior facility). sore throat; better. DVT GI prophylaxis - Teds SCDs - Subcutaneous heparin - Omeprazole Discharge Planning dc home when cleared by surgery. Tanisha Osorio MD Feb 22, 2017 10:53
[2017-02-22] MEDS: BENZOCAINE 6 MG/MENTHOL 10 MG LOZENGE BUCCAL PRN (15:58)
[2017-02-22] MEDS: REMOVE OLD PATCH T-DERMAL SCH (20:09)
[2017-02-23] MEDS: CLINDAMYCIN 150 MG CAP PO SCH ×4 (00:03→17:35)
[2017-02-23] MEDS: HYDROmorphone HCL PF 1 MG/ML VIAL IV PUSH PRN ×4 (00:04→12:55)
[2017-02-23 00:26] VITALS: BP 158/74; PULSE 78; RESP 18; TEMP 98.9; O2SAT 96
[2017-02-23] MEDS: cloNIDine HCL 0.3 MG TAB PO SCH ×2 (05:26→12:55)
[2017-02-23 08:00] VITALS: BP 180/87; PULSE 63; RESP 18; TEMP 98.4; O2SAT 93
[2017-02-23] MEDS: LACTOBACILLUS ACIDOPHILUS TAB PO SCH ×3 (08:00→17:35)
[2017-02-23] MEDS: REMOVE OLD PATCH T-DERMAL SCH (08:00)
[2017-02-23] MEDS: DOCUSATE SODIUM 50 MG/SENNA 8.6 MG TAB PO SCH (08:00)
[2017-02-23] MEDS: NICOTINE 21 MG/24 HR PATCH T-DERMAL SCH (08:00)
[2017-02-23] MEDS: POLYETHYLENE GLYCOL 17 GM PKG PO SCH (08:00)
[2017-02-23] MEDS: LACTULOSE SYRUP 20 GM/30 ML CUP PO SCH (08:00)
[2017-02-23] MEDS: PANTOPRAZOLE SODIUM 40 MG VIAL IV PUSH SCH (08:00)
[2017-02-23] MEDS: METHADONE HCL 10 MG TAB PO SCH (08:01)
[2017-02-23] MEDS: SODIUM CHLORIDE 0.9% FLUSH 10 ML FLUSH IV FLUSH SCH (08:02)
[2017-02-23] MEDS: BISACODYL 10 MG SUPP RECTAL SCH (08:02)
[2017-02-23] MEDS: BENEPROTEIN POWDER 1 PACK G-TUBE SCH ×3 (08:02→17:35)
--- NOTE | 2017-02-23 08:42 | HHI.PR ---
Subjective Remarks in no acute distress. complaining of muscle spasm on the left side. remains afebrile. d/w the RN. Objective Vitals Vital Signs Date Time Temp Pulse Resp B/P Pulse Ox O2 Delivery O2 Flow Rate FiO2 02/23/17 08:00 98.4 63 18 180/87 93 02/23/17 04:38 18 02/23/17 03:11 18 02/23/17 00:26 98.9 78 18 158/74 96 02/22/17 20:26 98.4 74 18 121/79 96 02/22/17 17:35 Nasal Cannula 2.00 02/22/17 16:00 98.8 75 19 136/75 95 02/22/17 12:07 94 Nasal Cannula 2.00 02/22/17 12:00 98.9 85 17 153/84 94 I/O 02/22/17 02/22/17 02/22/17 02/23/17 02/23/17 02/23/17 07:00 15:00 23:00 07:00 15:00 23:00 Intake Total 480 ml 945 ml 580 ml 480 ml Output Total 5 ml 30 ml 10 ml 0 ml Balance 475 ml 915 ml 570 ml 480 ml Intake Oral 480 ml 945 ml 580 ml 480 ml Drainage Total 5 ml 30 ml 10 ml 0 ml # Voids 2 9 2 2 # Bowel Movements 0 Result Diagram: 02/20/17 0534 Imaging Last Impressions Chest X-Ray 02/16/17 0600 Signed Impressions: Service Date/Time: January 02:35 - CONCLUSION: No significant change. Bibasilar atelectasis and small effusions are again noted. Dalton Mancilla MD Liver Ultrasound 02/13/17 0000 Signed Impressions: Service Date/Time: Monday, February 13, 2017 09:53 - CONCLUSION: Hepatosplenomegaly. Dalton Russell MD Abdomen X-Ray 02/13/17 0000 Signed Impressions: Service Date/Time: Monday, February 13, 2017 11:17 - CONCLUSION: 1. Nasogastric tube placement as above. Michael Goode MD Soft Tissue Ultrasound 02/10/17 0747 Signed Impressions: Service Date/Time: Friday, February 10, 2017 08:38 - CONCLUSION: Edematous tissues are present over the left chest without defined abscess. There is no fluid for aspiration or drainage. This can be easily followed by ultrasound.. Miguel Angel Goode MD FACR Chest CT 02/08/17 0000 Signed Impressions: Service Date/Time: Wednesday, February 08, 2017 09:15 - CONCLUSION: 1. Diffuse enlargement of the left pectoralis muscle with infiltration of the soft tissues surrounding the left pectoralis muscle suggestive of injury/tear of this muscle. Clinical correlation is recommended. 2. Tiny bilateral pleural effusions with bibasilar atelectasis. 3. Cardiomegaly and coronary artery calcifications. 4. Mild splenomegaly. 5. Left adrenal nodule measuring 2.4 x 2.2 cm. 5. Mild degenerative changes and scoliosis of the thoracolumbar spine. Jose Reddy MD Ribs X-Ray 02/07/17 0000 Signed Impressions: Service Date/Time: Tuesday, February 07, 2017 23:39 - CONCLUSION: No definite displaced rib fractures. K. Aries Sandoval MD Objective Remarks GENERAL: This is a well-nourished, well-developed patient, in no apparent distress. CARDIOVASCULAR: Regular rate and regular rhythm without murmurs, gallops, or rubs. RESPIRATORY: Clear to auscultation. Breath sounds equal bilaterally. No wheezes , rales, or rhonchi. GASTROINTESTINAL: Abdomen soft, non-tender, nondistended. Normal, active bowel sounds MUSCULOSKELETAL: Extremities without clubbing, cyanosis, or edema- tense muscles on left back/ flank NEURO: Alert & Oriented x4 to person, place, time, situation. Moves all ext x4 skin; RLQ covered with clean dressing and drain in place on left chest wall Procedures I/D of the chest wall abscess I/D of the abdominal wall cellulitis Medications and IVs Current Medications Morphine Sulfate (Morphine Inj) 4 mg ONCE ONCE IV PUSH Last administered on 22:55; Start 02/07/17 at 22:15; Stop 02/07/17 at 22:16; Status DC Ondansetron HCl (Zofran Inj) 4 mg ONCE ONCE IVP Last administered on 22:55; Start 02/07/17 at 22:15; Stop 02/07/17 at 22:16; Status DC Sodium Chloride 2 ml 2 ml UNSCH PRN IV FLUSH FLUSH AFTER USING IV ACCESS; Start 02/07/17 at 22:15; Stop 02/08/17 at 05:22; Status DC Sodium Chloride (NS 1000 ml Inj) 1,000 ml @ 1,000 mls/hr Q1H ONCE IV Last administered on 02/08/17 00:27; Start 02/07/17 at 23:45; Stop 02/08/17 at 00:44 ; Status DC Ondansetron HCl (Zofran Inj) 4 mg ONCE ONCE IV ; Start 02/07/17 at 23:45; Stop 02/07/17 at 23:46; Status DC Hydromorphone HCl 1 mg 1 mg ONCE ONCE IV PUSH Last administered on 02/08/17 00:27; Start 02/07/17 at 23:45; Stop 02/07/17 at 23:46; Status DC Sodium Chloride 1,000 ml @ 1,000 mls/hr Q1H ONCE IV ; Start 02/08/17 at 02:01; Stop 02/08/17 at 03:00; Status DC Sodium Chloride 1,000 ml @ 1,000 mls/hr Q1H ONCE IV Last administered on 02:22; Start 02/08/17 at 02:01; Stop 02/08/17 at 03:00; Status DC Sodium Chloride 700 ml @ 1,000 mls/hr Q42M ONCE IV Last administered on 02:22; Start 02/08/17 at 02:01; Stop 02/08/17 at 02:42; Status DC Vancomycin HCl 1000 mg/Sodium Chloride 250 ml @ 250 mls/hr ONCE ONCE IV ; Start 02/08/17 at 02:15; Stop 02/08/17 at 03:14; Status Cancel Piperacillin Sod/ Tazobactam Sod (Zosyn 3.375 Gm Premix) 50 ml @ 100 mls/hr ONCE ONCE IV Last administered on 02/08/17 02:33; Start 02/08/17 at 02:15; Stop 02/08/17 at 02:44; Status DC Sodium Chloride (NS Flush) 2 ml UNSCH PRN IV FLUSH FLUSH AFTER USING IV ACCESS Last administered on 02/22/17 16:10; Start 02/08/17 at 02:45 Sodium Chloride (NS Flush) 2 ml BID IV FLUSH Last administered on 02/23/17 08: 02; Start 02/08/17 at 09:00 Ondansetron HCl (Zofran Inj) 4 mg Q6H PRN IVP NAUSEA OR VOMITING Last administered on 02/17/17 03:41; Start 02/08/17 at 02:45 Naloxone HCl 0.4 mg 0.4 mg UNSCH PRN IV SEE LABEL COMMENTS; Start 02/08/17 at 02:45 Pharmacy Profile Note 0 ml @ 0 mls/hr UNSCH OTHER ; Start 02/08/17 at 02:45; Stop 02/20/17 at 11:57; Status DC Piperacillin Sod/ Tazobactam Sod 100 ml @ 200 mls/hr Q6H IV Last administered on 02/09/17 14:40; Start 02/08/17 at 08:00; Stop 02/09/17 at 15:53; Status DC Ciprofloxacin/ Dextrose (Cipro 400 Mg Premix) 200 ml @ 200 mls/hr Q12H IV Last administered on 02/08/17 16:36; Start 02/08/17 at 04:00; Stop 02/09/17 at 15:54; Status DC Lactobacillus Acidophilus (Lactinex) 1 tab TID PO Last administered on 08:00; Start 02/08/17 at 09:00 Hydromorphone HCl (Dilaudid Pf Inj) 1 mg ONCE ONCE IV PUSH Last administered on 02/08/17 03:43; Start 02/08/17 at 03:15; Stop 02/08/17 at 03:16; Status DC Pantoprazole Sodium 40 mg 40 mg ONCE ONCE IV PUSH Last administered on 03:43; Start 02/08/17 at 03:15; Stop 02/08/17 at 03:16; Status DC Vancomycin HCl/ Sodium Chloride (Vancomycin Inj/ NS 500 ml Inj) 515 ml @ 257.5 mls/ hr ONCE ONCE IV Last administered on 02/08/17 07:39; Start 02/08/17 at 05:00; Stop 02/08/17 at 06:59; Status DC Ketorolac Tromethamine (Toradol Inj) 15 mg Q6H PRN IV PUSH pain >5; Start 02/08 at 05:15; Stop 02/08/17 at 05:51; Status DC Alprazolam (Xanax) 0.125 mg NOW ONCE PO Last administered on 02/08/17 06:14; Start 02/08/17 at 05:30; Stop 02/08/17 at 05:31; Status DC Hydromorphone HCl (Dilaudid Pf Inj) 1 mg Q4H PRN IV PUSH pain >5 Last administered on 02/08/17 06:24; Start 02/08/17 at 06:00; Stop 02/08/17 at 10:03 ; Status DC Methadone HCl (Dolophine) 20 mg ONCE ONCE PO Last administered on 02/08/17 06 :23; Start 02/08/17 at 06:15; Stop 02/08/17 at 06:18; Status DC Methadone HCl (Dolophine) 20 mg DAILY PO Last administered on 02/23/17 08:01; Start 02/08/17 at 09:00 Pantoprazole Sodium (Protonix) 40 mg DAILY PO Last administered on 02/14/17 08 :15; Start 02/09/17 at 09:00; Stop 02/15/17 at 17:39; Status DC Calcium Carbonate 500 mg 500 mg ONCE ONCE CHEW Last administered on 02/08/17 07:38; Start 02/08/17 at 08:00; Stop 02/08/17 at 08:01; Status DC Sodium Chloride 1,000 ml @ 125 mls/hr Q8H IV Last administered on 02/16/17 04 :21; Start 02/08/17 at 07:45; Stop 02/16/17 at 11:14; Status DC Vancomycin HCl/ Sodium Chloride (Vancomycin Inj/ NS 500 ml Inj) 515 ml @ 250 mls/hr Q12H IV Last administered on 02/09/17 08:48; Start 02/08/17 at 20:00; Stop 02/09/17 at 22:40; Status DC Miscellaneous Information SPECIFIC LAB TO BE DRAWN:VANCOMYCIN TROUGH DATE TO... ONCE ONCE .XX ; Start 02/09/17 at 19:45; Stop 02/09/17 at 19:46; Status DC Iohexol (Omnipaque 350 Inj) 63 ml STK-MED ONCE IV Last administered on 10:03; Start 02/08/17 at 10:03; Stop 02/08/17 at 10:04; Status DC Hydromorphone HCl (Dilaudid Pf Inj) 2 mg Q3HR PRN IV PUSH pain >5 Last administered on 02/10/17 09:30; Start 02/08/17 at 11:00; Stop 02/10/17 at 10:30 ; Status DC Flumazenil (Romazicon Inj) 0.2 mg Q1M PRN IV PUSH SEE LABEL COMMENTS; Start at 14:45 Lorazepam (Ativan) 1 mg Q4H PRN PO CIWA 8 - 10 Last administered on 02/12/17 10:31; Start 02/08/17 at 14:45 Lorazepam (Ativan Inj) 1 mg Q4H PRN IV PUSH CIWA 8 - 10 Last administered on 17:49; Start 02/08/17 at 14:45 Lorazepam (Ativan) 2 mg Q2H PRN PO CIWA 11-14; Start 02/08/17 at 14:45 Lorazepam (Ativan Inj) 2 mg Q2H PRN IV PUSH CIWA 11-14 Last administered on 08:01; Start 02/08/17 at 14:45 Lorazepam (Ativan Inj) 2 mg Q1H PRN IV PUSH CIWA 15-20 Last administered on 01:20; Start 02/08/17 at 14:45 Lorazepam (Ativan Inj) 2 mg Q15M PRN IV PUSH CIWA > 20; Start 02/08/17 at 14:45 Miscellaneous Information SPECIFIC LAB TO BE DRAWN:VANCO TROUGH DATE TO BE DR... ONCE ONCE .XX Last administered on 02/10/17 21:45; Start 02/10/17 at 21 :45; Stop 02/10/17 at 21:46; Status DC Vancomycin HCl/ Sodium Chloride (Vancomycin Inj/ NS 500 ml Inj) 515 ml @ 250 mls/hr Q12H IV Last administered on 02/10/17 22:59; Start 02/09/17 at 22:00; Stop 02/10/17 at 23:47; Status DC Hydromorphone HCl 0.5 mg 0.5 mg Q8HR PRN IV PUSH PAIN 8-10 Last administered on 02/16/17 17:43; Start 02/10/17 at 14:00; Stop 02/16/17 at 19:55; Status DC Clindamycin Phosphate 900 mg/ Sodium Chloride 106 ml @ 212 mls/hr Q8H IV Last administered on 02/21/17 04:11; Start 02/10/17 at 13:00; Stop 02/21/17 at 12:25 ; Status DC Vancomycin HCl/ Sodium Chloride (Vancomycin Inj/ NS 500 ml Inj) 515 ml @ 250 mls/hr Q8H IV Last administered on 02/20/17 09:45; Start 02/11/17 at 09:00; Stop 02/20/17 at 10:22; Status DC Miscellaneous Information SPECIFIC LAB TO BE SARAH... ONCE ONCE .XX ; Start 02/12 at 08:45; Stop 02/12/17 at 08:46; Status DC Nicotine (Habitrol 21 Mg Patch.24 Hr) 1 patch DAILY T-DERMAL Last administered on 02/23/17 08:00; Start 02/12/17 at 10:00 Miscellaneous Information 1 1 HS T-DERMAL Last administered on 02/23/17 08:00 ; Start 02/12/17 at 21:00 Calcium Gluconate/ Sodium Chloride (Calcium Gluconate Inj/NS Inj) 110 ml @ 110 mls/hr ONCE ONCE IV Last administered on 02/12/17 12:07; Start 02/12/17 at 11 :00; Stop 02/12/17 at 11:59; Status DC Miscellaneous Information SPECIFIC LAB TO BE SARAH... ONCE ONCE .XX ; Start 02/12 at 16:45; Stop 02/12/17 at 16:46; Status DC Ketamine HCl (Ketalar Inj) 500 mg STK-MED ONCE .ROUTE ; Start 02/12/17 at 15:34 ; Stop 02/12/17 at 15:35; Status DC Vancomycin HCl (Vancomycin Inj) 1,000 mg STK-MED ONCE .ROUTE Last administered on 02/12/17 16:40; Start 02/12/17 at 15:51; Stop 02/12/17 at 15:52; Status DC Vancomycin HCl 500 mg 500 mg STK-MED ONCE .ROUTE Last administered on 6/18/ 17at 16:40; Start 02/12/17 at 15:51; Stop 02/12/17 at 15:52; Status DC Propofol (Diprivan 1000 Mg/100ml Inj) 100 ml @ As Directed STK-MED ONCE .ROUTE Last administered on 02/12/17 17:50; Start 02/12/17 at 17:33; Stop 02/12/17 at 17:34; Status DC Midazolam HCl (Versed Inj) 2 mg STK-MED ONCE .ROUTE ; Start 02/12/17 at 18:09; Stop 02/12/17 at 18:10; Status DC Fentanyl Citrate (fentaNYL INJ) 250 mcg STK-MED ONCE .ROUTE ; Start 02/12/17 at 18:09; Stop 02/12/17 at 18:10; Status DC Cefazolin Sodium (Ancef Inj) 2,000 mg STK-MED ONCE .ROUTE Last administered on 02/12/17 16:40; Start 02/12/17 at 18:36; Stop 02/12/17 at 18:37; Status DC Miscellaneous Information ALL NURSING DEPARTME... UNSCH PRN .XX SEE LABEL COMMENTS; Start 02/12/17 at 18:45; Stop 02/13/17 at 18:44; Status DC Propofol 100 ml @ 0 mls/hr TITRATE IV Last administered on 02/13/17 05:14; Start 02/12/17 at 19:15; Stop 02/16/17 at 19:55; Status DC Midazolam HCl 100 ml @ 0 mls/hr TITRATE IV Last administered on 02/15/17 20:13 ; Start 02/12/17 at 20:00; Stop 02/16/17 at 11:15; Status DC Fentanyl Citrate 250 ml @ 0 mls/hr TITRATE IV Last administered on 02/15/17 20 :13; Start 02/12/17 at 20:00; Stop 02/16/17 at 19:55; Status DC Sodium Chloride (NS 1000 ml Inj) 2,000 ml @ 0 mls/hr BOLUS ONCE IV Last administered on 02/13/17 01:15; Start 02/13/17 at 01:15; Stop 02/13/17 at 01:16 ; Status DC Heparin Sodium (Porcine) 5000 units 5,000 units Q8HR SQ Last administered on 05:49; Start 02/13/17 at 06:00; Status Hold Multivitamins/ Thiamine HCl/ Folic Acid/ Dextrose/Sodium Chloride (Mvi-12 Inj/ Thiamine Inj/ Folvite Inj/ D5W-NS 500 ml Inj) 511.2 ml @ 125 mls/hr ONCE ONCE IV Last administered on 02/13/17 03:15; Start 02/13/17 at 03:30; Stop at 07:35; Status DC Insulin Aspart (NovoLOG SUPPLEMENTAL SCALE) 1 Q4H SQ ; Start 02/13/17 at 08:00; Stop 02/17/17 at 21:40; Status DC Dextrose (D50w (Vial) Inj) 25 ml UNSCH PRN IV HYPOGLYCEMIA - SEE COMMENTS; Start 02/13/17 at 08:15; Stop 02/17/17 at 21:40; Status DC Glucagon 1 mg 1 mg UNSCH PRN OTHER SEE LABEL COMMENTS; Start 02/13/17 at 08:15 ; Stop 02/17/17 at 21:40; Status DC Sodium Chloride 1,000 ml @ 999 mls/hr Q1H1M IV Last administered on 02/13/17 10:00; Start 02/13/17 at 10:00; Stop 02/13/17 at 11:00; Status DC Sodium Chloride (NS 1000 ml Inj) 1,000 ml @ 999 mls/hr BOLUS ONCE IV Last administered on 02/13/17 10:00; Start 02/13/17 at 10:00; Stop 02/13/17 at 11:00 ; Status DC Rocuronium [place] 50 mg 50 mg BOLUS ONCE IV Last administered on 02/13/17 10 :03; Start 02/13/17 at 10:00; Stop 02/13/17 at 10:01; Status DC Norepinephrine Bitartrate (Levophed-Dextrose Drip) 250 ml @ 0 mls/hr TITRATE IV Last administered on 02/13/17 10:17; Start 02/13/17 at 10:00; Stop 02/16/17 at 11:15; Status DC Terbutaline Sulfate (Brethine Inj) 1 mg UNSCH PRN SQ For Extravasation; Start 02/13/17 at 10:00; Stop 02/16/17 at 11:15; Status DC Albuterol/ Ipratropium (Duoneb Neb) 1 ampule Q6HR NEB NEB Last administered on 02/20/17 08:21; Start 02/13/17 at 10:00; Stop 02/20/17 at 11:15; Status DC Albuterol/ Ipratropium (Duoneb Neb) 1 ampule Q2HR NEB PRN NEB SHORTNESS OF BREATH; Start 02/13/17 at 10:00 Dexamethasone Sodium Phosphate (Decadron Inj) 4 mg Q6HR IV PUSH Last administered on 02/14/17 04:56; Start 02/13/17 at 12:00; Stop 02/14/17 at 11:59 ; Status DC Miscellaneous Information SPECIFIC LAB TO BE SARAH... ONCE ONCE .XX Last administered on 02/14/17 00:00; Start 02/14/17 at 00:45; Stop 02/14/17 at 00:46 ; Status DC Rocuronium [place] (Zemuron Inj) 50 mg STK-MED ONCE .ROUTE ; Start 02/14/17 at 16:13; Stop 02/14/17 at 16:14; Status DC Cefazolin Sodium (Ancef Inj) 3,000 mg STK-MED ONCE .ROUTE ; Start 02/14/17 at 17 :36; Stop 02/14/17 at 17:37; Status DC Rocuronium [place] (Zemuron Inj) 50 mg NOW ONCE IV Last administered on 14:45; Start 02/14/17 at 14:45; Stop 02/14/17 at 17:51; Status DC Lidocaine HCl (Xylocaine 1% Inj (50 ml)) 50 ml STK-MED ONCE .ROUTE ; Start 02/14 at 18:03; Stop 02/14/17 at 18:04; Status DC Gentamicin Sulfate (Gentamicin Inj) 240 mg STK-MED ONCE IRRIGATION Last administered on 02/14/17 19:51; Start 02/14/17 at 19:51; Stop 02/14/17 at 19:52 ; Status DC Midazolam HCl (Versed Inj) 4 mg STK-MED ONCE .ROUTE ; Start 02/14/17 at 21:22; Stop 02/14/17 at 21:23; Status DC Fentanyl Citrate (fentaNYL INJ) 500 mcg STK-MED ONCE .ROUTE ; Start 02/14/17 at 21:22; Stop 02/14/17 at 21:23; Status DC Protein (Beneprotein Powder) 2 pack TID G-TUBE Last administered on 02/16/17 08:56; Start 02/15/17 at 13:00 Dexamethasone Sodium Phosphate (Decadron Inj) 4 mg Q6HR IV PUSH Last administered on 02/17/17 05:23; Start 02/15/17 at 12:00; Stop 02/17/17 at 11:59 ; Status DC Metoclopramide HCl (Reglan Inj) 5 mg Q8H IV PUSH Last administered on 17:16; Start 02/15/17 at 18:00; Stop 02/16/17 at 19:55; Status DC Pantoprazole Sodium (Protonix Inj) 40 mg DAILY IV PUSH Last administered on 08:00; Start 02/16/17 at 09:00 Furosemide (Lasix Inj) 40 mg STAT ONCE IV PUSH Last administered on 02/16/17 11:26; Start 02/16/17 at 11:15; Stop 02/16/17 at 11:22; Status DC Racepinephrine (Racepinephrine 2.25% Neb) 0.5 ml Q4HR NEB PRN NEB stridor; Start 02/16/17 at 11:15 Hydralazine HCl (Apresoline Inj) 10 mg Q30M PRN IV PUSH FOR A GOAL SBP <180 Last administered on 02/16/17 22:19; Start 02/16/17 at 15:00; Stop 02/17/17 at 12:06; Status DC Hydromorphone HCl (Dilaudid Pf Inj) 1 mg Q4H PRN IV ; Start 02/16/17 at 20:00; Stop 02/16/17 at 20:00; Status DC Oxycodone HCl (Roxicodone) 5 mg Q4H PRN PO PAIN < 5 Last administered on 08:07; Start 02/16/17 at 20:00 Hydromorphone HCl 0.5 mg 0.5 mg Q4H PRN IV PUSH BREAKTHROUGH PAIN Last administered on 02/23/17 08:01; Start 02/16/17 at 20:00 Dexmedetomidine HCl/Sodium Chloride (Precedex Inj/NS Inj) 52 ml @ 0 mls/hr TITRATE IV ; Start 02/16/17 at 20:00; Stop 02/17/17 at 11:44; Status DC Furosemide (Lasix Inj) 40 mg ONCE ONCE IV PUSH Last administered on 02/17/17 08:45; Start 02/17/17 at 07:15; Stop 02/17/17 at 07:16; Status DC Bisacodyl (Dulcolax Supp) 10 mg DAILY RECTAL ; Start 02/17/17 at 09:00 Polyethylene Glycol (Miralax) 17 gm BID PO Last administered on 02/23/17 08:00 ; Start 02/17/17 at 09:00 Lactulose (Lactulose Liq) 30 ml BID PO Last administered on 02/23/17 08:00; Start 02/17/17 at 09:00 Senna/Docusate Sodium (Breanna-Colace) 1 tab BID PO Last administered on 08:00; Start 02/17/17 at 09:00 Magnesium Citrate (Citroma Liq) 300 ml ONCE ONCE PO Last administered on 08:45; Start 02/17/17 at 07:15; Stop 02/17/17 at 07:16; Status DC Clonidine 0.3 mg 0.3 mg Q8HR PO Last administered on 02/23/17 05:26; Start at 07:13 Dexmedetomidine HCl/Sodium Chloride (Precedex Inj/NS Inj) 50 ml @ 312 mls/hr BOLUS ONCE IV Last administered on 02/17/17 07:37; Start 02/17/17 at 07:45; Stop 02/17/17 at 07:54; Status DC Miscellaneous Information SPECIFIC LAB TO BE SARAH... ONCE ONCE .XX Last administered on 02/20/17 09:23; Start 02/20/17 at 08:45; Stop 02/20/17 at 08:46 ; Status DC Oxycodone HCl (Roxicodone) 10 mg Q4H PRN PO PAIN >5 Last administered on 06:19; Start 02/19/17 at 11:45 Benzocaine/Menthol (Chloraseptic Mendez) 1 lozenge UNSCH PRN BUCCAL SORE THROAT Last administered on 02/19/17 17:44; Start 02/19/17 at 11:45 Alteplase, Recombinant 6 mg 6 mg UNSCH PRN IV FLUSH OCCLUDED PICC LINES; Start 02/20/17 at 09:15 Vancomycin HCl/ Sodium Chloride (Vancomycin Inj/ NS 500 ml Inj) 515 ml @ 250 mls/hr Q12H IV ; Start 02/20/17 at 22:00; Stop 02/20/17 at 22:00; Status DC Miscellaneous Information SPECIFIC LAB TO BE DRAWN:VANCOMY... ONCE ONCE .XX ; Start 02/22/17 at 09:45; Stop 02/22/17 at 09:46; Status DC Clindamycin HCl (Cleocin) 300 mg Q6HR PO Last administered on 02/23/17t 05:25; Start 02/21/17 at 18:00 A/P Assessment and Plan A/P Abscess and Cellulitis of the left chest wall abdominal wall cellulitis MRSA bacteremia Severe sepsis - Bacteremia due to MRSA, abscess cx MRSA - Status post incision and drainage of chest wall and abdomen per Dr. Ballesteros , 02/14 -antibiotics were switched to po clindamycin which he'll need to take for two weeks. -cleared by ID for discharge. -awaiting general surgery follow-up and recommendations. -continue pain control- (previosuly spoke with the methadone clinic ; ) Acute hypoxemic respiratory failure- resolved. -keep on oxygen as needed to keep O2 sat > 90% - OOB and ambulating daily. -passed the walk test ; no need for home oxygen. Hypotension-resolved elevated LFT's due to hepatitis C - Hepatosplenomegaly on liver ultrasound - regular diet as tolerated. - f/u as outpatient. IVDU Alcohol abuse Opiate dependence - History of IV drug use with Dilaudid - Thiamine folate multivitamins - CIWA protocol - continue methadone to prevent withdraws (was on this at prior facility). -counselled on illicit drug abuse cessation. DVT GI prophylaxis - Teds SCDs - Subcutaneous heparin - Omeprazole Discharge Planning dc home when cleared by surgery-hopefully soon. see med list. f/u; pcp, methadone clinic. d/w the patient and RN. d/w the case management. time spent 35 min. Tanisha Osorio MD Feb 23, 2017 08:42
--- NOTE | 2017-02-23 08:43 | HHI.DS ---
Discharge Summary Admission Date Feb 08, 2017 at 02:10 Discharge Date: Feb 23, 2017 Admitting Diagnosis Left chest wall injury, Left lung infiltrate, tachycardia (1) Abdominal wall cellulitis ICD Code: L03.311 Diagnosis: Principal (2) Chest wall abscess ICD Code: L02.213 Diagnosis: Principal Procedures I/D of the chest wall abscess I/D of the abdominal wall cellulitis Brief History - From Admission history from patient, at the bedside, and review of medical records. Patient reported that on February 02, 2017, he was trying to lift a 50 inch TV as they were moving into a new home. In so doing, he felt he pulled a muscle on his left pectoralis and felt a pop. He presented to our emergency room on February 04, 2017 and has had a chest x-ray and CT chest done which was essentially negative. He was discharged home on Flexeril. He reports that for the past 4 days, he has been in severe pain, and was not able to move much at all. He was not able to sleep or lie down flat at all. He reports it hurts even when he takes a deep breath. His muscle on the left pectoralis also had gotten bigger and bigger and swollen. He reports he took multiple doses of aspirin and multiple doses of Tylenol to numb the pain. He then started having bloody urination which was why he also came to hospital. He denies any fever though. Denies any cough. Denies any urinary burning or pain on urination. Denies diarrhea. He states that the left pectoralis muscle area though is quite warm and he and are worried about infection. Patient has had prior history of IV drug abuse with IV heroin, Dilaudid, fentanyl. He stated he quit all that about 2 years ago and was on methadone clinic. He then weaned himself off methadone and has been off it for past 2 years now. In the emergency room, patient was found to have leukocytosis with left shift and bandemia, lactic acid acidosis. He was also in quite significant pain and quite uncomfortable at the time of my exam. CBC/BMP: 02/20/17 0534 Significant Findings Laboratory Tests Test 02/20/17 09:23 Vancomycin Level Trough 23.2 MCG/ML (5.0-10.0) Imaging Last Impressions Chest X-Ray 02/16/17 0600 Signed Impressions: Service Date/Time: January 02:35 - CONCLUSION: No significant change. Bibasilar atelectasis and small effusions are again noted. Dalton Mancilla MD Liver Ultrasound 02/13/17 0000 Signed Impressions: Service Date/Time: Monday, February 13, 2017 09:53 - CONCLUSION: Hepatosplenomegaly. Dalton Russell MD Abdomen X-Ray 02/13/17 0000 Signed Impressions: Service Date/Time: Monday, February 13, 2017 11:17 - CONCLUSION: 1. Nasogastric tube placement as above. Michael Goode MD Soft Tissue Ultrasound 02/10/17 0747 Signed Impressions: Service Date/Time: Friday, February 10, 2017 08:38 - CONCLUSION: Edematous tissues are present over the left chest without defined abscess. There is no fluid for aspiration or drainage. This can be easily followed by ultrasound.. Miguel Angel Goode MD FACR Chest CT 02/08/17 0000 Signed Impressions: Service Date/Time: Wednesday, February 08, 2017 09:15 - CONCLUSION: 1. Diffuse enlargement of the left pectoralis muscle with infiltration of the soft tissues surrounding the left pectoralis muscle suggestive of injury/tear of this muscle. Clinical correlation is recommended. 2. Tiny bilateral pleural effusions with bibasilar atelectasis. 3. Cardiomegaly and coronary artery calcifications. 4. Mild splenomegaly. 5. Left adrenal nodule measuring 2.4 x 2.2 cm. 5. Mild degenerative changes and scoliosis of the thoracolumbar spine. Jose Reddy MD Ribs X-Ray 02/07/17 0000 Signed Impressions: Service Date/Time: Tuesday, February 07, 2017 23:39 - CONCLUSION: No definite displaced rib fractures. Amber Sandoval MD PE at Discharge GENERAL: This is a well-nourished, well-developed patient, in no apparent distress. CARDIOVASCULAR: Regular rate and regular rhythm without murmurs, gallops, or rubs. RESPIRATORY: Clear to auscultation. Breath sounds equal bilaterally. No wheezes , rales, or rhonchi. GASTROINTESTINAL: Abdomen soft, non-tender, nondistended. Normal, active bowel sounds MUSCULOSKELETAL: Extremities without clubbing, cyanosis, or edema- tense muscles on left back/ flank NEURO: Alert & Oriented x4 to person, place, time, situation. Moves all ext x4 skin; RLQ covered with clean dressing and drain in place on left chest wall Hospital Course Abscess and Cellulitis of the left chest wall abdominal wall cellulitis MRSA bacteremia Severe sepsis - Bacteremia due to MRSA, abscess cx MRSA - Status post incision and drainage of chest wall and abdomen per Dr. Ballesteros , 02/14 -antibiotics were switched to po clindamycin which he'll need to take for two weeks. -cleared by ID for discharge. -awaiting general surgery follow-up and recommendations. -continue pain control- (previosuly spoke with the methadone clinic ; ) Acute hypoxemic respiratory failure- resolved. -keep on oxygen as needed to keep O2 sat > 90% - OOB and ambulating daily. -passed the walk test ; no need for home oxygen. Hypotension-resolved elevated LFT's due to hepatitis C - Hepatosplenomegaly on liver ultrasound - regular diet as tolerated. - f/u as outpatient. IVDU Alcohol abuse Opiate dependence - History of IV drug use with Dilaudid - Thiamine folate multivitamins - CIWA protocol - continue methadone to prevent withdraws (was on this at prior facility). -counselled on illicit drug abuse cessation. Pt Condition on Discharge: Good Discharge Disposition: Discharge Home Discharge Time: > 30 minutes Discharge Instructions DIET: Follow Instructions for: Heart Healthy Diet Activities you can perform: Regular-No Restrictions Follow up Referrals: PCP Follow-up New Medications: Clindamycin (Clindamycin) 300 Mg Cap 300 MG PO TID Infection #42 Ref 0 CAP Methadone (Methadone) 10 Mg Tab 20 MG PO DAILY needs to be followed up by methadone clinic. Pain Management Days 30 Ref 0 TAB Tanisha Osorio MD Feb 23, 2017 08:43
--- NOTE | 2017-02-23 08:43 | HHI.DCPOC ---
Discharge Care Plan Diagnosis: (1) Chest wall abscess (2) Abdominal wall cellulitis Your Health Problems Are: Inflammation Swelling Goals to Promote Your Health * To prevent worsening of your condition and complications * To maintain your health at the optimal level Directions to Meet Your Goals Take your medications as prescribed Follow your dietary instruction Follow activity as directed Keep your appointments as scheduled Take your immunizations and boosters as scheduled If your symptoms worsen call your PCP, if no PCP go to Urgent Care Center or Emergency Room Smoking is Dangerous to Your Health. Avoid second hand smoke Call the 24-hour hour crisis hotline for domestic abuse at Tanisha Osorio MD Feb 23, 2017 08:42
[2017-02-23] MEDS ORDERED: BACLOFEN 10 MG TAB PO PRN (08:45)
[2017-02-23] MEDS ORDERED: PILL SPLITTER OTHER PRN (09:00)
--- NOTE | 2017-02-23 11:05 | HHI.PR ---
Subjective Subjective Notes Up to chair +BM Ready to go home Objective Vitals/I&O Vital Signs Date Time Temp Pulse Resp B/P Pulse Ox O2 Delivery O2 Flow Rate FiO2 02/23/17 08:00 98.4 63 18 180/87 93 02/22/17 17:35 Nasal Cannula 2.00 02/21/17 12:10 21 Labs Date/Time Procedure Status Source Growth 02/21/17 16:20 Group A Streptococcus Screen - Final Complete Throat NO GP A BETA STREP ISOLATED. 02/21/17 16:20 Group A Streptococcus Screen ([facility]) - Final Complete Throat Radiology Last [address] 02/08/17 0000 Signed Impressions: Service Date/Time: Wednesday, February 08, 2017 09:15 - CONCLUSION: 1. Diffuse enlargement of the left pectoralis muscle with infiltration of the soft tissues surrounding the left pectoralis muscle suggestive of injury/tear of this muscle. Clinical correlation is recommended. 2. Tiny bilateral pleural effusions with bibasilar atelectasis. 3. Cardiomegaly and coronary artery calcifications. 4. Mild splenomegaly. 5. Left adrenal nodule measuring 2.4 x 2.2 cm. 5. Mild degenerative changes and scoliosis of the thoracolumbar spine. Jose Reddy MD Cardiovascular: Regular Lungs: Clear Abdomen: Non-distended, Non-tender Narrative Exam LEFT chest ---minimal drainage on dressing LLQ---partially sutured closed incision ----mild drainage --- ELYSE with minimal SS drainage A/P Assessment and Plan 51 year old male with pectoralis muscle tear; LEFT chest wall cellulitis -Wet to dry dressing to LLQ and LEFT chest -s/p I&D LEFT chest with Wound Vac placement and ELYSE drain placement; closure of LLQ incision -DC ELYSE -Antibiotics on chart -GS clear for DC -Follow up with Dr. Ballesteros on March 06 for suture removal and wound check Wilma Ochoa Feb 23, 2017 11:05
[2017-02-23 12:00] VITALS: BP 131/87; PULSE 68; RESP 17; TEMP 98.6; O2SAT 95
[2017-02-23 16:00] VITALS: BP 120/84; PULSE 75; RESP 18; TEMP 99.3; O2SAT 95
[2017-02-23 17:27] LABS: BLOOD, URINE NEG (NEG); COMMENT (UR) CULT NOT INDICATED; CULTURE IF INDICATED CULT NOT INDICATED; GLUCOSE,URINE NEG (NEG); KETONE, URINE NEG (NEG); NITRITE,URINE NEG (NEG); URINE COLOR YELLOW (YELLW/STRAW)
== END 2017-02-23 18:35 | disposition home or self-care (01) | DRG 871 ==
LOC: NEPE 21:33 → NEDA 02-08 02:10 → NEPFCDU 02-08 04:08 → N04B 02-08 17:23 → N04A 02-09 14:06 → N03B 02-12 16:30 → N07A 02-17 12:37
PROVIDERS: ADMIT Internal Medicine; ATTEND Internal Medicine
PROC: 5A1945Z Respiratory Ventilation, 24-96 Consecutive Hours (ICD-10-PCS; 2017-02-12)
PROC: 0H95X0Z Drainage of Chest Skin with Drainage Device, External Approach (ICD-10-PCS; 2017-02-12)
PROC: 0H97XZZ Drainage of Abdomen Skin, External Approach (ICD-10-PCS; principal; 2017-02-12 15:47)
PROC: 0HQ7XZZ Repair Abdomen Skin, External Approach (ICD-10-PCS; 2017-02-14)
PROC: 0HD5XZZ Extraction of Chest Skin, External Approach (ICD-10-PCS; 2017-02-14)
DX: A41.9 Sepsis, unspecified organism (principal); J96.01 Acute respiratory failure with hypoxia; E87.2 Acidosis; E27.8 Other specified disorders of adrenal gland; I95.9 Hypotension, unspecified; E87.1 Hypo-osmolality and hyponatremia; F11.20 Opioid dependence, uncomplicated; L02.213 Cutaneous abscess of chest wall; L03.311 Cellulitis of abdominal wall; J98.11 Atelectasis; L03.313 Cellulitis of chest wall; R16.2 Hepatomegaly with splenomegaly, not elsewhere classified; S29.011A Strain of muscle and tendon of front wall of thorax, initial encounter; I10 Essential (primary) hypertension; F17.210 Nicotine dependence, cigarettes, uncomplicated; X50.0XXA Overexertion from strenuous movement or load, initial encounter; X50.9XXA Other and unspecified overexertion or strenuous movements or postures, initial encounter; Y93.89 Activity, other specified; Y92.9 Unspecified place or not applicable; Y99.9 Unspecified external cause status; F19.90 Other psychoactive substance use, unspecified, uncomplicated; R00.0 Tachycardia, unspecified; B19.20 Unspecified viral hepatitis C without hepatic coma; R31.9 Hematuria, unspecified; T39.015A Adverse effect of aspirin, initial encounter; E86.0 Dehydration; Z86.14 Personal history of Methicillin resistant Staphylococcus aureus infection; F10.10 Alcohol abuse, uncomplicated; R65.20 Severe sepsis without septic shock
CPT/HCPCS: 31500; 36600; 71010; 71101; 71260; 74000; 76705; 76937; 76999; 80048; 80053; 80076; 80202; 80307; 81001; 82550; 82565; 82805; 82948; 83036; 83605; 83735; 84155; 84443; 84484; 85007; 85025; 85027; 85610; 85730; 86403; 86592; 87040; 87070; 87081; 87147; 87149; 87186; 87205; 87641; 87880; 93005; 93308; 94002; 94003; 94150; 94620; 94640; 94664; 94667; 94668; 96361; 96374; 96375; C9113; J0360; J0610; J0690; J0744; J1100; J1170; J1580; J1644; J1940; J2060; J2250; J2270; J2370; J2405; J2543; J2765; J3010; J3370; J3411; J7030; J7040; J7042; J7120; Q9967

== ENCOUNTER 2017-12-19 13:18 | Emergency (ER) | payer SELFPAY ==
[~2017-12-19 13:18] MED LIST changes: +CLIN300C5 PO; -CYCL1TAB29 PO
[2017-12-19 13:24] VITALS: BP 184/108; PULSE 96; RESP 20; TEMP 97; O2SAT 97
[2017-12-19 14:22] LABS: BASOPHIL % 0.3 % (0.0-2.0); EOSINOPHIL # 0.1 TH/MM3 (0-0.4); EOSINOPHIL % 0.8 % (0.0-4.0); HEMATOCRIT 43.9 % (39.0-51.0); HEMOGLOBIN 15.1 GM/DL (13.0-17.0); LYMPH % 25.5 % (9.0-44.0); LYMPHOCYTE # 2.7 TH/MM3 (1.0-4.8); MEAN CELL VOLUME 99.6 FL (80.0-100.0); MEAN CORPUSCULAR HEMOGLOBIN 34.2 PG (27.0-34.0); MEAN CORPUSCULAR HGB CONC 34.4 % (32.0-36.0); MEAN PLATELET VOLUME 9.2 FL (7.0-11.0); MONO % 7.8 % (0.0-8.0); MONOCYTE # 0.8 TH/MM3 (0-0.9); NEUT % 65.6 % (16.0-70.0); PLATELET COUNT 180 TH/MM3 (150-450); RED BLOOD COUNT 4.41 MIL/MM3 (4.50-5.90); RED CELL DISTRIBUTION WIDTH 13.4 % (11.6-17.2); WHITE BLOOD COUNT 10.7 TH/MM3 (4.0-11.0)
[2017-12-19 14:40] LABS: ALBUMIN 3.4 GM/DL (3.4-5.0); ALT (GPT) 77 U/L (12-78); AST (GOT) 65 U/L (15-37); BICARBONATE 26.7 MEQ/L (21.0-32.0); BLOOD UREA NITROGEN 22 MG/DL (7-18); CALCIUM 8.8 MG/DL (8.5-10.1); CHLORIDE 99 MEQ/L (98-107); GLOMERULAR FILTRATION RATE 88 ML/MIN (>89); GLUCOSE,RANDOM 105 MG/DL (74-106); SODIUM (NA) 134 MEQ/L (136-145)
[2017-12-19 14:42] LABS: ALKALINE PHOSPHATASE 81 U/L (45-117); TOTAL BILIRUBIN ADULT 0.8 MG/DL (0.2-1.0); TOTAL PROTEIN 8.6 GM/DL (6.4-8.2)
[2017-12-19] MEDS ORDERED: LIDOCAINE 1%/EPINEPHrine 1:100,000 SOLN 20 ML VIAL INFIL ONE (14:45)
[2017-12-19] MEDS ORDERED: BACT800T5 PO (14:51)
--- NOTE | 2017-12-19 14:51 | PD ---
HPI . Abscess Chief Complaint: Skin Problem Time Seen by Provider: 14:18 Travel History International Travel<30 days: No Contact w/Intl Traveler<30days: No Traveled to known affect area: No History of Present Illness HPI This patient presents with an abscess on his left forearm. Onset was about 4 days ago. He has actually I indeed it at home himself with a thelma knife. He states that he got a lot of pus out. He believes that there is more pus in the wound. He states that it started bleeding causing him to present to us. He has no associated fever. Pain is rated 9/10 and is exacerbated by palpation. PFSH Past Medical History Autoimmune Disease: No Blood Disorders: No Anxiety: No Depression: No Cancer: No Cardiovascular Problems: No Cerebrovascular Accident: No Diabetes: No Diminished Hearing: No Endocrine: No Genitourinary: No Headaches: No Hepatitis: Yes (C) Immune Disorder: No Musculoskeletal: Yes Neurologic: No Psychiatric: No Reproductive: No Respiratory: No Immunizations Current: Yes Migraines: No Seizures: No Thyroid Disease: No Past Surgical History Tonsillectomy: Yes Other Surgery: No Social History Alcohol Use: Yes (1-2 beers a day) Tobacco Use: Yes (3 PPD) Substance Use: Yes (methadone) Allergies-Medications (Allergen,Severity, Reaction): Coded Allergies: acetaminophen (Unverified Allergy, Unknown, 12/19/17) *MDRO Multi-Drug Resistant Organism (Unverified Adverse Reaction, Unknown , 12/19/17) MRSA arm wound, 2004. MRSA (blood)-02/08/17 MRSA (chest)-02/12/17 Reported Meds & Prescriptions Reported Meds & Active Scripts Active Bactrim DS (Sulfamethoxazole-Trimethoprim) 800-160 Mg Tab 1 Tab PO BID Methadone (Methadone HCl) 10 Mg Tab 20 Mg PO DAILY 30 Days needs to be followed up by methadone clinic. Clindamycin (Clindamycin HCl) 300 Mg Cap 300 Mg PO TID Review of Systems Except as stated in HPI: all other systems reviewed are Neg Physical Exam Narrative GENERAL: Awake and alert and in no acute distress. SKIN: Warm and dry. He has an abscess on the left arm which is tender to palpation. HEAD: Normocephalic/atraumatic. EYES: Pupils are equal. Extraocular movements are intact. NECK: Normal range of motion. CARDIOVASCULAR: Regular rate and rhythm. RESPIRATORY: Nonlabored respirations. MUSCULOSKELETAL: Atraumatic. NEUROLOGICAL: Nonfocal. PSYCHIATRIC: Appropriate mood and affect. Data Data Last Documented VS Vital Signs Date Time Temp Pulse Resp B/P (MAP) Pulse Ox O2 Delivery O2 Flow Rate FiO2 12/19/17 13:24 97.0 96 20 184/108 (133) 97 Orders Orders Complete Blood Count With Diff (12/19/17 13:31) Comprehensive Metabolic Panel (12/19/17 13:31) Lidocai-Epi 1%-1:100,000 Inj (Xylocaine- (12/19/17 15:00) Tetanus/Diphtheria Tox Adult (Tetanus/Di (12/19/17 15:30) Labs Laboratory Tests Test 12/19/17 13:45 White Blood Count 10.7 TH/MM3 Red Blood Count 4.41 MIL/MM3 Hemoglobin 15.1 GM/DL Hematocrit 43.9 % Mean Corpuscular Volume 99.6 FL Mean Corpuscular Hemoglobin 34.2 PG Mean Corpuscular Hemoglobin Concent 34.4 % Red Cell Distribution Width 13.4 % Platelet Count 180 TH/MM3 Mean Platelet Volume 9.2 FL Neutrophils (%) (Auto) 65.6 % Lymphocytes (%) (Auto) 25.5 % Monocytes (%) (Auto) 7.8 % Eosinophils (%) (Auto) 0.8 % Basophils (%) (Auto) 0.3 % Neutrophils # (Auto) 7.0 TH/MM3 Lymphocytes # (Auto) 2.7 TH/MM3 Monocytes # (Auto) 0.8 TH/MM3 Eosinophils # (Auto) 0.1 TH/MM3 Basophils # (Auto) 0.0 TH/MM3 CBC Comment DIFF FINAL Differential Comment Blood Urea Nitrogen 22 MG/DL Creatinine 0.90 MG/DL Random Glucose 105 MG/DL Total Protein 8.6 GM/DL Albumin 3.4 GM/DL Calcium Level 8.8 MG/DL Alkaline Phosphatase 81 U/L Aspartate Amino Transf (AST/SGOT) 65 U/L Alanine Aminotransferase (ALT/SGPT) 77 U/L Total Bilirubin 0.8 MG/DL Sodium Level 134 MEQ/L Potassium Level 4.2 MEQ/L Chloride Level 99 MEQ/L Carbon Dioxide Level 26.7 MEQ/L Anion Gap 8 MEQ/L Estimat Glomerular Filtration Rate 88 ML/MIN MDM Medical Decision Making Medical Screen Exam Complete: Yes Emergency Medical Condition: Yes Differential Diagnosis My differential diagnosis closed but is not limited to abscess, cyst, lipoma Narrative Course This patient presents with an abscess to his left arm. It will be anesthetized , explored and probably I&D and probably packed. Please see the accompanying procedure note. This tetanus will be updated and he will be discharged home with a prescription for Bactrim. Return in 2 days for recheck. Diagnosis Primary Impression: Abscess of left arm Patient Instructions: Abscess (ED), General Instructions Med/Other Pt SpecificInfo: Prescription(s) given Scripts Sulfamethoxazole-Trimethoprim (Bactrim DS) 800-160 Mg Tab 1 TAB PO BID for Infection, #20 TAB 0 Refills Prov: Myla Velásquez MD 12/19/17 Disposition: 01 DISCHARGE HOME Condition: Stable Myla Velásquez MD Dec 19, 2017 14:51
[2017-12-19] MEDS ORDERED: LIDOCAINE 1%/EPINEPHrine 1:100,000 SOLN 30 ML VIAL INFIL ONE (15:00)
--- NOTE | 2017-12-19 15:22 | PD ---
Physical Exam Time Seen by Provider: 15:18 Narrative I was asked to incised, drained, and packed the abscess to the left antecubital area. Data Data Last Documented VS Vital Signs Date Time Temp Pulse Resp B/P (MAP) Pulse Ox O2 Delivery O2 Flow Rate FiO2 12/19/17 13:24 97.0 96 20 184/108 (133) 97 Orders Orders Complete Blood Count With Diff (12/19/17 13:31) Comprehensive Metabolic Panel (12/19/17 13:31) Lidocai-Epi 1%-1:100,000 Inj (Xylocaine- (12/19/17 15:00) Labs Laboratory Tests Test 12/19/17 13:45 White Blood Count 10.7 TH/MM3 Red Blood Count 4.41 MIL/MM3 Hemoglobin 15.1 GM/DL Hematocrit 43.9 % Mean Corpuscular Volume 99.6 FL Mean Corpuscular Hemoglobin 34.2 PG Mean Corpuscular Hemoglobin Concent 34.4 % Red Cell Distribution Width 13.4 % Platelet Count 180 TH/MM3 Mean Platelet Volume 9.2 FL Neutrophils (%) (Auto) 65.6 % Lymphocytes (%) (Auto) 25.5 % Monocytes (%) (Auto) 7.8 % Eosinophils (%) (Auto) 0.8 % Basophils (%) (Auto) 0.3 % Neutrophils # (Auto) 7.0 TH/MM3 Lymphocytes # (Auto) 2.7 TH/MM3 Monocytes # (Auto) 0.8 TH/MM3 Eosinophils # (Auto) 0.1 TH/MM3 Basophils # (Auto) 0.0 TH/MM3 CBC Comment DIFF FINAL Differential Comment Blood Urea Nitrogen 22 MG/DL Creatinine 0.90 MG/DL Random Glucose 105 MG/DL Total Protein 8.6 GM/DL Albumin 3.4 GM/DL Calcium Level 8.8 MG/DL Alkaline Phosphatase 81 U/L Aspartate Amino Transf (AST/SGOT) 65 U/L Alanine Aminotransferase (ALT/SGPT) 77 U/L Total Bilirubin 0.8 MG/DL Sodium Level 134 MEQ/L Potassium Level 4.2 MEQ/L Chloride Level 99 MEQ/L Carbon Dioxide Level 26.7 MEQ/L Anion Gap 8 MEQ/L Estimat Glomerular Filtration Rate 88 ML/MIN [facility] Supervised Visit with [facility]: Yes Narrative Course I was asked to incised, drained, and packed the abscess to the left antecubital area. Abscesses from IV drug use. The patient incised the abscess prior to arrival and says it drained out a lot of purulent drainage, prior to arrival. He came in because the site was bleeding and he could not get it under control. See my procedure note for incision, drainage and package per Procedures Procedure Narrative INCISION AND DRAINAGE OF ABSCESS: The area was prepped and was sterilely draped. A subcutaneous wheal of 1 % Xylocaine with epinephrine a total number 2 mL was used to anesthetize the area properly. A number 11 scalpel was used to make a 1 -cm incision across the area of the abscess. The abscess was drained, complex loculations were broken down, and irrigated with normal saline. Cultures were obtained. Quarter inch iodoform packing was placed in the wound. Sterile dressing applied. Patient advised to have packing removed in two days. Diagnosis Primary Impression: Abscess of left arm Scripts Sulfamethoxazole-Trimethoprim (Bactrim DS) 800-160 Mg Tab 1 TAB PO BID for Infection, #20 TAB 0 Refills Prov: Myla Velásquez MD 12/19/17 Disposition: DISCHARGE HOME Condition: Stable Sarai Alan Dec 19, 2017 15:22
[2017-12-19] MEDS ORDERED: TETANUS/DIPHTHERIA TOXOID ADULT 0.5 ML VIAL IM ONE (15:30)
== END 2017-12-19 16:06 | disposition home or self-care (01) ==
LOC: NEPD 13:18
DX: L02.414 Cutaneous abscess of left upper limb (principal); F17.200 Nicotine dependence, unspecified, uncomplicated; Z23 Encounter for immunization
CPT/HCPCS: 10060; 80053; 85025; 90471; 90714

== ENCOUNTER 2018-02-08 19:29 | Emergency (ER) | payer SELFPAY ==
[~2018-02-08] VITALS: Ht 180.3 cm; Wt 89.0 kg
[~2018-02-08 19:29] MED LIST changes: +BACT800T5 PO
[2018-02-08 21:01] VITALS: BP 186/97; PULSE 93; RESP 20; TEMP 98.1; TEMP 98.4; O2SAT 100
== END 2018-02-08 23:17 | disposition left against medical advice (07) ==
LOC: NED 19:29
DX: R23.9 Unspecified skin changes (principal); Z53.21 Procedure and treatment not carried out due to patient leaving prior to being seen by health care provider
CPT/HCPCS: 99281

== ENCOUNTER 2018-02-11 14:16 | Emergency (ER) | payer SELFPAY ==
[~2018-02-11] VITALS: Ht 172.7 cm; Wt 90.0 kg
[2018-02-11 14:29] VITALS: BP 190/91; PULSE 80; RESP 16; TEMP 97.6; O2SAT 98
[2018-02-11] MEDS ORDERED: CEPH-460 PO (15:02)
[2018-02-11] MEDS ORDERED: BACT800T5 PO (15:02)
--- NOTE | 2018-02-11 15:02 | PD ---
HPI Chief Complaint: Skin Problem Time Seen by Provider: 14:47 Travel History International Travel<30 days: No Contact w/Intl Traveler<30days: No Traveled to known affect area: No History of Present Illness HPI This is a 52-year-old male who presents to the emergency department with an abscess on his right forearm that he incised with a knife yesterday. He got some pus out but is gotten increasingly red throughout the day today, constant, moderate severity with no associated fevers or chills. He has a history of frequent abscesses on his forearms. 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 He had a severe soft tissue infection of the chest wall last year for which he was hospitalized and required debridement. PFSH Past Medical History Autoimmune Disease: No Blood Disorders: No Anxiety: No Depression: No Cancer: No Cardiovascular Problems: No Cerebrovascular Accident: No Diabetes: No Diminished Hearing: No Endocrine: No Genitourinary: No Headaches: No Hepatitis: Yes (C) Immune Disorder: No Musculoskeletal: Yes Neurologic: No Psychiatric: No Reproductive: No Respiratory: No Immunizations Current: Yes Migraines: No Seizures: No Thyroid Disease: No Past Surgical History Tonsillectomy: Yes Other Surgery: No Social History Alcohol Use: Yes (1-2 beers a day) Tobacco Use: Yes (1PPD) Substance Use: Yes (methadone) Allergies-Medications (Allergen,Severity, Reaction): Coded Allergies: acetaminophen (Unverified Allergy, Unknown, 02/11/18) *MDRO Multi-Drug Resistant Organism (Unverified Adverse Reaction, Unknown , 02/11/18) MRSA arm wound, 2004. MRSA (blood)-02/08/17 MRSA (chest)-02/12/17 Reported Meds & Prescriptions Reported Meds & Active Scripts Active No Active Prescriptions or Reported Medications Review of Systems Except as stated in HPI: all other systems reviewed are Neg Physical Exam Narrative GENERAL:Well appearing, no acute distress SKIN: Abscess on the left dorsal forearm with clear discharge and 8 x 3 cm of surrounding erythema and some induration HEAD: Atraumatic. Normocephalic. EYES: Pupils equal and round. No injection or drainage. ENT: Moist mucous membranes NECK: Trachea midline. CARDIOVASCULAR: Regular rate and rhythm. No murmur appreciated. RESPIRATORY: Clear to auscultation. Breath sounds equal bilaterally. GASTROINTESTINAL: Abdomen soft, non-tender, nondistended. MUSCULOSKELETAL: No obvious deformities. NEUROLOGICAL: Awake and alert. No obvious cranial nerve deficits. Moving all extremities. PSYCHIATRIC: Appropriate mood and affect; insight and judgment normal. Data Data Last Documented VS Vital Signs Date Time Temp Pulse Resp B/P (MAP) Pulse Ox O2 Delivery O2 Flow Rate FiO2 02/11/18 14:29 97.6 80 16 190/91 (124) 98 MDM Medical Decision Making Medical Screen Exam Complete: Yes Emergency Medical Condition: Yes Interpretation(s) afebrile, no tachycardia, hypertension Differential Diagnosis cellulitis, abscess, necrotizing fascitis Narrative Course This is a 52 year old male who presents to the emergency department with abscess on his forearm. Patient incised it himself yesterday. He is nontoxic appearing and I do not suspect necrotizing fasciitis. I think he can be discharged on oral antibiotic therapy. Diagnosis Primary Impression: Abscess of forearm Patient Instructions: General Instructions Additional Instructions: If you develop fever, increasing redness, warmth, or spreading of your infection , or severe pain return to the emergency department immediately as you may require antibiotics through your IV. Complete your course of antibiotics as prescribed. Med/Other Pt SpecificInfo: Prescription(s) given Scripts Sulfamethoxazole-Trimethoprim (Bactrim DS) 800-160 Mg Tab 1 TAB PO BID for Infection, #20 TAB 0 Refills Prov: Brie Temple MD 02/11/18 Cephalexin (Keflex) 500 Mg Cap 500 MG PO Q12H for Infection for 10 Days, #20 CAP 0 Refills Prov: Brie Temple MD 02/11/18 Disposition: 01 DISCHARGE HOME Condition: Stable Brie Temple MD Feb 11, 2018 15:02
== END 2018-02-11 15:14 | disposition home or self-care (01) ==
LOC: NEPD 14:16
DX: L02.413 Cutaneous abscess of right upper limb (principal); B19.20 Unspecified viral hepatitis C without hepatic coma; F17.200 Nicotine dependence, unspecified, uncomplicated; F11.90 Opioid use, unspecified, uncomplicated
CPT/HCPCS: 99283